=== PATIENT | male | born 1985 | race Caucasian/White ===

== ENCOUNTER 2018-03-13 01:09 | Emergency (ER) | payer SELFPAY ==
[2018-03-13 01:09] VITALS: BP 155/102; PULSE 71; RESP 16; TEMP 36.3; O2SAT 99; BMI 29.9
--- NOTE | 2018-03-13 01:48 | CT_ITS ---
STUDY: CTA OF THE BRAIN REASON FOR EXAM: Male, 32 years old. Headache for one week. RADIATION DOSAGE (If Supplied By Facility): CTDIvol = ( 26.12 ) mGy, DLP = ( 1116.56 ) mGycm TECHNIQUE: CT angiography was performed with a multi-detector CT scanner. Data acquisition was obtained from the skull base through the vertex following intravenous administration of ml of . MIP images were reconstructed from the axial data set. Post-processing of the angiographic images was performed, with multiplanar reformation and 3D reconstruction. Individualized dose optimization techniques were used for this CT. COMPARISON: None. FINDINGS: Normal bilateral petrous carotid arteries. Normal right cavernous carotid artery with a normal supraclinoid bifurcation. Normal left cavernous carotid artery with a normal supraclinoid bifurcation. Normal right A1 segments of the anterior cerebral artery. Normal left A1 segments of the anterior cerebral artery. Normal intact anterior communicating artery (ACOM). Normal bilateral A2 segments of the anterior cerebral arteries. Normal right M1 and M2 segments of the middle cerebral arteries, with a normal M1 bifurcation. Normal left M1 and M2 segments of the middle cerebral arteries, with a normal M1 bifurcation. Faintly visualized right posterior communicating artery (PCOM). Faintly vision left posterior communicating artery (PCOM). There is a small atretic left vertebral artery with a dominant right vertebral artery. Normal basilar artery with a normal basilar bifurcation. The visualized bilateral superior cerebellar (SCA) arteries are normal. There is no demonstrated definite aneurysm of the false pass of Hernandez within the limitation of this examination. There is no demonstrated abnormality of the visualized brain. CT/CTA Head W/WO Contrast IMPRESSION: No demonstrated hemodynamically significant stenosis. Electronically Signed: Que Patel MD at 3:25 EDT Tel , Service support ,
[2018-03-13] MEDS: Metoclopramide 10 MG/2 ML Vial IV (02:13)
[2018-03-13] MEDS: 0.9% Normal Saline 1,000 ML 999 ML IV (02:13)
[2018-03-13 03:24] VITALS: RESP 18
--- NOTE | 2018-03-13 03:40 | ED.VISSUMM ---
- ER Visit Summary Date of Service: 03/13/18 Chief Complaint: Headache History of Present Illness: The patient is a 32 M who presents with a headache. He is very concerned that this may be due to an aneurysm. He complains of constant left-sided headache for about 1 week after sexual intercourse. This was sudden onset. He states it is in the back left side of his head and comes forward to behind his left eye. He reports nausea without vomiting. He reports occasional blurred vision. No photophobia. No fever. No history of similar symptoms. He has a history of disc disease but really no other medical history. Physical Examination: Afebrile vitals notable for blood pressure 155/102 Moist mucous membranes Heart regular rate and rhythm Lungs clear Alert and oriented with no focal or lateralizing neurological deficits normal strength normal sensation no ataxia Neck is supple no meningismus no nuchal rigidity Test Results: CTA of the head was obtained which is normal. Emergency Department Course and Treatment: Patient was given IV Reglan with improvement of symptoms. He has a normal CTA of the head and normal brain. He was reassured that there is no evidence of aneurysm based on imaging. He was advised to follow-up as an outpatient with his primary care physician. He was advised that if symptoms continue may need further workup possibly to include an MRI of the brain and neurology referral. He understands to return for new or worsening symptoms. He states he feels much better. Patient discharged home in good condition. Treatment Plan: [] Disposition: Discharge Impression: Headache This note was generated with [employer] dictation software. It may contain incorrect words, spelling, and punctuation that were not noted in review of the chart prior to signing ED Disposition - Plan for ED Patient: Chief Complaint: Headache Referrals: Castro Zambrano MD [Primary Care Provider] -
--- NOTE | 2018-03-13 03:42 | ED.DEP ---
ED Disposition - Plan for ED Patient: Chief Complaint: Headache Instructions: ED Cephalgia Unspecified Referrals: Castro Zambrano MD [Primary Care Provider] -
[2018-03-13 03:47] VITALS: BP 131/81; PULSE 63; RESP 16; O2SAT 99
== END 2018-03-13 03:48 | disposition home or self-care (01) ==
LOC: ED 01:50
PROVIDERS: Emergency Provider Emergency Medicine; Family Provider Family Medicine; PCP Family Medicine
DX: R51 Headache (principal)
CPT/HCPCS: 70496; 96361; 96374; 99284; J7030; Q9967

== ENCOUNTER 2018-06-26 05:34 | Emergency (ER) | payer SELFPAY ==
[2018-06-26 05:38] VITALS: BP 130/112; PULSE 100; RESP 20; TEMP 36.8; O2SAT 99; BMI 36.6
--- NOTE | 2018-06-26 06:00 | ED.VIS.GEN ---
History of Present Illness Chief Complaint: Back Informant: Patient Onset: Days - 2 Context: Sudden Onset - helping a friend lift a lawnmower Timing: Continuous Quality: pain Location: mid-low back, and off to the left Current Severity: Severe Maximum Severity: Severe Worsened by: movement Relieved by: remaining still Associated Symptoms: no radiation into LEs, no numbness, no bowel or bladder dysfunction Narrative: History of prior back injuries and sciatica, states this is different and worse and he wants to make sure he does not have anything fractured so that it is safe for him to go back to work. He states he has listed heavy things before and has no issues with that, but is afraid may be he tried to lift this heavy lawnmower the wrong way, he admits he was using his back and set of his legs to lift. He has a history of degenerative disks and sciatica and states he is not having any sciatica symptoms. - Past Medical History (1) Sciatica Status: Chronic Past Medical History - Allergies and Home Meds Allergies/Adverse Reactions: Allergies hydrocodone Adverse Reaction (Mild, Verified 06/26/18 05:37) Itching Primary Care Physician: Castro Zambrano MD [Primary Care Provider] - Smoking Status: Never smoker Drugs: None Review of Systems General: Denies: Chills, Fever Gastrointestinal: Denies: Abdominal pain, Nausea, Vomiting Musculoskeletal: Reports: Back pain. Denies: Swelling, Extremity Pain Skin: Denies: Rash, Wounds Neurological: Denies: Headache, Weakness, Parasthesia, Numbness Physical Exam Vital Signs/Narrative: Vital Signs Temp Pulse Resp BP Pulse Ox 06/26/18 05:38 98.2 F 100 20 H 130/112 H 99 Inital Vital Signs reviewed: Yes General: Well nourished, Well developed, - - nad Head: Normocephalic, Atraumatic Eyes: Perrl, EOMI Back: Normal Inspection, Spinal tenderness - lower thoracic midline, and left paraspinal musculature. no lumbosacral midline tenderness.. Negative for: CVA tenderness Extremities: Nontender, No edema, - - negative BLE straight leg raises while sitting. Skin: Normal color, No rash Neurological: Alert, Oriented x3, Cranial nerves II-XII grossly intact, Normal Strength, Normal Sensation, Normal DTR, Normal Gait Psychological: Normal affect Diagnostic/Tx/Re-eval Clinical Impression(s) from Imaging Studies Thoracic Spine X-Ray 06/26/18 06:20 IMPRESSION: Normal x-ray examination of the thoracic spine. Electronically Signed: Luis Miguel Melton MD at 6:43 EDT , Service support , - Medical Decision Making X-rays show no acute fractures. He was given a shot of Toradol which helped some. Consistent with a thoracic strain. Given appropriate discharge instructions and is a prescription for naproxen. He is comfortable with this plan. I offered him light duty, and he is appreciative but declines however, he states he cannot take off work. ED Disposition - Plan for ED Patient: Disposition: Home or Assisted Living Chief Complaint: Back Diagnosis: Acute thoracic myofascial strain Instructions: ED Sprain Thoracic Spine Prescriptions: Naproxen [Naprosyn] 500 mg PO BID PRN #20 tab Referrals: Castro Zambrano MD [Primary Care Provider] - 1 Week if not improving
[2018-06-26] MEDS: Ketorolac 60 MG/2 ML Vial IM (06:03)
--- NOTE | 2018-06-26 06:20 | RAD_ITS ---
STUDY: X-RAY - THORACIC SPINE REASON FOR EXAM: Male, 32 years old. Back pain TECHNIQUE: For view(s) of the thoracic spine were obtained. COMPARISON: None. FINDINGS: Normal kyphosis of the thoracic spine. There is no substantial scoliosis. Normal thoracic vertebrae and endplates. Normal disc space heights. The soft tissue structures are unremarkable. RAD/Thoracic Spine 2 Views IMPRESSION: Normal x-ray examination of the thoracic spine. Electronically Signed: Luis Miguel Melton MD at 6:43 EDT , Service support ,
[2018-06-26 07:04] VITALS: RESP 18
== END 2018-06-26 07:05 | disposition home or self-care (01) ==
PROVIDERS: Emergency Provider Emergency Medicine; Family Provider Family Medicine; PCP Family Medicine
DX: S29.012A Strain of muscle and tendon of back wall of thorax, initial encounter (principal); X50.0XXA Overexertion from strenuous movement or load, initial encounter; Y93.89 Activity, other specified
CPT/HCPCS: 72070; 96372; 99283

== ENCOUNTER 2018-08-06 18:27 | Emergency (ER) | payer SELFPAY ==
[2018-08-06 18:28] VITALS: BP 152/96; PULSE 75; RESP 15; TEMP 35.8; O2SAT 97; BMI 35.9
--- NOTE | 2018-08-06 18:55 | RAD_ITS ---
STUDY: X-RAY - LEFT HAND REASON FOR EXAM: Male, 33 years old. Laceration. TECHNIQUE: 3 view(s) of the hand. COMPARISON: None. FINDINGS: Normal radiocarpal articulation. Normal distal radioulnar joint. Normal visualized carpal bones. Normal carpal articulations Normal carpometacarpal articulation of the thumb. Normal second through fifth carpometacarpal joints. Normal metacarpi. Normal metacarpophalangeal joint of the thumb. Normal interphalangeal joint of the thumb. Normal proximal and distal phalanges of the thumb. Normal metacarpophalangeal joints of the second through fifth fingers. Normal proximal and distal interphalangeal joints of the second through fifth fingers. Normal phalanges of the second through fifth fingers. The soft tissue structures are unremarkable. RAD/Hand Min 3 Views IMPRESSION: Normal x-ray examination of the hand. Electronically Signed: Mars Spence MD at 19:38 EST , Service support ,
--- NOTE | 2018-08-06 19:05 | ED.DCSUM_ITS ---
- ER Visit Summary Date of Service: 08/06/18 Chief Complaint: [] Punched a wooden shelf left hand pain History of Present Illness: The patient is a 33 M [] punched a wooden shelf has left hand pain over his knuckles he has some scattered abrasions as well possibly a small 1 cm laceration over the knuckles no loss of function just pain no other complaints shots are up-to-date Physical Examination: [] 152/92 General, no distress resting comfortably HEENT is generally unremarkable The neck is supple no adenopathy Cardiovascular, regular rate and rhythm Lungs, clear bilateral Abdomen, soft nontender Extremities, there are scattered abrasions to the right hand the hand is otherwise unremarkable full range of motion, the left hand he has some discomfort over the knuckles he is able to flex and extend his fingers neurovascular function is intact, he appears to have abrasions and possibly a very superficial laceration over the knuckle of the fourth digit there is no signs of foreign body and again hand function unremarkable wrist forearm elbow function normal Neurologic, awake alert answering questions appropriately moving all 4 extremities Test Results: [] Emergency Department Course and Treatment: [] The area was copiously irrigated cleansed with soap wound care sterile prep x-rays X-ray shows nothing acute there was one very superficial laceration over the knuckle the patient not wish to have sutures the area was again sterilely prepped and then closed with glue with good results he was instructed on hand injury instructions Naprosyn Motrin [id number] for the pain and a follow- up with his family doctors for further management Treatment Plan: [] Disposition: [] Home stable Impression: [] Left hand contusion with superficial laceration 1 cm closed with glue This note was generated with [employer] dictation software. It may contain incorrect words, spelling, and punctuation that were not noted in review of the chart prior to signing ED Disposition - Plan for ED Patient: Chief Complaint: Upper Extremity Injury Referrals: Castro Zambrano MD [Primary Care Provider] -
[2018-08-06] MEDS: Naproxen 500 MG Tablet PO (19:11)
--- NOTE | 2018-08-06 19:45 | ED.DEP ---
ED Disposition - Plan for ED Patient: Chief Complaint: Upper Extremity Injury Instructions: ED Crush Injury Finger No Fx Referrals: Castro Zambrano MD [Primary Care Provider] -
[2018-08-06 20:13] VITALS: RESP 16
--- NOTE | 2018-08-06 20:14 | ED.RN ---
TELFA AND KERLIX APPLIED TO PT'S HAND. REVIEWED D/C INSTRUCTIONS, FOLLOW UP CARE, AND S/S THAT WOULD WARRANT A RETURN TO THE ED WITH PT. PT VERBALIZED AN UNDERSTANDING AND DENIES FURTHER QUESTIONS FOR THIS RN. PT SKIN P/W/D, RESP EVEN AND UNLABORED, PT A&O X 3, NO DISTRESS NOTED. PT AMBULATED OUT OF ED, GAIT STEADY.
== END 2018-08-06 20:17 | disposition home or self-care (01) ==
PROVIDERS: Emergency Provider Emergency Medicine; Family Provider Family Medicine; PCP Family Medicine
DX: S61.412A Laceration without foreign body of left hand, initial encounter (principal); W22.09XA Striking against other stationary object, initial encounter; Y93.9 Activity, unspecified; Y92.9 Unspecified place or not applicable
CPT/HCPCS: 12001; 73130; 99283

== ENCOUNTER 2018-10-29 00:40 | Emergency (ER) | payer OTHER, SELFPAY ==
[2018-10-29 00:42] VITALS: BP 103/93; PULSE 82; RESP 15; TEMP 36.8; O2SAT 99; BMI 38.0
--- NOTE | 2018-10-29 00:46 | ED.RN ---
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
--- NOTE | 2018-10-29 00:50 | ED.RN ---
PT INITIALLY SAID HE DID NOT WANT TO FILE WORKERS COMP, BUT NOW REPORTS TO THIS RN THAT HE WANTS TO FILE.
--- NOTE | 2018-10-29 00:52 | ED.VIS.GEN ---
History of Present Illness Chief Complaint: Allergic Reaction Informant: Patient Onset: Hours - 1 Context: Gradual Onset - about 20 min after skin exposure on left hand to an industrial soap at work Timing: Continuous Quality: pruritis Location: all over Current Severity: Moderate Maximum Severity: Moderate Worsened by: nothing Relieved by: nothing - took Benadryl 50mg JPTA Associated Symptoms: rash, otherwise none. no sob or lightheadedness. Narrative: Work related exposure. States he was wearing gloves but a small piece of his skin on his left hand was exposed and some soap splashed on it. Within 15 or 20 minutes he was starting to itch there and then it progressed to all over. He has no other systemic symptoms. Prior similar symptoms: Yes - other skin exposures Recent Illness/Hospitalization: No - Past Medical History (1) DDD (degenerative disc disease), lumbar Status: Chronic Past Medical History - Allergies and Home Meds Allergies/Adverse Reactions: Allergies hydrocodone Adverse Reaction (Mild, Verified 10/29/18 00:41) Itching Primary Care Physician: Castro Zambrano MD [Primary Care Provider] - Smoking Status: Never smoker Review of Systems General: Denies: Chills, Fever Eyes: Denies: Visual changes - bilaterally, Diplopia Cardiovascular: Denies: Chest pain, Heart racing Respiratory: Denies: Dyspnea, Cough Gastrointestinal: Denies: Nausea, Vomiting Musculoskeletal: Denies: Swelling, Extremity Pain Skin: Reports: Rash. Denies: Abrasions Physical Exam Vital Signs/Narrative: Vital Signs Temp Pulse Resp BP Pulse Ox 10/29/18 00:42 98.2 F 82 15 103/93 H 99 Inital Vital Signs reviewed: Yes General: Well nourished, Well developed, No Acute Distress Head: Normocephalic, Atraumatic Eyes: Perrl, EOMI Neck: Supple, Nontender Respiratory: No distress, CTA bilaterally Extremities: Nontender, No edema Skin: Normal color, Rash - mild erythema, patchy, back and right lateral proximal arm. no other rashes. Neurological: Alert, Oriented x3, Cranial nerves II-XII grossly intact, Normal Strength, Normal Sensation Psychological: Normal affect, Normal Mood Diagnostic/Tx/Re-eval - Medical Decision Making No signs of anaphylaxis. Patient given prednisone and Pepcid and discharged with a prescription for 2 more days of prednisone, the identification and the MSDS of the substance is not available at this time and it seems the patient has had a quick reaction, so it is possible he will need a couple more days of prednisone. He states Benadryl typically makes him very sleepy so he will not be able to safely work the rest of his shift. ED Disposition - Plan for ED Patient: Disposition: Home or Assisted Living Diagnosis: Allergic reaction to chemical substance Instructions: ED Allergic Reaction General Other Prescriptions: Prednisone 20 mg PO QHS #4 tab Referrals: Castro Zambrano MD [Primary Care Provider] - [facility] [facility] [GROUP OF PHYSICIANS] - (by end of the week -- call for appt; return to ER if short of breath)
[2018-10-29] MEDS: Famotidine 20 MG Tablet 40 MG PO (00:56)
[2018-10-29] MEDS: predniSONE 20 MG Tablet 40 MG PO (00:56)
[2018-10-29] MEDS: DiphenhydrAMINE 25 MG Capsule 50 MG PO (01:21)
== END 2018-10-29 01:34 | disposition home or self-care (01) ==
PROVIDERS: Emergency Provider Emergency Medicine; Family Provider Family Medicine; PCP Family Medicine
DX: T78.49XA Other allergy, initial encounter (principal); X58.XXXA Exposure to other specified factors, initial encounter; Y99.0 Civilian activity done for income or pay
CPT/HCPCS: 99283

== ENCOUNTER → 2019-08-02 10:14 | Outpatient (CLI) | payer OTHER, SELFPAY ==
--- NOTE | 2019-08-02 10:22 | MRI_ITS ---
STUDY: MRI RIGHT SHOULDER ARTHROGRAM REASON FOR EXAM: Male, 34 years old. Right shoulder impingement. TECHNIQUE: Standardized fat and water weighted pulse sequences were obtained in all 3 orthogonal planes following the intra-articular administration of dilute Dotarem in the department. COMPARISON: None. FINDINGS: Contrast is injected into the subdeltoid bursa. No significant intra-articular contrast. The joint is not distended. There is patient motion on several pulse sequences. Trace signal abnormality in the distal supraspinatus tendon suggests tendinosis. There is no high-grade tear. Infraspinatus, subscapularis, and teres minor tendons are intact with no evidence of tear. Proximal muscles of the rotator cuff are unremarkable. Marrow signal is normal. No demonstrated fracture, bone contusion, or osteonecrosis. Long head of the biceps tendon is intact. Biceps-labral anchor is unremarkable. No demonstrated labral abnormality. Normal acromioclavicular articulation. There is a Type I morphology (flat undersurface), with a neutral orientation. Normal visualized coracohumeral and coracoacromial ligaments. MRI/Upper Ext Jt Only W/Contrast IMPRESSION: 1. This study is limited by injection into the subdeltoid bursa and absence of contrast in the joint space. 2. Supraspinatus tendinosis or low-grade partial tear. Otherwise negative study. Electronically Signed: Airam Mccall MD at 23:52 EST Tel , Service support ,
--- NOTE | 2019-08-02 10:28 | RAD_ITS ---
CLINICAL HISTORY: Male, 34 years old. Chronic right shoulder pain. PROCEDURE: ARTHROGRAM - RIGHT SHOULDER. CONSENT: The procedure as well as the benefits and possible complications including infection and bleeding were explained to the patient. Informed consent was obtained. FLUOROSCOPY TIME (if supplied): (20 seconds) minutes/seconds Injection Information: 10 cc of dilute MRI contrast. Number of images obtained: 4 TECHNIQUE: (All elements of maximal sterile barrier technique followed, including US elements as applicable) The patient was in the supine position. The overlying skin was prepped and draped in the usual sterile fashion. Following local anesthetic application and under direct fluoroscopic guidance, a 22-gauge spinal needle was placed into the shoulder joint. 2 cc of Isovue 300 was injected for confirmation. Following this, 10 cc of dilute contrast was injected. The patient tolerated the procedure well. RAD/Arthrogram Shoulder w/ MRI IMPRESSION: Successful right shoulder arthrogram for MRI examination. The patient tolerated the procedure well. Electronically Signed: Zoltan Caruso, at 12:41 EST , Service support ,
== END ==
PROVIDERS: Family Provider Family Medicine; PCP Family Medicine; Referring Provider Physician Assistant; Visit Provider Physician Assistant
DX: M75.41 Impingement syndrome of right shoulder (principal)
CPT/HCPCS: 23350; 73222; 77002; A9575; Q9967

== ENCOUNTER → 2019-09-29 13:11 | Outpatient (CLI) | payer MEDICAID, SELFPAY ==
--- NOTE | 2019-09-29 13:24 | MRI_ITS ---
HISTORY: Increasing pain since foot injury 7 years ago. Technique: Sagittal T1-T2 and STIR axial T1 and T2-weighted images were obtained through the lumbar spine. 124 images. Comparison imaging x-rays of the lumbar spine from October 09, 2015. Findings: Bony alignment is normal. Vertebral body height is normal. Marrow signal is normal. Disc height and disc desiccation are present at the L4-L5 and L5-S1 levels. Facets are adequately aligned. The conus medullaris is at that T12 level. A retroaortic left renal vein is present, normal anatomic variant. Visualized portions of the abdominal aorta without aneurysm. Prevertebral and paraspinal soft tissues are normal. The L1-L2, and L2-L3 levels are normal. At the L3-L4 level facet arthropathy ligamental thickening and a disc bulge are present. On the left side the bulging disc abuts adjacent to the exiting left L4 nerve displacing it, but without impingement. At the L4-L5 level facet arthropathy, ligamentum thickening, and disc bulge are present. No neural impingement is perceived. At the L5-S1 level there is a small enthesophyte extending off the posterior inferior aspect of the L5 vertebral body centrally into the spinal canal contributing to left-sided neural foraminal stenosis, without impingement of the S1 nerve. MRI/Spine Lumbar (Routine) IMPRESSION: Degenerative disc disease at the L4-L5 and L5-S1 levels. Some facet arthropathy, ligamentum thickening contributing to mild spinal canal stenosis at the L3-L4, L4-L5, and L5-S1 levels. Facet arthropathy, ligamentum thickening, and lateral disc bulges contribute to some neural foraminal stenosis within the lower lumbar spine, without identified neural impingement. at 2107 Reported and signed by: Brooks Rosa MD Electronically Signed: Brooks Rosa MD at 21:06 EST Tel , Service support ,
== END ==
PROVIDERS: PCP Family Medicine; Referring Provider Physician Assistant; Visit Provider Physician Assistant
DX: M51.36 Other intervertebral disc degeneration, lumbar region (principal)
CPT/HCPCS: 72148

== ENCOUNTER 2019-10-22 08:49 | Emergency (ER) | payer MEDICAID, SELFPAY ==
[2019-10-22 08:49] VITALS: BP 134/63; PULSE 94; RESP 20; TEMP 36.7; O2SAT 100; BMI 38.6
--- NOTE | 2019-10-22 09:00 | RAD_ITS ---
STUDY: X-RAY CHEST REASON FOR EXAM: Male, 34 years old. CP X 1 WK. FAM HX STEMI TECHNIQUE: Single AP portable view of the chest. COMPARISON: Comparison is made with prior study dated March 14, 2015. FINDINGS: EKG electrodes are seen. The lungs are clear and expanded. There is no demonstrated pleural abnormality. Normal size heart. Normal mediastinum and jose juan. Normal visualized pulmonary arteries. Normal visualized aortic arch and descending thoracic aorta. Normal visualized thoracic spine. Normal visualized ribs, clavicles, and shoulders. There is no demonstrated abnormality of the visualized soft tissue structures of the upper abdomen. RAD/Chest 1 View (Portable) IMPRESSION: Normal x-ray examination of the chest. Electronically Signed: Zoltan Caruso, at 9:55 EST , Service support ,
--- NOTE | 2019-10-22 09:00 | EKG12_ITS ---
Test Reason : CP Blood Pressure : / mmHG Vent. Rate : 087 BPM Atrial Rate : 087 BPM P-R Int : 128 ms QRS Dur : 086 ms QT Int : 348 ms P-R-T Axes : 041 087 059 degrees QTc Int : 418 ms Normal sinus rhythm Normal ECG Confirmed by MARTINA VALLEJO, KEYANA ([id number]), slot editor MARTHA ODOM ([id number]) on 10/25/2019 2:23:39 PM Referred By: NITISH Confirmed By:KEENA MACK MD
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
[2019-10-22 09:16] LABS: Absolute Lymphocyte Count 3.44 X10^3/uL (0.83-4.51); Absolute Neutrophil Count 5.2 X10^3/uL (2.0-7.7); Basophil# 0.02 X10^3/uL; Basophil% 0.2 % (0-1); Eosinophil# 0.07 X10^3/uL; Eosinophils% 0.7 % (0-5); Hematocrit 46.1 % (40-54); Lymphocyte # 3.44 X10^3/ul (4.0); Lymphocyte % 36.4 % (19-41); Mean Corp Hgb Conc 34.7 g/dL (32-36); Mean Corpuscular Hgb 29.8 pg (27.0-32.0); Mean Corpuscular Volume 85.8 fL (80-94); Mean Platelet Vol. 9.8 fl (6.2-12.0); Monocyte# 0.69 X10^3/uL; Monocyte% 7.3 % (0-10); NRBC Flagged by Analyzer 0 % (0-5); Neutrophil % 55.1 % (47-70); Platelet Count 274 K/mm3 (150-450); RBC Distribution Width CV 12.1 % (11.6-14.6); RBC Distribution Width SD 37.7 fl (35.1-43.9); Red Blood Count 5.37 M/mm3 (4.6-6.2); White Blood Count 9.5 K/mm3 (4.4-11.0)
[2019-10-22 09:18] VITALS: BP 157/98; PULSE 76; RESP 18; O2SAT 98
[2019-10-22] MEDS: LORazepam 2 MG/ML Syringe 1 MG IV (09:18)
[2019-10-22 09:32] LABS: Anion Gap 6 (5-15); BUN 11 mg/dL (7-18); BUN/Creat Ratio 8.8 RATIO (10-20); Calcium,Total 9.6 mg/dL (8.5-10.1); Chloride 109 mmol/L (98-107); Creatinine, Serum 1.25 mg/dL (0.70-1.30); EST Glomerular Filtration Rate 71 mL/min (>60); Est Glom Filt Rate - Afr Amer 85 mL/min (>60); Estimated Creatinine Clearance 92.26 ml/min; Glucose 106 mg/dL (74-106); Sodium Level 141 mmol/L (136-145)
[2019-10-22 10:07] VITALS: BP 134/75; PULSE 86; RESP 20; O2SAT 98
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
[2019-10-22 12:06] VITALS: BP 146/74; PULSE 82; RESP 20; O2SAT 98
== END 2019-10-22 12:08 | disposition home or self-care (01) ==
PROVIDERS: Emergency Provider Emergency Medicine; PCP Family Medicine
DX: R07.9 Chest pain, unspecified (principal); F41.9 Anxiety disorder, unspecified
CPT/HCPCS: 71045; 80048; 84484; 85025; 93005; 96374; 99284; A4216

== ENCOUNTER 2019-11-02 10:22 | Observation (INO) | payer MEDICAID, SELFPAY ==
[2019-11-02 10:23] VITALS: BP 141/93; PULSE 95; RESP 16; TEMP 36.7; O2SAT 98; BMI 38.0
--- NOTE | 2019-11-02 11:21 | ED.DCSUM_ITS ---
History of Present Illness Chief Complaint: Back Detail of Chief Complaint: Back pain bending over this morning Informant: Patient Onset: Today Context: Sudden Onset Injury: Bending Quality: Dull, Aching Location: Lumbar, Buttock, Left Leg Current Severity: Moderate Maximum Severity: Severe Worsened by: improves with: Movement, Ambulation Relieved by: Nothing Associated Symptoms: Radiation to Left Leg, - - Patient denies bowel bladder dysfunction. He denies saddle paresthesia or anesthesia. He denied his knees buckling going down 1 or 2 steps to exit his house. He denies symptoms of claudication. Pain radiates to his right buttocks and anterior lateral left thigh Narrative: 4-year-old male who states he has herniated disc. He had an MRI performed end of September. He denies fever, chills night sweats. He denies trauma. He denies IV drug use. He is not on any immunosuppressive meds. Prior similar symptoms: Yes Recent Illness/Hospitalization: No - Past Medical History (1) DDD (degenerative disc disease), lumbar Status: Chronic (2) Sciatica Status: Chronic Past Medical History - Allergies and Home Meds Allergies/Adverse Reactions: Allergies hydrocodone Adverse Reaction (Mild, Verified 11/02/19 10:23) Itching Primary Care Physician: Castro Zambrano MD [Primary Care Provider] - Prior records reviewed: Yes - Viewed MRI which reveals degenerative disc disease, herniated disc multiple Lives: Alone Smoking Status: Never smoker Alcohol: None Drugs: None Review of Systems General: Denies: Chills, Fever, Sweats Eyes: Denies: Visual changes - bilaterally, Blurred Vision - bilaterally ENT: Denies: Rhinorrhea, Sore throat Cardiovascular: Denies: Chest pain, Palpitations Respiratory: Denies: Dyspnea, Cough, Dyspnea on exertion Gastrointestinal: Denies: Abdominal pain, Nausea, Vomiting, Diarrhea, Melena, Hematochezia Genitourinary: Denies: Dysuria, Hematuria, Frequency Musculoskeletal: Reports: Back pain, Extremity Pain. Denies: Myalgias, Arthralgias, Neck pain, Swelling Skin: Denies: Rash, Wounds Neurological: Denies: Headache, Weakness, Parasthesia, Numbness Endocrine: Denies: Polyuria, Polydipsia Hematologic: Denies: Easy bruising, Easy bleeding Physical Exam Vital Signs/Narrative: Vital Signs Temp Pulse Resp BP Pulse Ox 11/02/19 10:23 98.1 F 95 16 141/93 H 98 Inital Vital Signs reviewed: Yes General: Well nourished, Well developed, Cachectic Head: Normocephalic, Atraumatic. Negative for: Trauma, Tenderness Eyes: Negative for: Perrl, EOMI, Pale conjunctiva, Scleral icterus ENT: Negative for: Moist mucous membranes, No rhinorrhea Neck: Supple, Nontender Cardiovascular: Regular rate, Regular rhythm, No murmurs, Normal S1, Normal S2 Respiratory: No distress, CTA bilaterally Abdomen: Soft, Nontender, Nondistended, Normal bowel sounds Rectal: - - Normal perianal sensation. Back: Normal Inspection, Negative SLR - Left. Negative for: Nontender, Surgical Scar, Well-Healed, Spinal tenderness, Paraspinal Tenderness, CVA tenderness, Positive SLR - Right, Positive SLR - Left Extremeties: Nontender, No edema Skin: Normal color, No rash. Negative for: Cyanosis, Diaphoresis, Jaundice, No Trauma Neuro: Alert, Oriented, Normal Strength, Normal Sensation, Normal DTR - Decreased patellar reflex on the left compared to the right. Ankle reflexes symmetric. Reflexes: Right Patellar, Right Achilles, Left Patellar - Patella reflexes present but diminished compared to the right, Left Achilles. Negative for: Right Clonus, Right Babinski, Left Clonus, Left Babinski Psychological: Normal affect Diagnostic/Tx/Re-eval - Medical Decision Making Exam is limited unable to perform femoral stretch test. Will medicate patient and reexamine. Concerned his symptoms are related to impingement of L4 nerve root especially since there is a decreased left patellar reflex compared to the right. Patient initially reported improvement. Femoral stretch test is negative. He is in obvious discomfort. 1 mg of Dilaudid was ordered. He does not have findings to suggest cauda equina. Since he had a recent MRI concern his pain is related to his L3-4 herniated disc. This would explain his decreased left patellar reflex compared to the right. This would not explain the pain rad iating posteriorly. Patient has received a second dose of Dilaudid. His pain is decreased from a 9- 7. He still appears in significant discomfort. He does not have acute neurologic findings other than a decreased patellar reflex which would not necessitate emergent surgery. Hospitalist was paged for admission for pain management. ED Disposition - Plan for ED Patient: Disposition: Home or Assisted Living Diagnosis: Lumbosacral radiculopathy at L4 Referrals: Castro Zambrano MD [Primary Care Provider] -
[2019-11-02] MEDS: Ondansetron 4 MG/2 ML Vial IV ×2 (11:40→13:53)
[2019-11-02] MEDS: morphine 8 MG/ML Syringe IV (11:40)
[2019-11-02] MEDS: Ketorolac 15 MG/ML Vial IV (11:40)
[2019-11-02] MEDS: HYDROmorphone 1 MG/ML Syringe IV ×2 (13:53→14:22)
[2019-11-02 13:55] VITALS: BP 108/88; PULSE 64; RESP 16; O2SAT 98
--- NOTE | 2019-11-02 14:16 | ED.RN ---
pt girlfriend called per his request. she was informed that he was in ed and given medication to help his pain. if the pain didn't improve that he may need admitted for pain control. hans cosme rn [id number]
[2019-11-02 15:18] VITALS: PULSE 76; RESP 14; O2SAT 96
[2019-11-02 15:30] VITALS: BMI 38.0
[2019-11-02] MEDS: proCHLORPERazine 10 MG/2 ML Vial 5 MG IV (16:06)
[2019-11-02 16:55] VITALS: BMI 37.9
[2019-11-02 16:59] VITALS: BP 110/58; PULSE 63; RESP 16; TEMP 36.6; O2SAT 98
[2019-11-02] MEDS: Acetaminophen 325 MG Tablet 650 MG PO (17:37)
--- NOTE | 2019-11-02 17:39 | HP.PCM_ITS ---
History of Present Illness Date of Admission: 11/02/19 Chief Complaint: Intractable back pain The patient is a 34 year old M with no significant past medical history presents with intractable back pain. He says that he started having back pain about 7 years ago after he had a right foot injury and started favoring his left side which caused worsening back pain. He states today he bent over and had significant back pain on his left lower back that was paraspinal. He states that he had an MRI at the end of September which showed a disc bulge at L3-L4, L4- L5, with mild spinal canal stenosis. He states that he was just recently seeing pain management and was given the option between surgery and injections and he picked injections however he has not had a chance to get his first 1 yet. He does not take any medications for this, he saves naproxen for when he absolutely needs it. He has not had any loss of bowel or bladder function, and he continues to have sensation in his lower extremities. In the ER a straight leg raise was positive with radiation down his left leg. Past Medical History Past Medical History (Chronic Problems): Chronic Problems Sciatica (Chronic) DDD (degenerative disc disease), lumbar (Chronic) Allergies hydrocodone Adverse Reaction (Mild, Verified 11/02/19 16:56) Itching/anxiety Home Medications: Ambulatory Orders Medication Instructions Recorded Naproxen [Naprosyn] 500 mg PO BID PRN 11/02/19 Surgical History: total knee arthroplasty, tonsillectomy Lives: Alone Smoking Status: Never smoker Tobacco Use: Non-smoker Alcohol: None Drugs: None - *Family History Maternal History Items: - - Rheumatoid arthritis Paternal History Items: Heart Disease Review of Systems Constitutional: Denies: Chills, Fever, Weight Change HEENT: Denies: Head Aches, Sinus Congestion, Sinus Drainage Cardiovascular: Denies: Chest Pain, Palpitations Respiratory: Denies: Cough, Shortness of breath at rest, Sputum production Gastrointestinal: Denies: Abdominal Pain, Nausea, Vomiting Genitourinary: Denies: Dysuria Musculoskeletal: Reports: Back Pain. Denies: Joint Pain, Joint Tenderness Skin: Denies: Rash, Wounds Neurological: Denies: Numbness, Tingling, Focal weakness Psychiatric: Denies: Anxiety, Depression Hematologic/ Lymphatic: Denies: Easy Bruising, Easy Bleeding VTE Information - Inpt Only VTE Present on Admission: No Patient Problems: Active and Suspected Problems Lumbosacral radiculopathy at L4 (Acute) - Physical Exam Vitals/I&O's: Vital Signs Temp Pulse Resp BP Pulse Ox 97.9 F 63 16 110/58 L 98 11/02/19 16:59 11/02/19 16:59 11/02/19 16:59 11/02/19 16:59 11/02/19 16:59 Oxygen Delivery Method Room Air Weight: 279 lb 15.793 oz Body Mass Index (BMI) 37.9 General: Alert, Oriented x3, Cooperative, - - In pain HEENT: Atraumatic, PERRLA, EOMI, Normocephalic Oral: Moist Mucosa Neck: Supple, No JVD Lungs: Clear to auscultation, Normal air movement, No rhonchi, No wheeze, No rales Cardiovascular: Regular rate, Regular Rhythm, Normal S1, Normal S2, No murmurs Abdomen: Soft, Non Tender, Non-Distended, No Hepato-splenomegaly, Obese Extremities: No edema, Capillary Refill Less than 3 Seconds Skin: No rashes, No breakdown Musculoskeletal: Tenderness - Left paraspinal muscle Neurological: Neuro grossly intact, Sensory exam intact to light touch and pain Psych/Mental Status: Restless - From pain Current Medications Acetaminophen (Tylenol) 650 mg PO Q6H PRN PRN PRN Reason: Pain Score 1-10/Temp > 100.7 F Last Admin: 11/02/19 17:37 Dose: 650 mg Documented by: Prednisone () 40 mg PO DAILY@0800 FLORA Sodium Chloride () 10 - 40 ml IV UD PRN PRN Reason: SALINE FLUSH Assessment/Plan All Active Problems Lumbosacral radiculopathy at L4 (Acute) 1. Left lower back pain -Likely secondary to a disc bulge on his previous MRI about a month ago -We will start him on prednisone daily as well as PT/OT -We will consult pain management to evaluate him and potentially do the injection in the hospital -No red flag symptoms to indicate cauda equina and therefore given how recent his MRI was will not repeat 1 2. Morbid obesity -BMI of 37 -Mona lifestyle modifications DVT: Low risk Code Visit OBSV E&M: 92837 Initial observation care L2
[2019-11-02 17:41] VITALS: BP 140/85; PULSE 58; RESP 16; TEMP 36.6; O2SAT 97
[2019-11-02] MEDS: predniSONE 20 MG Tablet 40 MG PO (20:43)
[2019-11-02 20:46] VITALS: BP 122/81; PULSE 65; RESP 16; TEMP 36.6; O2SAT 97
[2019-11-03] MEDS: 0.9% Saline Lock 10 ML Syringe IV ×2 (02:41→10:28)
[2019-11-03] MEDS: Acetaminophen 325 MG Tablet 650 MG PO (02:41)
[2019-11-03 02:46] VITALS: BP 126/81; PULSE 56; RESP 16; TEMP 36.6; O2SAT 97
--- NOTE | 2019-11-03 07:44 | PCM.PN.HOSP ---
Patient Problems: Active and Suspected Problems Lumbosacral radiculopathy at L4 (Acute) Reason for Visit: Follow-up on back pain Subjective: Patient was seen and examined. Vitals/I&O's: Vital Signs Temp Pulse Resp BP Pulse Ox 97.9 F 56 L 16 126/81 H 97 11/03/19 02:46 11/03/19 02:46 11/03/19 02:46 11/03/19 02:46 11/03/19 02:46 Oxygen Delivery Method Room Air Weight: 127 kg Body Mass Index (BMI) 37.9 Intake and Output for Last 24 Hours 11/01/19 11/02/19 11/03/19 23:59 23:59 23:59 Intake Total 120 / 320 600 / 600 Balance 120 / 320 600 / 600 Current Medications Acetaminophen (Tylenol) 650 mg PO Q6H PRN PRN PRN Reason: Pain Score 1-10/Temp > 100.7 F Last Admin: 11/03/19 02:41 Dose: 650 mg Documented by: Ondansetron HCl (Zofran) 4 mg IV Q6H PRN PRN PRN Reason: NAUSEA/VOMITING Prednisone () 40 mg PO DAILY@0800 FLORA Sodium Chloride () 10 - 40 ml IV UD PRN PRN Reason: SALINE FLUSH Last Admin: 11/03/19 02:41 Dose: 10 ml Documented by: Medical Necessity - Tobacco Use Smoking Status: Never smoker Tobacco Use: Non-smoker Assessment/Plan All Active Problems Lumbosacral radiculopathy at L4 (Acute) Code Visit Inpatient E&M: 73993 Subs Hosp L2
[2019-11-03] MEDS: predniSONE 20 MG Tablet 40 MG PO (08:23)
[2019-11-03 08:26] VITALS: BP 140/77; PULSE 63; RESP 18; TEMP 35.9; O2SAT 98
--- NOTE | 2019-11-03 09:28 | NURSING ---
This RN entered pt room this AM to assess pt. Patient angry and states, why aren't they giving me anything for my pain? I could be at home and take these meds. Pt notified that shift stacker reported that patient was sleeping well and doctor notified nurse to let him know if tylenol was not enough when needed early this AM. Per shift stacker report- pt slept all night and then after tylenol- all morning. Pt notified of this and states that he was able to sleep all night. Pt reports that he was given morphine and dilaudid in ER and that they didn't knock him out and the pain was still there. Asked pt how long he has had back pain and he states 7yrs but that he just cries himself to sleep and suffers through. This RN asked pt what he has used in past that has been helpful- pt reports that percocet has been helpful in the past. But then states that he doesn't like to take those kinds of drugs and would rather just suffer through. This RN then asked him- why he is upset if he doesn't want narcotics. Pt reports that he will take it at this time. According to records appears pt has been prescribed percocet in the past from the ER on a few different occasions. This RN asked pt if he has had back pain for 7 yrs who his back specialist is- he states that is his fault and he doesn't have one- he states he just has been suffering through. When asked why he has back pain he reports that he has a large sore on the bottom of his left foot and that it alters the way he walks. This RN observed bottom of foot and noted dry cracked skin around left heel- no draining and no dressing. Asked pt if he has been putting any creams on this area or soaking it- pt reports that he has not. He states that in the last 3 months he has started adulting. He states he had his first dentist appt in years a few weeks ago and is trying to start taking care of things. This RN asked pt when his injection is scheduled for and pt states he doesn't have anything set up and that is his fault as well. Notified by This RN spoke with Dr. Medina and notified her of all of the above. New orders given for toradol and PT/OT. Pt to be notified and given meds when available.
[2019-11-03] MEDS: Acetaminophen 500 MG Tablet 1000 MG PO (10:27)
[2019-11-03] MEDS: Ketorolac 30 MG/ML Syringe IV (10:29)
--- NOTE | 2019-11-03 10:38 | NURSING ---
Pt told this RN that, child support is trying to throw me in skilled nursing and so that is why I went to work and didn't even make it through the day. This always happens.
--- NOTE | 2019-11-03 10:52 | DCINST_ITS ---
- Discharge Diagnoses Current Active Problems: Current Active and Chronic Problems Lumbosacral radiculopathy at L4 (Acute) Reason(s) for Visit for Discharge Instructions: Back pain You will use the following diet at home:: Regular Your food should be the consistency of: Regular Your liquids should be the consistency of: Regular/Thin Discharge Activity: Return to Normal Activity Weight Bearing Status: Weight bearing as tolerated Instructions: Relieving Back Pain, Back Exercises: Bridge Additional Instructions: Continue to take your prednisone. Follow-up with Dr. Luke as scheduled. Allergies/Adverse Reactions: Allergies hydrocodone Adverse Reaction (Mild, Verified 11/02/19 16:56) Itching/anxiety Medications to take at Discharge Naproxen [Naprosyn] 500 mg PO BID PRN 11/02/19 Acetaminophen [Tylenol] 1,000 mg PO TID tablet 11/03/19 predniSONE tablet 40 mg PO DAILY@0800 #5 tab 11/03/19 The following prescriptions were given: predniSONE tablet 40 mg PO DAILY@0800 #5 tab Transmission Status: Pending to [facility] Primary Care Physician: Castro Zambrano MD [Primary Care Provider] - Please follow up with your Primary Care Physician in: within 1-2 weeks Test Results: Test results from this visit will be discussed in further detail at your follow- up appointment, if applicable. Please Follow Up With: Manuel Luke When: as scheduled Proposed Discharge Date: 11/03/19
--- NOTE | 2019-11-03 10:54 | DS.PCM_ITS ---
Discharge Date and Diagnosis - Problem List Patient Problems: Active and Suspected Problems Lumbosacral radiculopathy at L4 (Acute) Date of Admission: 11/02/19 Date of Discharge: 11/03/19 - Primary Discharge Diagnosis Active and Suspected Problems Acute back pain, likely secondaryto acute Lumbosacral radiculopathy at L3-L4 - Secondary Discharge Diagnosis Chronic Problems Sciatica (Chronic) DDD (degenerative disc disease), lumbar (Chronic) Hospital Course and Treatment None Operations: None Procedures: None Summary of Care Provided: The patient is a 34 year old M with past medical history of chronic back pain who recently had an MRI of the low back which showed degenerative disease at level of L4-L5, L5-S1 with some facet arthropathy, ligamentum thickening, mild spinal canal stenosis. Patient follows with Dr. Luke in the outpatient. He had establish care about a week ago and he was given the option of injection versus surgery. He opted to think about it. He came to the emergency department worsening back pain. He was admitted to the [facility] floor and managed on oral steroids as well as NSAIDS. Patient continued to improve. He did not have any loss of bowel or bladder function. He was seen by PT and OT. A cane was recommended for ambulation. Patient was recommended to follow-up with Dr. Luke in the outpatient for lumbar epidural injection. Patient Problems: Active and Suspected Problems Lumbosacral radiculopathy at L4 (Acute) Subjective: On the day of discharge, patient was seen and examined. He is able to ambulate. He was seen walking around the nurses station and also to the bathroom. He was also seen by physical outpatient therapy. Denied any tingling or numbness in lower extremities. - Physical Exam Vitals/I&O's: Vital Signs Temp Pulse Resp BP Pulse Ox 96.7 F L 63 18 140/77 H 98 11/03/19 08:26 11/03/19 08:26 11/03/19 08:26 11/03/19 08:26 11/03/19 08:26 Oxygen Delivery Method Room Air Weight: 127 kg Body Mass Index (BMI) 37.9 Intake and Output for Last 24 Hours 11/01/19 11/02/19 11/03/19 23:59 23:59 23:59 Intake Total 120 / 320 600 / 600 Balance 120 / 320 600 / 600 General: Alert, Oriented x3, Cooperative, No apparent distress HEENT: Atraumatic, PERRLA, EOMI, Normocephalic Oral: Moist Mucosa Neck: Supple Lungs: Clear to auscultation, Normal air movement Cardiovascular: Regular rate, Regular Rhythm, Normal S1, Normal S2, No murmurs Abdomen: Bowel Sounds Present, Soft, Non Tender, Non-Distended, No Hepato- splenomegaly Extremities: No edema Skin: No rashes, No breakdown Musculoskeletal: No Tenderness to Palpation of Joints or Extremities Lymphatic: No Cervical, Supraclavicular, or Inguinal Adenopathy Neurological: Cranial nerves II-XII grossly intact, Neuro grossly intact Psych/Mental Status: Normal Affect, Appropriate Current Medications Acetaminophen (Tylenol) 1,000 mg PO TID [facility] Last Admin: 11/03/19 10:27 Dose: 1,000 mg Documented by: Ketorolac Tromethamine (Toradol (Bkc)) 30 mg IV Q6 FLORA Stop: 11/08/19 10:01 Last Admin: 11/03/19 10:29 Dose: 30 mg Documented by: Ondansetron HCl (Zofran) 4 mg IV Q6H PRN PRN PRN Reason: NAUSEA/VOMITING Prednisone () 40 mg PO DAILY@0800 [facility] Last Admin: 11/03/19 08:23 Dose: 40 mg Documented by: Sodium Chloride () 10 - 40 ml IV UD PRN PRN Reason: SALINE FLUSH Last Admin: 11/03/19 10:28 Dose: 10 ml Documented by: Discharge Diet: No Restrictions Discharge Activity: Return to Normal Activity Weight Bearing Status: Weight bearing as tolerated Home Medications: Medications to take at Discharge Naproxen [Naprosyn] 500 mg PO BID PRN 11/02/19 Acetaminophen [Tylenol] 1,000 mg PO TID tab 11/03/19 predniSONE tablet 40 mg PO DAILY@0800 #5 tab 11/03/19 Following Prescrptions Were Given to Patient: predniSONE tablet 40 mg PO DAILY@0800 #5 tab Transmission Status: Received by JAROD MALDONADO-[address] [facility] Primary Care Physician: Castro Zambrano MD [Primary Care Provider] - Please follow up with your Primary Care Physician in: within 1-2 weeks Please Follow Up With: Manuel Luke When: as scheduled Patient Instructions: Relieving Back Pain, Back Exercises: Bridge Disposition: Home Minutes spent on discharge:: 35 Patient Condition:: Stable Medical Necessity - Tobacco Use Smoking Status: Never smoker Tobacco Use: Non-smoker Meaningful Use Info Meaningful Use Diagnoses (Choose all that apply): None applicable Code Visit OBSV E&M: 10578 Observation care discharge
[2019-11-03 13:22] VITALS: BP 153/78; PULSE 73; RESP 16; TEMP 36.7; O2SAT 98
== END 2019-11-03 14:32 | disposition home or self-care (01) ==
LOC: ED 15:36 → MS3 15:46
PROVIDERS: Admitting Provider Family Medicine; Emergency Provider Emergency Medicine; PCP Family Medicine; Visit Provider Internal Medicine
DX: G89.29 Other chronic pain (principal); M54.17 Radiculopathy, lumbosacral region; M51.36 Other intervertebral disc degeneration, lumbar region; M06.9 Rheumatoid arthritis, unspecified; E66.01 Morbid (severe) obesity due to excess calories; Z68.37 Body mass index [BMI] 37.0-37.9, adult; Z71.3 Dietary counseling and surveillance
CPT/HCPCS: 96374; 96375; 96376; 97162; 97166; 99218; 99284; A4216; G0378; J2405

== ENCOUNTER → 2019-11-08 06:28 | Outpatient (CLI) | payer MEDICAID, SELFPAY ==
[2019-10-22 08:49] VITALS: BMI 38.6
[2019-11-02 16:55] VITALS: BMI 37.9
--- NOTE | 2019-11-08 06:35 | MRI_ITS ---
STUDY: MRI RIGHT SHOULDER REASON FOR EXAM: Male, 34 years old. impingement syndrome rt shoulder, limited r.o.m; increased pain since fall 1 month ago TECHNIQUE: Standardized fat and water weighted pulse sequences were obtained in all 3 orthogonal planes. COMPARISON: 08/02/2019. FINDINGS: Tiny low-grade supraspinatus articular footprint tear (coronal images 15 and 16 series 6 and sagittal image 9 series 7) with mild tendinosis. Mild infraspinatus tendinosis. Mild subscapularis tendinosis with tiny linear tear (sagittal images 16 and 17 series 7 and coronal image 15 series 5). Normal teres minor tendon. No muscle atrophy. Normal intracapsular long biceps tendon. Biceps labral anchor intact. Labrum intact. Capsular ligaments intact. Normal rotator cuff interval. Glenohumeral cartilage preserved. Mild acromioclavicular joint arthrosis. Preserved acromiohumeral interval. No acute fracture. No dislocation. No bone destruction. Glenohumeral joint fluid physiologic. Minimal subacromial subdeltoid bursal fluid (coronal images 5 and 6 series 6). Intact coracohumeral and coracoacromial ligaments. Normal quadrilateral space. Normal axillary space. Normal deltoid muscle. Normal trapezius muscle. MRI/Upper Ext Joint Only(Routine) IMPRESSION: Tiny partial supraspinatus and subscapularis tendon tears without muscle atrophy Mild rotator cuff tendinosis Mild AC joint arthrosis with mild subacromial subdeltoid bursal fluid Electronically Signed: Dexter Pelletier DO at 9:57 EDT Tel , Service support ,
== END ==
PROVIDERS: PCP Family Medicine; Referring Provider Physician Assistant; Visit Provider Physician Assistant
DX: M65.811 Other synovitis and tenosynovitis, right shoulder (principal); M75.41 Impingement syndrome of right shoulder
CPT/HCPCS: 73221

== ENCOUNTER 2019-11-15 10:07 | Day surgery (SDC) | payer MEDICAID, SELFPAY ==
[2019-11-15 10:26] VITALS: BP 134/91; PULSE 75; RESP 18; TEMP 36.4; O2SAT 99; BMI 38.4
[2019-11-15] MEDS: Lactated Ringers 1,000 ML 100 ML IV (10:44)
[2019-11-15] MEDS: Bupivacaine 0.25% 30 ML Vial OPERA.SITE (10:54)
[2019-11-15] MEDS: 0.9% Normal Saline (Pres. free 10 ML Vial (10:54)
[2019-11-15] MEDS: MethylPREDNISolone Acetate 80 MG/ML Vial (10:54)
--- NOTE | 2019-11-15 10:54 | PCM.OPRPT ---
Report of Operation Date of Procedure: 11/15/19 Description of Surgical Findings:: PREOPERATIVE DIAGNOSIS: Lumbosacral radiculopathy, lumbosacral degenerative disc disease, lumbosacral spinal stenosis POSTOPERATIVE DIAGNOSIS: Lumbosacral radiculopathy, lumbosacral degenerative disc disease, lumbosacral spinal stenosis PROCEDURE PERFORMED: Diagnostic/therapeutic caudal epidural steroid injection. ANESTHESIA: MAC. BLOOD LOSS: Minimal. COMPLICATIONS: None. DESCRIPTION OF PROCEDURE: History and physical of today was reviewed. Risks and benefits of the procedure were explained. The patient understood and agreed to proceed. Informed consent was obtained. IV inserted per routine protocol. The patient was taken to the operating room and placed in the prone position with a pillow positioned underneath the abdomen. The lower back and tailbone area was prepped and draped in a sterile fashion using iodine x3. Under fluoroscopy guidance on a lateral view, the caudal space was identified. The skin and subcutaneous tissue was anesthetized with approximately 3 mL of 1% lidocaine using a 25-gauge regular needle. Under direct visualization with fluoroscopy, using a 22-gauge 3-1/2-inch spinal needle, the needle was advanced via the skin through the sacral hiatus. The tip of the needle was passed through the sacrococcygeal ligament and advanced to approximately S4 area. After negative aspiration of blood or CSF, a total of 3 mL of contrast was injected to confirm correct placement of the needle as well as cephalad spread. The spread was followed to approximately L5 area. After confirmation on AP as well as lateral view and repeated negative aspiration, a total of 15 mL of preservative-free 0.125% Marcaine with 80 mg of Depo-Medrol was injected easily. The needle was then removed intact. The patient experienced no sign or symptoms of intrathecal or intravascular injection. The patient experienced no paresthesia. The procedure was completed without any apparent difficulty or any complications. The patient appeared to tolerate it well. ASSESSMENT AND PLAN: This is a 34-year-old male with lumbosacral radiculopathy, lumbosacral degenerative disc disease, lumbosacral spinal stenosis status post diagnostic/therapeutic caudal epidural steroid injection patient will continue his current medications patient found approximately 2 weeks for reevaluation.
[2019-11-15 11:04] VITALS: BP 110/76; BP 134/91; PULSE 76; RESP 18; TEMP 36.8; O2SAT 98
[2019-11-15 11:10] VITALS: BP 131/78; BP 134/91; PULSE 73; RESP 18; O2SAT 96
[2019-11-15 11:20] VITALS: BP 128/82; BP 134/91; PULSE 70; RESP 16; TEMP 36.7; O2SAT 99
--- NOTE | 2019-11-15 11:30 | RAD_ITS ---
PROCEDURE: Caudal block DATE OF EXAMINATION: November 15, 2019 INDICATION: Male, 34 years old. Low back pain. FLUOROSCOPY TIME (if supplied): (11 seconds) minutes/seconds Intraoperative fluoroscopic services provided for caudal block. RAD/Fluor Guidance for Spine Inj IMPRESSION: Intraoperative fluoroscopic services provided for caudal block. Electronically Signed: Zoltan Caruso, at 14:35 EDT , Service support ,
[2019-11-15 11:39] VITALS: BP 134/91
== END 2019-11-15 11:40 | disposition home or self-care (01) ==
LOC: SDC 10:08 → AC 10:09
PROVIDERS: PCP Family Medicine; Referring Provider Anesthesiology Pain Medicine; Visit Provider Anesthesiology Pain Medicine
PROC: 3E0S3BZ Introduction of Anesthetic Agent into Epidural Space, Percutaneous Approach (ICD-10-PCS; CPT 62282; principal; 2019-11-15 11:25)
DX: M48.07 Spinal stenosis, lumbosacral region (principal); M51.17 Intervertebral disc disorders with radiculopathy, lumbosacral region; I10 Essential (primary) hypertension; M06.9 Rheumatoid arthritis, unspecified; Z79.899 Other long term (current) drug therapy
CPT/HCPCS: 01992; 62323; 64483; 77003; J7120; J3490

== ENCOUNTER 2020-04-07 09:27 | Emergency (ER) | payer MEDICAID, SELFPAY ==
[2020-04-07 09:28] VITALS: BP 149/99; PULSE 89; RESP 18; TEMP 36.3; O2SAT 97; BMI 38.6
--- NOTE | 2020-04-07 09:38 | ED.VIS.GEN ---
History of Present Illness Chief Complaint: Lower Extremity Injury Informant: Patient Narrative: 34-year-old male presenting with left foot pain. He states he simply stepped out of his car onto the distal aspect of his foot and is been hurting at the base of the first and second left toe since then. He is ambulatory with antalgic gait. He said history of fractures of his bilateral ankles. He has been seeing a assembler erector for his left heel pain. Past Medical History - Allergies and Home Meds Allergies/Adverse Reactions: Allergies hydrocodone Adverse Reaction (Mild, Verified 04/07/20 09:30) Itching/anxiety Primary Care Physician: Castro Zambrano MD [Primary Care Provider] - Prior records reviewed: Yes Surgical History: total knee arthroplasty, tonsillectomy Lives: Alone Smoking Status: Never smoker - Family History Maternal Family History: Reports: - - Rheumatoid arthritis Paternal Family History: Reports: Heart Disease Review of Systems Eyes: Denies: Visual changes - bilaterally, Diplopia ENT: Denies: Rhinorrhea, Sore throat Cardiovascular: Denies: Chest pain, Palpitations Respiratory: Denies: Dyspnea, Cough, Dyspnea on exertion Genitourinary: Denies: Dysuria, Hematuria, Frequency Musculoskeletal: Reports: - - Left foot pain Skin: Denies: Rash, Wounds Neurological: Denies: Headache Physical Exam Vital Signs/Narrative: Vital Signs Temp Pulse Resp BP Pulse Ox 04/07/20 09:28 97.4 F L 89 18 149/99 H 97 General: Well nourished, No Acute Distress Head: Normocephalic, Atraumatic Eyes: Perrl Cardiovascular: Regular rate Respiratory: No distress Extremities: - - Numbness to palpation over the dorsum of the left foot and the base of the first and second toes. There is no bruising or swelling. 2+ pulse throughout. Sensation is intact. Diagnostic/Tx/Re-eval - Medical Decision Making Patient presents with foot pain after stepping out of his car. He has no deformities on exam. He is neurovascular intact. I did x-ray the left foot which was normal. Patient will be put in a walking boot for comfort. He has a assembler erector that he will follow-up with. He is given return precautions. Impression: 1. Left foot sprain ED Disposition - Plan for ED Patient: Disposition: Home or Assisted Living Instructions: ED Sprain Foot Referrals: Castro Zambrano MD [Primary Care Provider] -
--- NOTE | 2020-04-07 09:50 | RAD_ITS ---
STUDY: X-RAY - LEFT FOOT CLINICAL: Male, 34 years old. LEFT FOOT PAIN FOR A COUPLE DAYS. PAIN ON TOP OF FOOT AND IN MID FOOT AREA. TECHNIQUE: 3 view(s) of the foot. COMPARISON: Comparison is made with prior study dated 04/25/2016. FINDINGS: Normal talus, calcaneus, and tarsal bones. Normal visualized subtalar, talonavicular, calcaneocuboid, tarsal and tarsometatarsal articulations. Normal metatarsi. Normal metatarsophalangeal joint of the great toe. Normal tibial and fibular sesamoid bones. Normal interphalangeal joint of the great toe. Normal phalanges of the great toe. Normal second through fifth metatarsophalangeal joints. Normal interphalangeal joints and phalanges of the lesser toes. Dorsal soft tissue swelling. Once again, 2 well-defined bony densities are seen in the soft tissues overlying the dorsal aspect of the foot. RAD/Foot min 3 Views IMPRESSION: Soft tissue swelling. Stable examination. Electronically Signed: Zoltan Caruso, at 10:21 EDT , Service support ,
== END 2020-04-07 11:14 | disposition home or self-care (01) ==
PROVIDERS: Emergency Provider Student in an Organized Health Care Education/Training Program; PCP Family Medicine
DX: S93.602A Unspecified sprain of left foot, initial encounter (principal); X58.XXXA Exposure to other specified factors, initial encounter
CPT/HCPCS: 73630; 99283

== ENCOUNTER 2020-08-02 11:57 | Emergency (ER) | payer MEDICAID, SELFPAY ==
[2020-08-02 11:58] VITALS: BP 153/87; PULSE 84; RESP 17; TEMP 36.5; O2SAT 96; BMI 40.0
--- NOTE | 2020-08-02 12:13 | RAD_ITS ---
STUDY: X-RAY CHEST REASON FOR EXAM: Male, 35 years old. CP and palpitations since last night TECHNIQUE: Single AP portable view of the chest. COMPARISON: Comparison is made with prior study dated 10/22/2019. FINDINGS: EKG electrodes are seen. The lungs are clear and expanded. There is no demonstrated pleural abnormality. Normal size heart. Normal mediastinum and jose juan. Normal visualized pulmonary arteries. Normal visualized aortic arch and descending thoracic aorta. Normal visualized thoracic spine. Normal visualized ribs, clavicles, and shoulders. There is no demonstrated abnormality of the visualized soft tissue structures of the upper abdomen. RAD/Chest 1 View (Portable) IMPRESSION: Normal x-ray examination of the chest. Electronically Signed: Zoltan Caruso, at 14:16 EST , Service support ,
--- NOTE | 2020-08-02 12:13 | EKG12_ITS ---
Test Reason : Blood Pressure : / mmHG Vent. Rate : 071 BPM Atrial Rate : 071 BPM P-R Int : 140 ms QRS Dur : 086 ms QT Int : 376 ms P-R-T Axes : 022 067 040 degrees QTc Int : 408 ms Normal sinus rhythm with sinus arrhythmia Normal ECG Confirmed by MARTINA VALLEJO, KEYANA ([id number]), podiatric medicine doctor KORINA ARCEO ([id number]) on 08/04/2020 1:58:38 PM Referred By: CAIO Confirmed By:KEENA MACK MD
--- NOTE | 2020-08-02 12:15 | ED.DCSUM_ITS ---
- ER Visit Summary Date of Service: 08/02/20 Chief Complaint: Chest pain and headache History of Present Illness: The patient is a [address] Coles. He reports that at 930 last evening he took a huge drink of Dr. Dolan and air and that a fist up and expanded in his throat. He reports that he was unable to breathe for short period of time and had a syncopal episode. States that ever since that time he has had a sharp substernal chest pain. 4-10 at worst and he is pain-free currently. Is worsened by intercourse and relieved by nothing. He reports that since that time he is also felt as though his heart is fluttering. Patient reports that he has a history of coital headaches and that he had intercourse an hour ago and has a headache following that that is 6 out of 10 severity. Is posterior to his right eye and sharp. Physical Examination: Vitals: Stable. Afebrile. General: Well-nourished and well-developed. Head: Normocephalic atraumatic. Neck: Supple, no lymphadenopathy. No JVD. Nontender. Cardiovascular: Regular rate and rhythm. No murmurs. Respiratory: No respiratory distress. Clear to auscultation bilaterally. Abdominal: Soft, nontender, nondistended, normal bowel sounds. No guarding, rebound, or peritoneal signs. Back: Nontender. Extremities: Nontender, no edema. Skin: Normal color, no rash. Neurologic: Alert and oriented ?3. Cranial nerves II through XII are intact. Normal strength and sensation. Psych: Normal affect. Test Results: EKG is sinus at 71 with no acute changes. Troponin is negative. LFTs remarkable protein of 8.3. Lipase is normal. Chem-7 shows a quite a 1 week and creatinine 1.34. CBC is normal. CT brain shows no cranial hemorrhage. Chest x-ray is normal. There is no evidence of esophageal rupture. Emergency Department Course and Treatment: Patient was treated with a dose of morphine and Zofran IV. He was given simethicone p.o. He is resting more comfortably. Treatment Plan: Patient will be discharged with symptomatic care. Instructed to follow-up his primary care physician in 3 to 5 days if not improving. Return to the emergency department for any worsening symptoms. Disposition: To home in improved and stable condition. Impression: 1. Atypical chest pain. 2. Cephalgia. This note was generated with [employer] dictation software. It may contain incorrect words, spelling, and punctuation that were not noted in review of the chart prior to signing ED Disposition - Plan for ED Patient: Instructions: ED Chest Pain, Uncertain Cause Referrals: Castro Zambrano MD [Primary Care Provider] - 3-5 Days if not improving
[2020-08-02] MEDS: Morphine 4 MG/ML Syringe IV (13:13)
[2020-08-02] MEDS: Ondansetron 4 MG/2 ML Vial IV (13:14)
[2020-08-02 13:38] LABS: Absolute Neutrophil Count 5.2 X10^3/uL (2.0-7.7); Basophil# 0.01 X10^3/uL; Basophil% 0.1 % (0-1); Eosinophil# 0.09 X10^3/uL; Hematocrit 48.2 % (40-54); Hemoglobin 16.2 g/dL (13.0-16.5); Lymphocyte % 34.1 % (19-41); Mean Corp Hgb Conc 33.6 g/dL (32-36); Mean Corpuscular Hgb 29.9 pg (27.0-32.0); Mean Corpuscular Volume 89.1 fL (80-94); Monocyte# 0.68 X10^3/uL; Monocyte% 7.5 % (0-10); NRBC Flagged by Analyzer 0 % (0-5); Neutrophil # 5.18 X10^3/uL (2.7-7.7); Neutrophil % 57.1 % (47-70); Platelet Count 245 K/mm3 (150-450); RBC Distribution Width CV 12.7 % (11.6-14.6); RBC Distribution Width SD 41.6 fl (35.1-43.9); Red Blood Count 5.41 M/mm3 (4.6-6.2); White Blood Count 9.1 K/mm3 (4.4-11.0)
--- NOTE | 2020-08-02 13:38 | CT_ITS ---
STUDY: CT BRAIN WITHOUT CONTRAST REASON FOR EXAM: Male, 35 years old. POST COITAL HEADACHE. CP WITH PALPITATIONS SINCE LAST NIGHT RADIATION DOSAGE (If Supplied By Facility): CTDIvol = ( 44.99 ) mGy, DLP = ( 796.11 ) mGycm TECHNIQUE: Transaxial CT imaging of the brain was performed without administration of intravenous contrast material. Individualized dose optimization techniques were used for this CT. COMPARISON: No relevant priors. FINDINGS: Normal soft tissue structures. Normal calvarium. Normal size ventricles and extra-axial spaces for the patient''s age. Normal white matter tracts of the cerebral hemispheres. Normal basal ganglia and thalami. Normal brainstem. Normal cerebellum. There is no intracranial hemorrhage. There are no findings of an acute ischemic infarction. Normal visualized paranasal sinuses. CT/Brain/Head without Contrast IMPRESSION: Normal unenhanced CT scan of the brain. Electronically Signed: Zoltan Caruso, at 14:15 EST , Service support ,
[2020-08-02 13:48] LABS: BUN 15 mg/dL (7-18); Creatinine, Serum 1.34 mg/dL (0.70-1.30); EST Glomerular Filtration Rate 65 mL/min (>60); Estimated Creatinine Clearance 85.26 ml/min; Glucose 91 mg/dL (74-106)
[2020-08-02 13:49] LABS: AST(SGOT) 32 U/L (15-37); Alanine Aminotransfer ALT/SGPT 60 U/L (16-61); Albumin, Serum 4.2 g/dL (3.2-5.0); Alkaline Phosphatase 78 U/L (45-117); Anion Gap 5 (5-15); BUN/Creat Ratio 11.2 RATIO (10-20); Calcium,Total 9.5 mg/dL (8.5-10.1); Chloride 108 mmol/L (98-107); Est Glom Filt Rate - Afr Amer 78 mL/min (>60); Globulin 4.1 g/dL (2.2-4.2); Lipase 143 U/L (73-393); Protein, Total 8.3 g/dL (6.4-8.2); Sodium Level 141 mmol/L (136-145)
[2020-08-02 14:10] VITALS: BP 124/60; PULSE 62; RESP 16; O2SAT 98
[2020-08-02 14:46] VITALS: BP 138/74; PULSE 63; RESP 18; O2SAT 99
== END 2020-08-02 14:47 | disposition home or self-care (01) ==
LOC: ED 14:14
PROVIDERS: Emergency Provider Emergency Medicine; PCP Family Medicine
DX: R07.89 Other chest pain (principal); R51.9 Headache, unspecified
CPT/HCPCS: 70450; 71045; 80053; 83690; 84484; 85025; 93005; 96361; 96374; 96375; 99285; J7030; A4216; J2405

== ENCOUNTER 2020-12-31 19:59 | Emergency (ER) | payer MEDICAID, SELFPAY ==
[2020-12-31 19:59] VITALS: BP 133/83; PULSE 66; RESP 18; TEMP 36.8; O2SAT 97; BMI 39.0
[2020-12-31] MEDS: Lidocaine 1% (20 ml mdv) 20 ML Vial INFILT (20:49)
--- NOTE | 2020-12-31 23:48 | EX.ED.DYSGE1 ---
HPI History of Present Illness Chief Complaint: Bite Informant: patient Narrative Narrative: Patient found a tick on his left upper chest today. He states he does not do well with blood and would like to have it removed. PFSH PFS Medical History (Updated 12/31/20 @ 20:[address] William Gr DO) Chronic pain no medical history Home Medications naproxen 500 mg PO BID PRN 11/02/19 [History Last Taken 10/31/19] Allergy/AdvReac Type Severity Reaction Status Date / Time hydrocodone AdvReac Mild Itching/anx Verified 12/31/20 20:00 iety no surgical history Social History (Updated 12/31/20 @ 23:[address] William Gr DO) Smoking Status: Current every day smoker substance use type: does not use ROS ROS ED Constitutional Constitutional ED: Denies chills or weight loss Eyes Eyes: Denies change in vision or diplopia ENT ENT ED: Denies ear pain, rhinorrhea or sore throat Cardiovascular Cardiovascular: Denies chest pain, orthopnea, palpitations or racing heartbeat Respiratory/Chest Respiratory/Chest: Denies cough, dyspnea or orthopnea Gastrointestinal Gastrointestinal: Denies abdominal pain, diarrhea, nausea or vomiting Genitourinary Genitourinary ED: Denies dysuria, hematuria or urinary frequency Musculoskeletal Musculoskeletal: Denies arthralgias or myalgias Integumentary Reports other Details: See HPI ; Denies abscess or rash Neurologic Neurologic: Denies headache(s) or weakness Psychiatric Psychiatric: Denies anxiety, depression, suicidal ideation or suicidal thoughts Endocrine Endocrinology: Denies polydipsia, polyphagia or polyuria Allergic/Immunologic Allergic/Immunologic ED: Denies mouth swelling, tongue swelling or urticaria EXAM Physical Exam Const Vital Signs: 12/31/20 19:59 Temperature 98.3 F Temperature Source Temporal Pulse Rate 66 Respiratory Rate 18 Blood Pressure 133/83 H Blood Pressure Mean 99 Pulse Ox 97 Oxygen Delivery Method Room Air Positive well nourished and well developed General Appearance ED: well developed HEENT Reports normocephalic, head/scalp atraumatic and moist mucous membranes Eyes PERRL and EOMs intact bilaterally Neck no lymphadenopathy, supple and no JVD Chest Wall Chest Narrative: There is a tic on the left upper chest Resp normal respiratory effort and clear to auscultation bilaterally Cardio regular rate, regular rhythm and no murmurs GI normal to inspection, nondistended, normoactive bowel sounds and non-tender Palpation: soft Back/Spine no CVA tenderness and normal ROM Extremity normal to inspection General Extremety ED: Negative for edema General Extremity: Negative for edema Neuro oriented x3 and CN's II-XII intact bilaterally Sensorium / Orientation: alert Motor Exam: strength 5/5 throughout Psych mental status grossly normal Mood & Affect: Negative for depressed or tearful Skin no rashes or lesions noted and no wounds MDM MDM MDM Narrative Medical decision making narrative: 1% lidocaine was used to locally anesthetize the area. The tick was grasped. I was able to tease the tick head out of the skin. There is a small sliver of arm or other part of the tick that remained. Using an 11 blade I was able to remove it. Band-Aid was applied. Patient was advised that if he develops a rash she should needs to be seen. He notes understanding and is appreciative. Discharge Plan Triage Chief Complaint: Bite ED Provider: William Gr Dx/Rx/DC Orders Clinical Impression: Tick bite with subsequent removal of tick Instructions: ED Tick Bite, No Abx Tx Prescriptions: No Action naproxen 500 MG tablet 500 mg PO BID PRN (Reason: Pain Score 1-10/10) RF: 0 Primary Care Provider: Castro Zambrano Referrals: Castro Zambrano MD [Primary Care Provider] - As Needed Disposition Disposition: Home, self care Discharge Date/Time: 12/31/20 20:50
== END 2020-12-31 20:50 | disposition home or self-care (01) ==
PROVIDERS: Emergency Provider Emergency Medicine; PCP Family Medicine
DX: S20.362A Insect bite (nonvenomous) of left front wall of thorax, initial encounter (principal); F17.200 Nicotine dependence, unspecified, uncomplicated; W57.XXXA Bitten or stung by nonvenomous insect and other nonvenomous arthropods, initial encounter
CPT/HCPCS: 99281; 99282

== ENCOUNTER 2021-05-26 16:09 | Emergency (ER) | payer MEDICAID, SELFPAY ==
[2021-05-26 16:09] VITALS: BP 144/101; PULSE 82; RESP 16; TEMP 37; O2SAT 100; BMI 40.0
--- NOTE | 2021-05-26 16:40 | RAD_ITS ---
STUDY: X-RAY - PELVIS AND RIGHT HIP REASON FOR EXAM: Male, 35 years old. BACK/HIP PAIN TECHNIQUE: 3 views of the pelvis and hip. COMPARISON: None. FINDINGS: There is a non-specific bowel gas pattern. Normal visualized soft tissue structures. Normal bilateral iliac wings, sacroiliac joints and visualized sacrum. Normal bilateral superior and inferior pubic rami. Normal pubic symphysis. Normal bilateral ischial tuberosities. There are symmetric tubular ossifications projecting inferior to the obturator rings, likely representing ossified pelvic ligament. There are osteoarthritic changes of the femoral head with marginal osteophyte formation. There is osteoarthritic spur formation of the acetabular rim. Normal hip joint. RAD/HIP, UNI W/ Pelvis 2-3 Views IMPRESSION: 1. Mild osteoarthrosis of the right hip. Electronically Signed: Raymundo Garza MD ([place]) at 17:06 EDT , Service support ,
--- NOTE | 2021-05-26 18:17 | US_ITS ---
EXAM: US SCROTUM CLINICAL INDICATION: testicular pain TECHNIQUE: Realtime ultrasound of the testicles was performed with grayscale and Color Doppler analysis. This report was created using [employer] report [employer] technology. COMPARISON: None. FINDINGS: RIGHT TESTICLE: Unremarkable. Normal in size and echotexture. No focal lesion. Normal blood flow is present. LEFT TESTICLE: Unremarkable. Normal in size and echotexture. No focal lesion. Normal blood flow is present. EPIDIDYMIDES: Unremarkable. Normal in size and echotexture, without focal lesion. Normal color Doppler flow pattern in the epididymis. SCROTUM: Unremarkable. No hydrocele. No varicocele. US/Testicular with Arterial Flow IMPRESSION: Unremarkable bilateral testicular ultrasound. Electronically Signed: Raymundo Garza MD ([place]) at 19:49 EDT , Service support ,
--- NOTE | 2021-05-26 18:19 | CT_ITS ---
EXAM: CT ABDOMEN AND PELVIS WITH INTRAVENOUS CONTRAST CLINICAL INDICATION: RLQ pain, hx hernia TECHNIQUE: Helically acquired images were obtained of the abdomen and pelvis with intravenous contrast. This CT exam was performed using one or more of the following dose reduction techniques: automated exposure control, adjustment of the mA and/or kV according to patient size, and/or use of iterative reconstruction technique. This report was created using [employer] report generation technology. CONTRAST: IV 100mL Isovue-370 COMPARISON: None. FINDINGS: LOWER THORAX: Unremarkable. Lung bases are clear. No cardiomegaly. No significant pericardial effusion. ABDOMEN: LIVER: Unremarkable. Homogeneous. No focal mass. GALLBLADDER AND BILE DUCTS: Unremarkable. No calcified gallstones. No gallbladder distention or wall edema. No intra- or extrahepatic biliary ductal dilation. PANCREAS: Unremarkable. No focal cystic or solid mass. SPLEEN: Unremarkable. Normal size without focal cystic or solid mass. ADRENALS: Unremarkable. No nodules. KIDNEYS AND URETERS: Unremarkable. Normal renal size and position. No hydronephrosis. STOMACH AND BOWEL: Unremarkable. No stomach or bowel distention. No focal inflammatory change. PELVIS: APPENDIX: No evidence of acute appendicitis. BLADDER: Unremarkable. REPRODUCTIVE: Unremarkable as visualized. No mass. ABDOMEN and PELVIS: INTRAPERITONEAL SPACE: Unremarkable. No ascites or other fluid collection. No free air. BONES/JOINTS: Unremarkable. No suspicious lytic or blastic abnormality. SOFT TISSUES: Unremarkable. No discrete abdominal or pelvic wall hernia. VASCULATURE: Unremarkable. Abdominal aorta is non-dilated. LYMPH NODES: Unremarkable. No enlarged lymph nodes. CT/Abdomen/Pelvis W IV Cont ONLY IMPRESSION: Negative CT of the abdomen and pelvis with intravenous contrast. Electronically Signed: Raymundo Garza MD ([place]) at 19:02 EDT , Service support ,
--- NOTE | 2021-05-26 18:38 | EX.ED.DYSGE1 ---
HPI History of Present Illness Chief Complaint: Lower Extremity Injury Informant: patient Narrative Narrative: 35 old male presenting with right hip and back pain. Patient states this has been ongoing for several days. He has a history of rheumatoid arthritis and sciatica. He states he also has a history of hernia in his groin which has not been repaired. He states pain sometimes radiates to his right testicle. Denies fever. Denies other complaints. Prior similar symptoms: Yes Recent Illness/Hospitalization: No PFSH PFSH Medical History (Updated 05/26/21 @ 20:[address] Clementina Garcia MD) Chronic pain Rheumatoid arthritis Home Medications naproxen [Naprosyn] 500 mg PO BID PRN 10 Days #20 tab 05/26/21 [Rx Last Taken Unknown] oxycodone-acetaminophen 1 tab PO Q6H PRN PRN 3 Days #12 tablet 05/26/21 [Rx Last Taken Unknown] Allergy/AdvReac Type Severity Reaction Status Date / Time hydrocodone AdvReac Mild Itching/anx Verified 12/31/20 20:00 iety Social History (Updated 12/31/20 @ 23:[address] William Gr, DO) Smoking Status: Current every day smoker tobacco type: cigarettes substance use type: does not use ROS ROS ED Constitutional Constitutional ED: Denies fever(s) Eyes Eyes: Denies change in vision ENT ENT ED: Denies rhinorrhea or sore throat Cardiovascular Cardiovascular: Denies chest pain or palpitations Respiratory/Chest Respiratory/Chest: Denies cough or dyspnea Gastrointestinal Gastrointestinal: Denies abdominal pain, diarrhea, nausea or vomiting Genitourinary Genitourinary ED: Denies dysuria Musculoskeletal Musculoskeletal: Reports back pain and other Details: Right hip pain Integumentary Denies rash Neurologic Neurologic: Denies headache(s) Psychiatric Psychiatric: Denies suicidal thoughts EXAM Physical Exam Const Vital Signs: 05/26/21 16:09 Temperature 98.6 F Temperature Source Temporal Pulse Rate 82 Respiratory Rate 16 Blood Pressure 144/101 H Blood Pressure Mean 115 Pulse Ox 100 Positive well nourished and well developed General Appearance ED: well developed HEENT Reports normocephalic and head/scalp atraumatic Eyes PERRL and EOMs intact bilaterally Neck supple General: Negative for tenderness Chest Wall inspection of chest normal Resp normal respiratory effort and clear to auscultation bilaterally Cardio regular rate and regular rhythm GI non-distended Palpation: soft and tender RLQ; Negative for guarding or rebound tenderness present no CVA tenderness Narrative: Normal testicular lie. No tenderness. Back/Spine Back/Spine Narrative: Right paraspinal lumbar muscle tenderness Thoracic Spine / Upper Back: paraspinal muscle tenderness Extremity normal to inspection Neuro oriented x3 and no sensory deficits noted Sensorium / Orientation: alert Motor Exam: strength 5/5 throughout Psych mental status grossly normal MDM MDM MDM Narrative Medical decision making narrative: Patient was given morphine, Zofran IV. Right hip x-ray shows mild osteoarthritis of the right hip read by myself and radiology. CT abdomen pelvis shows no acute process. Testicular ultrasound is unremarkable. Patient is given prescription for Naprosyn and Percocet. Advised follow-up with primary care physician. Advised return to ED for worsening complaints. Radiography Diagnostic Testing: Radiology Impression Hip/Pelvis X-Ray 05/26/21 16:40 IMPRESSION: 1. Mild osteoarthrosis of the right hip. Electronically Signed: Raymundo Garza MD ([place]) at 17:06 EDT , Service support , Testicular Ultrasound 05/26/21 18:17 IMPRESSION: Unremarkable bilateral testicular ultrasound. Electronically Signed: Raymundo Garza MD ([place]) at 19:49 EDT , Service support , Abdomen/Pelvis CT 05/26/21 18:19 IMPRESSION: Negative CT of the abdomen and pelvis with intravenous contrast. Electronically Signed: Raymundo Garza MD ([place]) at 19:02 EDT , Service support , Discharge Plan Triage Chief Complaint: Lower Extremity Injury ED Provider: Clementina Garica Dx/Rx/DC Orders Clinical Impression: Sciatica Instructions: ED Sciatica Prescriptions: New naproxen [Naprosyn] 500 mg tablet 500 mg PO BID PRN (Reason: pain) 10 Days Qty: 20 RF: 0 oxycodone-acetaminophen 5-325 mg tablet 1 tab PO Q6H PRN PRN (Reason: Pain) 3 Days Qty: 12 RF: 0 Primary Care Provider: Castro Zambrano Referrals: Castro Zambrano MD [Primary Care Provider] - Disposition Disposition: Home, Self Care
[2021-05-26] MEDS: morphine 8 MG/ML Syringe IV (18:57)
[2021-05-26] MEDS: Ondansetron 4 MG/2 ML Vial IV (18:58)
[2021-05-26 20:30] VITALS: PULSE 74; RESP 18; TEMP 37.1; O2SAT 100
== END 2021-05-26 20:34 | disposition home or self-care (01) ==
PROVIDERS: Emergency Provider Emergency Medicine; PCP Family Medicine
DX: M54.30 Sciatica, unspecified side (principal); F17.210 Nicotine dependence, cigarettes, uncomplicated
CPT/HCPCS: 73502; 74177; 76870; 93976; 96374; 96375; 99284; Q9967; A4216; J2405

== ENCOUNTER 2021-06-05 15:13 | Emergency (ER) | payer MEDICAID, SELFPAY ==
[2021-06-05 15:14] VITALS: BP 159/99; PULSE 89; RESP 16; TEMP 36.4; O2SAT 98
[2021-06-05] MEDS: HYDROmorphone 0.5 MG/0.5 ML SYRINGE IM (16:18)
--- NOTE | 2021-06-05 16:39 | ED.VIS.BACK ---
HPI History of Present Illness Chief Complaint: Back Informant: patient Onset/Context/Timing Onset: Weeks (1) Timing: Continuous Quality: Sharp Location: Lumbar, Buttock and Right Leg Current Severity: Severe Maximum Severity: Severe Worsened by: improves with Nothing Relieved by: Nothing Associated Symptoms Associated Symptoms: Numbness, Tingling and Radiation to Right Leg; Negative for Radiation to Left Leg, Fever, Abdominal Pain, Unable to Ambulate, Unable to Transfer, Urinary Retention, Urinary Incontinence and Fecal Incontinence Narrative Narrative: Patient presents with low back pain that has been getting worse over the past week. Patient states pain is constant. Patient states the pain is sharp. Patient states the pain is over the right lower lumbar area and right gluteal area. Patient states the pain radiates into his right inguinal area and right testicle. Patient states nothing makes it worse and nothing makes it better. Patient states the pain radiates down his right leg as well. Patient admits to some numbness and tingling in his right lower leg and foot. Patient denies any fevers or chills. Patient denies any incontinence of urine or stool. PFSH PFS Medical History Chronic pain Rheumatoid arthritis Home Medications naproxen [Naprosyn] 500 mg PO BID PRN 10 Days #20 tab 05/26/21 [Rx Last Taken Unknown] oxycodone-acetaminophen 1 tab PO Q6H PRN PRN 3 Days #12 tablet 05/26/21 [Rx Last Taken Unknown] cyclobenzaprine 10 mg PO TID PRN #20 tablet 06/05/21 [Rx Last Taken Unknown] oxycodone-acetaminophen 1 tab PO Q6H PRN PRN 5 Days #20 tablet 06/05/21 [Rx Last Taken Unknown] Allergy/AdvReac Type Severity Reaction Status Date / Time hydrocodone AdvReac Mild Itching/anx Verified 06/05/21 15:16 iety Social History Smoking Status: Current every day smoker tobacco type: cigarettes substance use type: does not use ROS ROS ED Constitutional Constitutional ED: Denies chills or fever(s) Eyes Eyes: Denies blurry vision or change in vision ENT ENT ED: Denies rhinorrhea or sore throat Cardiovascular Cardiovascular: Denies chest pain or palpitations Respiratory/Chest Respiratory/Chest: Denies cough or dyspnea Gastrointestinal Gastrointestinal: Reports nausea and vomiting Genitourinary Genitourinary ED: Denies dysuria or hematuria Musculoskeletal Musculoskeletal: Reports back pain; Denies neck pain Integumentary Denies abscess or rash Neurologic Neurologic: Denies headache(s) or weakness Allergic/Immunologic Allergic/Immunologic ED: Denies mouth swelling or urticaria EXAM Physical Exam Const Vital Signs: 06/05/21 15:14 Temperature 97.5 F L Temperature Source Temporal Pulse Rate 89 Respiratory Rate 16 Blood Pressure 159/99 H Blood Pressure Mean 119 Pulse Ox 98 Oxygen Delivery Method Room Air Positive well nourished, well developed and obese General Appearance ED: well developed Nutritional Appearance: obese HEENT Reports moist mucous membranes Neck no JVD Back/Spine Back/Spine Narrative: There is tenderness and spasm of the right lumbar paraspinal muscles. There is no midline tenderness. There is no bony crepitance or step-off. There is no edema or ecchymosis. There is tenderness over the sciatic notch and sciatic nerve. Strength is 5/5 bilaterally in the lower extremities. There are no sensory deficits noted. Deep tendon reflexes are 2/4 bilaterally. Lumbar Spine / Lower Back: ROM limited Neuro Deep Tendon Reflexes: Rt Patellar (L4): 2+, Lt Patellar (L4): 2+, Rt Ankle (S1): 2+ and Lt Ankle (S1): 2+ Deep Tendon Reflexes Back: Rt Patellar (L4): 2+, Lt Patellar (L4): 2+, Rt Ankle (S1): 2+ and Lt Ankle (S1): 2+ Psych mental status grossly normal MDM MDM MDM Narrative Medical decision making narrative: Patient was given an injection of Dilaudid here. Patient is feeling better on reevaluation. Patient was given prescriptions for Percocet and Flexeril. Patient was instructed to follow-up with his primary care physician, pain management physician, and orthopedic surgeon. Patient understands and is agreeable with the plan. All questions were answered. Discharge Plan Triage Chief Complaint: Back ED Provider: Dexter Jiménez Dx/Rx/DC Orders Clinical Impression: Sciatica Instructions: ED Back Pain (Acute or Chronic), ED Sciatica Prescriptions: New cyclobenzaprine [cyclobenzaprine] 10 MG tablet 10 mg PO TID PRN (Reason: Muscle Spasm) Qty: 20 RF: 0 oxycodone-acetaminophen [oxycodone-acetaminophen] 1 TABLET tablet 1 tab PO Q6H PRN PRN (Reason: pain) 5 Days Qty: 20 RF: 0 No Action naproxen [Naprosyn] 500 mg tablet 500 mg PO BID PRN (Reason: pain) 10 Days Qty: 20 RF: 0 oxycodone-acetaminophen 5-325 mg tablet 1 tab PO Q6H PRN PRN (Reason: Pain) 3 Days Qty: 12 RF: 0 Primary Care Provider: Castro Zambrano Referrals: Castro Zambrano MD [Primary Care Provider] - 5-7 Days Weston Carlson MD [STAFF PHYSICIAN] - 3-5 Days Disposition Disposition: Home, Self Care
== END 2021-06-05 17:58 | disposition home or self-care (01) ==
PROVIDERS: Emergency Provider Emergency Medicine; PCP Family Medicine
DX: M54.30 Sciatica, unspecified side (principal); F17.210 Nicotine dependence, cigarettes, uncomplicated; E66.9 Obesity, unspecified
CPT/HCPCS: 96372; 99282

== ENCOUNTER → 2021-06-20 16:22 | Outpatient (CLI) | payer MEDICAID, SELFPAY ==
--- NOTE | 2021-06-20 16:29 | MRI_ITS ---
STUDY: MRI LUMBAR SPINE WITHOUT CONTRAST REASON FOR EXAM: Male, 35 years old. DISC DEGEN, LBP, RIGHT LEG PAIN TECHNIQUE: Standardized fat and water weighted pulse sequences were obtained in the sagittal and axial planes. COMPARISON: 09/29/2019 FINDINGS: T12-L1: Normal endplates. Normal disc height, hydration and morphology. Normal bilateral facet joints. Normal central canal and bilateral lateral recesses. Normal bilateral intervertebral neural foramina. Normal lumbar lordosis. There is no substantial scoliosis. Normal conus medullaris that terminates at T12-L1 L1-2: Normal endplates. Normal disc height, hydration and morphology. Normal bilateral facet joints. Normal central canal and bilateral lateral recesses. Normal bilateral intervertebral neural foramina. L2-3: Normal endplates. Normal disc height, hydration and morphology. Normal bilateral facet joints. Normal central canal and bilateral lateral recesses. Normal bilateral intervertebral neural foramina. L3-4: Normal endplates. Normal disc height, hydration and tiny left paracentral disc protrusion. Normal bilateral facet joints. Normal central canal and bilateral lateral recesses. Normal bilateral intervertebral neural foramina. L4-5: Normal endplates. Narrowed disc space with desiccation of the disc and minor annular bulge with tiny central disc extrusion with inferior migration of disc fragment. Mild facet arthropathy.. Normal central canal and bilateral lateral recesses. Mild bilateral neuroforaminal stenosis L5-S1: Normal endplates. Normal disc height, desiccation and small broad-based central disc protrusion. Normal bilateral facet joints. Normal central canal and bilateral lateral recesses. Normal bilateral intervertebral neural foramina. Normal visualized sacral ala. Normal visualized paraspinous soft tissue structures. There has been little significant change since previous study. MRI/Spine Lumbar (Routine) IMPRESSION: No evidence for acute fracture or other significant bony pathology Mild spinal stenosis at L4-5 secondary to disc disease and mild facet arthropathy Disc disease at L3-4 and L5-S1 without significant spinal stenosis Electronically Signed: Weston Shen MD at 22:14 EDT , Service support ,
== END ==
PROVIDERS: PCP Family Medicine; Visit Provider Physician Assistant
DX: M51.36 Other intervertebral disc degeneration, lumbar region (principal)
CPT/HCPCS: 72148

== ENCOUNTER 2021-08-05 20:11 | Emergency (ER) | payer MEDICAID, SELFPAY ==
[2021-08-05 20:12] VITALS: BP 132/94; PULSE 126; RESP 24; TEMP 37.1; O2SAT 99; BMI 38.6
[2021-08-05 20:13] VITALS: BP 132/94; PULSE 126; RESP 24; TEMP 37.1; O2SAT 99
--- NOTE | 2021-08-05 21:11 | EDS_ITS ---
HPI History of Present Illness Chief Complaint: Shortness of Breath Informant: patient Onset/Context/Timing Onset: Month(s) (3) Context: Gradual Onset Timing: Continuous Quality: Sharp Location: Right lower lumbar area and right lower extremity Worsened by: Movement Relieved by: Rest Narrative Narrative: Patient presents with low back pain and sciatica pain that has been constant for the past 3 months. Patient states it became worse today. Patient states it radiates into his right great toe. Patient denies any bowel or bladder changes. Patient states his pain is worse with movement. Patient states it is better with rest. Patient describes his pain as sharp. Patient also admits to a cough and some shortness of breath. Patient is concerned over possible Covid infection. [facility] Medical History (Updated 08/05/21 @ 22:[address] Dexter Jiménez DO) Chronic pain Rheumatoid arthritis Home Medications cyclobenzaprine 10 mg PO TID PRN 08/05/21 [History Last Taken Unknown] oxycodone-acetaminophen 1 tab PO Q6H PRN PRN 3 Days #12 tablet 08/05/21 [Rx Last Taken Unknown] prednisone 60 mg PO DAILY #15 tablet 08/05/21 [Rx Last Taken Unknown] Allergy/AdvReac Type Severity Reaction Status Date / Time hydrocodone AdvReac Mild Itching/anx Verified 08/05/21 21:16 iety Surgical History (Updated 08/05/21 @ 21:[address] Dexter Jiménez DO) Hx of arthroscopic knee surgery Hx of foot surgery Social History Smoking Status: Current every day smoker tobacco type: smokeless tobacco substance use type: does not use ROS ROS ED Constitutional Constitutional ED: Reports fever(s) and subjective; Denies chills Eyes Eyes: Denies blurry vision or change in vision ENT ENT ED: Denies rhinorrhea or sore throat Cardiovascular Cardiovascular: Denies chest pain or palpitations Respiratory/Chest Respiratory/Chest: Reports cough and dyspnea Gastrointestinal Gastrointestinal: Reports nausea; Denies vomiting Genitourinary Genitourinary ED: Denies dysuria or hematuria Musculoskeletal Musculoskeletal: Reports back pain and myalgias Integumentary Denies abscess or rash Neurologic Neurologic: Reports headache(s); Denies weakness Allergic/Immunologic Allergic/Immunologic ED: Denies mouth swelling or urticaria EXAM Physical Exam Const Vital Signs: 08/05/21 20:12 08/05/21 20:13 Temperature 98.8 F 98.8 F Temperature Source Temporal Temporal Pulse Rate 126 H 126 H Respiratory Rate 24 H 24 H Blood Pressure 132/94 H 132/94 H Blood Pressure Mean 106 106 Pulse Ox 99 99 Positive well nourished, well developed and obese General Appearance ED: well developed Nutritional Appearance: obese HEENT Reports moist mucous membranes Neck supple and no JVD Back/Spine Back/Spine Narrative: There is tenderness over the right lower lumbar paraspinal muscles and sciatic notch. There is no midline tenderness. There is no bony crepitance or step-off. Range of motion was limited in all motions secondary to pain. Deep tendon reflexes were 2/4 bilaterally in the lower extremities. There are no sensory deficits noted. Extremity normal to inspection General Extremety ED: Negative for edema or tenderness General Extremity: Negative for edema Neuro oriented x3, CN's II-XII intact bilaterally and no sensory deficits noted Sensorium / Orientation: alert Motor Exam: strength 5/5 throughout Psych mental status grossly normal MDM MDM MDM Narrative Medical decision making narrative: Patient was given a dose of IM Dilaudid here. Patient had minimal relief with this. COVID-19 rapid antigen was obtained and was negative. Patient was given a dose of oxycodone here. Patient was given prescription for a short course of Percocet. Patient was instructed to use ice to the area. Patient was instructed to follow-up with his primary care physician in 5 to 7 days. Patient understood and was agreeable with the plan. All questions were answered. Discharge Plan Triage Chief Complaint: Shortness of Breath Other Complaint: Back ED Provider: Dexter Jiménez Dx/Rx/DC Orders Clinical Impression: Sciatica Instructions: ED Sciatica Prescriptions: New oxycodone-acetaminophen [oxycodone-acetaminophen] 1 TABLET tablet 1 tab PO Q6H PRN PRN (Reason: Pain) 3 Days Qty: 12 RF: 0 prednisone 20 MG tablet 60 mg PO DAILY Qty: 15 RF: 0 No Action cyclobenzaprine 10 mg tablet 10 mg PO TID PRN (Reason: Muscle Spasm) RF: 0 Primary Care Provider: Castro Zambrano Referrals: Castro Zambrano MD [Primary Care Provider] - 3-5 Days Weston Payan DO [STAFF PHYSICIAN] - 3-5 Days Disposition Disposition: Home, Self Care
[2021-08-05] MEDS: HYDROmorphone 0.5 MG/0.5 ML SYRINGE IM (21:19)
[2021-08-05] MEDS: oxyCODONE 5 MG Tablet PO (22:54)
[2021-08-05] MEDS: predniSONE 20 MG Tablet 60 MG PO (23:05)
[2021-08-06] MEDS: Ondansetron ODT 4 MG Tablet PO (00:07)
== END 2021-08-06 00:22 | disposition home or self-care (01) ==
PROVIDERS: Emergency Provider Emergency Medicine; PCP Family Medicine
DX: M54.30 Sciatica, unspecified side (principal); F17.200 Nicotine dependence, unspecified, uncomplicated; E66.9 Obesity, unspecified; Z79.899 Other long term (current) drug therapy
CPT/HCPCS: 87426; 96372; 99284

== ENCOUNTER 2021-09-03 19:35 | Emergency (ER) | payer MEDICAID, SELFPAY ==
[2021-09-03 19:36] VITALS: BP 163/94; PULSE 107; RESP 18; TEMP 36.4; O2SAT 97; BMI 38.0
[2021-09-04 01:40] VITALS: RESP 16; TEMP 36.9
[2021-09-04] MEDS: 0.9% Normal Saline 1,000 ML 999 ML IV (02:13)
[2021-09-04] MEDS: DiphenhydrAMINE 50 MG/ML Syringe IV (02:13)
[2021-09-04] MEDS: Metoclopramide 10 MG/2 ML Vial IV (02:15)
[2021-09-04] MEDS: Ketorolac 30 MG/ML Syringe IV (02:16)
[2021-09-04] MEDS: dexAMETHasone 10 MG/ML Vial IV (02:17)
[2021-09-04] MEDS: Orphenadrine 60 MG/2 ML Ampul IV (02:18)
[2021-09-04 03:10] VITALS: BP 133/55; PULSE 82; RESP 18; O2SAT 99
--- NOTE | 2021-09-04 04:25 | EDS_ITS ---
HPI History of Present Illness Chief Complaint: Back Narrative Narrative: Patient is a 36-year-old male who states that he has been dealing with back problems for multiple years he states that he knows he has ruptured disks in his low back and the back surgeon is recommending surgery but patient does not want to go through this. He states that he went to physical therapy for his first time today and afterwards has had increased pain to his low back. He states there was no direct trauma but just multiple stretches that were done during a physical therapy session. He states that there has been no loss of bowel or bladder control and he denies any IV drug use. He states that he has tried [id number] medications with no symptom improvement and secondary to this comes in for evaluation [facility] Medical History (Updated 09/04/21 @ 04:[address] Bernardo Chaidez DO) Chronic pain Rheumatoid arthritis Home Medications cyclobenzaprine 10 mg PO TID PRN 08/05/21 [History Last Taken Unknown] oxycodone-acetaminophen 1 tab PO Q6H PRN PRN 3 Days #12 tablet 08/05/21 [Rx Last Taken Unknown] prednisone 60 mg PO DAILY #15 tablet 08/05/21 [Rx Last Taken Unknown] methocarbamol 1,000 mg PO Q6H 7 Days #56 tab 09/04/21 [Rx Last Taken Unknown] oxycodone-acetaminophen [Endocet] 1 tab PO Q6H PRN 3 Days #12 tab 09/04/21 [Rx Last Taken Unknown] prednisone 40 mg PO DAILY 7 Days #14 tab 09/04/21 [Rx Last Taken Unknown] Allergy/AdvReac Type Severity Reaction Status Date / Time hydrocodone AdvReac Mild Itching/anx Verified 09/03/21 19:40 iety Surgical History Hx of arthroscopic knee surgery Hx of foot surgery Social History Smoking Status: Current some day smoker tobacco type: cigarettes and smokeless tobacco substance use type: does not use ROS ROS ED Constitutional Constitutional ED: Denies chills or fever(s) ENT ENT ED: Reports ear pain; Denies sore throat Cardiovascular Cardiovascular: Denies chest pain Respiratory/Chest Respiratory/Chest: Denies cough or dyspnea Gastrointestinal Gastrointestinal: Denies abdominal pain, diarrhea, nausea or vomiting Genitourinary Genitourinary ED: Denies dysuria Musculoskeletal Musculoskeletal: Reports back pain; Denies myalgias Integumentary Denies rash Neurologic Neurologic: Reports headache(s); Denies paresthesias Hematologic/Lymphatic Hematologic/Lymphatic: Denies easy bleeding or easy bruising EXAM Physical Exam Const Vital Signs: 09/03/21 19:36 09/04/21 01:40 09/04/21 03:10 Temperature 97.5 F L 98.4 F Temperature Source Temporal Oral Pulse Rate 107 H 82 Respiratory Rate 18 16 18 Blood Pressure 163/94 H 133/55 H Blood Pressure Mean 117 81 Pulse Ox 97 99 Oxygen Delivery Method Room Air Room Air Positive well nourished and well developed General Appearance ED: well developed HEENT Reports moist mucous membranes HEENT Narrative: Bilateral TMs are retracted but show no secondary changes to suggest infection Eyes PERRL and EOMs intact bilaterally Neck supple Neck Narrative: No meningeal signs Resp normal respiratory effort and clear to auscultation bilaterally Cardio regular rate and regular rhythm GI normal to inspection, nondistended, normoactive bowel sounds, non-tender, non- distended and no masses Auscultation: normoactive bowel sounds Palpation: soft Back/Spine Back/Spine Narrative: No bony deformity or step-off of the thoracic or lumbar spine but there is midline pain to palpation over top the lumbar region. No saddle anesthesia. Negative straight leg raise. No clonus or Babinski. Patellar reflexes are plus 1 out of 4 bilaterally. Extremity normal to inspection Neuro oriented x3 and CN's II-XII intact bilaterally Sensorium / Orientation: alert Psych Psych Narrative: Patient has a nervous/anxious affect Mood & Affect: anxious Skin no rashes or lesions noted Skin Narrative: No overlying soft tissue changes to suggest trauma or infection MDM MDM MDM Narrative Medical decision making narrative: Patient presented to the ER with multiple complaints however his main complaint was his low back. He reports a known history of back disorder and did undergo physical therapy today but there was no trauma such as manipulation to warrant imaging studies for possible compression fracture. Patient also had no physical exam findings to suggest cauda equina or epidural abscess. Therefore I felt no need for imaging studies we did elect to treat the patient's symptoms. On reevaluation he reports resolution of his pain is therefore safe for discharge. I will place him on symptomatic medications secondary to his chronic issues for the next few days but otherwise patient will need to follow-up with his family doctor or surgeon if further medication is required Discharge Plan Triage Chief Complaint: Back ED Provider: Bernardo Chaidez Dx/Rx/DC Orders Clinical Impression: Acute exacerbation of chronic low back pain, Cephalgia, Acute dysfunction of both eustachian tubes Instructions: Understanding Headache Pain, Back Exercises: Back Release Prescriptions: New methocarbamol 500 mg tablet 1,000 mg PO Q6H 7 Days Qty: 56 RF: 0 prednisone 20 mg tablet 40 mg PO DAILY 7 Days Qty: 14 RF: 0 oxycodone-acetaminophen [Endocet] 5-325 mg tablet 1 tab PO Q6H PRN (Reason: pain) 3 Days Qty: 12 RF: 0 No Action cyclobenzaprine 10 mg tablet 10 mg PO TID PRN (Reason: Muscle Spasm) RF: 0 oxycodone-acetaminophen [oxycodone-acetaminophen] 1 TABLET tablet 1 tab PO Q6H PRN PRN (Reason: Pain) 3 Days Qty: 12 RF: 0 prednisone 20 MG tablet 60 mg PO DAILY Qty: 15 RF: 0 Primary Care Provider: Care Physician,No Primary Referrals: Dexter Ko MD [STAFF PHYSICIAN] - 3-5 Days if not improving Care Physician,No Primary [Primary Care Provider] - Disposition Disposition: Home, Self Care Discharge Date/Time: 09/04/21 04:38
[2021-09-04 04:37] VITALS: RESP 16
== END 2021-09-04 04:38 | disposition home or self-care (01) ==
PROVIDERS: Emergency Provider Emergency Medicine; Visit Provider Emergency Medicine
DX: M54.50 Low back pain, unspecified (principal); R51.9 Headache, unspecified; F17.210 Nicotine dependence, cigarettes, uncomplicated
CPT/HCPCS: 96374; 96375; 99285; J7030; A4216

== ENCOUNTER 2021-09-16 14:52 | Emergency (ER) | payer MEDICAID, SELFPAY ==
[2021-09-16 14:53] VITALS: BP 182/161; PULSE 89; RESP 14; TEMP 36.3; O2SAT 94; BMI 38.0
--- NOTE | 2021-09-16 16:23 | ED.VIS.BACK ---
HPI History of Present Illness Chief Complaint: Back Narrative Narrative: 36-year-old male with history of chronic back pain presenting with acute flareup of back pain. He states he is seeing a back pain specialist outpatient and when he was there last they did not have their paint laboratory technician there to prescribe him medication. He states that he currently has an appointment tomorrow and he needs to be bridge until then. He request muscle relaxers for home. He has been using a TENS unit on his back. He denies any loss of bladder or bowel control. No urinary tension. No saddle anesthesia. PFSH PFSH Medical History Chronic pain Rheumatoid arthritis Home Medications cyclobenzaprine 10 mg PO TID PRN 08/05/21 [History Last Taken Unknown] oxycodone-acetaminophen 1 tab PO Q6H PRN PRN 3 Days #12 tablet 08/05/21 [Rx Last Taken Unknown] prednisone 60 mg PO DAILY #15 tablet 08/05/21 [Rx Last Taken Unknown] methocarbamol 1,000 mg PO Q6H 7 Days #56 tab 09/04/21 [Rx Last Taken Unknown] oxycodone-acetaminophen [Endocet] 1 tab PO Q6H PRN 3 Days #12 tab 09/04/21 [Rx Last Taken Unknown] prednisone 40 mg PO DAILY 7 Days #14 tab 09/04/21 [Rx Last Taken Unknown] naproxen [Naprosyn] 500 mg PO BID #20 tab 09/16/21 [Rx Last Taken Unknown] tizanidine [Zanaflex] 4 mg PO TID PRN #14 cap 09/16/21 [Rx Last Taken Unknown] Allergy/AdvReac Type Severity Reaction Status Date / Time hydrocodone AdvReac Mild Itching/anx Verified 09/16/21 14:55 iety Surgical History Hx of arthroscopic knee surgery Hx of foot surgery Social History Smoking Status: Current some day smoker tobacco type: cigarettes and smokeless tobacco substance use type: does not use ROS ROS ED Constitutional Constitutional ED: Denies chills, fever(s) or subjective Eyes Eyes: Denies blurry vision or change in vision ENT ENT ED: Denies ear pain or sore throat Cardiovascular Cardiovascular: Denies chest pain, palpitations or racing heartbeat Respiratory/Chest Respiratory/Chest: Denies cough, dyspnea or sputum Gastrointestinal Gastrointestinal: Denies abdominal pain, constipation, diarrhea, nausea or vomiting Genitourinary Genitourinary ED: Denies dysuria, hematuria or urinary frequency Musculoskeletal Musculoskeletal: Reports back pain; Denies arthralgias, myalgias or neck pain Integumentary Denies abscess, Abrasions or rash Neurologic Neurologic: Denies headache(s), paresthesias or weakness Psychiatric Psychiatric: Denies anxiety, depression, suicidal ideation or suicidal thoughts Endocrine Endocrinology: Denies polydipsia or polyuria EXAM Physical Exam Const Vital Signs: 09/16/21 14:53 Temperature 97.3 F L Temperature Source Temporal Pulse Rate 89 Respiratory Rate 14 Blood Pressure 182/161 H Blood Pressure Mean 168 Pulse Ox 94 Oxygen Delivery Method Room Air Positive obese General Appearance ED: NAD Nutritional Appearance: obese HEENT Reports moist mucous membranes Negative for trauma Eyes PERRL and EOMs intact bilaterally Back/Spine Back/Spine Narrative: Right lumbar paraspinal muscular tenderness. No midline spinal deformity or step-off. Psych mental status grossly normal Skin no rashes or lesions noted MDM MDM MDM Narrative Medical decision making narrative: Patient presenting with acute flareup of chronic back pain. He request muscle relaxers to help him bridge to his appointment tomorrow. He is given Norflex and Toradol in the ED. He will be given prescription for muscle relaxers and Naprosyn for home. Patient counseled to follow-up with his provider tomorrow for further care. He is given return precautions. Impression: 1. Acute on chronic back pain. Discharge Plan Triage Chief Complaint: Back ED Provider: Elijah Pathak Dx/Rx/DC Orders Instructions: ED Back Pain (Acute or Chronic) Prescriptions: New tizanidine [Zanaflex] 4 mg capsule 4 mg PO TID PRN (Reason: muscle spasticity) Qty: 14 RF: 0 naproxen [Naprosyn] 500 mg tablet 500 mg PO BID Qty: 20 RF: 0 No Action cyclobenzaprine 10 mg tablet 10 mg PO TID PRN (Reason: Muscle Spasm) RF: 0 oxycodone-acetaminophen [oxycodone-acetaminophen] 1 TABLET tablet 1 tab PO Q6H PRN PRN (Reason: Pain) 3 Days Qty: 12 RF: 0 prednisone 20 MG tablet 60 mg PO DAILY Qty: 15 RF: 0 methocarbamol 500 mg tablet 1,000 mg PO Q6H 7 Days Qty: 56 RF: 0 prednisone 20 mg tablet 40 mg PO DAILY 7 Days Qty: 14 RF: 0 oxycodone-acetaminophen [Endocet] 5-325 mg tablet 1 tab PO Q6H PRN (Reason: pain) 3 Days Qty: 12 RF: 0 Primary Care Provider: Care Physician,No Primary Referrals: Care Physician,No Primary [Primary Care Provider] - Disposition Disposition: Home, Self Care
[2021-09-16] MEDS: Ketorolac 15 MG/ML Vial IM (16:28)
[2021-09-16] MEDS: Orphenadrine 60 MG/2 ML Ampul IM (16:28)
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
== END 2021-09-16 17:59 | disposition home or self-care (01) ==
LOC: ED 16:27
PROVIDERS: Emergency Provider Student in an Organized Health Care Education/Training Program; Visit Provider Student in an Organized Health Care Education/Training Program
DX: M54.9 Dorsalgia, unspecified (principal); M06.9 Rheumatoid arthritis, unspecified; G89.29 Other chronic pain; F17.210 Nicotine dependence, cigarettes, uncomplicated; Z79.52 Long term (current) use of systemic steroids; E66.9 Obesity, unspecified; Z68.38 Body mass index [BMI] 38.0-38.9, adult
CPT/HCPCS: 96372; 99281; 99282

== ENCOUNTER 2021-12-03 04:36 | Emergency (ER) | payer MEDICAID, SELFPAY ==
[2021-12-03 04:38] VITALS: BP 155/91; PULSE 78; RESP 16; TEMP 36.5; O2SAT 99; BMI 39.4
--- NOTE | 2021-12-03 05:02 | VDLE_ITS ---
Reason For Study: LLE PAIN Procedure LEFT This is a venous duplex using B-mode, color GSV is normal. flow and spectral Doppler. CFV is compressible, spontaneous, phasic, Exam performed portable in ED. competent, and demonstrates normal The study was technically difficult. augmentation. PT was in severe back pain with tingling FV is compressible, spontaneous, phasic, down left leg and numbness of left foot. competent and demonstrates normal Exam images are out of order due to augmentation. patient's pain level. POP V is compressible, spontaneous, phasic, A preliminary report was called and/or faxed competent and demonstrates normal to ED. augmentation. T/P Trunk is compressible. PTV is compressible. LT PerV is compressible. VL/Venous Duplex US, Unilateral Interpretation Summary There is no evidence of left lower extremity deep vein thrombosis. Left great s aphenous vein appears patent and compressible segmentally. Technically difficult examination. Patient was in significant discomfort. Ordering Physician: Bernardo Chaidez Referring Physician: Castro Zambrano Performed By: Mary Gudino, TERRY, RVT
--- NOTE | 2021-12-03 05:45 | EX.ED.DYSGE1 ---
HPI History of Present Illness Chief Complaint: Lower Extremity Injury Narrative Narrative: Patient is a 36-year-old male with history of degenerative disc disease who recently underwent microdiscectomy of his L5-S1 vertebra. He states that this was about 4 to 5 days ago. He states he spent 2 days in the hospital and then was sent home. Patient states last night into this morning he has noticed some pain in his left calf and he feels like there might be something in there. He does report that his mother had a history of blood clots and with his recent surgery that is his concern at this time. He denies any chest pain or shortness of breath. He denies any hormone use or previous history of clots in himself. However with risk factors for DVT and his abnormal sensation he presents for evaluation [facility] Medical History Chronic pain Rheumatoid arthritis Home Medications cyclobenzaprine 10 mg PO TID PRN 08/05/21 [History Last Taken Unknown] oxycodone-acetaminophen 1 tab PO Q6H PRN PRN 3 Days #12 tablet 08/05/21 [Rx Last Taken Unknown] prednisone 60 mg PO DAILY #15 tablet 08/05/21 [Rx Last Taken Unknown] methocarbamol 1,000 mg PO Q6H 7 Days #56 tab 09/04/21 [Rx Last Taken Unknown] oxycodone-acetaminophen [Endocet] 1 tab PO Q6H PRN 3 Days #12 tab 09/04/21 [Rx Last Taken Unknown] prednisone 40 mg PO DAILY 7 Days #14 tab 09/04/21 [Rx Last Taken Unknown] naproxen [Naprosyn] 500 mg PO BID #20 tab 09/16/21 [Rx Last Taken Unknown] tizanidine [Zanaflex] 4 mg PO TID PRN #14 cap 09/16/21 [Rx Last Taken Unknown] Allergy/AdvReac Type Severity Reaction Status Date / Time hydrocodone AdvReac Mild Itching/anx Verified 09/16/21 14:55 iety Surgical History Hx of arthroscopic knee surgery Hx of foot surgery Social History Smoking Status: Former smoker substance use type: does not use ROS ROS ED Constitutional Constitutional ED: Denies chills or fever(s) ENT ENT ED: Denies sore throat Cardiovascular Cardiovascular: Denies chest pain Respiratory/Chest Respiratory/Chest: Denies cough or dyspnea Gastrointestinal Gastrointestinal: Denies abdominal pain, diarrhea, nausea or vomiting Genitourinary Genitourinary ED: Denies dysuria Musculoskeletal Musculoskeletal: Reports back pain; Denies myalgias Integumentary Denies rash Neurologic Neurologic: Denies headache(s) Hematologic/Lymphatic Hematologic/Lymphatic: Denies easy bleeding or easy bruising EXAM Physical Exam Const Vital Signs: 12/03/21 04:38 Temperature 97.7 F L Temperature Source Oral Pulse Rate 78 Respiratory Rate 16 Blood Pressure 155/91 H Blood Pressure Mean 112 Pulse Ox 99 Oxygen Delivery Method Room Air Positive well nourished and well developed General Appearance ED: well developed Eyes PERRL and EOMs intact bilaterally Neck supple Resp normal respiratory effort and clear to auscultation bilaterally Cardio regular rate and regular rhythm Back/Spine Back/Spine Narrative: No bony deformity or step-off of the thoracic or lumbar spine. Patient has postoperative incisions that are clean dry and intact without overlying secondary changes to suggest infection Extremity Extremity Narrative: There is slight asymmetric nonpitting edema of the left lower leg compared to right however patient states that this is chronic for him. Negative Homans' sign bilateral. No overlying erythema or warmth no abscess or foreign body palpated Neuro oriented x3 and CN's II-XII intact bilaterally Sensorium / Orientation: alert Psych mental status grossly normal Skin no rashes or lesions noted MDM MDM MDM Narrative Medical decision making narrative: Patient presented to the ER afebrile. He denied any loss of bowel or bladder control since the surgery. He reported feeling pain and irritation in his left lateral leg. With his recent surgery and his history that mother has had blood clots that he was concerned for this. Clinically the patient does not have any physical exam findings to suggest a DVT and I have low concern for pulmonary embolus as he is not tachycardic does not have chest pain or shortness of breath. At this time I would not perform a D-dimer because of his recent surgery it could be elevated. Therefore patient will have a venous duplex obtained and once that shows no DVT patient will be safe for discharge. I do feel that his pain/symptoms are most likely related to postsurgical inflammation compressing the L5-S1 nerve root which would correlate to his recent surgical procedure and location of pain today. Discharge Plan Triage Chief Complaint: Lower Extremity Injury ED Provider: Bernardo Chaidez Dx/Rx/DC Orders Clinical Impression: Postoperative pain, Leg pain Instructions: Understanding Lumbar Radiculopathy Prescriptions: No Action cyclobenzaprine 10 mg tablet 10 mg PO TID PRN (Reason: Muscle Spasm) RF: 0 oxycodone-acetaminophen [oxycodone-acetaminophen] 1 TABLET tablet 1 tab PO Q6H PRN PRN (Reason: Pain) 3 Days Qty: 12 RF: 0 prednisone 20 MG tablet 60 mg PO DAILY Qty: 15 RF: 0 methocarbamol 500 mg tablet 1,000 mg PO Q6H 7 Days Qty: 56 RF: 0 prednisone 20 mg tablet 40 mg PO DAILY 7 Days Qty: 14 RF: 0 oxycodone-acetaminophen [Endocet] 5-325 mg tablet 1 tab PO Q6H PRN (Reason: pain) 3 Days Qty: 12 RF: 0 tizanidine [Zanaflex] 4 mg capsule 4 mg PO TID PRN (Reason: muscle spasticity) Qty: 14 RF: 0 naproxen [Naprosyn] 500 mg tablet 500 mg PO BID Qty: 20 RF: 0 Primary Care Provider: Castro Zambrano Referrals: Castro Zambrano MD [Primary Care Provider] - Activity Restrictions/Additional Instructions: The ultrasound/venous duplex did not show a DVT/blood clot. Your symptoms are consistent with postoperative inflammation causing mild nervous compression and this should resolve with time. Please continue take your medications as previously directed and follow-up with your surgeon for repeat evaluation.
[2021-12-03] MEDS: oxyCODONE 5 MG Tablet 10 MG PO (05:52)
[2021-12-03] MEDS: HYDROmorphone 1 MG/ML Syringe IM (10:30)
[2021-12-03] MEDS: Ondansetron ODT 4 MG Tablet PO (10:30)
--- NOTE | 2021-12-03 10:48 | NURSING ---
[id number] LEFT MESSAGE AT [facility] 1003 LEFT MESSAGE WITH OR AT [facility]
[2021-12-03] MEDS: HYDROmorphone 0.5 MG/0.5 ML SYRINGE IV ×3 (11:19→17:42)
[2021-12-03] MEDS: 0.9% Normal Saline 1,000 ML 999 ML IV (11:21)
[2021-12-03 11:28] LABS: Absolute Lymphocyte Count 3.81 X10^3/uL (0.83-4.51); Absolute Neutrophil Count 8.1 X10^3/uL (2.0-7.7); Basophil# 0.03 X10^3/uL; Basophil% 0.2 % (0-1); Eosinophil# 0.13 X10^3/uL; Hematocrit 46.4 % (40-54); Hemoglobin 16.3 g/dL (13.0-16.5); Lymphocyte # 3.81 X10^3/ul (0.83-4.51); Lymphocyte % 29.2 % (19-41); Mean Corp Hgb Conc 35.1 g/dL (32-36); Mean Corpuscular Hgb 29.6 pg (27.0-32.0); Mean Corpuscular Volume 84.4 fL (80-94); Mean Platelet Vol. 9.7 fl (6.2-12.0); Monocyte# 0.92 X10^3/uL; NRBC Flagged by Analyzer 0 % (0-5); Neutrophil # 8.12 X10^3/uL (2.7-7.7); Neutrophil % 62.2 % (47-70); Platelet Count 298 K/mm3 (150-450); RBC Distribution Width CV 12.4 % (11.6-14.6); RBC Distribution Width SD 37.9 fl (35.1-43.9); White Blood Count 13.1 K/mm3 (4.4-11.0)
[2021-12-03 11:40] VITALS: BP 138/66; PULSE 88; RESP 14; O2SAT 98
[2021-12-03 11:40] LABS: Anion Gap 8 (5-15); BUN 10 mg/dL (7-18); BUN/Creat Ratio 9.7 RATIO (10-20); Calcium,Total 9.8 mg/dL (8.5-10.1); Chloride 104 mmol/L (98-107); Creatinine, Serum 1.03 mg/dL (0.70-1.30); EST Glomerular Filtration Rate 87 mL/min (>60); Est Glom Filt Rate - Afr Amer 105 mL/min (>60); Estimated Creatinine Clearance 109.87 ml/min; Glucose 100 mg/dL (74-106); Potassium 3.8 mmol/L (3.5-5.1); Sodium Level 137 mmol/L (136-145)
[2021-12-03 13:24] VITALS: BP 145/68; PULSE 78; RESP 16; O2SAT 97
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
[2021-12-03 17:23] VITALS: BP 129/74; PULSE 82; RESP 18; O2SAT 96
--- NOTE | 2021-12-03 17:45 | NURSING ---
CALLED [facility], ETA IS 20 MIN
[2021-12-03 18:01] VITALS: BP 138/97; PULSE 78; RESP 18; TEMP 37; O2SAT 98
== END 2021-12-03 18:31 | disposition home or self-care (01) ==
LOC: ED 04:46
PROVIDERS: Student in an Organized Health Care Education/Training Program; Emergency Provider Emergency Medicine; PCP Family Medicine; Visit Provider Emergency Medicine
DX: G89.18 Other acute postprocedural pain (principal); M79.604 Pain in right leg; Z79.899 Other long term (current) drug therapy; Z87.891 Personal history of nicotine dependence
CPT/HCPCS: 80048; 85025; 93971; 96372; 96374; 96376; 97162; 99285; J7030; A4216

== ENCOUNTER 2022-03-24 00:35 | Emergency (ER) | payer MEDICAID, SELFPAY ==
[2022-03-24 00:36] VITALS: BP 174/80; PULSE 66; RESP 17; TEMP 36.8; O2SAT 99; BMI 39.2
[2022-03-24 00:39] VITALS: BP 164/88; PULSE 65; RESP 17; TEMP 36.8; O2SAT 99
[2022-03-24 00:40] VITALS: O2SAT 98
[2022-03-24] MEDS: Naproxen 500 MG Tablet PO (01:03)
[2022-03-24] MEDS: dexAMETHasone 4 MG Tablet 10 MG PO (01:03)
--- NOTE | 2022-03-24 01:13 | EX.ED.DYSGE1 ---
HPI History of Present Illness Chief Complaint: General Illness Informant: patient Onset/Context/Timing Onset: Days (4 days) Context: Gradual Onset Current Severity: Mild Maximum Severity: Moderate Narrative Narrative: Patient present secondary to sore throat for the past 4 days. He states he woke up this morning felt he was choking on his uvula. No fever. No significant cough. PFSH PFSH Medical History Chronic pain Rheumatoid arthritis Home Medications prednisone 20 mg tablet 60 mg PO DAILY #12 tabs 03/24/22 [Rx Last Taken Unknown] Allergy/AdvReac Type Severity Reaction Status Date / Time hydrocodone AdvReac Mild Itching/anx Verified 03/24/22 00:39 iety Surgical History Hx of arthroscopic knee surgery Hx of foot surgery Social History Smoking Status: Former smoker substance use type: does not use ROS ROS ED Constitutional Constitutional ED: Denies chills or fever(s) Eyes Eyes: Denies change in vision or discharge from eye(s) ENT ENT ED: Reports sore throat; Denies discharge from eye(s) or rhinorrhea Cardiovascular Cardiovascular: Denies chest pain or palpitations Respiratory/Chest Respiratory/Chest: Denies cough Gastrointestinal Gastrointestinal: Denies abdominal pain, diarrhea, nausea or vomiting Genitourinary Genitourinary ED: Denies dysuria Musculoskeletal Musculoskeletal: Reports back pain and other Details: Chronic back pain, unchanged from baseline ; Denies extremity pain Integumentary Denies Abrasions or rash Neurologic Neurologic: Denies headache(s) or weakness Allergic/Immunologic Allergic/Immunologic ED: Denies lip swelling or urticaria EXAM Physical Exam Narrative Exam Narrative: Patient lying back in bed with head of bed elevated approximately 45 degrees. Patient speaks with a strong voice. Const Vital Signs: 03/24/22 00:36 03/24/22 00:40 03/24/22 00:39 Temperature 98.2 F 98.2 F Temperature Source Temporal Temporal Pulse Rate 66 65 Respiratory Rate 17 17 Blood Pressure 174/80 H 164/88 H Blood Pressure Mean 111 113 Pulse Ox 99 98 99 Oxygen Delivery Method Room Air Room Air Positive obese Nutritional Appearance: obese HEENT Reports moist mucous membranes HEENT Narrative: 2+ tonsils bilaterally. Uvula midline. No exudate appreciated. Eyes PERRL and EOMs intact bilaterally Neck supple Chest Wall inspection of chest normal and palpation of chest normal Resp normal respiratory effort and clear to auscultation bilaterally Cardio regular rate and regular rhythm GI normal to inspection, nondistended, normoactive bowel sounds Extremity normal to inspection Neuro oriented x3 and no sensory deficits noted Motor Exam: strength 5/5 throughout Psych mental status grossly normal Skin no rashes or lesions noted MDM MDM MDM Narrative Medical decision making narrative: Rapid strep is sent. Patient given Decadron and Naprosyn. Treatment and Re-Evaluation Narrative: On repeat evaluation patient resting comfortably. Continues to have a strong voice and is tolerating secretions well. Is able to drink water at bedside. Rapid strep test is negative. Patient will be treated with a short course of steroids to help with inflammation and swelling. Return instructions provided. Discharge Plan Triage Chief Complaint: General Illness ED Provider: Hollie Horn Dx/Rx/DC Orders Clinical Impression: Pharyngitis Instructions: ED Pharyngitis, Viral Prescriptions: New prednisone 20 mg tablet 60 mg PO DAILY Qty: 12 0RF Primary Care Provider: Care Physician,No Primary Referrals: Castro Zambrano MD [NON-STAFF] - 1 Week if not improving Disposition Disposition: Home, Self Care
[2022-03-24 01:51] VITALS: BP 132/74; PULSE 76; RESP 177; O2SAT 98
== END 2022-03-24 01:54 | disposition home or self-care (01) ==
PROVIDERS: Emergency Provider Emergency Medicine; Visit Provider Emergency Medicine
DX: J02.9 Acute pharyngitis, unspecified (principal); E66.9 Obesity, unspecified; Z87.891 Personal history of nicotine dependence
CPT/HCPCS: 87880; 99283

== ENCOUNTER 2022-06-14 14:29 | Emergency (ER) | payer MEDICAID, SELFPAY ==
[2022-06-14 14:30] VITALS: BP 170/78; PULSE 82; RESP 20; TEMP 36.6; O2SAT 98; BMI 39.0
--- NOTE | 2022-06-14 15:24 | EDS_ITS ---
HPI History of Present Illness Chief Complaint: Back Informant: patient Narrative Narrative: Persistent left lower back pain for the past 2 and half months. Patient reported disc hernia at 3 levels lower lumbar spine with open surgery by Dr. Jeffery Locke in November he states he is doing well had one postop visit and was doing well. 2.5 months ago was changing his child's diaper when he felt pain again in his back. Things have progressed felt pain into his pelvis similar to his previous herniations. He is seen pain management Dr. Luke with injections that failed. He follows the back specialist in [place] and his PCP they had 2 MRIs ordered which has been declined by insurance. He has been on Medrol Dosepak's, last time a few weeks ago states it did transiently help his symptoms. He is currently on meloxicam as needed. No other medicines. Did not take any today or recently. He has not made appointment with Dr. Locke. Patient drove himself here. Since laying down he states increasing spasms. Allergy to hydrocodone has tolerated morphine in the past. Denies any troubles with incontinence of bowels or urine retention. Prior similar symptoms: Yes and With Prior Back Pain [facility] Medical History Chronic pain Rheumatoid arthritis Home Medications prednisone 20 mg tablet 60 mg PO DAILY #12 tabs 03/24/22 [Rx Last Taken Unknown] diazepam 5 mg tablet 5 mg PO Q8 PRN Muscle Spasm #12 tabs 06/14/22 [Rx Last Taken Unknown] oxycodone-acetaminophen 5 mg-325 mg tablet (Percocet) 1 tab PO Q6H PRN pain 3 days #12 tabs 06/14/22 [Rx Last Taken Unknown] prednisone 20 mg tablet 60 mg PO DAILY #15 tabs 06/14/22 [Rx Last Taken Unknown] Allergy/AdvReac Type Severity Reaction Status Date / Time hydrocodone AdvReac Mild Itching/anx Verified 06/14/22 14:32 iety Surgical History Hx of arthroscopic knee surgery Hx of foot surgery Social History Smoking Status: Former smoker substance use type: does not use ROS ROS ED Constitutional Constitutional ED: Denies chills, fever(s) or sweats Eyes Eyes: Denies change in vision ENT ENT ED: Denies dysphagia or sore throat Cardiovascular Cardiovascular: Denies chest pain, leg edema, palpitations or racing heartbeat Respiratory/Chest Respiratory/Chest: Denies cough, dyspnea or dyspnea on exertion Gastrointestinal Gastrointestinal: Denies abdominal pain, diarrhea, nausea or vomiting Genitourinary Genitourinary ED: Denies dysuria, hematuria or urinary frequency Musculoskeletal Musculoskeletal: Reports back pain; Denies extremity pain or neck pain Integumentary Denies rash or wounds Neurologic Neurologic: Denies headache(s), paresthesias or weakness EXAM Physical Exam Const Vital Signs: 06/14/22 14:30 06/14/22 18:39 Temperature 97.9 F 97.8 F Temperature Source Temporal Pulse Rate 82 67 Respiratory Rate 20 H 16 Blood Pressure 170/78 H 134/78 H Blood Pressure Mean 108 Pulse Ox 98 98 Oxygen Delivery Method Room Air Positive well nourished and well developed Constitutional Narrative: Uncomfortable laying in bed. General Appearance ED: well developed HEENT Reports moist mucous membranes normocephalic and atraumatic Eyes PERRL, EOMs intact bilaterally and conjunctivae normal General Eye ED: Yes normal appearance of both eyes Neck no lymphadenopathy and supple General: Negative for tenderness Chest Wall Chest: Negative for tenderness Resp normal respiratory effort and normal air movement Effort and Inspection: symmetric chest movement; Negative for respiratory distress Cardio regular rate, regular rhythm and no murmurs Peripheral Pulses: pulses 2+ throughout GI normal to inspection, nondistended, normoactive bowel sounds and non-tender Palpation: Negative for guarding or rebound tenderness present Back/Spine no CVA tenderness Back/Spine Narrative: Significant discomfort with left leg movement in his lower back no pain down the legs. 1+ patellar reflex bilaterally. Extremity normal to inspection General Extremety ED: Negative for edema or tenderness General Extremity: Negative for edema Neuro oriented x3 and no sensory deficits noted Sensorium / Orientation: awake and alert Skin no rashes or lesions noted and no wounds MDM MDM MDM Narrative Medical decision making narrative: Patient uncomfortable on exam history of herniated disc with similar presentation. He has no cauda equina symptoms he has no current radicular pain down his legs however reports pressure in his pelvis. States feels exactly similar from his hernias in the past. He did drive himself here ever states he can get a ride. IV was placed aggressive treatment with pain medicines along with steroids. Additional muscle relaxer given. Did check labs and urine which were stable. Multiple reevaluations continued pain, additional NSAIDs and Dilaudid IV was given which made her much more comfortable symptoms down to a 5. He is able to ambulate. Discussed with the importance of calling his spine surgeon Dr. Locke for outpatient follow-up with his history. He states he will call on Friday. Prescription for Percocets prednisone and muscle relaxers for symptom control. He has meloxicam at home. Discharged with outpatient follow- up. Lab Data Attestation: I reviewed the patient's lab results. Labs: Laboratory Results - last 24 hr 06/14/22 06/14/22 06/14/22 15:45 15:45 15:45 WBC 6.5 RBC 5.76 Hgb 16.9 H Hct 49.2 MCV 85.4 MCH 29.3 MCHC 34.3 RDW Std Deviation 39.6 RDW Coeff of Raul 12.9 Plt Count 285 MPV 10.4 Immature Gran % (Auto) 0.200 Neut % (Auto) 42.4 L Lymph % (Auto) 43.9 H [place] % (Auto) 11.9 H Eos % (Auto) 1.4 Baso % (Auto) 0.2 Absolute Neuts (auto) 2.8 Absolute Lymphs (auto) 2.85 Nucleated RBC % 0 PT 12.8 INR 1.0 APTT 31.8 Sodium 140 Potassium 4.0 Chloride 107 Carbon Dioxide 28.0 Anion Gap 5 BUN 13 Creatinine 1.19 Estim Creat Clear Calc 92.28 Est GFR (MDRD) Af Amer 89 Est GFR (MDRD) Non-Af 74 BUN/Creatinine Ratio 10.9 Glucose 101 Calcium 9.1 Urine Color Urine Clarity Urine pH Ur Specific [place] Urine Protein Urine Glucose (UA) Urine Ketones Urine Occult Blood Urine Nitrite Urine Bilirubin Urine Urobilinogen Ur Leukocyte Esterase Urine RBC Urine WBC Ur Squamous Epith Cells Urine Bacteria Urine Mucus 06/14/22 17:38 WBC RBC Hgb Hct MCV MCH MCHC RDW Std Deviation RDW Coeff of Raul Plt Count MPV Immature Gran % (Auto) Neut % (Auto) Lymph % (Auto) [place] % (Auto) Eos % (Auto) Baso % (Auto) Absolute Neuts (auto) Absolute Lymphs (auto) Nucleated RBC % PT INR APTT Sodium Potassium Chloride Carbon Dioxide Anion Gap BUN Creatinine Estim Creat Clear Calc Est GFR (MDRD) Af Amer Est GFR (MDRD) Non-Af BUN/Creatinine Ratio Glucose Calcium Urine Color Yellow Urine Clarity Clear Urine pH 5.0 Ur Specific [place] 1.025 Urine Protein 15 H Urine Glucose (UA) Normal Urine Ketones Negative Urine Occult Blood Negative Urine Nitrite Negative Urine Bilirubin Negative Urine Urobilinogen Normal Ur Leukocyte Esterase Negative Urine RBC 0 SEEN Urine WBC 0 SEEN Ur Squamous Epith Cells 0-5 SEEN Urine Bacteria RARE Urine Mucus 1+ Discharge Plan Triage Chief Complaint: Back ED Provider: Joo Walls Dx/Rx/DC Orders Clinical Impression: Acute exacerbation of chronic low back pain, Status post discectomy for her niated nucleus pulposus, DDD (degenerative disc disease), lumbar Instructions: Relieving Back Pain, ED Back Care Tips Prescriptions: New oxycodone-acetaminophen [Percocet] 5-325 mg tablet 1 tab PO Q6H PRN (Reason: pain) 3 Days Qty: 12 0RF diazepam [diazepam] 5 mg tablet 5 mg PO Q8 PRN (Reason: Muscle Spasm) Qty: 12 0RF prednisone 20 mg tablet 60 mg PO DAILY Qty: 15 0RF No Action prednisone 20 mg tablet 60 mg PO DAILY Qty: 12 0RF Primary Care Provider: Jeremie Maravilla NP Referrals: Ziggy Locke DO [Non-Staff] - 3-5 Days Jeremie Maravilla AEROBICS INSTRUCTOR, AEROBICS INSTRUCTOR-C [Primary Care Provider] - Disposition Disposition: Home, Self Care Discharge Date/Time: 06/14/22 18:57
[2022-06-14] MEDS: 0.9% Normal Saline 1,000 ML 150 ML IV (15:35)
[2022-06-14] MEDS: Ketorolac 15 MG/ML Vial IV (15:38)
[2022-06-14] MEDS: Ondansetron 4 MG/2 ML Vial IV (15:38)
[2022-06-14] MEDS: morphine 10 MG/ML Syringe IV (15:39)
[2022-06-14] MEDS: MethylPREDNISolone 125 MG/2 ML Vial IV (15:40)
[2022-06-14 16:05] LABS: Absolute Lymphocyte Count 2.85 X10^3/uL (0.83-4.51); Absolute Neutrophil Count 2.8 X10^3/uL (2.0-7.7); Basophil# 0.01 X10^3/uL; Basophil% 0.2 % (0-1); Eosinophil# 0.09 X10^3/uL; Eosinophils% 1.4 % (0-5); Hematocrit 49.2 % (40-54); Hemoglobin 16.9 g/dL (13.0-16.5); Lymphocyte # 2.85 X10^3/ul (0.83-4.51); Lymphocyte % 43.9 % (19-41); Mean Corp Hgb Conc 34.3 g/dL (32-36); Mean Corpuscular Hgb 29.3 pg (27.0-32.0); Mean Corpuscular Volume 85.4 fL (80-94); Mean Platelet Vol. 10.4 fl (6.2-12.0); Monocyte# 0.77 X10^3/uL; Monocyte% 11.9 % (0-10); NRBC Flagged by Analyzer 0 % (0-5); Neutrophil # 2.76 X10^3/uL (2.7-7.7); Neutrophil % 42.4 % (47-70); Platelet Count 285 K/mm3 (150-450); RBC Distribution Width CV 12.9 % (11.6-14.6); RBC Distribution Width SD 39.6 fl (35.1-43.9); Red Blood Count 5.76 M/mm3 (4.6-6.2); White Blood Count 6.5 K/mm3 (4.4-11.0)
[2022-06-14] MEDS: Orphenadrine 60 MG/2 ML Ampul IV (16:10)
[2022-06-14 16:16] LABS: Anion Gap 5 (5-15); BUN 13 mg/dL (7-18); BUN/Creat Ratio 10.9 RATIO (10-20); Calcium,Total 9.1 mg/dL (8.5-10.1); Chloride 107 mmol/L (98-107); Creatinine, Serum 1.19 mg/dL (0.70-1.30); EST Glomerular Filtration Rate 74 mL/min (>60); Est Glom Filt Rate - Afr Amer 89 mL/min (>60); Estimated Creatinine Clearance 92.28 ml/min; Glucose 101 mg/dL (74-106); Prothrombin Time (Protime)PT. 12.8 SECONDS (11.7-14.9); Sodium Level 140 mmol/L (136-145)
[2022-06-14 16:17] LABS: Partial Thromboplast Time 31.8 Seconds (24.1-36.2)
--- NOTE | 2022-06-14 16:19 | CM.ED ---
FELISA Note Referral Source: ophthalmic tech Reason: Recent loss of his child's mother FELISA met with patient. Patient was in pain so this flex o writer operator kept the conversation to a minimum. Patient's son's mother 2 weeks ago from an OD. Patient said that his child is with his child's maternal grandmother and it's not the best situation but social work specialist advised that patient needs to care for himself and when he is physically better he can care for his child. Patient has [facility] insurance. He said that he has gotten denied for an MRI from his insurance and thus is concerned that the MRI will not be covered. SW encouraged patient to focus on him getting better to care for himself. FELISA also provided patient with phone and contact information for the Counseling center including their crisis number and also information on [facility]. FELISA remains available if needs arise. Carlyn SANDOVAL
[2022-06-14] MEDS: HYDROmorphone 1 MG/ML Syringe IV (17:36)
[2022-06-14 17:44] LABS: Red Blood Cells-Urine 0 SEEN /hpf (0-5); White Blood Cells 0 SEEN /hpf (0-5)
[2022-06-14 17:50] LABS: Color, Urine Yellow (Yellow); Glucose, Dipstick Normal (Normal); Ketone-Dipstick Negative (Negative); Leukocyte Esterase-Dipstick Negative /ul (Negative); Nitrite-Dipstick Negative (Negative); Occult Blood-Urine Negative /ul (Negative); Protein-Dipstick 15 mg/dl (Negative); Specific Gravity, Urine 1.025 (1.002-1.030); Urine Bilirubin Dipstick Negative (Negative); Urine Clarity Clear (Clear); Urine Urobilinogen Normal (Normal)
[2022-06-14 17:59] LABS: Bacteria RARE /hpf (None Seen); Mucous, Urine 1+ /hpf (<or=2+); Squamous Epithelial Cells - UA 0-5 SEEN /hpf (0-5)
[2022-06-14 18:39] VITALS: BP 134/78; PULSE 67; RESP 16; TEMP 36.6; O2SAT 98
== END 2022-06-14 18:57 | disposition home or self-care (01) ==
PROVIDERS: Emergency Provider Emergency Medicine; PCP Nurse Practitioner Family; Visit Provider Emergency Medicine
DX: M54.50 Low back pain, unspecified (principal); M51.36 Other intervertebral disc degeneration, lumbar region; Z87.891 Personal history of nicotine dependence
CPT/HCPCS: 80048; 81001; 85025; 85610; 85730; 96374; 96375; 99283; J7030; A4216; J2405

== ENCOUNTER 2023-06-23 21:20 | Emergency (ER) | payer MEDICAID, SELFPAY ==
[2023-06-23 21:21] VITALS: BP 165/101; PULSE 69; RESP 18; TEMP 35.6; O2SAT 95; BMI 37.9
--- NOTE | 2023-06-23 23:30 | ED.RN ---
called for pt in triage with no answer
== END 2023-06-23 23:30 | disposition left against medical advice (07) ==
LOC: ED 23:34
PROVIDERS: PCP Nurse Practitioner Family
DX: Z53.21 Procedure and treatment not carried out due to patient leaving prior to being seen by health care provider (principal)

== ENCOUNTER → 2024-02-06 | Outpatient (CLI) | payer MEDICAID, SELFPAY ==
[2024-02-06 17:32] LABS: Absolute Lymphocyte Count 4.21 X10^3/uL (0.83-4.51); Basophil# 0.03 X10^3/uL; Basophil% 0.3 % (0-1); Eosinophils% 2.9 % (0-5); Hematocrit 44.3 % (40-54); Hemoglobin 15.1 g/dL (13.0-16.5); Lymphocyte # 4.21 X10^3/ul (0.83-4.51); Lymphocyte % 40.5 % (19-41); Mean Corp Hgb Conc 34.1 g/dL (32-36); Mean Corpuscular Hgb 29.7 pg (27.0-32.0); Mean Platelet Vol. 10.3 fl (6.2-12.0); Monocyte# 0.69 X10^3/uL; Monocyte% 6.6 % (0-10); NRBC Flagged by Analyzer 0 % (0-5); Neutrophil # 5.01 X10^3/uL (2.7-7.7); Neutrophil % 48.3 % (47-70); Platelet Count 310 K/mm3 (150-450); RBC Distribution Width CV 12.9 % (11.6-14.6); RBC Distribution Width SD 40.8 fl (35.1-43.9); Red Blood Count 5.09 M/mm3 (4.6-6.2); White Blood Count 10.4 K/mm3 (4.4-11.0)
[2024-02-06 17:45] LABS: Vitamin D,25 Hydroxy 26.2 ng/mL
[2024-02-06 17:55] LABS: Erythrocyte Sedimentation Rate 7 mm/hr (0-20)
[2024-02-06 18:07] LABS: AST(SGOT) 33 U/L (15-37); Alanine Aminotransfer ALT/SGPT 54 U/L (16-61); Albumin, Serum 3.8 g/dL (3.2-5.0); Alkaline Phosphatase 83 U/L (45-117); Anion Gap 6 (5-15); BUN 17 mg/dL (7-18); Calcium,Total 9.2 mg/dL (8.5-10.1); Chloride 104 mmol/L (98-107); Cholesterol 217 mg/dL (200); Creatinine, Serum 1.13 mg/dL (0.70-1.30); EST Glomerular Filtration Rate 77 mL/min (>60); Est Glom Filt Rate - Afr Amer 94 mL/min (>60); Glucose 100 mg/dL (74-106); High Density Lipoprotein 34 mg/dL; Potassium 4.2 mmol/L (3.5-5.1); Protein, Total 7.8 g/dL (6.4-8.2); Sodium Level 136 mmol/L (136-145); Thyroid Stim Hormone (TSH) 5.11 uIU/mL (0.358-3.74); Triglycerides 758 mg/dL
[2024-02-09 12:08] LABS: ANTINUCLEAR ANTIBODIES DIRECT Negative (Negative)
[2024-02-09 13:07] LABS: CCP IgG Antibodies 17 units (0-19)
[2024-02-10 13:59] LABS: Rheumatoid Factor < 10.0 IU/mL (<15)
== END | disposition home or self-care (01) ==
LOC: MFPLAB 16:06
PROVIDERS: PCP Family Medicine; Visit Provider Family Medicine
DX: M06.9 Rheumatoid arthritis, unspecified (principal); E66.9 Obesity, unspecified; E04.1 Nontoxic single thyroid nodule; E55.9 Vitamin D deficiency, unspecified
CPT/HCPCS: 36415; 80053; 80061; 82306; 84439; 84443; 85025; 85652; 86038; 86200; 86431

== ENCOUNTER 2024-03-01 21:23 | Emergency (ER) | payer MEDICAID, SELFPAY ==
[2024-03-01 21:24] VITALS: BP 152/95; PULSE 76; RESP 16; TEMP 36.4; O2SAT 95; BMI 36.9
--- NOTE | 2024-03-01 21:40 | RAD_ITS ---
EXAM: XR RIGHT KNEE COMPLETE, 4 OR MORE VIEWS CLINICAL INDICATION: pain TECHNIQUE: Four or more views of the right knee. COMPARISON: No relevant prior studies available. FINDINGS: BONES/JOINTS: Slight lateral subluxation of the patella with narrowing of the lateral aspect of the patellofemoral joint. No acute fracture. No sclerotic or destructive changes observed. SOFT TISSUES: Unremarkable. No soft tissue swelling or gas. No radiopaque foreign body. RAD/Knee 4 or More Views IMPRESSION: Slight lateral subluxation of the patella with narrowing of the lateral aspect of the patellofemoral joint. No specific acute abnormality. Electronically Signed: José Miguel Doherty MD at 22:24 EDT ,
--- NOTE | 2024-03-01 23:18 | EX.ED.DYSGE1 ---
HPI History of Present Illness Chief Complaint: Lower Extremity Injury Informant: patient Narrative Narrative: Patient is a 38-year-old male who reports a past medical history of degenerative disc disease as well as rheumatoid arthritis. He states that he also tore his right medial meniscus years ago. He reports that he recently had back surgery and today he went to get up off the couch and he felt a pop in his right knee. He denies falling or injuring the knee in any manner. He states that since that time he has had difficulty ambulating secondary to the pain in his right knee and was concerned he may have torn his meniscus or a knee ligament comes in for evaluation [facility] Medical History (Updated 03/02/24 @ 02:[address] Bernardo Chaidez DO) Rheumatoid arthritis Chronic pain Home Medications ?Medication ?Instructions ?Recorded ?Last Taken ?Type oxycodone-acetaminophen 5 mg-325 1 tab PO Q6H PRN pain 3 days #12 06/14/22 Unknown Rx mg tablet (Percocet) tabs cholecalciferol (vitamin D3) 1,250 1,250 mcg PO QMONTH 03/01/24 Unknown History mcg (50,000 unit) capsule escitalopram oxalate 20 mg tablet 20 mg PO DAILY 03/01/24 Unknown History (Lexapro) ondansetron 4 mg disintegrating 4 mg PO TID PRN nausea and 03/01/24 Unknown Rx tablet vomiting #21 tabs oxycodone-acetaminophen 5 mg-325 1 tab PO Q6H PRN pain 3 days #12 03/01/24 Unknown Rx mg tablet (Percocet) tabs Allergy/AdvReac Type Severity Reaction Status Date / Time hydrocodone AdvReac Mild Itching/anx Verified 03/01/24 21:23 iety Surgical History (Updated 03/01/24 @ 23:36 by Dawn Sequeira) Hx of laminectomy Hx of arthroscopic knee surgery Hx of foot surgery Social History Smoking Status: Former smoker substance use type: does not use ROS ROS ED Constitutional Constitutional ED: Denies chills or fever(s) ENT ENT ED: Denies sore throat Cardiovascular Cardiovascular: Denies chest pain Respiratory/Chest Respiratory/Chest: Denies cough or dyspnea Gastrointestinal Gastrointestinal: Denies abdominal pain, diarrhea, nausea or vomiting Genitourinary Genitourinary ED: Denies dysuria Musculoskeletal Musculoskeletal: Reports back pain and other Details: Positive right knee pain ; Denies neck pain Integumentary Denies Abrasions or rash Neurologic Neurologic: Denies headache(s) or paresthesias Hematologic/Lymphatic Hematologic/Lymphatic: Denies easy bleeding or easy bruising EXAM Physical Exam Const Vital Signs: 03/01/24 21:24 03/01/24 23:46 Temperature 97.5 F L 97.0 F L Temperature Source Temporal Pulse Rate 76 94 Respiratory Rate 16 18 Blood Pressure 152/95 H 132/82 H Blood Pressure Mean 114 98 Pulse Ox 95 99 Positive well nourished, well developed and obese General Appearance ED: well developed; Negative for pallor Nutritional Appearance: obese HEENT HEENT Narrative: Normocephalic atraumatic Eyes PERRL and EOMs intact bilaterally General Eye ED: Negative for scleral icterus Neck supple Resp normal respiratory effort and clear to auscultation bilaterally Cardio regular rate and regular rhythm Extremity Extremity Narrative: Right lower extremity is neurovascularly intact There is mild soft tissue swelling to the anterior aspect of the right knee without obvious bony deformity or joint effusion. Patellar tendon is intact. There is mild laxity with stressing of the right knee with the varus stress test indicating potential LCL injury. No overlying erythema or warmth noted Remainder of the exam is normal Neuro oriented x3 and CN's II-XII intact bilaterally Sensorium / Orientation: alert Psych mental status grossly normal Skin no rashes or lesions noted General Skin Exam: Negative for jaundice or pallor MDM MDM MDM Narrative Medical decision making narrative: Patient presented to the ER hypertensive otherwise with stable vitals. He reported no direct trauma and that he developed pain after trying to stand up and he felt a pop. He has pain along the lateral aspect of his right knee and there is mild laxity with varus stress testing indicating potentially a grade 2 LCL injury. As there is also concern for patellar dislocation versus patellar fracture or tibial plateau fracture and x-ray was ordered. X-ray revealed arthritic changes without acute findings. The patient does not have signs of infection and therefore do not feel there is need for blood work. Patient replaced in a knee immobilizer for stabilization and is otherwise safe for discharge. Radiography Diagnostic Testing: Clinical Impression(s) from Imaging Studies Knee X-Ray 03/01/24 21:40 IMPRESSION: Slight lateral subluxation of the patella with narrowing of the lateral aspect of the patellofemoral joint. No specific acute abnormality. Electronically Signed: José Miguel Doherty MD at 22:24 EDT , X-ray of the right knee as interpreted by the emergency medicine physician reveals arthritic changes without acute fracture or dislocation Discharge Plan Triage Chief Complaint: Lower Extremity Injury ED Provider: Bernardo Chaidez Dx/Rx/DC Orders Clinical Impression: Right knee sprain, DDD (degenerative disc disease), lumbar, History of rheumatoid arthritis Instructions: ED Knee Sprain Ligaments Prescriptions: New oxycodone-acetaminophen [Percocet] 5-325 mg tablet 1 tab PO Q6H PRN (Reason: pain) 3 Days Qty: 12 0RF ondansetron 4 mg tablet,disintegrating 4 mg PO TID PRN (Reason: nausea and vomiting) Qty: 21 0RF No Action oxycodone-acetaminophen [Percocet] 5-325 mg tablet 1 tab PO Q6H PRN (Reason: pain) 3 Days Qty: 12 0RF escitalopram oxalate [Lexapro] 20 mg tablet 20 mg PO DAILY cholecalciferol (vitamin D3) 1,250 mcg (50,000 unit) capsule 1,250 mcg PO QMONTH Primary Care Provider: Marck Lopez Referrals: Marck Lopez MD [Primary Care Provider] - Jose Scanlon DO [Med Staff - Active Staff] - Activity Restrictions/Additional Instructions: Wear your knee immobilizer for stabilization and use crutches to help with weightbearing. Follow-up with orthopedics/Dr. Scanlon to discuss further testing such as an MRI to further evaluate you for a lateral collateral ligament injury and/or lateral meniscus tear. Return to the ER should you have any further concerns Print Language: Lao Disposition Disposition: Home, Self Care Discharge Date/Time: 03/01/24 23:54
[2024-03-01] MEDS: Ondansetron ODT 4 MG Tablet PO (23:31)
[2024-03-01] MEDS: oxyCODONE 5 MG Tablet 10 MG PO (23:42)
[2024-03-01 23:46] VITALS: BP 132/82; PULSE 94; RESP 18; TEMP 36.1; O2SAT 99
== END 2024-03-01 23:54 | disposition home or self-care (01) ==
PROVIDERS: Emergency Provider Emergency Medicine; PCP Family Medicine; Visit Provider Emergency Medicine
DX: S83.91XA Sprain of unspecified site of right knee, initial encounter (principal); M06.9 Rheumatoid arthritis, unspecified; M51.36 Other intervertebral disc degeneration, lumbar region; Z87.891 Personal history of nicotine dependence; Z79.899 Other long term (current) drug therapy; X58.XXXA Exposure to other specified factors, initial encounter
CPT/HCPCS: 73564; 99284

== ENCOUNTER → 2024-03-11 | Outpatient (CLI) | payer MEDICAID, SELFPAY ==
--- NOTE | 2024-03-11 13:01 | US_ITS ---
STUDY: THYROID ULTRASOUND REASON FOR EXAM: Male, 38 years old. nodule TECHNIQUE: Ultrasound evaluation of the thyroid was performed with real-time and static go-scale imaging. COMPARISON: None. FINDINGS: RIGHT LOBE: The right lobe of the thyroid gland measures 4.5 x 1.6 x 2.1 cm. There is a homogeneous echotexture. There are no demonstrated solid, cystic or complex lesions. LEFT LOBE: The left lobe of the thyroid gland measures 3.9 x 1.7 x 1.5 cm. There is a homogeneous echotexture. There are no demonstrated solid, cystic or complex lesions. ISTHMUS: The isthmus measures 5 mm thick. . The regional lymph nodes are normal. US/Thyroid IMPRESSION: Normal ultrasound examination of the thyroid. Electronically Signed: Jeremie Wilson MD at 18:38 EDT ,
== END | disposition home or self-care (01) ==
LOC: US 12:58
PROVIDERS: PCP Family Medicine; Referring Provider Family Medicine; Visit Provider Family Medicine
DX: E04.1 Nontoxic single thyroid nodule (principal)
CPT/HCPCS: 76536

== ENCOUNTER → 2024-03-22 | Outpatient (CLI) | payer MEDICAID, SELFPAY ==
--- NOTE | 2024-03-22 09:08 | MRI_ITS ---
STUDY: MRI RIGHT KNEE REASON FOR EXAM: Male, 38 years old. Right knee sprain/pain, history of meniscus surgery. X-rays. TECHNIQUE: Standardized fat and water weighted pulse sequences were obtained in all 3 orthogonal planes. COMPARISON: Right knee radiographs dated 03/01/2024. FINDINGS: Normal medial meniscus. Normal hyaline cartilage of the medial femorotibial compartment. Normal medial femoral condyle and tibial plateau. Normal medial collateral ligamentous complex (MCL). Normal distal semimembranosus, gracilis and semitendinosus tendons. Normal lateral meniscus. Normal hyaline cartilage of the lateral femorotibial compartment. Normal lateral femoral condyle and tibial plateau. Normal proximal tibiofibular articulation. Normal lateral collateral (fibular) ligament. Normal popliteus tendon. Normal biceps femoris tendon. Normal anterior cruciate ligament (ACL). Normal posterior cruciate ligament (PCL). There is a small focus of subchondral marrow edema along the lateral patellar facet (axial T2 series 3 image 25). Congruent patellofemoral articulation. Normal medial and lateral patellar retinaculum. Normal quadriceps tendon. Normal patellar tendon. Normal Hoffa''s fat pad. There is a tiny joint effusion. There is a tiny popliteal cyst. The soft tissues are unremarkable. The otherwise visualized osseous structures are unremarkable. MRI/Lower Ext Joint Only (Routine) IMPRESSION: Small focus of subchondral marrow edema along the lateral patellar facet. Tiny joint effusion with a tiny popliteal cyst. No discrete meniscal tear or acute ligamentous injury. Electronically Signed: Ethan Srinivasan MD at 12:54 EDT ,
== END | disposition home or self-care (01) ==
LOC: MRI 09:04
PROVIDERS: PCP Family Medicine; Visit Provider Physician Assistant
DX: S83.8X1A Sprain of other specified parts of right knee, initial encounter (principal); M25.561 Pain in right knee
CPT/HCPCS: 73721

== ENCOUNTER 2024-06-02 19:01 | Emergency (ER) | payer MEDICAID, SELFPAY ==
[2024-06-02 19:01] VITALS: BP 156/99; PULSE 75; RESP 15; TEMP 36.7; O2SAT 98; BMI 33.2
--- NOTE | 2024-06-02 19:24 | CT_ITS ---
STUDY: CT BRAIN WITH AND WITHOUT CONTRAST REASON FOR EXAM: Male, 38 years old. SKY RADIATION DOSAGE (If Supplied By Facility): CTDIvol = ( 24.51 ) mGy, DLP = ( 1301.95 ) mGycm TECHNIQUE: Transaxial CT imaging of the brain was performed pre and post contrast administration. The examination was performed with intravenous administration of IV 100mL Isovue-370. Individualized dose optimization techniques were used for this CT. COMPARISON: None. FINDINGS: Normal soft tissue structures. Normal calvarium. Normal size ventricles and extra-axial spaces for the patient''s age. Normal white matter tracts of the cerebral hemispheres. Normal basal ganglia and thalami. Normal brainstem. Normal cerebellum. There is no intracranial hemorrhage. There are no findings of an acute ischemic infarction. Moderate mucosal thickening of the bilateral maxillary sinuses. Diffuse opacification of left sphenoid sinus CT/CTA Head W/WO Contrast IMPRESSION: Normal unenhanced and enhanced CT scan of the brain. Bilateral maxillary and left sphenoid sinusitis likely chronic Electronically Signed: Weston Shen MD at 20:43 EDT ,
--- NOTE | 2024-06-02 19:25 | EX.ED.VIS.HA ---
HPI History of Present Illness Chief Complaint: Headache Informant: patient Narrative Narrative: 38-year-old male states has had a headache for about 7 hours. It started with a left visual field visual disturbance that ended up looking like a kaleidoscope, it was in his visual field to the left of each eye individually when he tested it, earlier today when he had that. As the kaleidoscope resolved, he developed a right retro-orbital headache and warmth around the right eye which is still present and has been severe most of the day. He states a little while ago the visual disturbance started to recur again but it is gone right now. No other neurologic symptoms. He states at 1 point when the headache hit, he felt like he was going to pass out but he did not lose consciousness. No recent injury. He states when all of this started he was painting a door jam and grilling food. He tried taking extra strength Tylenol which did not help and later took a Percocet which also did not help. He has had headaches that he dubs migraines in the past but he has never had these symptoms. He is concerned because he had a cousin who had a ruptured aneurysm. [facility] Medical History Migraine Rheumatoid arthritis Chronic pain Home Medications ?Medication ?Instructions ?Recorded ?Last Taken ?Type escitalopram oxalate 20 mg tablet 20 mg PO DAILY 03/01/24 Unknown History (Lexapro) Allergy/AdvReac Type Severity Reaction Status Date / Time hydrocodone AdvReac Mild Itching/anx Verified 06/02/24 19:19 iety Surgical History Hx of laminectomy Hx of arthroscopic knee surgery Hx of foot surgery Social History Smoking Status: Former smoker substance use type: does not use ROS ROS ED Constitutional Constitutional ED: Denies chills or fever(s) Eyes Eyes: Reports as per HPI, blurry vision, other visual disturbances and photophobia; Denies diplopia ENT ENT ED: Denies ear pain or sore throat Cardiovascular Cardiovascular: Denies chest pain or palpitations Respiratory/Chest Respiratory/Chest: Denies cough or dyspnea Gastrointestinal Gastrointestinal: Reports nausea; Denies abdominal pain, diarrhea or vomiting Genitourinary Genitourinary ED: Denies dysuria or urinary frequency Musculoskeletal Musculoskeletal: Denies back pain or myalgias Integumentary Denies abscess or rash Neurologic Neurologic: Reports headache(s); Denies paresthesias or weakness EXAM Physical Exam Const Vital Signs: 06/02/24 19:01 06/02/24 21:01 Temperature 98.1 F Temperature Source Temporal Pulse Rate 75 62 Respiratory Rate 15 18 Blood Pressure 156/99 H 107/63 Blood Pressure Mean 118 77 Pulse Ox 98 Oxygen Delivery Method Room Air Positive well nourished and well developed General Appearance ED: well developed and NAD HEENT Reports normocephalic and moist mucous membranes atraumatic Eyes PERRL, EOMs intact bilaterally and conjunctivae normal Eyes Narrative: photophobia Neck no lymphadenopathy, supple and no meningeal signs Resp normal respiratory effort Effort and Inspection: able to speak in complete sentences Extremity normal to inspection and full ROM Neuro oriented x3 and CN's II-XII intact bilaterally Sensorium / Orientation: awake and alert Speech: speech normal Gait (Neuro): normal gait Motor Exam: strength 5/5 throughout Psych Mood & Affect: anxious Skin Lesions: no lesions Rashes: no rashes MDM MDM MDM Narrative Medical decision making narrative: Patient symptoms are consistent with a migraine. Given his concern understandably, CT angiography of the head was performed, I reviewed the images and report which I agree with, it is negative for bleed and aneurysm or any other acute vascular abnormality. Does show what appears to be chronic opacification of both maxillary and sphenoid sinuses. 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 Initially we treated him with Reglan/Benadryl, this did not help so I followed this up with a dose of Compazine and Toradol, and afterwards his headache is completely resolved. Stable for discharge home his blood work is reviewed and noted, discussed follow-up and reasons to return. Lab Data Attestation: I reviewed the patient's lab results. Labs: Laboratory Results - last 24 hr 06/02/24 19:30 WBC 10.7 RBC 5.18 Hgb 15.3 Hct 45.4 MCV 87.6 MCH 29.5 MCHC 33.7 RDW Std Deviation 39.9 RDW Coeff of Raul 12.5 Plt Count 303 MPV 10.0 Immature Gran % (Auto) 2.500 H Neut % (Auto) 53.8 Lymph % (Auto) 34.1 [place] % (Auto) 5.9 Eos % (Auto) 3.2 Baso % (Auto) 0.5 Absolute Neuts (auto) 5.8 Absolute Lymphs (auto) 3.66 Nucleated RBC % 0 Sodium 139 Potassium 4.3 Chloride 105 Carbon Dioxide 28.0 Anion Gap 6 BUN 17 Creatinine 1.19 Estim Creat Clear Calc 106.22 Est GFR (MDRD) Af Amer 88 Est GFR (MDRD) Non-Af 73 BUN/Creatinine Ratio 14.3 Glucose 109 H Calcium 9.0 Radiography Diagnostic Testing: Clinical Impression(s) from Imaging Studies Head CTA 06/02/24 19:24 IMPRESSION: Normal unenhanced and enhanced CT scan of the brain. Bilateral maxillary and left sphenoid sinusitis likely chronic Electronically Signed: Weston Shen MD at 20:43 EDT , Discharge Plan Triage Chief Complaint: Headache ED Provider: Brant Reid Dx/Rx/DC Orders Clinical Impression: Headache, migraine, Chronic maxillary sinusitis Instructions: Migraine Triggers, ED, Migraine (Classical) Prescriptions: No Action escitalopram oxalate [Lexapro] 20 mg tablet 20 mg PO DAILY Primary Care Provider: Marck Lopez Referrals: Marck Lopez MD [Primary Care Provider] - 3-5 Days if not improving Print Language: Kinyarwanda Disposition Disposition: Home, Self Care
[2024-06-02] MEDS: DiphenhydrAMINE 50 MG/ML Syringe 25 MG IV (19:35)
[2024-06-02] MEDS: Metoclopramide 10 MG/2 ML Vial 5 MG IV (19:36)
[2024-06-02] MEDS: 0.9% Normal Saline (1000mL) 1,000 ML 999 ML IV (19:36)
[2024-06-02 19:44] LABS: Absolute Lymphocyte Count 3.66 X10^3/uL (0.83-4.51); Absolute Neutrophil Count 5.8 X10^3/uL (2.0-7.7); Basophil# 0.05 X10^3/uL; Basophil% 0.5 % (0-1); Eosinophil# 0.34 X10^3/uL; Eosinophils% 3.2 % (0-5); Hematocrit 45.4 % (40-54); Hemoglobin 15.3 g/dL (13.0-16.5); Lymphocyte # 3.66 X10^3/ul (0.83-4.51); Lymphocyte % 34.1 % (19-41); Mean Corp Hgb Conc 33.7 g/dL (32-36); Mean Corpuscular Hgb 29.5 pg (27.0-32.0); Mean Corpuscular Volume 87.6 fL (80-94); Monocyte# 0.63 X10^3/uL; Monocyte% 5.9 % (0-10); NRBC Flagged by Analyzer 0 % (0-5); Neutrophil # 5.77 X10^3/uL (2.7-7.7); Neutrophil % 53.8 % (47-70); Platelet Count 303 K/mm3 (150-450); RBC Distribution Width CV 12.5 % (11.6-14.6); RBC Distribution Width SD 39.9 fl (35.1-43.9); Red Blood Count 5.18 M/mm3 (4.6-6.2); White Blood Count 10.7 K/mm3 (4.4-11.0)
[2024-06-02 19:56] LABS: Anion Gap 6 (5-15); BUN 17 mg/dL (7-18); BUN/Creat Ratio 14.3 RATIO (10-20); Chloride 105 mmol/L (98-107); Creatinine, Serum 1.19 mg/dL (0.70-1.30); EST Glomerular Filtration Rate 73 mL/min (>60); Est Glom Filt Rate - Afr Amer 88 mL/min (>60); Estimated Creatinine Clearance 106.22 ml/min; Glucose 109 mg/dL (74-106); Potassium 4.3 mmol/L (3.5-5.1); Sodium Level 139 mmol/L (136-145)
[2024-06-02] MEDS: proCHLORPERazine 10 MG/2 ML Vial 5 MG IV (20:56)
[2024-06-02] MEDS: Ketorolac 30 MG/ML Syringe IV (20:56)
[2024-06-02 21:01] VITALS: BP 107/63; PULSE 62; RESP 18
[2024-06-02 23:00] VITALS: BP 146/87; PULSE 63; RESP 18; TEMP 36.4; O2SAT 98
== END 2024-06-02 23:01 | disposition home or self-care (01) ==
PROVIDERS: Emergency Provider Emergency Medicine; PCP Family Medicine; Visit Provider Emergency Medicine
DX: G43.909 Migraine, unspecified, not intractable, without status migrainosus (principal); J32.0 Chronic maxillary sinusitis; Z87.891 Personal history of nicotine dependence; Z79.899 Other long term (current) drug therapy
CPT/HCPCS: 70496; 80048; 85025; 96361; 96374; 96375; 96376; 99282; Q9967

== ENCOUNTER → 2024-07-23 | Outpatient (CLI) | payer MEDICAID, SELFPAY ==
[2024-07-23 12:16] LABS: Absolute Lymphocyte Count 3.34 X10^3/uL (0.83-4.51); Basophil# 0.03 X10^3/uL; Basophil% 0.4 % (0-1); Eosinophil# 0.31 X10^3/uL; Eosinophils% 4.2 % (0-5); Hematocrit 45.3 % (40-54); Hemoglobin 15.4 g/dL (13.0-16.5); Lymphocyte # 3.34 X10^3/ul (0.83-4.51); Lymphocyte % 45.1 % (19-41); Mean Corpuscular Hgb 29.4 pg (27.0-32.0); Mean Corpuscular Volume 86.5 fL (80-94); Mean Platelet Vol. 10.1 fl (6.2-12.0); Monocyte# 0.49 X10^3/uL; Monocyte% 6.6 % (0-10); NRBC Flagged by Analyzer 0 % (0-5); Neutrophil # 3.03 X10^3/uL (2.7-7.7); Neutrophil % 40.9 % (47-70); Platelet Count 265 K/mm3 (150-450); RBC Distribution Width CV 12.4 % (11.6-14.6); RBC Distribution Width SD 39.2 fl (35.1-43.9); Red Blood Count 5.24 M/mm3 (4.6-6.2); White Blood Count 7.4 K/mm3 (4.4-11.0)
[2024-07-23 12:54] LABS: Vitamin D,25 Hydroxy 29.2 ng/mL
[2024-07-23 13:05] LABS: ALB/GLOB Ratio 1.1 RATIO (0.9-2.4); AST(SGOT) 29 U/L (15-37); Alanine Aminotransfer ALT/SGPT 37 U/L (16-61); Albumin, Serum 3.8 g/dL (3.2-5.0); Alkaline Phosphatase 84 U/L (45-117); Anion Gap 5 (5-15); BUN 12 mg/dL (7-18); BUN/Creat Ratio 11.8 RATIO (10-20); Calcium,Total 8.7 mg/dL (8.5-10.1); Chloride 109 mmol/L (98-107); Cholesterol 194 mg/dL (200); Creatinine, Serum 1.02 mg/dL (0.70-1.30); EST Glomerular Filtration Rate 87 mL/min (>60); Est Glom Filt Rate - Afr Amer 105 mL/min (>60); Globulin 3.6 g/dL (2.2-4.2); Glucose 92 mg/dL (74-106); High Density Lipoprotein 44 mg/dL; Protein, Total 7.4 g/dL (6.4-8.2); Sodium Level 138 mmol/L (136-145); Triglycerides 204 mg/dL; Very Low Density Lipoprotein 41 mg/dL (5-40)
[2024-07-23 13:37] LABS: Hemoglobin A1c 5.5 % (3.8-5.6)
[2024-07-26 16:10] LABS: Anti-Thyroglobulin AB < 1.0 IU/mL (0.0-0.9); Thyroglobulin, Serum Qt. 61.1 ng/mL (1.4-29.2); Thyroid Peroxidase AB 16 IU/mL (0-34)
== END | disposition home or self-care (01) ==
LOC: MFPLAB 10:08
PROVIDERS: PCP Family Medicine; Referring Provider Family Medicine; Visit Provider Family Medicine
DX: R73.09 Other abnormal glucose (principal); E78.1 Pure hyperglyceridemia; E55.9 Vitamin D deficiency, unspecified; R79.89 Other specified abnormal findings of blood chemistry
CPT/HCPCS: 36415; 80053; 80061; 82306; 83036; 84432; 84439; 84443; 85025; 86376; 86800

== ENCOUNTER → 2024-10-20 | Outpatient (CLI) | payer MEDICAID, SELFPAY ==
[2024-10-20 15:37] LABS: Hematocrit 47.1 % (40-54); Hemoglobin 15.5 g/dL (13.0-16.5); Mean Corp Hgb Conc 32.9 g/dL (32-36); Mean Corpuscular Hgb 29.6 pg (27.0-32.0); Mean Corpuscular Volume 90.1 fL (80-94); Mean Platelet Vol. 10.6 fl (6.2-12.0); POSITIVE COUNT YES; POSITIVE MORPHOLOGY YES; Platelet Count 278 K/mm3 (150-450); RBC Distribution Width SD 42.1 fl (35.1-43.9); Red Blood Count 5.23 M/mm3 (4.6-6.2); White Blood Count 8.2 K/mm3 (4.4-11.0)
[2024-10-20 15:40] LABS: Differential Indicated MANUAL DIFF
[2024-10-20 16:03] LABS: Neutrophil-Band 1 % (0-5); Neutrophil-Segmented 43 % (47-70); Total Cells Counted 100 (MANUAL DIFF)
[2024-10-20 16:04] LABS: Absolute Lymphocyte Count 3.59 X10^3/uL (0.83-4.51); Absolute Neutrophil Count 3.6 X10^3/uL (2.0-7.7); Eosinophil 2 % (0-5); Lymphocyte 44 % (19-41); Metamyelocyte 1 % (0-1); Monocyte 8 % (0-10); Myelocyte 1 % (0-0); Platelet Estimate ADEQUATE (ADEQ); Red Cell Morphology NORM C+C NORMAL (NORM C&C)
[2024-10-20 16:09] LABS: AST(SGOT) 32 U/L (15-37); Alanine Aminotransfer ALT/SGPT 48 U/L (16-61); Albumin, Serum 3.8 g/dL (3.2-5.0); Alkaline Phosphatase 87 U/L (45-117); Anion Gap 7 (5-15); BUN 12 mg/dL (7-18); BUN/Creat Ratio 11.1 RATIO (10-20); Calcium,Total 9.1 mg/dL (8.5-10.1); Chloride 104 mmol/L (98-107); Creatinine, Serum 1.08 mg/dL (0.70-1.30); EST Glomerular Filtration Rate 81 mL/min (>60); Est Glom Filt Rate - Afr Amer 98 mL/min (>60); Glucose 85 mg/dL (74-106); Potassium 4.2 mmol/L (3.5-5.1); Protein, Total 7.8 g/dL (6.4-8.2); Sodium Level 138 mmol/L (136-145); T4 Free Direct 0.95 ng/dL (0.76-1.46)
[2024-10-21 14:21] LABS: Pathologist Review Reviewed
[2024-10-21 14:35] LABS: Vitamin D,25 Hydroxy 32.3 ng/mL
== END | disposition home or self-care (01) ==
LOC: MFPLAB 10:28
PROVIDERS: PCP Family Medicine; Referring Provider Family Medicine; Visit Provider Family Medicine
DX: E55.9 Vitamin D deficiency, unspecified (principal); E03.8 Other specified hypothyroidism
CPT/HCPCS: 36415; 80053; 82306; 84439; 84443; 85025

== ENCOUNTER 2024-10-27 22:47 | Emergency (ER) | payer MEDICAID, SELFPAY ==
[2024-10-27 22:48] VITALS: BP 157/109; PULSE 84; RESP 18; TEMP 36.4; O2SAT 98; BMI 38.5
--- NOTE | 2024-10-27 23:10 | RAD_ITS ---
PROCEDURE: KNEE 4 OR MORE VIEWS REASON FOR EXAM: Fall. TECHNIQUE: 4 view(s) of the right knee COMPARISON: None. FINDINGS: No fracture. No suspicious bone lesion. Normal alignment. No effusion. Soft tissues are unremarkable. RAD/Knee 4 or More Views IMPRESSION: NEGATIVE KNEE SERIES Reading Location: [place] [id number]
--- NOTE | 2024-10-27 23:10 | RAD_ITS ---
PROCEDURE: ANKLE MIN 3 VIEWS REASON FOR EXAM: Fall. TECHNIQUE: 3 views of the right ankle COMPARISON: None FINDINGS: No visible fracture. No suspicious bone lesion. Degenerative changes of the hindfoot and ankle.. Mortise appears intact. No effusion. Soft tissues are unremarkable. RAD/Ankle min 3 Views IMPRESSION: No acute osseous abnormalities. Reading Location: [place] [id number]
--- NOTE | 2024-10-28 01:31 | ED.VIS.LOWEX ---
HPI History of Present Illness HPI Narrative: 39-year-old male prior history of ankle fracture and knee scope. He was walking down steps slipped because there was mud on the step rolled his right ankle and twisted his right knee. Denies hitting his head. No LOC. No chest, back or abdominal pain. Said he is injured his ankle and knee multiple times in the past. Chief Complaint: Lower Extremity Injury Informant: patient Occured/Mechanism Mechanism/Context: Yes injury and Yes blunt trauma Onset/Context/Timing Onset: Today and Hours Context: Sudden Onset Timing: Continuous Quality of Pain: Sharp Current Severity: Moderate Maximum Severity: Moderate Associated Symptoms Associated Symptoms: Negative for Parasthesia, Weakness or Loss of Funtion Narrative Narrative: 39-year-old male prior history of ankle fractures and right knee scope. Rolled his right ankle tonight going down steps when he slipped and injured his right knee. Did not hit his head. No LOC. No other complaints. Prior similar symptoms: Yes Recent Illness/Hospitalization: No PFSH PFSH Medical History Migraine Rheumatoid arthritis Chronic pain Home Medications ?Medication ?Instructions ?Recorded ?Last Taken ?Type escitalopram oxalate 20 mg tablet 20 mg PO DAILY 03/01/24 Unknown History (Lexapro) Allergy/AdvReac Type Severity Reaction Status Date / Time hydrocodone AdvReac Mild Itching/anx Verified 10/27/24 22:48 iety Surgical History Hx of laminectomy Hx of arthroscopic knee surgery Hx of foot surgery Social History Smoking Status: Former smoker substance use type: does not use ROS ROS ED ROS Narrative Denies recent illness. Constitutional Constitutional ED: Denies chills or fever(s) Eyes Eyes: Denies blurry vision ENT ENT ED: Denies ear pain Cardiovascular Cardiovascular: Denies chest pain Respiratory/Chest Respiratory/Chest: Denies cough or dyspnea Gastrointestinal Gastrointestinal: Denies abdominal pain Genitourinary Genitourinary ED: Denies dysuria or hematuria Musculoskeletal Musculoskeletal: Denies arthralgias Integumentary Denies abscess or Abrasions Neurologic Neurologic: Denies headache(s) or paresthesias Psychiatric Psychiatric: Denies anxiety or depression Endocrine Endocrinology: Denies polydipsia Hematologic/Lymphatic Hematologic/Lymphatic: Denies easy bleeding, easy bruising or lymphadenopathy Allergic/Immunologic Allergic/Immunologic ED: Denies mouth swelling, tongue swelling or urticaria EXAM Physical Exam Narrative Exam Narrative: 31-year-old male sitting upright in bed. Vital signs are stable afebrile. He is ice packs on his right knee and right ankle. H EENT exam pupils round reactive light. No signs of trauma to his face or scalp. Nontender no hematomas. Neck nontender. Trachea midline. Back and spine nontender. No bruising. Lungs clear to auscultation bilaterally. Heart regular rhythm rate about 80 no murmur. Chest wall ribs nontender. Abdomen soft nontender. Pelvic girdle intact. Hips are nontender. There is no shortening or rotation. Both upper extremities have normal emergency preparedness coordinator strength. Normal range of motion. Nontender no deformity. Left lower extremity is normal. Nontender. Normal range of motion to his left hip, left knee and left ankle. Normal dorsi and plantarflexion. Right hip nontender. Normal flexion extension both actively and passively. No shortening or rotation. Right knee he has some discomfort. There is no effusion. The ACL and PCL are intact. He is able to do flexion extension. Quadriceps patellar tendon and infrapatellar tendon are intact. No bony deformity. No swelling. ACL PCL MCL and LCL all appear to be intact. The right ankle primarily laterally is mild swelling and tenderness mild's tenderness medially. No swelling. DP pulse intact. Achilles tendon intact. Calf nontender. He is able to dorsi and plantarflexion rides his right ankle. He is able to wiggle his toes. He has normal touch sensation and cap refill. The foot is nontender. Ligaments of the right ankle are intact. Neurologically is awake and alert no focal motor deficits. Const Vital Signs: 10/27/24 22:48 Temperature 97.5 F L Temperature Source Temporal Pulse Rate 84 Respiratory Rate 18 Blood Pressure 157/109 H Blood Pressure Mean 125 Pulse Ox 98 Oxygen Delivery Method Room Air Positive well nourished and well developed; Negative for cachectic, contractures or unkempt General Appearance ED: well developed and NAD; Negative for unkempt, cachectic or contractures Nutritional Appearance: Negative for cachectic HEENT Reports moist mucous membranes normocephalic and atraumatic; Negative for trauma or tenderness Eyes PERRL General Eye ED: Negative for other Neck full ROM and supple Thyroid: Negative for tender Lymph Lymphatic: Negative for other Chest Wall inspection of chest normal and palpation of chest normal Chest: Negative for other Resp normal respiratory effort, no retractions and clear to auscultation bilaterally Effort and Inspection: Negative for pain with movement Auscultation: Negative for rales, rhonchi, wheezes or diminished lung sounds Cardio regular rate, regular rhythm, S1 normal heart sound, S2 normal heart sound and no murmurs Rate: Negative for bradycardia or tachycardic Rhythm: Negative for abnormal rhythm Bruits: Negative for other GI non-tender, non-distended and no masses Palpation: soft; Negative for tender, guarding or rebound tenderness present Back/Spine no CVA tenderness General Back: Negative for CVA tenderness Cervical Spine: Negative for cervical spine tenderness Thoracic Spine / Upper Back: Negative for thoracic spinal tenderness Lumbar Spine / Lower Back: Negative for lumbar spinal tenderness Extremity normal to inspection and full ROM Extremity Narrative: Except is mild tenderness to the right knee. No swelling or effusion. ACL PCL intact. MCL and LCL are intact. He is able to straighten his leg. He is able to do flexion and extension. Quadriceps patellar tendons intact. Right ankle there is mild swelling and tenderness to the lateral malleolus and mild tenderness to the medial malleolus but no swelling. DP pulses intact. He has normal flexion extension. Calf and Achilles tendons intact. Foot is nontender. Normal touch sensation. General Extremety ED: Yes weight-bearing difficulty General Extremity: weight-bearing difficulty Neuro oriented x3, CN's II-XII intact bilaterally, moves all extremities and no sensory deficits noted Sensorium / Orientation: alert, oriented to place and oriented to time; Negative for orientation impaired or confused Motor Exam: strength 5/5 throughout Psych mental status grossly normal Appearance: Negative for unkempt Skin no wounds Lesions: no lesions Rashes: no rashes MDM MDM MDM Narrative Medical decision making narrative: 39-year-old male fell down a step when he slipped injuring his right ankle and knee. X-rays were obtained of the right ankle shows arthritic changes but no fracture or dislocation. Right knee again no fracture or dislocation. He will be treated as an ankle sprain and a knee sprain. He has crutches with him. He will be given an Aircast for his ankle. Ice. Rest. Tylenol and Motrin. He follows up with the [facility] if not improving he seen them in the past. History & Record Review Discussion w/independent historian: Patient Radiography Diagnostic Testing: Clinical Impression(s) from Imaging Studies Ankle X-Ray 10/27/24 23:10 IMPRESSION: No acute osseous abnormalities. Reading Location: [id number] Knee X-Ray 10/27/24 23:10 IMPRESSION: NEGATIVE KNEE SERIES Reading Location: [id number] Right ankle x-ray 3 views interpreted by myself and radiologist. Shows chronic arthritic changes. No acute process. No fracture or dislocation. Right knee x-ray 4 views interpreted by myself and radiologist shows no fracture. Patient I went over his x-rays. We went over the limitations of x-rays. Discharge Plan Triage Chief Complaint: Lower Extremity Injury ED Provider: Yung Tejeda Dx/Rx/DC Orders Clinical Impression: Fall, Right ankle sprain, Knee sprain Instructions: ED Knee Sprain, ED Ankle Sprain (Adult) Prescriptions: No Action escitalopram oxalate [Lexapro] 20 mg tablet 20 mg PO DAILY Primary Care Provider: Marck Lopez Referrals: Marck Lopez MD [Primary Care Provider] - 1 Week if not improving Activity Restrictions/Additional Instructions: The x-rays of your right knee and right ankle there is nothing broken or dislocated. Currently it appears that you sprained your right knee and ankle. Ice and elevate both. Motrin and Tylenol for pain. Use your crutches and slowly increase weightbearing as tolerated. This should progressively improve over the next 1 to 2 weeks. If it is not getting better follow-up with your orthopedic physician from the [facility] for further evaluation. Print Language: Swiss Disposition Disposition: Home, Self Care
== END 2024-10-28 01:54 | disposition home or self-care (01) ==
PROVIDERS: Emergency Provider Emergency Medicine; PCP Family Medicine; Visit Provider Emergency Medicine
DX: S93.401A Sprain of unspecified ligament of right ankle, initial encounter (principal); S83.91XA Sprain of unspecified site of right knee, initial encounter; Z87.891 Personal history of nicotine dependence; Z79.899 Other long term (current) drug therapy; W19.XXXA Unspecified fall, initial encounter
CPT/HCPCS: 73564; 73610; 99283

== ENCOUNTER 2024-12-30 11:03 | Emergency (ER) | payer MEDICAID, SELFPAY ==
[2024-12-30] VITALS (8 sets, daily range): BP systolic 120–153; BP diastolic 74–101; PULSE 76–86; RESP 16–22; TEMP 36.6–36.8; O2SAT 95–98; BMI 39.8
--- NOTE | 2024-12-30 11:16 | EKG12_ITS ---
Test Reason : CP Blood Pressure : */* mmHG Vent. Rate : 86 BPM Atrial Rate : 86 BPM P-R Int : 146 ms QRS Dur : 86 ms QT Int : 360 ms P-R-T Axes : 42 90 51 degrees QTcB Int : 430 ms Normal sinus rhythm with sinus arrhythmia Rightward axis Borderline ECG Confirmed by JUAN FRANCISCO VALLEJO, TAMIA ([id number]), supervising film or videotape editor GISELLE FRIEDMAN ([id number]) on 12/31/2024 8:16:42 AM Referred By: NATY/NEAL Confirmed By: TAMIA CHICAS MD
--- NOTE | 2024-12-30 11:29 | ED.VIS.CHEST ---
HPI <SHANTA Zendejas - Last Filed: 12/30/24 14:01> History of Present Illness Chief Complaint: Chest Pain Narrative Narrative: Patient presenting today due to concerns for left-sided chest pain he has had for the past 2 days. He reports a nonproductive cough over the last several days, his sons have been sick with similar symptoms. He does admit to frequent marijuana use and has had wheezing and chest tightness with his cough. He denies history of asthma. He denies a cardiac history. He previously had a history of hypertension but reports that it has been under control and he is no longer on antihypertensives. He denies any history of blood clots or recent surgery/travel/immobilization. He has a PMH of anxiety. PFSH <SHANTA Zendejas - Last Filed: 12/30/24 14:01> PFSH Medical History Migraine Rheumatoid arthritis Chronic pain Home Medications ?Medication ?Instructions ?Recorded ?Last Taken ?Type escitalopram oxalate 20 mg tablet 20 mg PO DAILY 03/01/24 12/30/24 History (Lexapro) albuterol sulfate 90 mcg/actuation 1 - 2 puff inhalation Q4H PRN PRN 12/30/24 Unknown Rx aerosol inhaler (Ventolin HFA) Wheezing #1 inh prednisone 20 mg tablet 40 mg (2 x 20 mg) PO DAILY 5 days 12/30/24 Unknown Rx #10 tabs Allergy/AdvReac Type Severity Reaction Status Date / Time hydrocodone AdvReac Mild Itching/anx Verified 12/30/24 11:03 iety Surgical History Hx of laminectomy Hx of arthroscopic knee surgery Hx of foot surgery Social History Smoking Status: Former smoker substance use type: does not use ROS <SHANTA Zendejas - Last Filed: 12/30/24 14:01> ROS ED Constitutional Constitutional ED: Denies chills or fever(s) Cardiovascular Cardiovascular: Reports chest pain and palpitations Respiratory/Chest Respiratory/Chest: Reports cough, dyspnea on exertion and wheezing Gastrointestinal Gastrointestinal: Denies abdominal pain, nausea or vomiting Musculoskeletal Musculoskeletal: Denies arthralgias or myalgias Integumentary Denies rash Neurologic Neurologic: Denies weakness EXAM <SHANTA Zendejas - Last Filed: 12/30/24 14:01> Physical Exam Const Vital Signs: 12/30/24 11:03 12/30/24 11:03 12/30/24 11:21 Temperature 97.9 F Temperature Source Oral Pulse Rate 85 85 Respiratory Rate 18 22 H Respiratory Effort Normal Non-Labored Respiratory Pattern Blood Pressure 153/101 H Blood Pressure Mean 118 Pulse Ox 98 97 Oxygen Delivery Method Room Air 12/30/24 11:30 12/30/24 11:31 12/30/24 11:32 Temperature Temperature Source Pulse Rate 86 76 80 Respiratory Rate 16 16 18 Respiratory Effort Respiratory Pattern Normal Blood Pressure 120/74 Blood Pressure Mean 88 Pulse Ox 97 98 Oxygen Delivery Method 12/30/24 11:45 12/30/24 11:45 12/30/24 12:00 Temperature Temperature Source Pulse Rate 79 84 Respiratory Rate 18 21 H Respiratory Effort Respiratory Pattern Blood Pressure 127/74 H 127/74 H 141/96 H Blood Pressure Mean 90 90 107 Pulse Ox 95 96 Oxygen Delivery Method 12/30/24 12:36 Temperature 98.3 F Temperature Source Pulse Rate 84 Respiratory Rate 21 H Respiratory Effort Respiratory Pattern Blood Pressure 141/96 H Blood Pressure Mean 111 Pulse Ox 96 Oxygen Delivery Method Positive well nourished, well developed and no apparent distress General Appearance ED: well developed HEENT Reports normocephalic and head/scalp atraumatic Mouth ED: Yes moist mucous membranes normal Eyes PERRL and EOMs intact bilaterally Neck full ROM and supple Chest Wall inspection of chest normal Resp normal respiratory effort Resp Narrative: Bilateral expiratory wheezes with coarse breath sounds throughout Cardio regular rate and regular rhythm GI soft to palpation, non-tender, non-distended and no masses Back/Spine normal ROM and normal to inspection Extremity normal to inspection and full ROM Neuro oriented x3, CN's II-XII intact bilaterally, moves all extremities, no focal motor deficits and no sensory deficits noted Sensorium / Orientation: awake and alert Psych mental status grossly normal and thought process normal Skin no rashes or lesions noted and no wounds <Bao Villavicencio MD - Last Filed: 12/30/24 14:42> Physical Exam Const Vital Signs: 12/30/24 11:03 12/30/24 11:03 12/30/24 11:21 Temperature 97.9 F Temperature Source Oral Pulse Rate 85 85 Respiratory Rate 18 22 H Respiratory Effort Normal Non-Labored Respiratory Pattern Blood Pressure 153/101 H Blood Pressure Mean 118 Pulse Ox 98 97 Oxygen Delivery Method Room Air 12/30/24 11:30 12/30/24 11:31 12/30/24 11:32 Temperature Temperature Source Pulse Rate 86 76 80 Respiratory Rate 16 16 18 Respiratory Effort Respiratory Pattern Normal Blood Pressure 120/74 Blood Pressure Mean 88 Pulse Ox 97 98 Oxygen Delivery Method 12/30/24 11:45 12/30/24 11:45 12/30/24 12:00 Temperature Temperature Source Pulse Rate 79 84 Respiratory Rate 18 21 H Respiratory Effort Respiratory Pattern Blood Pressure 127/74 H 127/74 H 141/96 H Blood Pressure Mean 90 90 107 Pulse Ox 95 96 Oxygen Delivery Method 12/30/24 12:36 Temperature 98.3 F Temperature Source Pulse Rate 84 Respiratory Rate 21 H Respiratory Effort Respiratory Pattern Blood Pressure 141/96 H Blood Pressure Mean 111 Pulse Ox 96 Oxygen Delivery Method [facility] <SHANTA Zendejas - Last Filed: 12/30/24 14:01> [facility] Narrative Medical decision making narrative: Patient presenting with left-sided chest pain he has had over the past 2 days. He reports that his pain has been constant, it is worse with coughing. He has had a cough over the last several days. His sons have had a similar cough, suspect he has a viral illness. However, chest x-ray be obtained to assess for infiltrate and other cardiopulmonary abnormality. Cardiac labs will be obtained. He is PERC negative, low suspicion for PE. He did sound wheezy on exam and was given albuterol and DuoNeb breathing treatments. On reexamination his lung sounds have improved and he reports slight improvement of his symptoms. His CBC, BMP, and troponin are unremarkable. Chest x-ray negative for cardiopulmonary abnormality. EKG is normal sinus rhythm. Suspect he has a viral bronchitis, I will give him a course of prednisone given his wheezing as well as an albuterol inhaler. He reports that he has had similar left-sided chest discomfort off and on over the past 10 years that has been worked up by his PCP. Given his negative cardiac workup here, I recommended he follow-up closely with his PCP regarding this and strict return instructions were discussed with him. Patient discharged home in stable condition. Lab Data Attestation: I reviewed the patient's lab results. Labs: Laboratory Results - last 24 hr 12/30/24 11:28 WBC 8.8 RBC 5.03 Hgb 15.3 Hct 43.5 MCV 86.5 MCH 30.4 MCHC 35.2 RDW Std Deviation 40.2 RDW Coeff of Raul 12.8 Plt Count 261 MPV 9.8 Immature Gran % (Auto) 4.200 H Neut % (Auto) 47.7 Lymph % (Auto) 29.5 [place] % (Auto) 8.2 Eos % (Auto) 9.8 H Baso % (Auto) 0.6 Absolute Neuts (auto) 4.2 Absolute Lymphs (auto) 2.60 Nucleated RBC % 0 Sodium 136 Potassium 4.2 Chloride 102 Carbon Dioxide 24.2 Anion Gap 10 BUN 10 Creatinine 1.01 Estim Creat Clear Calc 133.81 Est GFR (MDRD) Non-Af 98 BUN/Creatinine Ratio 9.9 L Glucose 103 H Calcium 9.1 Troponin T High Sens 18 Radiography X-Ray: Read by ED Physician Diagnostic Testing: Clinical Impression(s) from Imaging Studies Chest X-Ray 12/30/24 11:50 IMPRESSION: No acute process is identified in the chest. Reading Location: [facility] Initial EKG: Comments: 86 bpm, normal sinus rhythm, no ST elevation, interpreted by ED physician, EKG similar in comparison to EKG from 08/02/2020 <Bao Vlilavicencio MD - Last Filed: 12/30/24 14:42> [facility] Lab Data Labs: Laboratory Results - last 24 hr 12/30/24 11:28 WBC 8.8 RBC 5.03 Hgb 15.3 Hct 43.5 MCV 86.5 MCH 30.4 MCHC 35.2 RDW Std Deviation 40.2 RDW Coeff of Raul 12.8 Plt Count 261 MPV 9.8 Immature Gran % (Auto) 4.200 H Neut % (Auto) 47.7 Lymph % (Auto) 29.5 [place] % (Auto) 8.2 Eos % (Auto) 9.8 H Baso % (Auto) 0.6 Absolute Neuts (auto) 4.2 Absolute Lymphs (auto) 2.60 Nucleated RBC % 0 Sodium 136 Potassium 4.2 Chloride 102 Carbon Dioxide 24.2 Anion Gap 10 BUN 10 Creatinine 1.01 Estim Creat Clear Calc 133.81 Est GFR (MDRD) Non-Af 98 BUN/Creatinine Ratio 9.9 L Glucose 103 H Calcium 9.1 Troponin T High Sens 18 Radiography Chest X-Ray - ED: 1 View, Read by ED Physician and Read by Radiologist Diagnostic Testing: Clinical Impression(s) from Imaging Studies Chest X-Ray 12/30/24 11:50 IMPRESSION: No acute process is identified in the chest. Reading Location: [facility] Treatment and Re-Evaluation :: Dr. Villavicencio: I have personally performed a face to face assessment of the patient and have reviewed the JESUS Note. I performed a substantive portion of the visit including all aspects of the following. My townsend findings include: History is left-sided chest pain for 2 days. Shortness of breath. Exam is afebrile. Vital signs noted. Nontoxic-appearing. Cardiovascular examination regular rate and rhythm. Positive expiratory wheezing. Abdomen soft and nontender with normoactive bowel sounds. No pedal edema. Medical Decision Making: Check x-ray. Check labs. Check EKG. X-ray interpreted by myself independently shows no pneumonia. Treat with steroids and inhaler for wheezing. Ombs-ate-iwrdanr antiacids as needed. Follow-up primary care provider. Return instructions reviewed. I do not feel he requires serial enzymes as he has had chest discomfort for the last 2 days, greater than 6 hours. Disposition is discharged home in stable condition. Other additions or changes: [None] Discharge Plan Triage Chief Complaint: Chest Pain ED Midlevel Provider: Mercedes Ro ED Provider: Bao Villavicencio Dx/Rx/DC Orders Clinical Impression: Atypical chest pain, Bronchitis Instructions: Acute Bronchitis, ED Chest Pain, Uncertain Cause Prescriptions: New albuterol sulfate [Ventolin HFA] 90 mcg/actuation HFA aerosol inhaler 1 - 2 puff inhalation Q4H PRN PRN (Reason: Wheezing) Qty: 1 0RF prednisone 20 mg tablet 40 mg PO DAILY 5 Days Qty: 10 0RF No Action escitalopram oxalate [Lexapro] 20 mg tablet 20 mg PO DAILY Primary Care Provider: Marck Lopez Referrals: Marck Lopez MD [Primary Care Provider] - 5-7 Days Activity Restrictions/Additional Instructions: Please return for any worsening symptoms or other concerns. Follow-up with your PCP. Print Language: Bahraini Disposition Disposition: Home, Self Care Discharge Date/Time: 12/30/24 12:40
[2024-12-30] MEDS: Albuterol 2.5 MG/3 ML VIAL.NEB. INHALATION (11:32)
[2024-12-30] MEDS: Ipratropium/Albuterol Sulfate 3 ML AMPUL.NEB INHALATION (11:32)
[2024-12-30 11:43] LABS: Absolute Neutrophil Count 4.2 X10^3/uL (2.0-7.7); Basophil# 0.05 X10^3/uL; Basophil% 0.6 % (0-1); Eosinophil# 0.86 X10^3/uL; Eosinophils% 9.8 % (0-5); Hematocrit 43.5 % (40-54); Hemoglobin 15.3 g/dL (13.0-16.5); Lymphocyte % 29.5 % (19-41); Mean Corp Hgb Conc 35.2 g/dL (32-36); Mean Corpuscular Hgb 30.4 pg (27.0-32.0); Mean Corpuscular Volume 86.5 fL (80-94); Mean Platelet Vol. 9.8 fl (6.2-12.0); Monocyte# 0.72 X10^3/uL; Monocyte% 8.2 % (0-10); NRBC Flagged by Analyzer 0 % (0-5); Neutrophil # 4.21 X10^3/uL (2.7-7.7); Neutrophil % 47.7 % (47-70); Platelet Count 261 K/mm3 (150-450); RBC Distribution Width CV 12.8 % (11.6-14.6); RBC Distribution Width SD 40.2 fl (35.1-43.9); Red Blood Count 5.03 M/mm3 (4.6-6.2); White Blood Count 8.8 K/mm3 (4.4-11.0)
--- NOTE | 2024-12-30 11:50 | RAD_ITS ---
PROCEDURE: CHEST PA AND LATERAL 12/30/2024 REASON FOR EXAM: CHEST PAIN TECHNIQUE: Frontal and lateral views of the chest. COMPARISON: August 02, 2020 FINDINGS: Heart size and mediastinal configuration are within normal limits. There is no focal infiltrate or consolidation. There is no pneumothorax or effusion. There is no acute bony abnormality. There is no visible atherosclerosis. RAD/Chest PA and Lateral IMPRESSION: No acute process is identified in the chest. Reading Location: [facility]
[2024-12-30 12:07] LABS: Anion Gap 10 (5-15); BUN 10 mg/dL (4-19); BUN/Creat Ratio 9.9 RATIO (10-20); Calcium,Total 9.1 mg/dL (7.6-11.0); Carbon Dioxide 24.2 mmol/L (21.0-32.0); Chloride 102 mmol/L (98-108); Creatinine, Serum 1.01 mg/dL (0.70-1.20); EST Glomerular Filtration Rate 98 (>60); Estimated Creatinine Clearance 133.81 ml/min (50-250); Glucose 103 mg/dL (70-99); Potassium 4.2 mmol/L (3.3-5.1); Sodium Level 136 mmol/L (133-145); Troponin T High Sensitivity 18 ng/L (<=22)
== END 2024-12-30 12:40 | disposition home or self-care (01) ==
PROVIDERS: Physician Assistant; Emergency Provider Emergency Medicine; PCP Family Medicine; Visit Provider Emergency Medicine
DX: R07.89 Other chest pain (principal); F12.90 Cannabis use, unspecified, uncomplicated; F41.9 Anxiety disorder, unspecified; Z79.899 Other long term (current) drug therapy; Z87.891 Personal history of nicotine dependence
CPT/HCPCS: 71046; 80048; 84484; 85025; 93005; 94640; 99284; A4216

== ENCOUNTER 2025-01-01 14:13 | Emergency (ER) | payer MEDICAID, SELFPAY ==
[2025-01-01 14:15] VITALS: BP 144/76; PULSE 91; RESP 14; TEMP 35.8; O2SAT 95; BMI 39.0
--- NOTE | 2025-01-01 14:46 | RAD_ITS ---
PROCEDURE: L/S SPINE MIN 4 VIEWS 01/01/2025 REASON FOR EXAM: FALL, PAIN TECHNIQUE: Five views of the lumbar spine FINDINGS: Vertebrae: No acute fracture. Discs: Disc space heights are preserved. Alignment: Anatomic alignment. Other: RAD/L/S Spine Min 4 Views IMPRESSION: No acute fracture or subluxation. Reading Location: [id number]
--- NOTE | 2025-01-01 14:46 | RAD_ITS ---
PROCEDURE: SHOULDER MIN 2 VIEWS 01/01/2025 REASON FOR EXAM: FALL, PAIN TECHNIQUE: 4 view(s) of the right shoulder COMPARISON: 08/02/2019 FINDINGS: Bones: No acute fracture. Joints: Normal alignment of the acromioclavicular and glenohumeral joints. Soft tissues: Soft tissues are unremarkable. Other: RAD/Shoulder min 2 Views IMPRESSION: NO ACUTE FRACTURE OR DISLOCATION. Reading Location: [id number]
[2025-01-01] MEDS: Ibuprofen 600 MG Tablet PO (14:52)
[2025-01-01] MEDS: oxyCODONE 5 MG Tablet PO (14:54)
--- NOTE | 2025-01-01 15:03 | EDS_ITS ---
HPI <SHANTA Zendejas - Last Filed: 01/01/25 16:15> History of Present Illness Chief Complaint: Upper Extremity Injury Narrative Narrative: Patient presented today due to a mechanical fall that occurred yesterday evening. He was going up his wooden porch steps when he slipped and fell backwards, falling down 3 of them. He reports pain to his right shoulder, right lateral ribs, and low back. He does not think that he hit his head, there was no LOC, he is not on any blood thinners. He is right-handed. He reports a history of a right previous partial rotator cuff tear. PFSH <SHANTA Zendejas - Last Filed: 01/01/25 16:15> [facility] Medical History Migraine Rheumatoid arthritis Chronic pain Home Medications ?Medication ?Instructions ?Recorded ?Last Taken ?Type escitalopram oxalate 20 mg tablet 20 mg PO DAILY 03/0112/30/24 History (Lexapro) albuterol sulfate 90 mcg/actuation 1 - 2 puff inhalati on Q4H PRN PRN 12/30/24 Unknown Rx aerosol inhaler (Ventolin HFA) Wheezing #1 inh prednisone 20 mg tablet 40 mg (2 x 20 mg) PO DAILY 5 days 12/30/24 Unknown Rx #10 tabs naproxen 500 mg tablet (Naprosyn) 500 mg PO BID PRN pa in #20 tabs 01/01/25 Unknown Rx oxycodone-acetaminophen 5 mg-325 1 tab PO Q6H 3 days # 8 tabs 01/01/25 Unknown Rx mg tablet (Percocet) Allergy/AdvReac Type Severity Reaction Status Date / Time hydrocodone AdvReac Mild Itching/anx Verified 01/01/25 14:18 iety Surgical History Hx of laminectomy Hx of arthroscopic knee surgery Hx of foot surgery Social History Smoking Status: Former smoker substance use type: does not use ROS <SHANTA Zendejas - Last Filed: 01/01/25 16:15> ROS ED Constitutional Constitutional ED: Denies chills or fever(s) Cardiovascular Cardiovascular: Denies chest pain Respiratory/Chest Respiratory/Chest: Denies dyspnea Gastrointestinal Gastrointestinal: Denies abdominal pain, nausea or vomiting Musculoskeletal Musculoskeletal: Reports arthralgias and back pain Integumentary Reports Abrasions Neurologic Neurologic: Denies paresthesias EXAM <SHANTA Zendejas - Last Filed: 01/01/25 16:15> Physical Exam Const Vital Signs: 01/01/25 14:15 Temperature 96.5 F L Temperature Source Temporal Pulse Rate 91 Respiratory Rate 14 Blood Pressure 144/76 H Blood Pressure Mean 98 Pulse Ox 95 Oxygen Delivery Method Room Air Positive well nourished, well developed and no apparent distress General Appearance ED: well developed HEENT Reports normocephalic and head/scalp atraumatic Mouth ED: Yes moist mucous membranes normal Eyes PERRL and EOMs intact bilaterally Neck full ROM and supple Neck Narrative: No midline cervical tenderness Chest Wall inspection of chest normal Resp normal respiratory effort and clear to auscultation bilaterally Resp Narrative: Pain to palpation to the right lateral mid ribs, no overlying bruising, no crepitus Cardio regular rate and regular rhythm GI soft to palpation, non-tender, non-distended and no masses Back/Spine normal ROM and normal to inspection Back/Spine Narrative: Pain to the right and left lumbar paraspinal muscles, minimal midline lumbar tenderness. No step-offs. Linear abrasion to the right flank. Extremity normal to inspection Extremity Narrative: Limited range of motion to the right shoulder secondary to pain, generalized pain to palpation to the shoulder, no clavicle tenderness, right radial pulse 2+, good cap refill, sensation intact. No pain to the right elbow or forearm Neuro oriented x3, CN's II-XII intact bilaterally, moves all extremities, no focal motor deficits and no sensory deficits noted Sensorium / Orientation: awake and alert Psych mental status grossly normal and thought process normal Skin Skin Narrative: Aside from small linear abrasion to the right flank area, no other rashes or lesions noted [facility] <SHANTA Zendejas - Last Filed: 01/01/25 16:15> [facility] Narrative Medical decision making narrative: Patient presenting today with pain to his right shoulder, right lateral ribs, and low back following a mechanical fall yesterday evening. He slipped on his porch steps and fell down with 3 of them. He does not think that he hit his head, there was no LOC. He has limited range of motion to his right shoulder secondary to pain, x-ray obtained to assess for fracture and is negative. He has a history of previous partial rotator cuff tear. I will refer him to orthopedics. He did request a sling, this will be given but recommended he only use it as needed and sparingly. He did have tenderness to his right lateral ribs, x-ray obtained to assess for fracture and is negative. No pneumothorax. He has tenderness across his low back from the fall, he has minimal midline tenderness, x-ray of the lumbar/sacral spine obtained and is negative for fracture. No cauda equina symptoms with his back pain. He was given ibuprofen and oxycodone here for pain. I will give him a short course of Percocet for home as well as NSAIDs. RICE instructions were discussed with him. He is to follow-up with his PCP and orthopedics and will be discharged home. <Dr. Dexter Jiménez, DO - Last Filed: 01/01/25 16:46> [facility] Treatment and Re-Evaluation Narrative: I have personally performed a face to face assessment of the patient and have reviewed the JESUS Note. I performed a substantive portion of the visit including all aspects of the following. My townsend findings include: History: Patient right shoulder pain, low back pain, and right rib pain that began after a fall last night. The patient states he fell down 3 steps. Patient states she has a history of prior back surgery. Patient describes his pain as sharp in his right shoulder, aching in his right ribs, and throbbing in his low back. Patient states his pain is worse with any coughing or movement of his shoulder. Patient states nothing seems to help with the pain. Patient denies any paresthesias or weakness. Patient denies any other injuries. Exam: Vital signs are stable. Patient is afebrile. Patient is in no acute distress. Musculoskeletal exam reveals tenderness over the anterior and posterior aspects of the right shoulder. There is no deformity noted. Range of motion was limited in all motions of the right shoulder secondary to pain. Radial pulses are equal bilaterally. Strength is 5/5 in the radial, median, and ulnar areas. Sensation was intact to light touch in the radial, median, and ulnar areas. There is mild tenderness over the posterior ribs on the right. There is no bony crepitance or step-off. There is no subcutaneous emphysema noted. There is mild tenderness of the lumbar spine and paraspinal muscles. Range of motion was limited in all motions of the lumbar spine secondary to pain. Strength is 5/5 bilaterally in the lower extremities. There are no sensory deficits noted. Medical Decision Making: Differential diagnosis includes sprain, contusion, muscle strain, and rotator cuff injury. X-rays of the right shoulder will be obtained to assess for fracture and dislocation. X-rays of the right ribs will be obtained to assess for fracture or pneumothorax. X-rays of the lumbar spine will be obtained to assess for fracture and spondylolisthesis. Patient was given a dose of oxycodone and ibuprofen here. X-rays of the lumbar spine were obtained. There are 5 views. On my independent interpretation, there is no acute fracture or spondylolisthesis. Radiologist also interpreted the x-rays and agrees. X-rays of the right shoulder were obtained. There are 4 views. On my independent interpretation, there is no acute fracture or dislocation noted. Radiologist also interpreted the x-rays and agrees. X-rays of the right ribs were obtained. There are 5 views. On my independent interpretation, there is no acute fracture or pneumothorax. There is no acute cardiopulmonary process. Radiologist also interpreted the x-rays and agrees. Patient was advised of his findings. Patient was instructed to use ice to his shoulder, chest, and low back. Patient was given prescriptions for Naprosyn and Percocet. Patient was instructed to follow-up with his primary care physician in 5 to 7 days. Patient understood and was agreeable with the plan. All questions were answered. Discharge Plan Triage Chief Complaint: Upper Extremity Injury Other Complaint: Back ED Midlevel Provider: Mercedes Ro ED Provider: Dexter Jiménez Dx/Rx/DC Orders Clinical Impression: Contusion of lower back, Contusion of rib on right side, Contusion of right shoulder Instructions: ED Back Contusion, ED Bruise, Rib, ED Shoulder Sprain Prescriptions: New oxycodone-acetaminophen [Percocet] 5-325 mg tablet 1 tab PO Q6H 3 Days Qty: 8 0RF naproxen [Naprosyn] 500 mg tablet 500 mg PO BID PRN (Reason: pain) Qty: 20 0RF No Action escitalopram oxalate [Lexapro] 20 mg tablet 20 mg PO DAILY albuterol sulfate [Ventolin HFA] 90 mcg/actuation HFA aerosol inhaler 1 - 2 puff inhalation Q4H PRN PRN (Reason: Wheezing) Qty: 1 0RF prednisone 20 mg tablet 40 mg PO DAILY 5 Days Qty: 10 0RF Primary Care Provider: Marck Lopez Referrals: Marck Lopez MD [Primary Care Provider] - 5-7 Days Jose Scanlon DO [Med Staff - Active Staff] - 1 Week if not improving Activity Restrictions/Additional Instructions: Follow-up with your PCP, you can follow-up with orthopedics in 1 week if no improvement of your shoulder pain. Ice the area, return for any other concerns. Print Language: Colombian Disposition Disposition: Home, Self Care Discharge Date/Time: 01/01/25 15:56
--- NOTE | 2025-01-01 15:06 | RAD_ITS ---
EXAM: Right ribs and chest CLINICAL HISTORY: Fall, chest pain, rib pain. COMPARISON: 12/30/2024 TECHNIQUE: PA view of the chest and four views of the right ribs FINDINGS: No obvious displaced right rib fracture. No bony abnormality. The heart and mediastinum are normal. No opacity within the lungs to suggest active pulmonary disease. RAD/Ribs Uni Min 3V w/PA Chest IMPRESSION: No obvious displaced right rib fracture. No active pulmonary disease. Reading Location: [id number]
[2025-01-01 15:48] VITALS: BP 140/77; PULSE 78; RESP 19; TEMP 36.6; O2SAT 99
== END 2025-01-01 15:56 | disposition home or self-care (01) ==
PROVIDERS: Emergency Provider Emergency Medicine; PCP Family Medicine; Visit Provider Emergency Medicine
DX: S20.229A Contusion of unspecified back wall of thorax, initial encounter (principal); S20.211A Contusion of right front wall of thorax, initial encounter; S40.011A Contusion of right shoulder, initial encounter; Z87.891 Personal history of nicotine dependence; X58.XXXA Exposure to other specified factors, initial encounter
CPT/HCPCS: 71101; 72110; 73030; 99284

== ENCOUNTER → 2025-06-14 | Outpatient (CLI) | payer MEDICAID, SELFPAY ==
--- NOTE | 2025-06-14 10:55 | RAD_ITS ---
PROCEDURE: LUMBAR SPINE 2 OR 3 VIEWS 06/14/2025 REASON FOR EXAM: PAIN Low back pain TECHNIQUE: Procedure Code: RADSPLL Modality: DX Procedure: LUMBAR SPINE 2 OR 3 VIEWS COMPARISON: None FINDINGS: Vertebrae: The lumbar vertebral body heights are intact. There are 5 appearing lumbar vertebral bodies. Discs: Mild multilevel disc space narrowing at L4-L5 and L5-S1 otherwise the disc spaces are preserved. Alignment: Normal lumbar alignment Other: Moderate stool projects over the colon. RAD/Lumbar Spine 2 or 3 Views IMPRESSION: 1. NO EVIDENCE OF LUMBAR FRACTURE. 2. Mild lower lumbar degenerative disc disease. Reading Location[facility]
--- NOTE | 2025-06-14 10:55 | RAD_ITS ---
PROCEDURE: HIPS B/L MIN 2 VIEWS W/ PELVIS 06/14/2025 REASON FOR EXAM: PAIN None TECHNIQUE: Procedure Code: RADHPELP Modality: DX Procedure: HIPS B/L MIN 2 VIEWS W/ PELVIS Laterality: Bilateral COMPARISON: None FINDINGS: Bones: No acute fracture or dislocation. Joints: Normal alignment. Joint spaces are preserved. No arthropathic features. Soft tissues: Soft tissues are unremarkable. Other: N/a RAD/Hips B/L min 2 views w/ Pelvis IMPRESSION: Unremarkable symmetric appearance of both hips without evidence of acute fractu re, joint space narrowing or dislocation. Reading [facility]
== END | disposition home or self-care (01) ==
LOC: MTRAD 10:55
PROVIDERS: PCP Family Medicine; Referring Provider Family Medicine; Visit Provider Family Medicine
DX: M54.16 Radiculopathy, lumbar region (principal); M25.559 Pain in unspecified hip
CPT/HCPCS: 72100; 73521

== ENCOUNTER 2025-08-28 02:15 | Emergency (ER) | payer MEDICAID, SELFPAY ==
[2025-08-28 02:15] VITALS: BP 156/92; PULSE 84; RESP 14; TEMP 36.6; O2SAT 100; BMI 37.5
[2025-08-28] MEDS: Smz/Tmp Ds Tablet 1 TABLET PO (02:54)
--- NOTE | 2025-08-28 02:56 | EDS_ITS ---
HPI History of Present Illness HPI Narrative: Patient was seen and examined after presenting to ED for pain and redness involving the right great toe states that he just had ingrown toenails intervened upon now started having redness involving the great toe. Chief Complaint: Lower Extremity Injury PFSH [facility] Medical History Migraine Rheumatoid arthritis Chronic pain Home Medications ?Medication ?Instructions ?Recorded ?Last Taken ?Type escitalopram oxalate 20 mg tablet 20 mg PO DAILY 03/0112/30/24 History (Lexapro) albuterol sulfate 90 mcg/actuation 1 - 2 puff inhalati on Q4H PRN PRN 12/30/24 Unknown Rx aerosol inhaler (Ventolin HFA) Wheezing #1 inh prednisone 20 mg tablet 40 mg (2 x 20 mg) PO DAILY 5 days 12/30/24 Unknown Rx #10 tabs naproxen 500 mg tablet (Naprosyn) 500 mg PO BID PRN pa in #20 tabs 01/01/25 Unknown Rx oxycodone-acetaminophen 5 mg-325 1 tab PO Q6H 3 days # 8 tabs 01/01/25 Unknown Rx mg tablet (Percocet) sulfamethoxazole 800 1 tab PO BID #14 tabs Unknown Rx mg-trimethoprim 160 mg tablet (Bactrim DS) Allergy/AdvReac Type Severity Reaction Status Date / Time hydrocodone AdvReac Mild Itching/anx Verified 08/28/25 02:18 iety Surgical History Hx of laminectomy Hx of arthroscopic knee surgery Hx of foot surgery Social History Smoking Status: Former smoker substance use type: does not use ROS ROS ED ROS Narrative Pertinent Positives: Right right great toe redness and pain Pertinent Negatives: Fevers vomiting diarrhea diabetes The remainder of review of systems negative unless otherwise stated in the HPI above. Systems reviewed including constitutional, psychiatric, cardiovascular, respiratory, integument, HENT, gastrointestinal. EXAM Physical Exam Narrative Exam Narrative: Patient is afebrile hemodynamically stable does not appear toxic or in distress he is normocephalic atraumatic he has intact and equal MSPs no crepitus no vesicular lesions nothing necrotizing but he does have cellulitis involving the right great toe no evidence of any purulent drainage pain is not out of proportion. Skin is warm and well-perfused. Const Vital Signs: 08/28/25 02:15 Temperature 98 F Temperature Source Temporal Pulse Rate 84 Respiratory Rate 14 Blood Pressure 156/92 H Blood Pressure Mean 113 Pulse Ox 100 Oxygen Delivery Method Room Air MDM MDM MDM Narrative Medical decision making narrative: Nursing notes, triage notes, available previous documentation, and vital signs were reviewed. Any discrepancies noted were addressed. Differential Diagnoses: Cellulitis right great toe low suspicion for osteomyelitis or necrotizing process or an abscess Interventions: Tylenol ibuprofen Antibiotics Given: Bactrim Previous Documentation Reviewed: None available or applicable at this time. ED Course: Patient presenting with cellulitis of the right great toe symptoms as described above he was given antibiotic dose here as well as a prescription for the same return precautions follow-up recommendations provided he is stable for discharge home. This note was made utilizing voice recognition software. All attempts were made to correct spelling or other errors prior to note completion. However, due to the fast-paced nature of emergency medicine, some errors may still be present. Discharge Plan Triage Chief Complaint: Lower Extremity Injury ED Provider: Tony Reza Dx/Rx/DC Orders Clinical Impression: Cellulitis of great toe of right foot Instructions: ED Cellulitis Prescriptions: New sulfamethoxazole-trimethoprim [Bactrim DS] 800-160 mg tablet 1 tab PO BID Qty: 14 0RF No Action oxycodone-acetaminophen [Percocet] 5-325 mg tablet 1 tab PO Q6H 3 Days Qty: 8 0RF naproxen [Naprosyn] 500 mg tablet 500 mg PO BID PRN (Reason: pain) Qty: 20 0RF escitalopram oxalate [Lexapro] 20 mg tablet 20 mg PO DAILY albuterol sulfate [Ventolin HFA] 90 mcg/actuation HFA aerosol inhaler 1 - 2 puff inhalation Q4H PRN PRN (Reason: Wheezing) Qty: 1 0RF prednisone 20 mg tablet 40 mg PO DAILY 5 Days Qty: 10 0RF Primary Care Provider: Marck Lopez Referrals: Marck Lopez MD [Primary Care Provider, Family Practice] Activity Restrictions/Additional Instructions: Take the antibiotics to completion it will take a good 2-3 full days worth of antibiotics to have improvement but if you are seeing drastic changes with worsening redness rapidly going up your leg you need to return to the hospital immediately otherwise follow-up with your doctor Take 1000 mg of Tylenol otherwise known as acetaminophen 3-4 times a day in addition to 800 mg of ibuprofen 3-4 times a day for your pain Print Language: Romanian Disposition Disposition: Home, Self Care
[2025-08-28 02:57] VITALS: BP 156/92; PULSE 84; RESP 14; TEMP 36.6; O2SAT 100
--- OUTSIDE RECORDS SUMMARY | 2025-08-28 03:15 | XMS RPT_ITS | CCD ---
Author Organization [facility] Care Team Providers Care Distributor Advertising Material Name Role Phone [facility] Admitting Unava ilable [facility] Attending Unava ilable [facility] Primary Care Fayva lucita HANSON MD, DENNY Pacheco Primary Care Physician [phone] Ziggy Lovelace DO Unavailable Unavailable Primary Care Provider Unavaildelon Whitlock [employer], Danica Unavailable [phone] Dr. Denny Hanson Primary Care Provider Dr. Octaviano Lopez Attending Provider Dr. Bernardo Chaidez Referring Provider SUZI RIVERS APRN, CNP Attending U SUZI Camarillo APRN, CNP Primary Care U SUZI Camarillo APRN, CNP Primary Care Phys ician Suzi Maravilla CNP Primary Care Provider Suzi Maravilla CNP Primary Care Provider SUZI MARAVILLA Primary Care Unavailable PEDRITO SERRANO Attending Unavailable WILLIAM BAUTISTA Referring Unavailable SUZI MARAVILLA Primary Care Unavailable WILLIAM BAUTISTA Referring Unavailable DINORA LOPEZ R Referring Unavailable WILLIAM BAUTISTA Attending Unavailable SUZI MARAVILLA Primary Care Unavailable SUZI MARAVILLA Primary Care Unavailable MERLYN BAUTISTA Attending UnavailPEDRITO Snider Referring Unavailable SUZI MARAVILLA Primary Care Unavailable Marck Lopez Primary Care Unavailable Dexter Jiménez Attending Unavailable Marguerite Aguila Attending Unavailable Marck Lopez Referring Unavailable Marck Lopez Primary Care Unavailable Marck Lopez Primary Care Unavailable Marck Lopez Attending Unavailable Marck Lopez Referring Unavailable Marck Lopez Primary Care Unavailable Yung Tejeda Attending Unavailable Marck Lopez Primary Care Unavailable Bao Villavicencio Attending Unavailable Marck Lopez Primary Care Unavailable Marck Lopez Attending Unavailable Marck Lopez Referring Unavailable Marck Lopez Attending Unavailable Marck Lopez Referring Unavailable Marck Lopez Primary Care Unavailable Allergies Allergy Classification Reported Allergen(s) Allergy Type Date of Onset Reaction(s) Facility (11 sources) Acetaminophen / HYDROcodone; Translations: [acetaminophen-hy drocodone] Drug Allergy 2 Panic attack (finding), Mental Status Change [facility] (2 sources) Acetaminophen / HYDROcodone Drug Allergy 0 Panic attacks [facility] [place] [facility] Work Phone: (3 sources) Acetaminophen / HYDROcodone; Translations: [HYDROCODONE-ACET AMINOPHEN] Drug Allergy 2 [facility] (2 sources) HYDROcodone Drug Allergy 2 Itching/anxiety [facility] Work Phone: (1 source) HYDROcodone Drug Allergy 5 [facility] Repository Medications Current Medications Medication Drug Class(es) Dates Sig (Normalized) Sig (Original) acetaminophen 325 mg / oxyCODONE hydrochloride 5 mg oral tablet (4 sources) Opioid Agonist Start: 06-14-2022 take 1 tablet by mouth every six hours Oxycodone-Acetami nophen (Percocet) 5-325 mg tablet Active 1 TABLET PO EVERY 6 HOURS 08 03June 14, 2022 Start: 12-20-2021 End: 12-27-2021 take 1 tablet by mouth every six hours as needed for pain PERCOCET 5-325 MG TABS Take 1 tablet by mouth every six hours as needed for pain oxycodone-acetaminophen [id number] Danica Whitlock [employer] Start: 12-10-2021 End: 12-17-2021 oxyCODONE-acetaminophen (PER COCET) 5-325 MG per tablet Indications: Status post lumbar spine surgery for decompression of spinal cord Take 1 tablet by mouth every 6 hours as needed for Pain for up to 7 days. Intended supply: 7 days. Take lowest dose possible to manage pain 28 tablet 0 12/10/2021 12/17/2021 Active Start: 05-30-2021 End: 06-04-2021 take 1 tablet by mouth every six hours as needed for pain Percocet 5 mg-325 mg oral tablet Dose = 1 tab(s), Oral, q6hr, PRN for pain, Please DO NOT give him the Alpine also Thank you, # 12 tab(s), 0 Refill(s), [id number], Low back pain, 182, cm, 05/30/21 13:22:00 EDT, Height, 134, kg, 05/30/21 13:22:00 EDT, Dosing... Start Date: 05/30/21 Stop Date: 06/04/21 Status: Ordered amoxicillin 875 mg oral tablet (1 source) Penicillin-class Antibacterial Start: 08-23-2023 End: 08-30-2023 take 1 tablet by mouth twice daily amoxicillin (AMOXIL) 875 mg tablet Indications: Non-recurrent acute suppurative otitis media of both ears without spontaneous rupture of tympanic membranes Take 1 tablet by mouth two times a day for 7 days. 14 tablet 0 08/23/2023 08/30/2023 Active Comment on above: Take 1 tablet by lucrecia two times a day for 7 days. cholecalciferol 1.25 mg oral capsule (10 sources) Vitamin D Start: 04-14-2023 End: 10-11-2023 cholecalciferol 1250 mcg (50,000 intl units) oral capsule Dose : 50,000 International_Unit = 1 cap(s), Oral, qmonth, # 4 cap(s), 1 Refill(s), [facility]: [id number], Vitamin D deficiency, 183, cm, 04/14/23 14:33:00 EDT, Height, kg, 04/14/23 14:33:00 EDT, Dosing Weight Start Date: 04/14/23 Stop Date: 2/10/24 Status: Ordered Start: 04-14-2023 take 1 capsule by [facility] every month cholecalciferol, Vitamin D3, (VITAMIN D3) 1,250 mcg (50,000 unit) cap capsule take 1 capsule by mouth every month 04/14/2023 Active Comment on above: take 1 capsule by [facility] every month diazePAM 5 mg oral tablet (1 source) Benzodiazepine Start: 06-14-20 take 5 mg by mouth every eight hours Diazepam Active 5 MG PO EVERY 8 HOURS June 14, 2022 12:00am [facility] (1 source) Start: 05-14-20 DME [facility] See Instructions, Petellar restraining device for right knee, # 1 EA, 0 Refill(s), Pharmacy: [id number], Right knee injury, 177.8, cm, 05/14/23 13:12:00 EDT, Height, 120.6, kg, 05/14/23 13:12:00 EDT, Dosing Weight Start Date: 05/14/23 Status: Ordered escitalopram 20 mg oral tablet (10 sources) Serotonin Reuptake Inhibitor Start: 04-24-20 take 1 tablet by mouth once escitalopram oxalate (LEXAPRO) 20 mg tablet Take 1 tablet by mouth every afternoon. 04/24/2023 Active Start: 04-14-2023 End: 07-13-2023 Lexapro 20 mg oral tablet Do se : 20 mg = 1 tab(s), Oral, qDay, Unable to tolerate the Cymbalta, # 30 tab(s), 2 Refill(s), [facility]: [id number], 183, cm, 04/14/23 14:33:00 EDT, Height, kg, 04/14/23 14:33:00 EDT, Dosing Weight Start Date: 04/14/23 Stop Date: 07/13/23 Status: Ordered Comment on above: Take 1 tablet by [facility] every afternoon. hydrocortisone 25 mg/ml topical cream (1 source) Corticosteroid Start: 12-06-2021 hydrocortisone (ANUSOL-HC) 2.5 % rectal cream HYDROmorphone (DILAUDID) injection 0.25 mg (1 source) Start: 12-04-2021 HYDROmorphone (DILAUDID) injection 0.25 mg hydrOXYzine pamoate 25 mg oral capsule (1 source) Antihistamine Start: 12-09-2021 hydrOXYzine (VISTARIL) capsule 50 mg imiquimod 50 mg/ml topical cream (6 sources) Start: 07-26-2024 End: 10-24-2024 imiquimod (ALDARA) 5 % cream Indications: Genital warts Apply 1 Packet to affected area three times a week. At bedtime 12 Each 1 07/26/2024 10/24/2024 Active Start: 11-19-2022 End: 12-31-2022 Aldara 5% topical cream Appl y 1 jesus, Topical, 3x/Wk, # 12 EA, 0 Refill(s), [facility]acy: [facility] #[id number], Cream, 183, cm, 11/19/22 14:42:00 EDT, Height, 121.6 Start Date: 11/19/22 Stop Date: 12/31/22 Status: Ordered lidocaine 0.05 mg/mg medicated patch (9 sources) Antiarrhythmic, Amide Local Anesthetic Start: 05-12-2023 apply 1 dose transdermal route once daily lidocaine (LIDODERM) 5 % apply 1 patch topically once daily *ON FOR 12 HOURS AND OFF FOR 12 HOURS* 05/12/2023 Active Comment on above: apply 1 patch topically once daily *ON F OR 12 HOURS AND OFF FOR 12 HOURS* meloxicam 15 mg oral tablet (10 sources) Nonsteroidal Anti-inflammatory Drug Start: 04-14-2023 End: 07-13-2023 Mobic 15 mg oral tablet Dose : 15 mg = 1 tab(s), Oral, qDay, # 30 tab(s), 2 Refill(s), Pharmacy: [facility] #[id number], Chronic back pain Radiculopathy of lower extremities, 183, cm, 04/14/23 14:33:00 EDT, Height, kg, 04/14/23 14:33:00 EDT, Dosing Weight Start Date: 04/14/23 Stop Date: 07/13/23 Status: Ordered Start: 04-14-2023 take 1 tablet by mouth once me loxicam (MOBIC) 15 mg tablet Take 1 tablet by mouth every afternoon. 04/14/2023 Active Comment on above: Take 1 tablet by lucrecia th every afternoon. naproxen 500 mg oral tablet (4 sources) Nonsteroidal Anti-inflammatory Drug Start: 05-30-2021 End: 06-20-2021 naproxen 500 mg oral tablet Dose : 500 mg = 1 tab(s), Oral, BIDM, X 7 day(s), # 14 tab(s), 0 Refill(s), 06/20/21 20:35:00 EDT, Chronic back pain Start Date: 06/13/21 Stop Date: 06/20/21 Status: Ordered Start: 01-26-2020 ALEVE 220 MG C APS capsule by mouth as directed as needed naproxen sodium [id number] Terena Yepez RN omeprazole 40 mg delayed release oral capsule (10 sources) Proton Pump Inhibitor Start: 04-24-2023 take 1 capsule by mouth once omeprazole (PRILOSEC) 40 mg capsule Take 1 capsule by mouth every afternoon. 04/24/2023 Active Start: 04-14-2023 End: 07-13-2023 omeprazole 40 mg oral delaye d release capsule Dose : 40 mg = 1 cap(s), Oral, qDay, # 30 cap(s), 2 Refill(s), Pharmacy: [facility] #[id number], GERD (gastroesophageal reflux disease), 183, cm, 04/14/23 14:33:00 EDT, Height, kg, 04/14/23 14:33:00 EDT, Dosing Weight Start Date: 04/14/23 Stop Date: 07/13/23 Status: Ordered Comment on above: Take 1 capsule by [facility] every afternoon. ondansetron (ZOFRAN-ODT) disintegrating tablet 4 mg (1 source) Start: 12-05-19 ondansetron (ZOFRAN-ODT) disintegrating tablet 4 mg predniSONE 20 mg oral tablet (4 sources) Start: 03-24-20 take 60 mg by mouth once daily Prednisone Active 60 MG PO DAILY June 14, 2022 12:00am Start: 05-30-2021 predniSONE 5 m g oral tablet See Instructions, Taper dose 10 to 1 over 10 days, # 55 tab(s), 0 Refill(s), [facility]acy: [facility], 182, cm, 05/30/21 13:22:00 EDT, Height, kg, 05/30/21 13:22:00 EDT, Dosing Weight Start Date: 05/30/21 Status: Ordered sildenafil 50 mg oral tablet (9 sources) Phosphodiesterase 5 Inhibitor Start: 04-14-2023 take 1 tablet by mouth once sildenafil (VIAGRA) 50 mg tablet Take 1 tablet by mouth every afternoon. 04/14/2023 Active Comment on above: Take 1 tablet by lucrecia th every afternoon. Completed/Discontinued Medications Medication Drug Class(es) Dates Sig (Normalized) Sig (Original) acetaminophen 325 mg oral tablet (1 source) Start: 12-04-2021 take 650 mg by mouth every six hours, then take 4000 mg by mouth every twenty-four hours 650 mg, Oral, EVERY 6 HOURS, First dose on Fri12/04/21 at 0430, Until Discontinued Maximum dose of acetaminophen is 4000 mg from all sources in 24 hours. acetaminophen 325 mg / HYDROcodone bitartrate 5 mg oral tablet (1 source) Opioid Agonist Start: 05-30-2021 End: 06-04-2021 take 1 tablet by mouth every six hours as needed for pain Alpine 325- 5 mg oral tablet Dose = 1 tab(s), Oral, q6h, PRN for pain, # 12 tab(s), 0 Refill(s), [facility]: [facility], Low back pain Chronic back pain, 182, cm, 05/30/21 13:22:00 EDT, Height, 134, kg, 05/30/21 13:22:00 EDT, Dosing Weight Start Date: 05/30/21 Stop Date: 06/04/21 Status: Ordered cyclobenzaprine hydrochloride 10 mg oral tablet (2 sources) Muscle Relaxant Start: 12-04-2021 take 10 mg by mouth three times daily as needed for muscle spasms 10 mg, Oral, 3 TIMES DAILY PRN, Starting on Fri12/04/21 at 0416, Until Discontinued, Muscle spasms, 2nd line for muscle spasms Start: 06-13-2021 End: 06-20-2021 cyclobenzaprine 10 mg oral t ablet Dose : 10 mg = 1 tab(s), Oral, TID, X 7 day(s), # 21 tab(s), 0 Refill(s), 06/20/21 20:34:00 EDT, Chronic back pain Start Date: 06/13/21 Stop Date: 06/20/21 Status: Ordered 1 ml dexamethasone phosphate 10 mg/ml injection (1 source) Corticosteroid Start: 12-04-2021 End: 12-04-2021 6 mg, IntraVENous, EVERY 6 HOURS, First dose on Fri12/04/21 at 0430, For 24 hours docusate sodium 50 mg / sennosides, mcc 8.6 mg oral tablet (1 source) Start: 12-05-2021 take 1 tablet by mouth twice daily 1 tablet, Oral, 2 TIMES DAILY, First dose on Fri12/05/21 at 0900, Until Discontinued gadobutrol (GADAVIST) injection 12 mL (1 source) Start: 12-06-2021 End: 12-06-2021 gadobutrol (GADAVIST) injection 12 mL 1 ml ketorolac tromethamine 30 mg/ml cartridge (1 source) Nonsteroidal Anti-inflammatory Drug, Cyclooxygenase Inhibitor Start: 12-03-2021 End: 12-03-2021 ketorolac (TORADOL) injection 15 mg Start: 12-03-2021 End: 12-03-2021 ketorolac (TORADOL) injectio n 15 mg 1 ml LORazepam 2 mg/ml injection (2 sources) Benzodiazepine Start: 12-09-2021 End: 12-09-2021 LORazepam (ATIVAN) injection 0.5 mg Start: 12-06-2021 End: 12-06-2021 LORazepam (ATIVAN) injection 1 mg methylPREDNISolone 4 mg oral tablet (1 source) Corticosteroid Start: 12-20-2021 MEDROL 4 MG TBPK Take by mouth as directed Following package instructions. No NSAIDs while on this. methylprednisolone [id number] Danica Whitlock [employer] 1 ml morphine sulfate 4 mg/ml injection (1 source) Opioid Agonist Start: 12-04-2021 End: 12-04-2021 morphine sulfate (PF) injection 4 mg 2 ml ondansetron 2 mg/ml injection (1 source) Serotonin-3 Receptor Antagonist Start: 12-04-2021 End: 12-04-2021 ondansetron (ZOFRAN) injection 4 mg oxyCODONE hydrochloride 5 mg oral tablet (1 source) Opioid Agonist Start: 12-04-2021 take 5 mg by mouth every four hours as needed 5 mg, Oral, EVERY 4 HOURS PRN, Starting on Fri12/04/21 at 0416, Until Discontinued, Pain Moderate (4-6) polyethylene glycol 3350 59403 mg powder for oral solution (1 source) Osmotic Laxative Start: 12-04-2021 17 g, Oral, DAILY, First dose on Fri12/04/21 at 0900, Until Discontinued 5 ml sodium chloride 9 mg/ml injection (3 sources) Start: 12-04-2021 take 1 dose intravenously twice daily 5-40 mL, IntraVENous, EVERY 12 HOURS SCHEDULED (2 times per day), First dose on Fri12/04/21 at 0900, Until Discontinued For Line Patency: Peripheral IV = 5 mL; Midline or Central Line = 10 mL/lumen. & nbsp;If following IV push medication, administer flush at same rate as the IV push. Flush volume is determined by type of infusion therapy being given. Fo r non-viscous solutions use: Peripheral IV = 5 mL Midline or Central Line = 10 mL/lumen For viscous solutions (i.e. blood components, parenteral nutrition, contrast media, or after obtaining blood sample) use: Peripheral IV = 10 mL Midline or Central Line = 20 mL/lumen Start: 12-04-2021 take 25 mL intraveno usly every hour as needed 25 mL, IntraVENous, at 100 mL/hr, PRN, If patient receiving piggyback infusions without ordered maintenance IV fluids or with frequent/long duration piggyback infusions, Starting on Fri12/04/21 at 0416 Administer at the same rate as the piggyback being infused. Start: 12-04-2021 take 5-40 mL intravenously onc e 5-40 mL, IntraVENous, PRN, Starting on Fri12/04/21 at 0416, Until Discontinued, Line Care After every IV line use traMADol hydrochloride 50 mg oral tablet (3 sources) Opioid Agonist Start: 05-14-2023 End: 06-26-2024 take 1 tablet by mouth every twelve hours as needed for pain traMADol (ULTRAM) 50 mg tablet TAKE 1 TABLET BY MOUTH EVERY 12 HOURS FOR 5 DAYS NEEDED FOR PAIN 05/14/2023 06/26/2024 Discontinued Comment on above: TAKE 1 TABLET BY LUCRECIA TH EVERY 12 HOURS FOR 5 DAYS NEEDED FOR PAIN Problems Active Problems Problem Classification Problem Date Documented Date Episodic/Chronic Administrative/socia l admission (2 sources) Administrative reason for encounter; Translations: [Encounter for other administrative examinations] Episodic Anxiety disorders (3 sources) Anxiety; Translations: [Anxiety disorder, unspecified] 10-08-2022 Chronic E Codes: Natural/environment (2 sources) Tick bite; Translations: [Bitten or stung by nonvenomous insect and other nonvenomous arthropods, initial encounter] Episodic Esophageal disorders (1 source) Gastroesophageal reflux disease 06-17-2022 Chronic Headache; including migraine (2 sources) Headache; Translations: [Headache] Episodic Immunizations and screening for infectious disease (1 source) Patient encounter status; Translations: [Encounter for screening for infections with a predominantly sexual mode of transmission] 06-26-2024 Episodic Nutritional deficiencies (2 sources) Vitamin D deficiency; Translations: [Vitamin D deficiency, unspecified] Onset: 11-04-2024 04-14-2023 Chronic Other aftercare (1 source) Surgical follow-up; Translations: [Encounter for other specified surgical aftercare] Onset: 12-20-2021 12-20-2021 Episodic Other connective tissue disease (2 sources) Pain in lower limb; Translations: [Pain in leg, unspecified] Episodic Other connective tissue disease (2 sources) Other muscle spasm; Translations: [Other muscle spasm] Onset: 03-21-2023 Episodic Other connective tissue disease (1 source) Spasticity 10-08-2022 Episodic Other injuries and conditions due to external causes (2 sources) Injury of toe; Translations: [Unspecified injury of left foot, initial encounter] Episodic Other male genital disorders (1 source) Impotence 05-13-2022 Chronic Other nervous system disorders (1 source) 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 Comment on above: Radiculopathy of low er extremities Other nervous system disorders (2 sources) Postoperative pain ; Translations: [Other acute postprocedural pain] Episodic Other non-traumatic joint disorders (1 source) Hip pain 10-08-2022 Episodic Other non-traumatic joint disorders (1 source) Multiple joint pain 05-13-2022 Episodic Other nutritional; endocrine; and metabolic disorders (1 source) Body mass index 30+ - obesity 10-08-2022 Chronic Other screening for suspected conditions (not mental disorders or infectious disease) (2 sources) Measurement finding above reference range; Translations: [Encounter for screening for other disorder] Onset: 06-07-2025 04-14-2023 Episodic Other upper respiratory infections (2 sources) Pharyngitis; Translations: [Acute pharyngitis, unspecified] Episodic Otitis media and related conditions (3 sources) Dysfunction of eustachian tube; Translations: [Other specified disorders of Eustachian tube, bilateral] 08-23-2023 Episodic Poisoning by nonmedicinal substances (2 sources) Allergic reaction to chemical; Translations: [Toxic effect of unspecified substance, accidental (unintentional), initial encounter] Episodic Residual codes; unclassified (1 source) Insomnia co-occurrent and due to medical condition 11-19-2022 Chronic Residual codes; unclassified (2 sources) Chronic back pain 06-29-2019 Episodic Residual codes; unclassified (2 sources) History of operative procedure on lumbar spinal structure; Translations: [Other specified postprocedural states] Onset: 12-04-2021 Episodic Residual codes; unclassified (1 source) H/O Spinal surgery; Translations: [Other specified postprocedural states] Episodic Residual codes; unclassified (1 source) Did not attend 01-06-2023 Episodic Comment on above: 01/06/2023 No-show for appointm ent on September 03, 2021 Residual codes; unclassified (1 source) FH: Myocardial infarction at less than 60 08-20-2021 Episodic Residual codes; unclassified (1 source) FH: Rheumatoid arthritis 05-13-2022 Episodic Residual codes; unclassified (1 source) Increased body mass index 10-08-2022 Episodic Skin and subcutaneous tissue infections (1 source) Recurrent skin infection 12-16-2022 Episodic Spondylosis; intervertebral disc disorders; other back problems (4 sources) Prolapsed lumbar intervertebral disc; Translations: [Other intervertebral disc displacement, lumbar region] Onset: 01-26-2020 01-26-2020 Chronic Spondylosis; intervertebral disc disorders; other back problems (13 sources) Backache; Translations: [Dorsalgia, unspecified] Onset: 01-26-2020 Episodic Sprains and strains (6 sources) Sprain of knee; Translations: [Sprain of unspecified site of right knee, initial encounter] Episodic Substance-related disorders (1 source) Marijuana user 12-16-2022 Episodic Superficial injury; contusion (2 sources) Abrasion and/or friction burn of toe without infection; Translations: [Abrasion or friction burn of toe without infection] Episodic Unclassified (1 source) Low back pain, unspecified; Translations: [Low back pain, unspecified] Onset: 01-05-2025 Viral infection (4 sources) Genital warts; Translations: [Anogenital (venereal) warts] Onset: 06-07-2025 11-19-2022 Episodic Past or Other Problems Problem Classification Problem Date Documented Da te Episodic/Chronic Diabetes mellitus without complication (1 source) Other abnormal glucose; Translations: [Other abnormal glucose] Onset: 08-18-2024 Episodic Genitourinary symptoms and ill-defined conditions (10 sources) Dysuria; Translations: [Dysuria] Onset: 07-26-2024 06-26-2024 Episodic Nonspecific chest pain (3 sources) Chest pain; Translations: [Chest pain, unspecified] Onset: 01-04-2025 Episodic Other injuries and conditions due to external causes (1 source) Unspecified injury of right ankle, initial encounter; Translations: [Unspecified injury of right ankle, initial encounter] Onset: 11-11-2024 Episodic Unclassified (2 sources) Problem Results Test Name Value Interpretation Reference Range Facil ity Hips B/L min 2 views w/ Pelv john 06-14-2025 Hips B/L min 2 views w/ Pelvis [facility] Imaging Services [address] [place] [address] [id number] Hips B/L min 2 views w/ Pelvis MR#: [id number] Acct: [id number] Name: SAGRARIO BRANNON Rep #: [id number] : 1985 M [id number] From: Amarjit Nina MD PCP: Dr. Marck Lopez MD Status: REG CLI Study: Hips B/L min 2 views w/ Pelvis Date of Exam: Exam# [id number] Ordering Dr: Marck Lopez MD PROCEDURE: HIPS B/L MIN 2 VIEWS W/ PELVIS 06/14/2025 REASON FOR EXAM: PAIN None TECHNIQUE: Procedure Code: RADHPELP Modality: DX Procedure: HIPS B/L MIN 2 VIEWS W/ PELVIS Laterality: Bilateral COMPARISON: None FINDINGS: Bones: No acute fracture or dislocation. Joints: Normal alignment. Joint spaces are preserved. No arthropathic features. Soft tissues: Soft tissues are unremarkable. Other: N/a RAD/Hips B/L min 2 views w/ Pelvis IMPRESSION: Unremarkable symmetric appearance of both hips without evidence of acute fracture, joint space narrowing or dislocation. Reading Location: [facility] CC: Dr. Marck Lopez MD Newspaper Peddler: Signed [facility] Lumbar Spine 2 or 3 Viewson 06-14-2025 Lumbar Spine 2 or 3 Views [facility] Imaging Services [address] [place] [id number] Lumbar Spine 2 or 3 Views MR#: [id number] Acct: [id number] Name: SAGRARIO BRANNON Rep #: [id number] : 1985 M 39 From: Amarjit Nina MD PCP: Dr. Marck Lopez MD Status: REG CLI Study: Lumbar Spine 2 or 3 Views Date of Exam: Exam# [id number] Ordering Dr: Marck oLpez MD PROCEDURE: LUMBAR SPINE 2 OR 3 VIEWS 06/14/2025 REASON FOR EXAM: PAIN Low back pain TECHNIQUE: Procedure Code: RADSPLL Modality: DX Procedure: LUMBAR SPINE 2 OR 3 VIEWS COMPARISON: None FINDINGS: Vertebrae: The lumbar vertebral body heights are intact. There are 5 appearing lumbar vertebral bodies. Discs: Mild multilevel disc space narrowing at L4-L5 and L5-S1 otherwise the disc spaces are preserved. Alignment: Normal lumbar alignment Other: Moderate stool projects over the colon. RAD/Lumbar Spine 2 or 3 Views IMPRESSION: 1. NO EVIDENCE OF LUMBAR FRACTURE. 2. Mild lower lumbar degenerative disc disease. Reading Location: [facility] CC: Dr. Marck Lopez MD Newspaper Peddler: Signed [facility] Leroy 06-08-2025 [facility] Telephone (AKURFL) SAGRARIO BRANNON ([id number]) 1985 M Date Time Provider Department 06/08/25 MERLYN BAUTISTA During your visit today, we recorded the following information about you: Emily Clay 06/08/2025 8:51 AM Signed Pt confirmed his appt with Dr. Bautista in [place] 06/21/25 @ 3:15 pm. Corinne Allergies As of Date: 06/08/2025 Noted Allergy Reaction HYDROCODONE-ACETAMIN OPHEN 12/03/2021 1 - Mental Status Change Comments: States he get panic attacks Date Reviewed: 06/07/2025 Reviewed by: Louise Beck LPN - Fully Assessed Reason for Visit: Appointment [[id number]] Prescriptions as of 06/08/2025 - meloxicam (MOBIC) 15 mg tablet Take 1 tablet by mouth every afternoon. - omeprazole (PRILOSEC) 40 mg capsule Take 1 capsule by mouth every afternoon. - escitalopram oxalate (LEXAPRO) 20 mg tablet Take 1 tablet by mouth every afternoon. - cholecalciferol, Vitamin D3, (VITAMIN D3) 1,250 mcg (50,000 unit) cap capsule take 1 capsule by mouth every month - lidocaine (LIDODERM) 5 % apply 1 patch topically once daily *ON FOR 12 HOURS AND OFF FOR 12 HOURS* - sildenafil (VIAGRA) 50 mg tablet Take 1 tablet by mouth every afternoon. Problem List As Of Date: 06/08/2025 (None) Encounter Status:Closed by EMILY CLAY on 06/08/25 [facility] CNOVon 06-07-2025 CNOV Office Visit (UROLWS) STEFSAGRARIO NOWAK ([id number]) 1985 M Date Time Provider Department 06/07/25 2:30 PM PEDRITO SERRANO During your visit today, we recorded the following information about you: Temperature 98 degrees Pedrito Serrano PA-C 06/07/2025 5:09 PM Signed [facility] EST PATIENT CLINIC NOTE (M) Some elements copied from his previous note, which have been updated where appropriate, and all reflect current medical decision making from date of this visit. Note was generated by [employer] and edited as appropriate SERVICE DATE: June 07, 2025 NAME: Sagrario Brannon GENDER: male CHIEF COMPLAINT: The patient is a 39-year-old male presenting for evaluation of penile lesions refractory to topical therapy and referral for surgical removal. HISTORY OF PRESENT ILLNESS: The patient is a 39-year-old male presenting for evaluation of penile lesions refractory to topical therapy and referral for surgical removal. The patient is a 39-year-old male presenting for evaluation of penile lesions and back pain. Penile Lesions: - Lesions on the shaft of the penis, with additional itching in the groin area. - Lesions reportedly worsened after using Aldara cream. - Denies previous presence of lesions in the creases of the legs. - Recent testing at urgent care included gonorrhea and chlamydia; unsure if HSV or HPV testing was performed. Back Pain: - Chronic back pain, managed with magnesium supplementation. - Reports that magnesium also induces drowsiness. LABS: No results found for: PSA No results found for: CREAT No results found for: TESTOST No results found for: HCT No results found for: PSA MEDICATIONS: escitalopram oxalate (LEXAPRO) 20 mg tablet Take 1 tablet by mouth every afternoon. meloxicam (MOBIC) 15 mg tablet Take 1 tablet by mouth every afternoon. (Patient not taking: Reported on 06/26/2024) omeprazole (PRILOSEC) 40 mg capsule Take 1 capsule by mouth every afternoon. (Patient not taking: Reported on 06/26/2024) cholecalciferol, Vitamin D3, (VITAMIN D3) 1,250 mcg (50,000 unit) cap capsule take 1 capsule by mouth every month (Patient not taking: Reported on 06/07/2025) lidocaine (LIDODERM) 5 % apply 1 patch topically once daily *ON FOR 12 HOURS AND OFF FOR 12 HOURS* (Patient not taking: Reported on 06/26/2024) sildenafil (VIAGRA) 50 mg tablet Take 1 tablet by mouth every afternoon. (Patient not taking: Reported on 06/26/2024) PAST MEDICAL HISTORY: PAST MEDICAL HISTORY Diagnosis Date Chronic back pain Genital warts GERD (gastroesophageal reflux disease) Impotence Marijuana user Multiple joint pain Nerve root disorder Nontoxic single thyroid nodule Obesity with body mass index 30 or greater Spondylosis Vitamin D deficiency REVIEW OF SYSTEMS: Constitutional: (+) somnolence Musculoskeletal: (+) back pain Genitourinary: (+) penile lesions, (+) groin pruritus, (+) genital burning sensation PHYSICAL EXAMINATION: General: Alert AND oriented, no acute distress Skin: Normal HEENT: Pupils equal, round. Oral cavity, oropharynx clear Neck: Supple, no mass Breast: Deferred Respiratory: Clear to auscultation, bilaterally Cardiovascular: Regular rate and rhythm, no murmurs, rubs, or gallops Abdomen: Soft, non-tender, non-distended, no masses palpable, no hepatosplenomegaly, normal bowel sounds Genitourinary: Lesions noted on the shaft of the penis and in the groin area MSK: Back is non-tender Extremities: No clubbing, cyanosis, or edema The patient or authorized auto service representative has verbally agreed to proceed with the sensitive examination. (Sensitive examination includes inspection and/or palpation of the breasts, pelvis, prostate and anorectal regions) PROBLEM LIST REVIEW: Yes LABS: Results for orders placed or performed in visit on 06/07/25 UA DIP, URINE (POC) Result Value Ref Range GLUCOSE UA (POCT) Negative Negative mg/dL BILIRUBIN UA (POCT) Negative Negative KETONE UA (POCT) Negative Negative mg/dL SPECIFIC GRAVITY UA (POCT) >=1.030 1.005 - 1.030 HEMOGLOBIN/BLOOD UA (POCT) Negative Negative PH UA (POCT) 6.0 4.5 - 8.0 PROTEIN UA (POCT) Negative Negative mg/dL UROBILINOGEN UA (POCT) 0.2 Normal E.U./dL NITRITE UA (POCT) Negative Negative LEUKOCYTES UA (POCT) Negative Negative COLOR UA (POCT) Yellow CLARITY UA (POCT) Clear ASSESSMENT/PLAN: 1. Genital warts (A63.0) - Lesions present on the shaft of the penis and in the groin area. Previous treatment with Aldara cream was ineffective and reportedly worsened the condition. Discussed potential for cryotherapy for lesions on the shaft of the penis. Groin area lesions likely due to a yeast infection; discussed the need for specific antifungal treatment. Referral to a specialist in Medi (more content not included)... Normal [facility] Emergency Department Summary on 01-01-2025 Emergency Department Summary [facility] Medical Records Department [address] [place] [address] Emergency Department Summary 01/01/25 MR#: [id number] Acct: [id number] Name: SAGRARIO BRANNON Rep #: [id number] : 1985 39 From: Mercedes WOMACK PCP: Dr. Marck Lopez MD Status:DEP ER Location: ED HPI History of Present Illness Chief Complaint: Upper Extremity Injury Narrative Narrative: Patient presented today due to a mechanical fall that occurred yesterday evening. He was going up his wooden porch steps when he slipped and fell backwards, falling down 3 of them. He reports pain to his right shoulder, right lateral ribs, and low back. He does not think that he hit his head, there was no LOC, he is not on any blood thinners. He is right-handed. He reports a history of a right previous partial rotator cuff tear. [facility] Medical History Migraine Rheumatoid arthritis Chronic pain Home Medications ???Medication ???Instructions ???Recorded ???Last Taken ???Type escitalopram oxalate 20 mg tablet 20 mg PO DAILY 03/01/24 12/30/24 History (Lexapro) albuterol sulfate 90 mcg/actuation 1 - 2 puff inhalation Q4H PRN SD N 12/30/24 Unknown Rx aerosol inhaler (Ventolin HFA) Wheezing #1 inh prednisone 20 mg tablet 40 mg (2 x 20 mg) PO DAILY 5 days 12/30/24 Unknown Rx #10 tabs naproxen 500 mg tablet (Naprosyn) 500 mg PO BID PRN pain #20 tabs 0 01/01/25 Unknown Rx oxycodone-acetaminop hen 5 mg-325 1 tab PO Q6H 3 days #8 tabs Unknown Rx mg tablet (Percocet) Allergy/AdvReac Type Severity Reaction Status Date / Time hydrocodone AdvReac Mild Itching/anx Verified 01/01/25 14:18 iety Surgical History Hx of laminectomy Hx of arthroscopic knee surgery Hx of foot surgery Social History Smoking Status: Former smoker substance use type: does not use ROS ROS ED Constitutional Constitutional ED: Denies chills or fever(s) Cardiovascular Cardiovascular: Denies chest pain Respiratory/Chest Respiratory/Chest: Denies dyspnea Gastrointestinal Gastrointestinal: Denies abdominal pain, nausea or vomiting Musculoskeletal Musculoskeletal: Reports arthralgias and back pain Integumentary Reports Abrasions Neurologic Neurologic: Denies paresthesias EXAM Physical Exam Const Vital Signs: 01/01/25 14:15 Temperature 96.5 F L Temperature Source Temporal Pulse Rate 91 Respiratory Rate 14 Blood Pressure 144/76 H Blood Pressure Mean 98 Pulse Ox 95 Oxygen Delivery Method Room Air Positive well nourished, well developed and no apparent distress General Appearance ED: well developed HEENT Reports normocephalic and head/scalp atraumatic Mouth ED: Yes moist mucous membranes normal Eyes PERRL and EOMs intact bilaterally Neck full ROM and supple Neck Narrative: No midline cervical tenderness Chest Wall inspection of chest normal Resp normal respiratory effort and clear to auscultation bilaterally Resp Narrative: Pain to palpation to the right lateral mid ribs, no overlying bruising, no crepitus Cardio regular rate and regular rhythm GI soft to palpation, non-tender, non-distended and no masses Back/Spine normal ROM and normal to inspection Back/Spine Narrative: Pain to the right and left lumbar paraspinal muscles, minimal midline lumbar tenderness. No step- offs. Linear abrasion to the right flank. Extremity normal to inspection Extremity Narrative: Limited range of motion to the right shoulder secondary to pain, generalized pain to palpation to the shoulder, no clavicle tenderness, right radial pulse 2+, good cap refill, sensation intact. No pain to the right elbow or forearm Neuro oriented x3, CN's II-XII intact bilaterally, moves all extremities, no focal motor deficits and no sensory deficits noted Sensorium / Orientation: awake and alert Psych mental status grossly normal and thought process normal Skin Skin Narrative: Aside from small linear abrasion to the right flank area, no other rashes or lesions noted MDM MDM MDM Narrative Medical decision making narrative: Patient presenting today with pain to his right shoulder, right lateral ribs, and low back following a mechanical fall yesterday evening. He slipped on his porch steps and fell down with 3 of them. He does not think that he hit his head, there was no LOC. He has limited range of motion to his right shoulder secondary to pain, x-ray obtained to assess for fracture and is negative. He has a history of previous partial rotator cuff tear. I will refer him to orthopedics. He did request a sling, this will be given but recommended (more content not included)... Normal [facility] L/S Spine Min 4 Viewson L/S Spine Min 4 Views [facility] Imaging Services [address] [place] [address] L/S Spine Min 4 Views MR#: [id number] Acct: [id number] Name: SAGRARIO BRANNON Rep #: [id number] : 1985 M 39 From: Suzi Wilson MD PCP: Dr. Marck Lopez MD Status: REG ER Study: L/S Spine Min 4 Views Date of Exam: 01/01/25 Exam# [id number] Ordering Dr: Mercedes Ro PROCEDURE: L/S SPINE MIN 4 VIEWS 01/01/2025 REASON FOR EXAM: FALL, PAIN TECHNIQUE: Five views of the lumbar spine FINDINGS: Vertebrae: No acute fracture. Discs: Disc space heights are preserved. Alignment: Anatomic alignment. Other: RAD/L/S Spine Min 4 Views IMPRESSION: No acute fracture or subluxation. Reading Location: [facility] CC: Dr. Marck Lopez MD; SHANTA Zendejas Newspaper Peddler: Signed Normal [facility] Ribs Uni Min 3V w/PA Cheston 01-01-2025 Ribs Uni Min 3V w/PA Chest [facility] Imaging Services [address] [place] [address] Ribs Uni Min 3V w/PA Chest MR#: [id number] Acct: [id number] Name: SAGRARIO BRANNON Rep #: [id number] : 1985 M 39 From: Suzi Wilson MD PCP: Dr. Marck Lopez MD Status: REG ER Study: Ribs Uni Min 3V w/PA Chest Date of Exam: 01/01 Exam# [id number] Ordering Dr: Mercedes Ro EXAM: Right ribs and chest CLINICAL HISTORY: Fall, chest pain, rib pain. COMPARISON: 12/30/2024 TECHNIQUE: PA view of the chest and four views of the right ribs FINDINGS: No obvious displaced right rib fracture. No bony abnormality. The heart and mediastinum are normal. No opacity within the lungs to suggest active pulmonary disease. RAD/Ribs Uni Min 3V w/PA Chest IMPRESSION: No obvious displaced right rib fracture. No active pulmonary disease. Reading Location: [facility] CC: Dr. Marck Lopez MD; SHANTA Zendejas Newspaper Peddler: Signed Normal [facility] Shoulder min 2 Viewson 01-01 Shoulder min 2 Views [facility] Imaging Services [address] [place], [place] [id number] Shoulder min 2 Views MR#: [id number] Acct: [id number] Name: SAGRARIO BRANNON Rep #: [id number] : 1985 M 39 From: Suzi Wilson MD PCP: Dr. Marck Lopez MD Status: REG ER Study: Shoulder min 2 Views Date of Exam: 01/01/25 Exam# [id number] Ordering Dr: Mercedes Ro PROCEDURE: SHOULDER MIN 2 VIEWS 01/01/2025 REASON FOR EXAM: FALL, PAIN TECHNIQUE: 4 view(s) of the right shoulder COMPARISON: 08/02/2019 FINDINGS: Bones: No acute fracture. Joints: Normal alignment of the acromioclavicular and glenohumeral joints. Soft tissues: Soft tissues are unremarkable. Other: RAD/Shoulder min 2 Views IMPRESSION: NO ACUTE FRACTURE OR DISLOCATION. Reading Location: [facility] CC: Dr. Marck Lopez MD; SHANTA Zendejas Newspaper Peddler: Signed [facility] 12 Lead EKGon 12-30-2024 12 Lead EKG [facility] Cardiovascular Services [address] [place] [address] 12 Lead EKG 12/30/24 1105 MR#: [id number] Acct: [id number] Name: SAGRARIO BRANNON Rep #: [id number] : 1985 39 From: Eleno Lundy MD Attending Dr: Status: DEP ER Ordering Dr: Mercedes Ro Date: 12/30/24 Location: ED Sex: M C Admitted: Test Reason : CP Blood Pressure : */* mmHG Vent. Rate : 86 BPM Atrial Rate : 86 BPM P-R Int : 146 ms QRS Dur : 86 ms QT Int : 360 ms P-R-T Axes : 42 90 51 degrees QTcB Int : 430 ms Normal sinus rhythm with sinus arrhythmia Rightward axis Borderline ECG Confirmed by ELENO LUNDY MD ([id number]), editor trade journal GISELLE FRIEDMAN ([id number]) on 12/31/2024 8:16:42 AM Referred By: NATY/NEAL Confirmed By: ELENO LUNDY MD 12/31/24 0816 Date Eleno Lundy MD CC: Dr. Bao Villavicencio MD; Dr. Marck Lopez MD; SHANTA Zendejas Signed [facility] Basic Metabolic Profile (BMP )on 12-30-2024 BUN/CRE 9.9 RATIO Low 10-20 [facility] Comment on above: Performed By: #### L 100.0100, L501.4021, L500.2500 ####[facility] [address] [place], [address] Calcium [Mass/Vol] 9.1 mg/dL Normal 7.6-11.0 [facility] Comment on above: Performed By: #### L 100.0100, L501.4021, L500.2500 ####[facility] [address] [place], [address] Chloride [Moles/Vol] 102 mmol/L Normal 98-108 [facility] Comment on above: Performed By: #### L 100.0100, L501.4021, L500.2500 ####[facility] [address] [place], [address] CO2 [Moles/Vol] 24.2 mmol/L Normal 21.0-32.0 [facility] Comment on above: Performed By: #### L 100.0100, L501.4021, L500.2500 ####[facility] [address] [place], [address] Creatinine [Mass/Vol] 1.01 mg/dL Normal 0.70-1.20 [facility] Comment on above: Performed By: #### L 100.0100, L501.4021, L500.2500 ####[facility] [address] [place], [address] ECRCL 133.81 ml/min Normal 50-250 [facility] Comment on above: Performed By: #### L 100.0100, L501.4021, L500.2500 ####[facility] [address] [place], [address] GAP 10 Normal 5-15 [facility] Comment on above: Performed By: #### L 100.0100, L501.4021, L500.2500 ####[facility] [address] [place], [address] GFR/1.73 sq M.predicted among non-blacks MDRD (S/P/Bld) [Vol rate/Area] 98 mL/min/{1.73_m2} Normal >60 [facility] Comment on above: Result Comment: mL/m in/1.73m2 CKD-EPI Creatinine Equation (2020) Performed By: #### L 100.0100, L501.4021, L500.2500 ####[facility] [address] [place], [address] Glucose [Mass/Vol] 103 mg/dL High 70-99 [facility] Comment on above: Performed By: #### L 100.0100, L501.4021, L500.2500 ####[facility] [address] [place], [address] Potassium [Moles/Vol] 4.2 mmol/L Normal 3.3-5.1 [facility] Comment on above: Performed By: #### L 100.0100, L501.4021, L500.2500 ####[facility] [address] [place], [address] Sodium [Moles/Vol] 136 mmol/L Normal 133-145 [facility] Comment on above: Performed By: #### L 100.0100, L501.4021, L500.2500 ####[facility] [address] [place], [address] Urea nitrogen [Mass/Vol] 10 mg/dL Normal 4-19 [facility] Comment on above: Performed By: #### L 100.0100, L501.4021, L500.2500 ####[facility] [address] [place], [address] CBC W/Diff, Automatedon 05-0 1-2024 Absolute Lymph 2.60 X10 3/uL Normal 0.83-4.51 [facility] Comment on above: Performed By: #### L 100.0100, L501.4021, L500.2500 ####[facility] [address] [place], [address] Absolute Neut 4.2 X10 3/uL Normal 2.0-7.7 [facility] Comment on above: Performed By: #### L 100.0100, L501.4021, L500.2500 ####[facility] [address] [place], [address] Basophils/100 WBC (Bld) 0.6 % Normal 0-1 [facility] Comment on above: Performed By: #### L 100.0100, L501.4021, L500.2500 ####[facility] [address] [place], [address] Eosinophils/100 WBC (Bld) 9.8 % High 0-5 [facility] Comment on above: Performed By: #### L 100.0100, L501.4021, L500.2500 ####[facility] [address] [place], [address] Erythrocyte distribution width (RBC) [Ratio] 12.8 % Normal 11.6-14.6 [facility] Comment on above: Performed By: #### L 100.0100, L501.4021, L500.2500 ####[facility] [address] [place], [address] Hematocrit (Bld) [Volume fraction] 43.5 % Normal 40-54 [facility] Comment on above: Performed By: #### L 100.0100, L501.4021, L500.2500 ####[facility] [address] [place], [address] Hemoglobin (Bld) [Mass/Vol] 15.3 g/dL Normal 13.0-16.5 [facility] Comment on above: Performed By: #### L 100.0100, L501.4021, L500.2500 ####[facility] [address] [place], [address] IG% 4.200 High 0.0-0.9 [facility] Comment on above: Result Comment: IG% - Immature Granulocytes (promyelocytes, myelocytes and metamyelocytes) > 1% indicates that a LEFT SHIFT is Present. Performed By: #### L 100.0100, L501.4021, L500.2500 ####[facility] [address] [place], [address] Lymphocytes/100 WBC (Bld) 29.5 % Normal 19-41 [facility] Comment on above: Performed By: #### L 100.0100, L501.4021, L500.2500 ####[facility] [address] [place], [address] MCH (RBC) [Entitic mass] 30.4 pg Normal 27.0-32.0 [facility] Comment on above: Performed By: #### L 100.0100, L501.4021, L500.2500 ####[facility] [address] [place], [address] MCHC (RBC) [Mass/Vol] 35.2 g/dL Normal 32-36 [facility] Comment on above: Performed By: #### L 100.0100, L501.4021, L500.2500 ####[facility] [address] [place], [address] MCV (RBC) [Entitic vol] 86.5 fL Normal 80-94 [facility] Comment on above: Performed By: #### L 100.0100, L501.4021, L500.2500 ####[facility] [address] [place], [address] Monocytes/100 WBC (Bld) 8.2 % Normal 0-10 [facility] Comment on above: Performed By: #### L 100.0100, L501.4021, L500.2500 ####[facility] [address] [place], [address] Neutrophils/100 WBC (Bld) 47.7 % Normal 47-70 [facility] Comment on above: Performed By: #### L 100.0100, L501.4021, L500.2500 ####[facility] [address] [place], [address] Nucleated RBC (Bld) [#/Vol] 0 10*3/uL Normal 0-5 [facility] Comment on above: Performed By: #### L 100.0100, L501.4021, L500.2500 ####[facility] [address] [place], [address] Platelet mean volume (Bld) [Entitic vol] 9.8 fL Normal 6.2-12.0 [facility] Comment on above: Performed By: #### L 100.0100, L501.4021, L500.2500 ####[facility] [address] [place], [address] Platelets (Bld) [#/Vol] 261 10*3/uL Normal 150-450 [facility] Comment on above: Performed By: #### L 100.0100, L501.4021, L500.2500 ####[facility] [address] [place], [address] RBC (Bld) [#/Vol] 5.03 10*6/uL Normal 4.6-6.[address] [facility] Comment on above: Performed By: #### L 100.0100, L501.4021, L500.2500 ####[facility] [address] [place], [address] RDW SD 40.2 fl Normal 35.1-43.9 [facility] Comment on above: Performed By: #### L 100.0100, L501.4021, L500.2500 ####[facility] [address] [place], [address] WBC (Bld) [#/Vol] 8.8 10*3/uL Normal 4.4-11.0 [facility] Comment on above: Performed By: #### L 100.0100, L501.4021, L500.2500 ####[facility] [address] [place], [address] Chest PA and Lateralon 12-30 Chest PA and Lateral [facility] Imaging Services [address] [place] [address] Chest PA and Lateral MR#: [id number] Acct: [id number] Name: SAGRARIO BRANNON Rep #: [id number] : 1985 M 39 From: Bipin Mortensen MD PCP: Dr. Marck Lopez MD Status: REG ER Study: Chest PA and Lateral Date of Exam: 12/30/24 Exam# [id number] Ordering Dr: Mercedes Ro PROCEDURE: CHEST PA AND LATERAL 12/30/2024 REASON FOR EXAM: CHEST PAIN TECHNIQUE: Frontal and lateral views of the chest. COMPARISON: August 02, 2020 FINDINGS: Heart size and mediastinal configuration are within normal limits. There is no focal infiltrate or consolidation. There is no pneumothorax or effusion. There is no acute bony abnormality. There is no visible atherosclerosis. RAD/Chest PA and Lateral IMPRESSION: No acute process is identified in the chest. Reading Location: [facility] CC: Dr. Marck Lopez MD; SHANTA Zendejas Newspaper Peddler: Signed Normal [facility] Emergency Department Summary on 12-30-2024 Emergency Department Summary [facility] Medical Records Department [address] [place] [address] Emergency Department Summary 12/30/24 MR#: [id number] Acct: [id number] Name: SAGRARIO BRANNON Rep #: [id number] : 1985 39 From: Mercedes WOMACK PCP: Dr. Marck Lopez MD Status:DEP ER Location: ED HPI History of Present Illness Chief Complaint: Chest Pain Narrative Narrative: Patient presenting today due to concerns for left-sided chest pain he has had for the past 2 days. He reports a nonproductive cough over the last several days, his sons have been sick with similar symptoms. He does admit to frequent marijuana use and has had wheezing and chest tightness with his cough. He denies history of asthma. He denies a cardiac history. He previously had a history of hypertension but reports that it has been under control and he is no longer on antihypertensives. He denies any history of blood clots or recent surgery/travel/immob ilization. He has a PMH of anxiety. PFSH PFSH Medical History Migraine Rheumatoid arthritis Chronic pain Home Medications ???Medication ???Instructions ???Recorded ???Last Taken ???Type escitalopram oxalate 20 mg tablet 20 mg PO DAILY 03/01/24 12/30/24 History (Lexapro) albuterol sulfate 90 mcg/actuation 1 - 2 puff inhalation Q4H PRN SD N 12/30/24 Unknown Rx aerosol inhaler (Ventolin HFA) Wheezing #1 inh prednisone 20 mg tablet 40 mg (2 x 20 mg) PO DAILY 5 days 12/30/24 Unknown Rx #10 tabs Allergy/AdvReac Type Severity Reaction Status Date / Time hydrocodone AdvReac Mild Itching/anx Verified 12/30/24 11:03 iety Surgical History Hx of laminectomy Hx of arthroscopic knee surgery Hx of foot surgery Social History Smoking Status: Former smoker substance use type: does not use ROS ROS ED Constitutional Constitutional ED: Denies chills or fever(s) Cardiovascular Cardiovascular: Reports chest pain and palpitations Respiratory/Chest Respiratory/Chest: Reports cough, dyspnea on exertion and wheezing Gastrointestinal Gastrointestinal: Denies abdominal pain, nausea or vomiting Musculoskeletal Musculoskeletal: Denies arthralgias or myalgias Integumentary Denies rash Neurologic Neurologic: Denies weakness EXAM Physical Exam Const Vital Signs: 12/30/24 11:03 12/30/24 11:03 12/30/24 11:21 Temperature 97.9 F Temperature Source Oral Pulse Rate 85 85 Respiratory Rate 18 22 H Respiratory Effort Normal Non-Labored Respiratory Pattern Blood Pressure 153/101 H Blood Pressure Mean 118 Pulse Ox 98 97 Oxygen Delivery Method Room Air 12/30/24 11:30 12/30/24 11:31 12/30/24 11:32 Temperature Temperature Source Pulse Rate 86 76 80 Respiratory Rate 16 16 18 Respiratory Effort Respiratory Pattern Normal Blood Pressure 120/74 Blood Pressure Mean 88 Pulse Ox 97 98 Oxygen Delivery Method 12/30/24 11:45 12/30/24 11:45 12/30/24 12:00 Temperature Temperature Source Pulse Rate 79 84 Respiratory Rate 18 21 H Respiratory Effort Respiratory Pattern Blood Pressure 127/74 H 127/74 H 141/96 H Blood Pressure Mean 90 90 107 Pulse Ox 95 96 Oxygen Delivery Method 12/30/24 12:36 Temperature 98.3 F Temperature Source Pulse Rate 84 Respiratory Rate 21 H Respiratory Effort Respiratory Pattern Blood Pressure 141/96 H Blood Pressure Mean 111 Pulse Ox 96 Oxygen Delivery Method Positive well nourished, well developed and no apparent distress General Appearance ED: well developed HEENT Reports normocephalic and head/scalp atraumatic Mouth ED: Yes moist mucous membranes normal Eyes PERRL and EOMs intact bilaterally Neck full ROM and supple Chest Wall inspection of chest normal Resp normal respiratory effort Resp Narrative: Bilateral expiratory wheezes with coarse breath sounds throughout Cardio regular rate and regular rhythm GI soft to palpation, non-tender, non-distended and no masses Back/Spine normal ROM and normal to inspection Extremity normal to inspection and full ROM Neuro oriented x3, CN's II-XII intact bilaterally, moves all extremities, no focal motor deficits and no sensory deficits noted Sensorium / Orientation: awake and alert Psych mental status grossly normal and thought process normal Skin no rashes or lesions noted and no wounds Physical Exam Const Vital Signs: 12/30/24 11:03 12/30/24 11:03 12/30/24 11:21 Temperature 97.9 F Temperature Source Oral Pulse Rate 85 85 Respiratory Rate 18 22 H R (more content not included)... Normal [facility] L501.4021on 12-30-2024 Trop T High Sen 18 ng/L Normal <=22 [facility] Comment on above: Performed By: #### L 100.0100, L501.4021, L500.2500 ####[facility] [address] [place], [address] Emergency Department Summary on 10-28-2024 Emergency Department Summary [facility] Medical Records Department [address] [place] [address] Emergency Department Summary 10/28/24 MR#: [id number] Acct: [id number] Name: SAGRARIO BRANNON Rep #: [id number] : 1985 39 From: Yung Tejeda MD PCP: Dr. Marck Lopez MD Status:REG ER Location: ED HPI History of Present Illness HPI Narrative: 39-year-old male prior history of ankle fracture and knee scope. He was walking down steps slipped because there was mud on the step rolled his right ankle and twisted his right knee. Denies hitting his head. No LOC. No chest, back or abdominal pain. Said he is injured his ankle and knee multiple times in the past. Chief Complaint: Lower Extremity Injury Informant: patient Occured/Mechanism Mechanism/Context: Yes injury and Yes blunt trauma Onset/Context/Timing Onset: Today and Hours Context: Sudden Onset Timing: Continuous Quality of Pain: Sharp Current Severity: Moderate Maximum Severity: Moderate Associated Symptoms Associated Symptoms: Negative for Parasthesia, Weakness or Loss of Funtion Narrative Narrative: 39-year-old male prior history of ankle fractures and right knee scope. Rolled his right ankle tonight going down steps when he slipped and injured his right knee. Did not hit his head. No LOC. No other complaints. Prior similar symptoms: Yes Recent Illness/Hospitalizat ion: No PFSH [facility] Medical History Migraine Rheumatoid arthritis Chronic pain Home Medications ???Medication ???Instructions ???Recorded ???Last Taken ???Type escitalopram oxalate 20 mg tablet 20 mg PO DAILY 03/01/24 Unknown H istory (Lexapro) Allergy/AdvReac Type Severity Reaction Status Date / Time hydrocodone AdvReac Mild Itching/anx Verified 10/27/24 22:48 iety Surgical History Hx of laminectomy Hx of arthroscopic knee surgery Hx of foot surgery Social History Smoking Status: Former smoker substance use type: does not use ROS ROS ED ROS Narrative Denies recent illness. Constitutional Constitutional ED: Denies chills or fever(s) Eyes Eyes: Denies blurry vision ENT ENT ED: Denies ear pain Cardiovascular Cardiovascular: Denies chest pain Respiratory/Chest Respiratory/Chest: Denies cough or dyspnea Gastrointestinal Gastrointestinal: Denies abdominal pain Genitourinary Genitourinary ED: Denies dysuria or hematuria Musculoskeletal Musculoskeletal: Denies arthralgias Integumentary Denies abscess or Abrasions Neurologic Neurologic: Denies headache(s) or paresthesias Psychiatric Psychiatric: Denies anxiety or depression Endocrine Endocrinology: Denies polydipsia Hematologic/Lymphati c Hematologic/Lymphati c: Denies easy bleeding, easy bruising or lymphadenopathy Allergic/Immunologic Allergic/Immunologic ED: Denies mouth swelling, tongue swelling or urticaria EXAM Physical Exam Narrative Exam Narrative: 31-year-old male sitting upright in bed. Vital signs are stable afebrile. He is ice packs on his right knee and right ankle. H EENT exam pupils round reactive light. No signs of trauma to his face or scalp. Nontender no hematomas. Neck nontender. Trachea midline. Back and spine nontender. No bruising. Lungs clear to auscultation bilaterally. Heart regular rhythm rate about 80 no murmur. Chest wall ribs nontender. Abdomen soft nontender. Pelvic girdle intact. Hips are nontender. There is no shortening or rotation. Both upper extremities have normal mender hand strength. Normal range of motion. Nontender no deformity. Left lower extremity is normal. Nontender. Normal range of motion to his left hip, left knee and left ankle. Normal dorsi and plantarflexion. Right hip nontender. Normal flexion extension both actively and passively. No shortening or rotation. Right knee he has some discomfort. There is no effusion. The ACL and PCL are intact. He is able to do flexion extension. Quadriceps patellar tendon and infrapatellar tendon are intact. No bony deformity. No swelling. ACL PCL MCL and LCL all appear to be intact. The right ankle primarily laterally is mild swelling and tenderness mild's tenderness medially. No swelling. DP pulse intact. Achilles tendon intact. Calf nontender. He is able to dorsi and plantarflexion rides his right ankle. He is able to wiggle his toes. He has normal touch sensation and cap refill. The foot is nontender. Ligaments of the right ankle are intact. Neurologically is awake and alert no focal motor deficits. Const Vital Signs: 10/27/24 22:48 Temperature 97.5 F L Temperature Source Temporal Pulse Rate 84 Respiratory Rate 18 Blood Pressure 157/109 H Blood Pressure Mean 125 Pulse Ox 98 Oxygen Del (more content not included)... Normal [facility] Ankle min 3 Viewson 10-27-19 25 Ankle min 3 Views [facility] Imaging Services [address] [place], [place] [address] Ankle min 3 Views MR#: [id number] Acct: [id number] Name: SAGRARIO BRANNON Rep #: [id number] : 1985 M 39 From: Harry Barrett MD PCP: Dr. Marck Lopez MD Status: PRE ER Study: Ankle min 3 Views Date of Exam: 10/27/24 Exam# [id number] Ordering Dr: Provider,Ed P. PROCEDURE: ANKLE MIN 3 VIEWS REASON FOR EXAM: Fall. TECHNIQUE: 3 views of the right ankle COMPARISON: None FINDINGS: No visible fracture. No suspicious bone lesion. Degenerative changes of the hindfoot and ankle.. Mortise appears intact. No effusion. Soft tissues are unremarkable. RAD/Ankle min 3 Views IMPRESSION: No acute osseous abnormalities. Reading Location: [id number] CC: Dr. Marck Lopez MD; ED PHYSICIAN PROVIDER Newspaper Peddler: Signed Normal [facility] Knee 4 or More Viewson 10-27 Knee 4 or More Views [facility] Imaging Services [address] [place] [address] Knee 4 or More Views MR#: [id number] Acct: [id number] Name: SAGRARIO BARNNON Rep #: [id number] : 1985 M 39 From: Harry Barrett MD PCP: Dr. Marck Lopez MD Status: PRE ER Study: Knee 4 or More Views Date of Exam: 10/27/24 Exam# [id number] Ordering Dr: Provider,Ed P. PROCEDURE: KNEE 4 OR MORE VIEWS REASON FOR EXAM: Fall. TECHNIQUE: 4 view(s) of the right knee COMPARISON: None. FINDINGS: No fracture. No suspicious bone lesion. Normal alignment. No effusion. Soft tissues are unremarkable. RAD/Knee 4 or More Views IMPRESSION: NEGATIVE KNEE SERIES Reading Location: [place] [address] CC: Dr. Marck Lopez MD; ED PHYSICIAN PROVIDER Newspaper Peddler: Signed Normal [facility] CBC W/Diff, Automatedon 10-03 PATH REV Reviewed Normal [facility] Comment on above: Order Comment: Order Date: 10/20/24Order Info: [id number] - CBCD Result Comment: Elva Rendon M.D. 10/21/24 AMENDED REPORT 10/21/24 1421 PATH REV previously reported as: December Performed By: #### L 506.0400, L506.1000, L500.4050, L501.9520, L100.0100 ####[facility] [address] [place], [place], [address] Vitamin D,25 Hydroxyon 10-21 Vitamin D 25-OH 32.3 ng/mL Normal [facility] Comment on above: Order Comment: Order Date: 10/20/24Order Info: [id number] - VITD25 Result Comment: Sandra min D 25(OH) Status Range Deficiency <20 ng/mL (50nmol/L) Insufficiency 20 - 30 ng/mL (50 - 75 nmol/L) Sufficiency 30 - 100 ng/mL (75 - 250 nmol/L) Toxicity >100 ng/mL (>250 nmol/L) Performed By: #### L 506.0400, L506.1000, L500.4050, L501.9520, L100.0100 ####[facility] [address] [place], [address] Comprehensive Metabolic Prof ilon 10-20-2024 Albumin [Mass/Vol] 3.8 g/dL Normal 3.2-5.0 [facility] Comment on above: Order Comment: Order Date: 10/20/24Order Info: [id number] - CMPOrder Info: [id number] - TSHOrder Info: 3024-7 - T4F Performed By: #### L 506.0400, L506.1000, L500.4050, L501.9520, L100.0100 ####[facility] [address] [place] [place], [address] Albumin/Globulin [Mass ratio] 1.0 {ratio} Normal 0.9-2.4 [facility] Comment on above: Order Comment: Order Date: 10/20/24Order Info: 0786-1 - CMPOrder Info: 3016-3 - TSHOrder Info: 3024-7 - T4F Performed By: #### L 506.0400, L506.1000, L500.4050, L501.9520, L100.0100 ####[facility] [address] [place], [address] ALK P 87 U/L Normal 45-117 [facility] Comment on above: Order Comment: Order Date: 10/20/24Order Info: 0786-1 - CMPOrder Info: 3016-3 - TSHOrder Info: 3024-7 - T4F Performed By: #### L 506.0400, L506.1000, L500.4050, L501.9520, L100.0100 ####[facility] [address] [place], [address] ALT [Catalytic activity/Vol] 48 U/L Normal 16-61 [facility] Comment on above: Order Comment: Order Date: 10/20/24Order Info: 785-1 - CMPOrder Info: 3 - TSHOrder Info: 3024-7 - T4F Performed By: #### L 506.0400, L506.1000, L500.4050, L501.9520, L100.0100 ####[facility] [address] [place], [address] AST [Catalytic activity/Vol] 32 U/L Normal 15-37 [facility] Comment on above: Order Comment: Order Date: 10/20/24Order Info: 785-1 - CMPOrder Info: 3 - TSHOrder Info: 7 - T4F Performed By: #### L 506.0400, L506.1000, L500.4050, L501.9520, L100.0100 ####[facility] [address] [place], [address] Bilirubin [Mass/Vol] 0.30 mg/dL Normal 0.20-1.00 [facility] Comment on above: Order Comment: Order Date: 10/20/24Order Info: 785- - CMPOrder Info: [id number] - TSHOrder Info: 7 - T4F Result Comment: For patients on eltrombopag therapy, use of Dimension [place] TBIL is not recommended. Performed By: #### L 506.0400, L506.1000, L500.4050, L501.9520, L100.0100 ####[facility] [address] [place], [address] BUN/CRE 11.1 RATIO Normal 10-20 [facility] Comment on above: Order Comment: Order Date: 10/20/24Order Info: 785-1 - CMPOrder Info: 3 - TSHOrder Info: 3024-7 - T4F Performed By: #### L 506.0400, L506.1000, L500.4050, L501.9520, L100.0100 ####[facility] [address] [place], [address] CA,Total 9.1 mg/dL Normal 8.5-10.1 [facility] Comment on above: Order Comment: Order Date: 10/20/24Order Info: 07-1 - CMPOrder Info: 3015-10 - TSHOrder Info: 7 - T4F Performed By: #### L 506.0400, L506.1000, L500.4050, L501.9520, L100.0100 ####[facility] [address] [place], [address] Chloride [Moles/Vol] 104 mmol/L Normal 98-107 [facility] Comment on above: Order Comment: Order Date: 10/20/24Order Info: 785- - CMPOrder Info: 3015-10 - TSHOrder Info: 7 - T4F Performed By: #### L 506.0400, L506.1000, L500.4050, L501.9520, L100.0100 ####[facility] [address] [place], [address] CO2 [Moles/Vol] 27.0 mmol/L Normal 21.0-32.0 [facility] Comment on above: Order Comment: Order Date: 10/20/24Order Info: 0786- - CMPOrder Info: 3015-10 - TSHOrder Info: 7 - T4F Performed By: #### L 506.0400, L506.1000, L500.4050, L501.9520, L100.0100 ####[facility] [address] [place], [address] Creatinine [Mass/Vol] 1.08 mg/dL Normal 0.70-1.30 [facility] Comment on above: Order Comment: Order Date: 10/20/24Order Info: 0786-1 - CMPOrder Info: 3015-10 - TSHOrder Info: 30247 - T4F Result Comment: The validity of the calculated GFR GFRAA in patients over 70 years has not been determined. Clinical correlation is essential. Performed By: #### L 506.0400, L506.1000, L500.4050, L501.9520, L100.0100 ####[facility] [address] [place], [address] EST GFR - AA 98 mL/min Normal >60 [facility] Comment on above: Order Comment: Order Date: 10/20/24Order Info: 0786-1 - CMPOrder Info: 3 - TSHOrder Info: 302-7 - T4F Result Comment: Afri can Norwegian GFR Calc Performed By: #### L 506.0400, L506.1000, L500.4050, L501.9520, L100.0100 ####[facility] [address] [place], [address] GAP 7 Normal 5-15 [facility] Comment on above: Order Comment: Order Date: 10/20/24Order Info: 0786-1 - CMPOrder Info: 3015-10 - TSHOrder Info: 7 - T4F Performed By: #### L 506.0400, L506.1000, L500.4050, L501.9520, L100.0100 ####[facility] [address] [place], [address] GFR/1.73 sq M.predicted among non-blacks MDRD (S/P/Bld) [Vol rate/Area] 81 mL/min/{1.73_m2} Normal >60 [facility] Comment on above: Order Comment: Order Date: 10/20/24Order Info: 0786-1 - CMPOrder Info: 63 - TSHOrder Info: 3024-7 - T4F Result Comment: Non- GFR Calc Performed By: #### L 506.0400, L506.1000, L500.4050, L501.9520, L100.0100 ####[facility] [address] [place], [address] Globulin (S) [Mass/Vol] 4.0 g/dL Normal 2.2-4.2 [facility] Comment on above: Order Comment: Order Date: 02/19/25Order Info: 07-1 - CMPOrder Info: 3015-10 - TSHOrder Info: 3024-7 - T4F Performed By: #### L 506.0400, L506.1000, L500.4050, L501.9520, L100.0100 ####[facility] [address] [place], [address] Glucose [Mass/Vol] 85 mg/dL Normal 74-106 [facility] Comment on above: Order Comment: Order Date: 10/20/24Order Info: 785-1 - CMPOrder Info: 3015-10 - TSHOrder Info: 3024-7 - T4F Performed By: #### L 506.0400, L506.1000, L500.4050, L501.9520, L100.0100 ####[facility] [address] [place], [address] Potassium [Moles/Vol] 4.2 mmol/L Normal 3.5-5.1 [facility] Comment on above: Order Comment: Order Date: 10/20/24Order Info: 0786-1 - CMPOrder Info: 3015-10 - TSHOrder Info: 3024-7 - T4F Performed By: #### L 506.0400, L506.1000, L500.4050, L501.9520, L100.0100 ####[facility] [address] [place], [address] Sodium [Moles/Vol] 138 mmol/L Normal 136-145 [facility] Comment on above: Order Comment: Order Date: 10/20/24Order Info: 0786-1 - CMPOrder Info: 3 - TSHOrder Info: 3024-7 - T4F Performed By: #### L 506.0400, L506.1000, L500.4050, L501.9520, L100.0100 ####[facility] [address] [place], [address] T PROT 7.8 g/dL Normal 6.4-8.2 [facility] Comment on above: Order Comment: Order Date: 10/20/24Order Info: 0786-1 - CMPOrder Info: 3 - TSHOrder Info: 3024-7 - T4F Performed By: #### L 506.0400, L506.1000, L500.4050, L501.9520, L100.0100 ####[facility] [address] [place], [address] Urea nitrogen [Mass/Vol] 12 mg/dL Normal 7-18 [facility] Comment on above: Order Comment: Order Date: 10/20/24Order Info: 0786- - CMPOrder Info: 3 - TSHOrder Info: 3024-7 - T4F Performed By: #### L 506.0400, L506.1000, L500.4050, L501.9520, L100.0100 ####[facility] [address] [place], [address] T4 Free Directon 10-20-2024 T4 FREE DIRECT 0.95 ng/dL Normal 0.76-1.46 [facility] Comment on above: Order Comment: Order Date: 10/20/24Order Info: 0786- - CMPOrder Info: 3 - TSHOrder Info: 3024-7 - T4F Performed By: #### L 506.0400, L506.1000, L500.4050, L501.9520, L100.0100 ####[facility] [address] [place], [address] Thyroid Stim Hormone (TSH)on 10-20-2024 TSH 1.790 uIU/mL Normal 0.358-3.740 [facility] Comment on above: Order Comment: Order Date: 10/20/24Order Info: 0786-1 - CMPOrder Info: 63 - TSHOrder Info: 3024-7 - T4F Performed By: #### L 506.0400, L506.1000, L500.4050, L501.9520, L100.0100 ####[facility] [address] [place], [address] Leroy 08-03-2024 DARBY Telephone (UROLSF) SAGRARIO BRANNON ([id number]) 1985 M Date Time Provider Department 08/03/24 WILLIAM BAUTISTA During your visit today, we recorded the following information about you: Marybel Garcia LPN 08/03/2024 7:40 AM Addendum Left vm for patient to call for results. ----- Message from William Bautista APRN.DESTINY UNGER sent at 08/02/2024 10:41 PM EST ----- Inform of a Negative Ultrasound. William Bautista DNP, CNP Department of Urology [facility] Shante Belle 08/16/2024 4:01 PM Signed Patient returned call. Please contact patient with results. Louise Gomez LPN 08/16/2024 4:38 PM Signed Called patient. No answer. Left message to call clinic for results. MATILDE Painter Kimberly, LPN 08/16/2024 4:49 PM Signed Patient called. Verified name and date of . Informed of results- verbalizes understanding. States he has increased water intake. Louise Beck LPN Allergies As of Date: 08/03/2024 Noted Allergy Reaction HYDROCODONE-ACETAMIN OPHEN 12/03/2021 1 - Mental Status Change Comments: States he get panic attacks Date Reviewed: 07/26/2024 Reviewed by: William Bautista APRN.DESTINY UNGER - Fully Assessed Reason for Visit: Results [95] Cmt: Kidney US Prescriptions as of 08/16/2024 - imiquimod (ALDARA) 5 % cream Apply 1 Packet to affected area three times a week. At bedtime - meloxicam (MOBIC) 15 mg tablet Take 1 tablet by mouth every afternoon. - omeprazole (PRILOSEC) 40 mg capsule Take 1 capsule by mouth every afternoon. - escitalopram oxalate (LEXAPRO) 20 mg tablet Take 1 tablet by mouth every afternoon. - cholecalciferol, Vitamin D3, (VITAMIN D3) 1,250 mcg (50,000 unit) cap capsule take 1 capsule by mouth every month - lidocaine (LIDODERM) 5 % apply 1 patch topically once daily *ON FOR 12 HOURS AND OFF FOR 12 HOURS* - sildenafil (VIAGRA) 50 mg tablet Take 1 tablet by mouth every afternoon. Problem List As Of Date: 08/03/2024 (None) Encounter Status:Closed by LOUISE BECK on 08/16/24 Normal [facility] US KIDNEY/BLADDERon 08-02-20 US KIDNEY/BLADDER * * *Final Report* * * DATE OF EXAM: Aug 02 2024 11:15AM U 1055 - US KIDNEY/BLADDER / PROCEDURE REASON: multiple diagnoses * * * * Physician Interpretation * * * * EXAMINATION: ULTRASOUND KIDNEYS/BLADDER CLINICAL HISTORY: Dysuria. TECHNIQUE: Sonography of the kidneys and urinary bladder was performed. Images were obtained and stored in a permanent archive. MQ: UR_1 COMPARISON: None RESULT: Limitations: Body habitus and excessive bowel gas. Right Kidney: -Renal length: 9.9 cm -Parenchyma: Normal parenchymal echogenicity. Normal parenchymal thickness. -Collecting system: No hydronephrosis. -Calculus: No echogenic, shadowing calculus. -Lesion: None. Left Kidney: -Renal length: 12.8 cm -Parenchyma: Normal parenchymal echogenicity. Normal parenchymal thickness. -Collecting system: No hydronephrosis. -Calculus: No echogenic, shadowing calculus. -Lesion: None. Bladder: Decompressed. IMPRESSION: Unremarkable sonographic exam of the bilateral kidneys. Newspaper Peddler: PSCB Transcribe Date/Time: Aug 02 2024 11:39A Dictated by : NANDINI LAGUNAS MD This examination was interpreted and the report reviewed and electronically signed by: NANDINI LAGUNAS MD on Aug 02 2024 11:40AM EST [id number] Normal [facility] US Kidney - bilateral and Ur inary bladderon 08-02-2024 IMPRESSION: Unremarkable sonographic exam of the bilateral kidneys. Newspaper Peddler: PSCB Transcribe Date/Time: Aug 02 2024 11:39A Dictated by : NANDINI LAGUNAS MD This examination was interpreted and the report reviewed and electronically signed by: NANDINI LAGUNAS MD on Aug 02 2024 11:40AM [facility] DIVISION OF RADIOLOGY * * *Final Report* * * DATE OF EXAM: Aug 02 2024 11:15AM WRU 1055 - US KIDNEY/BLADDER / PROCEDURE REASON: multiple diagnoses * * * * Physician Interpretation * * * * EXAMINATION: ULTRASOUND KIDNEYS/BLADDER CLINICAL HISTORY: Dysuria. TECHNIQUE: Sonography of the kidneys and urinary bladder was performed. Images were obtained and stored in a permanent archive. MQ: UR_1 COMPARISON: None RESULT: Limitations: Body habitus and excessive bowel gas. Right Kidney: -Renal length: 9.9 cm -Parenchyma: Normal parenchymal echogenicity. Normal parenchymal thickness. -Collecting system: No hydronephrosis. -Calculus: No echogenic, shadowing calculus. -Lesion: None. Left Kidney: -Renal length: 12.8 cm -Parenchyma: Normal parenchymal echogenicity. Normal parenchymal thickness. -Collecting system: No hydronephrosis. -Calculus: No echogenic, shadowing calculus. -Lesion: None. Bladder: Decompressed. DIVISION OF RADIOLOGY Provider, [facility] - 08/02/2024 * * *Final Report* * * DATE OF EXAM: Aug 02 2024 11:15AM WRU 1055 - US KIDNEY/BLADDER / PROCEDURE REASON: multiple diagnoses * * * * Physician Interpretation * * * * EXAMINATION: ULTRASOUND KIDNEYS/BLADDER CLINICAL HISTORY: Dysuria. TECHNIQUE: Sonography of the kidneys and urinary bladder was performed. Images were obtained and stored in a permanent archive. MQ: UR_1 COMPARISON: None RESULT: Limitations: Body habitus and excessive bowel gas. Right Kidney: -Renal length: 9.9 cm -Parenchyma: Normal parenchymal echogenicity. Normal parenchymal thickness. -Collecting system: No hydronephrosis. -Calculus: No echogenic, shadowing calculus. -Lesion: None. Left Kidney: -Renal length: 12.8 cm -Parenchyma: Normal parenchymal echogenicity. Normal parenchymal thickness. -Collecting system: No hydronephrosis. -Calculus: No echogenic, shadowing calculus. -Lesion: None. Bladder: Decompressed. IMPRESSION IMPRESSION: Unremarkable sonographic exam of the bilateral kidneys. Newspaper Peddler: JOHN Transcribe Date/Time: Aug 02 2024 11:39A Dictated by : NANDINI LAGUNAS MD This examination was interpreted and the report reviewed and electronically signed by: NANDINI LAGUNAS MD on Aug 02 2024 11:40AM EST [facility] Radiology Study observation (narrative) [facility] US Kidney - bilateral and Ur inary bladderOrdered By: Ccf [facility]-02-2024 [facility] DARBY Tele[facility] (UROLWS) SAGRARIO BRANNON ([id number]) 1985 M Date Time Provider Department 07/27/24 WILLIAM BAUTISTA During your visit today, we recorded the following information about you: Bradly Doan MA 07/27/2024 11:03 AM Signed ----- Message from William Bautista APRN.DESTINY UNGER sent at 07/27/2024 8:35 AM EST ----- Team- please inform patient; Urine is negative for blood. Trace amount or protein and a few casts which are not significant. return to clinic for any blood seen in urine or return of symptoms. See you in 8 weeks for follow up William Bautista DNP, CNP Department of Urology [facility] Bradly Doan MA 07/27/2024 11:03 AM Signed Left message for pt to return call. PRIYANKA Daigle Laurie, MA 07/27/2024 1:00 PM Signed Pt notified and verbalizes understanding. Bradly Doan MA Allergies As of Date: 07/27/2024 Noted Allergy Reaction HYDROCODONE-ACETAMIN OPHEN 12/03/2021 1 - Mental Status Change Comments: States he get panic attacks Date Reviewed: 07/26/2024 Reviewed by: William Bautista APRN.UTE, DESTINY - Fully Assessed Reason for Visit: Results [95] Prescriptions as of 07/27/2024 - imiquimod (ALDARA) 5 % cream Apply 1 Packet to affected area three times a week. At bedtime - meloxicam (MOBIC) 15 mg tablet Take 1 tablet by mouth every afternoon. - omeprazole (PRILOSEC) 40 mg capsule Take 1 capsule by mouth every afternoon. - escitalopram oxalate (LEXAPRO) 20 mg tablet Take 1 tablet by mouth every afternoon. - cholecalciferol, Vitamin D3, (VITAMIN D3) 1,250 mcg (50,000 unit) cap capsule take 1 capsule by mouth every month - lidocaine (LIDODERM) 5 % apply 1 patch topically once daily *ON FOR 12 HOURS AND OFF FOR 12 HOURS* - sildenafil (VIAGRA) 50 mg tablet Take 1 tablet by mouth every afternoon. Problem List As Of Date: 07/27/2024 (None) Encounter Status:Closed by BRADLY DOAN on 07/27/24 [facility] CNOVon 07-26-2024 CNOV Office Visit (UROLWS) SAGRARIO BRANNON ([id number]) 1985 M Date Time Provider Department 07/26/24 11:00 AM WILLIAM BAUTISTA During your visit today, we recorded the following information about you: Temperature Pulse Respiration Blood pressure 98.9 degrees 96/minute 14/minute 122/84 Weight Height 127.9 kg 1.778 m Louise Beck LPN 07/26/2024 5:15 PM Signed Verified name and date of . CC Post Void Residual HPI: Sarah smith is here now for an appointment with Brittni Thomas APRN, DNP Procedure: Explained procedure to patient and verbalizes understanding. Performed a PVR. Patient urinated and instructed to empty bladder as much as possible just prior to having PVR done using bladder ultrasound scanner. Results of scan: 0 mL The patient tolerated the procedure well. Plan: Appointment with William. William Bautista APRN.UTE, DESTINY 07/26/2024 5:15 PM Signed [facility] MALE PATIENT - HISTORY AND PHYSICAL EXAMINATION PATIENT: Sagrario Brannon (39 year old) PCP: Suzi Maravilla, CHITRA, UTE Consultation requested by Dr. Dinora Lopez [address] [facility] [address] for an opinion regarding dysuria and my final recommendations will be communicated back to the requesting physician by way of shared Medical record or letter via US mail. CHIEF COMPLAINT: HISTORY OF PRESENT ILLNESS: 39 year old year old male with dysuria Past med Hx: GERD, Genital Warts, Chronic Pain, Marijuana use, Obesity Seen in [facility] last month for dysuria. He denies any flank pain. Denies any drainage from his penis. He did have a new sexual partner about 4 months ago and had some burning right after but really went away so was not seen for it. Developed some bumps on the shaft of his penis 2 months ago that have not gone away. They are not painful. He denies fever. History of kidney stone 1 time in the past. He had the flank pain but does not have at this time. He did notice some blood in his urine. Not having any testicular pain. Neg STD testing: Latest Ref Rng 06/26/2024 Neisseria gonorrhoeae RNA Negative for Neisseria gonorrhoeae by amplification Negative for Neisseria gonorrhoeae by amplification Chlamydia trachomatis RNA Negative for Chlamydia trachomatis by amplificaton Negative for Chlamydia trachomatis by amplification Culture No growth (<1,000 CFU/ml) Trichomonas vaginalis RNA Negative for Trichomonas vaginalis by amplification Negative for Trichomonas vaginalis by amplification PRESENTING HISTORY: Hematuria: gross Obstructive voiding symptoms: weak stream. Irritative voiding symptoms: none Urinary retention: no Urinary incontinence: no Urinary tract infection: no Patient Entered Questionnaires: INTERNATIONAL PROSTATE SYMPTOM SCORE (I-PSS) 1)INCOMPLETE EMPTYING Over the past month, how often have you had a sensation of not emptying your bladder completely after you finished urinating? SCORE: 3- About half the time 2)FREQUENCY Over the past month, how often have you had to urinate again less than two hours after you finished urinating? SCORE: 0- Not at all 3)INTERMITTENCY Over the past month, how often have you found you stopped and started again several times when you urinated? SCORE: 3- About half the time 4)URGENCY Over the past month, how often have you found it difficult to postpone urination? SCORE: 0- Not at all 5)WEAK STREAM Over the past month, how often have you had a weak stream? SCORE: 2- less than half the time 6)STRAINING Over the past month, how often have you had to push or strain to begin urination SCORE: 1- Less than 1 time in 5 7)NOCTURIA Over the past month, how many times did you most typically get up to urinate from the time you went to bed at night until the time you get up in the morning? SCORE:0 TOTAL I-PSS SCORE: 8 QUALITY OF LIFE DUE TO URINARY SYMPTOMS If you were to spend the rest of yur life with your urinary condition just the way it is now, how would you feel about that? 3- Mixed- equally satisfied and dissatisfied PROMIS Global Health Percentiles provide an indication of how the patient's score ranks in relation to the general population. Higher percentile rankings indicate better function/quality of life. 50th percentile is the average of the general population and indicates half of respondents had a worse score. HISTORY: PAST MEDICAL HISTORY Diagnosis Date Chronic back pain Genital warts GERD (gastroesophageal reflux disease) Impotence Marijuana user Multiple joint pain Nerve root disorder Nontoxic single thyroid nodule Obesity with body mass index 30 or greater Spondylosis Vitamin D deficiency PAST SURGICAL HISTORY Procedure Laterality Date PAST SURGICAL HISTORY OF H/O Spinal surgery PAST SURGICAL HISTORY OF Right 2013 Foot PAST SURGICAL HISTORY OF Right 20 (more content not included)... Normal [facility] Leroy 07-26-2024 UTEN Telephone (UROLWS) SAGRARIO BRANNON ([id number]) 1985 M Date Time Provider Department 07/26/24 WILLIAM BAUTISTA During your visit today, we recorded the following information about you: Louise Beck LPN 07/26/2024 2:23 PM Signed Called patient. Verified name and date of . Patient does not have insruance information in scanned docs. Did have his card on hand. Submitting Prior Authorization for aldara. MATILDE Painter Kimberly, LPN 07/26/2024 2:30 PM Signed Submitted prior authorization for Aldara. Received message on CoverMyMeds: Drug not found or invalid NDC submitted in request. MATILDE Painter Kimberly, LPN 07/26/2024 2:36 PM Signed Called [facility]- spoke with Valarie in pharmacy. Per Shreya she has run the medication three different ways and it is saying prior authorization is required. MATILDE Painter Kimberly, LPN 07/26/2024 3:03 PM Signed Spoke with provider regarding issue with prior authorization. Per William, he did let patient know that he would likely need to go through Good[employer] and had reviewed this with him. Called patient. Verified name and date of . Patient informed- verbalizes understanding and aware of Good[employer]. Louise Beck [employer] Allergies As of Date: 07/26/2024 Noted Allergy Reaction HYDROCODONE-ACETAMIN OPHEN 12/03/2021 1 - Mental Status Change Comments: States he get panic attacks Date Reviewed: 07/26/2024 Reviewed by: William Bautista APRN.TRAY CHECKER, DNP - Fully Assessed Reason for Visit: Insurance Authorization [1693] Prescriptions as of 07/26/2024 - imiquimod (ALDARA) 5 % cream Apply 1 Packet to affected area three times a week. At bedtime - meloxicam (MOBIC) 15 mg tablet Take 1 tablet by mouth every afternoon. - omeprazole (PRILOSEC) 40 mg capsule Take 1 capsule by mouth every afternoon. - escitalopram oxalate (LEXAPRO) 20 mg tablet Take 1 tablet by mouth every afternoon. - cholecalciferol, Vitamin D3, (VITAMIN D3) 1,250 mcg (50,000 unit) cap capsule take 1 capsule by mouth every month - lidocaine (LIDODERM) 5 % apply 1 patch topically once daily *ON FOR 12 HOURS AND OFF FOR 12 HOURS* - sildenafil (VIAGRA) 50 mg tablet Take 1 tablet by mouth every afternoon. Problem List As Of Date: 07/26/2024 (None) Encounter Status:Closed by LOUISE BECK on 07/26/24 Normal [facility] Thyroglobulin w/Anti-TG ABon 07-26-2024 Anti-TG AB < 1.0 Normal 0.0-0.9 [facility] Comment on above: Result Comment: Thyr oglobulin Antibody measured by Hailey [facility] Methodology It should be noted that the presence of thyroglobulin antibodies may not be pathogenic nor diagnostic, especially at very low levels. The assay surgical services asst has found that four percent of individuals without evidence of thyroid disease or autoimmunity will have positive TgAb levels up to 4 IU/mL. Performed By: #### L 5160.6348, L3300.4887 ####[facility] [id number] [facility] [place], [address] THYROGLOB QUANT 61.1 ng/mL High 1.4-29.2 [facility] Comment on above: Result Comment: Acco rding to the National Academy of Clinical Biochemistry, the reference interval for Thyroglobulin (TG) should be related to euthyroid patients and not for patients who underwent thyroidectomy. TG reference intervals for these patients depend on the residual mass of the thyroid tissue left after surgery. Establishing a post-operative baseline is recommended. The assay limit of quantitation is 0.1 ng/mL Thyroglobulin measured by Hailey Terrell Immunometric Assay Performed By: #### L 1830.8120, [id number] ####[facility] [id number] [place], [address] Thyroid Peroxidase ABon 07-03 THYR PEROX AB 16 IU/mL Normal 0-34 [facility] Comment on above: Result Comment: Perf ormed at: [facility] [id number] Senior Management Consultant: Carlitos Hall PhD, Phone: [phone] Performed By: #### L 3380.6842, [id number] ####[facility] [id number] [place], [address] UA DIP, URINE (POC)on 2023 BILIRUBIN UA (POCT) Negative Negative [facility] CLARITY UA (POCT) Slightly Cloudy Cl [facility] COLOR UA (POCT) Yellow [facility] GLUCOSE UA (POCT) Negative Negative mg/dL [facility] Hemoglobin Ql (U) Trace-intact Abnormal Negative [facility] Interpretation and review of laboratory results Abnormal [facility] KETONE UA (POCT) Negative Negative mg[facility]dL [facility] LEUKOCYTES UA (POCT) Negative Negative [facility] NITRITE UA (POCT) Negative Negative [facility] PH UA (POCT) 5.5 4.5 - 8.0 [facility] Protein Ql (U) Negative Negative mg/dL [facility] SPECIFIC GRAVITY UA (POCT) >=1.030 1.005 - 1.030 [facility] UROBILINOGEN UA (POCT) 0.2 Normal E.U./dL [facility] Location:[facility], [address], [place], [address] [facility] POINT OF CARE [facility] Urinalysis complete panel (U )on 07-26-2024 Bacteria LM.HPF (Urine sed) [#/Area] Negative Negative /HPF [facility] Bilirubin Ql (U) Negative Negative [facility] Clarity (Unsp spec) Clear Clear [facility] Color (U) Yellow Yellow [facility] Epithelial cells LM.HPF (Urine sed) [#/Area] None Seen /HPF [facility] Glucose Test strip (U) [Mass/Vol] Negative Negative [facility] Hemoglobin Ql (U) Negative Negative [facility] Hyaline casts (Urine sed) [#/Area] 1-3 /LPF Abnormal 0 /LPF [facility] Interpretation and review of laboratory results Abnormal [facility] Ketones Ql (U) Negative Negative [facility] Leukocyte esterase Test strip Ql (U) Negative Negative [facility] Nitrite Ql (U) Negative Negative [facility] pH (U) 5.5 [pH] NINF - 8.5 [facility] Protein (U) [Mass/Vol] Trace Abnormal Negative [facility] RBC LM.HPF (Urine sed) [#/Area] 0-2 /HPF 0-2 /HPF [facility] Specific gravity (U) [Rel density] 1.029 1.005 - 1.030 [facility] Urobilinogen Ql (U) 0.2 EU/dL 0.2-1.0 EU/dL [facility] WBC LM.HPF (Urine sed) [#/Area] 0-5 /HPF 0-5 /HPF [facility] This test was developed and its performance characteristics determined by [facility]'s [facility] Pathology and Laboratory Medicine [place] ([facility]). It has not been cleared or approved by the FDA. -[facility] is regulated under CLIA as qualified to perform high-complexity testing. This test is used for clinical purposes. It should not be regarded as investigational or for research. [facility] Bacteria LM.HPF (Urine sed) [#/Area] Negative Normal Negative [facility] Comment on above: Order Comment: Speci men Type: URINE SPECIMENOrdering Facility: [facility] Address: [address] [place] [address] Performed By: #### 2 4356-8 ####[facility] [id number] [place] [address] [place] Bilirubin Ql (U) Negative Normal Negative [facility] Comment on above: Order Comment: Speci men Type: URINE SPECIMENOrdering Facility: [facility] Address: [address] [place] [address] Performed By: #### 2 4356-8 ####[facility] [id number] [place] [address] [place] Clarity (Unsp spec) Clear Normal Clear [facility] Comment on above: Order Comment: Speci men Type: URINE SPECIMENOrdering Facility: [facility] Address: [address] [place] [address] Performed By: #### 2 4356-8 ####[facility] [id number] [place] [address] [place] Color (U) Yellow Normal Yellow [facility] Comment on above: Order Comment: Speci men Type: URINE SPECIMENOrdering Facility: [facility] Address: [address] [place] [address] Performed By: #### 2 4356-8 ####[facility] LABCL[facility] [id number] [place] [address] [place] Epithelial cells LM.HPF (Urine sed) [#/Area] None Seen Normal [facility] Comment on above: Order Comment: Speci men Type: URINE SPECIMENOrdering Facility: [facility] Address: [address] [place] [address] Performed By: #### 2 4356-8 ####[facility] LABCL[facility] [id number] [place] [address] [place] Glucose Test strip (U) [Mass/Vol] Negative Normal Negative [facility] Comment on above: Order Comment: Speci men Type: URINE SPECIMENOrdering Facility: [facility] Address: [address] [place] [address] Performed By: #### 2 4356-8 ####[facility] LABCL[facility] [id number] [place] [address] [place] Hemoglobin Ql (U) Negative Normal Negative [facility] Comment on above: Order Comment: Speci men Type: URINE SPECIMENOrdering Facility: [facility] Address: [address] [place] [address] Performed By: #### 2 4356-8 ####[facility] LABCL[facility] [id number] [place] [address] [place] Hyaline casts (Urine sed) [#/Area] 1-3 /LPF Abnormal 0 /LPF [facility] Comment on above: Order Comment: Speci men Type: URINE SPECIMENOrdering Facility: [facility] Address: [address] [place] [address] Performed By: #### 2 4356-8 ####[facility] [id number] [place] [address] [place] Ketones Ql (U) Negative Normal Negative [facility] Comment on above: Order Comment: Speci men Type: URINE SPECIMENOrdering Facility: [facility] Address: [address] [place] [address] Performed By: #### 2 4356-8 ####[facility] [id number] [place] [address] [place] Leukocyte esterase Test strip Ql (U) Negative Normal Negative [facility] Comment on above: Order Comment: Speci men Type: URINE SPECIMENOrdering Facility: [facility] Address: [address] [place] [address] Performed By: #### 2 4356-8 ####[facility]CL[facility] [id number] [place] [address] [place] Nitrite Ql (U) Negative Normal Negative [facility] Comment on above: Order Comment: Speci men Type: URINE SPECIMENOrdering Facility: [facility] Address: [address] [place] [address] Performed By: #### 2 4356-8 ####[facility]CL[facility] [id number] [place] [address] [place] pH (U) 5.5 [pH] Normal <8.5 [facility] Comment on above: Order Comment: Speci men Type: URINE SPECIMENOrdering Facility: [facility] Address: [address] [place] [address] Performed By: #### 2 4356-8 ####[facility] LABCL[facility] [id number] [place] [address] [place] Protein (U) [Mass/Vol] Trace Abnormal Negative [facility] Comment on above: Order Comment: Speci men Type: URINE SPECIMENOrdering Facility: [facility] Address: [address] [place] [address] Performed By: #### 2 4356-8 ####[facility] [id number] [place] [address] [place] RBC LM.HPF (Urine sed) [#/Area] 0-2 /HPF Normal 0-2 /HPF [facility] Comment on above: Order Comment: Speci men Type: URINE SPECIMENOrdering Facility: [facility] Address: [address] [place] [address] Performed By: #### 2 4356-8 ####[facility] [id number] [place] [address] [place] Specific gravity (U) [Rel density] 1.029 Normal 1.005-1.030 [facility] Comment on above: Order Comment: Speci men Type: URINE SPECIMENOrdering Facility: [facility] Address: [address] [place] [address] Performed By: #### 2 4356-8 ####[facility] [id number] [place] [address] [place] Urobilinogen Ql (U) 0.2 EU/dL Normal 0.2-1.0 EU/dL [facility] Comment on above: Order Comment: Speci men Type: URINE SPECIMENOrdering Facility: [facility] Address: [address] [place] [address] Performed By: #### 2 4356-8 ####[facility] [id number] [place] [address] [place] WBC LM.HPF (Urine sed) [#/Area] 0-5 /HPF Normal 0-5 /HPF [facility] Comment on above: Order Comment: Speci men Type: URINE SPECIMENOrdering Facility: [facility] Address: [address] [place] [address] Performed By: #### 2 4356-8 ####[facility] [id number] [place] [address] [place] CBC W/Diff, Automatedon 11-2 -2023 Absolute Lymph 3.34 X10 3/uL Normal 0.83-4.51 [facility] Comment on above: Order Comment: Order Date: 07/23/24 Order Info: 0184-1 - CBCD Performed By: #### L 501.9985, L501.9520, L500.4100, L506.0400, L500.4050, L100.0100, L506.1000 #### [facility] [address] [place], [place], [id number] (990) Absolute Neut 3.0 X10 3/uL Normal 2.0-7.7 [facility] Comment on above: Order Comment: Order Date: 07/23/24 Order Info: 0184-1 - CBCD Performed By: #### L 501.9985, L501.9520, L500.4100, L506.0400, L500.4050, L100.0100, L506.1000 #### [facility] [address] [place], [place], [id number] (851) Basophils/100 WBC (Bld) 0.4 % Normal 0-1 [facility] Comment on above: Order Comment: Order Date: 07/23/24 Order Info: 0184-1 - CBCD Performed By: #### L 501.9985, L501.9520, L500.4100, L506.0400, L500.4050, L100.0100, L506.1000 #### [facility] [address] [place], [place], [id number] (727) Eosinophils/100 WBC (Bld) 4.2 % Normal 0-5 [facility] Comment on above: Order Comment: Order Date: 07/23/24 Order Info: 0184-1 - CBCD Performed By: #### L 501.9985, L501.9520, L500.4100, L506.0400, L500.4050, L100.0100, L506.1000 #### [facility] [address] [place], [address] Erythrocyte distribution width (RBC) [Ratio] 12.4 % Normal 11.6-14.6 [facility] Comment on above: Order Comment: Order Date: 07/23/24 Order Info: 0184-1 - CBCD Performed By: #### L 501.9985, L501.9520, L500.4100, L506.0400, L500.4050, L100.0100, L506.1000 #### [facility] [address] [place], [address] Hematocrit (Bld) [Volume fraction] 45.3 % Normal 40-54 [facility] Comment on above: Order Comment: Order Date: 07/23/24 Order Info: 0184-1 - CBCD Performed By: #### L 501.9985, L501.9520, L500.4100, L506.0400, L500.4050, L100.0100, L506.1000 #### [facility] [address] [place], [place], [id number] Hemoglobin (Bld) [Mass/Vol] 15.4 g/dL Normal 13.0-16.5 [facility] Comment on above: Order Comment: Order Date: 07/23/24 Order Info: 0184-1 - CBCD Performed By: #### L 501.9985, L501.9520, L500.4100, L506.0400, L500.4050, L100.0100, L506.1000 #### [facility] [address] [place], [address] IG% 2.800 High 0.0-0.9 [facility] Comment on above: Order Comment: Order Date: 07/23/24 Order Info: 0184-1 - CBCD Result Comment: IG% - Immature Granulocytes (promyelocytes, myelocytes and metamyelocytes) > 1% indicates that a LEFT SHIFT is Present. Performed By: #### L 501.9985, L501.9520, L500.4100, L506.0400, L500.4050, L100.0100, L506.1000 #### [facility] [address] [place], [address] Lymphocytes/100 WBC (Bld) 45.1 % High 19-41 [facility] Comment on above: Order Comment: Order Date: 07/23/24 Order Info: [id number] - CBCD Performed By: #### L 501.9985, L501.9520, L500.4100, L506.0400, L500.4050, L100.0100, L506.1000 #### [facility] [address] [place], [address] MCH (RBC) [Entitic mass] 29.4 pg Normal 27.0-32.0 [facility] Comment on above: Order Comment: Order Date: 07/23/24 Order Info: [id number] - CBCD Performed By: #### L 501.9985, L501.9520, L500.4100, L506.0400, L500.4050, L100.0100, L506.1000 #### [facility] [address] [place], [address] MCHC (RBC) [Mass/Vol] 34.0 g/dL Normal 32-36 [facility] Comment on above: Order Comment: Order Date: 07/23/24 Order Info: [id number] - CBCD Performed By: #### L 501.9985, L501.9520, L500.4100, L506.0400, L500.4050, L100.0100, L506.1000 #### [facility] [address] [place], [address] MCV (RBC) [Entitic vol] 86.5 fL Normal 80-94 [facility] Comment on above: Order Comment: Order Date: 07/23/24 Order Info: 018- - CBCD Performed By: #### L 501.9985, L501.9520, L500.4100, L506.0400, L500.4050, L100.0100, L506.1000 #### [facility] [address] [place], [address] Monocytes/100 WBC (Bld) 6.6 % Normal 0-10 [facility] Comment on above: Order Comment: Order Date: 07/23/24 Order Info: 018- - CBCD Performed By: #### L 501.9985, L501.9520, L500.4100, L506.0400, L500.4050, L100.0100, L506.1000 #### [facility] [address] [place], [address] Neutrophils/100 WBC (Bld) 40.9 % Low 47-70 [facility] Comment on above: Order Comment: Order Date: 07/23/24 Order Info: [id number] - CBCD Performed By: #### L 501.9985, L501.9520, L500.4100, L506.0400, L500.4050, L100.0100, L506.1000 #### [facility] [address] [place], [address] Nucleated RBC (Bld) [#/Vol] 0 10*3/uL Normal 0-5 [facility] Comment on above: Order Comment: Order Date: 07/23/24 Order Info: 0184 - CBCD Performed By: #### L 501.9985, L501.9520, L500.4100, L506.0400, L500.4050, L100.0100, L506.1000 #### [facility] [address] [place], [address] Platelet mean volume (Bld) [Entitic vol] 10.1 fL Normal 6.2-12.0 [facility] Comment on above: Order Comment: Order Date: 07/23/24 Order Info: 0184-1 - CBCD Performed By: #### L 501.9985, L501.9520, L500.4100, L506.0400, L500.4050, L100.0100, L506.1000 #### [facility] [address] [place], [address] Platelets (Bld) [#/Vol] 265 10*3/uL Normal 150-450 [facility] Comment on above: Order Comment: Order Date: 07/23/24 Order Info: 0184-1 - CBCD Performed By: #### L 501.9985, L501.9520, L500.4100, L506.0400, L500.4050, L100.0100, L506.1000 #### [facility] [address] [place], [address] RBC (Bld) [#/Vol] 5.24 10*6/uL Normal 4.6-6.[address] [facility] Comment on above: Order Comment: Order Date: 07/23/24 Order Info: 0184-1 - CBCD Performed By: #### L 501.9985, L501.9520, L500.4100, L506.0400, L500.4050, L100.0100, L506.1000 #### [facility] [address] [place], [address] RDW SD 39.2 fl Normal 35.1-43.9 [facility] Comment on above: Order Comment: Order Date: 07/23/24 Order Info: 0184-1 - CBCD Performed By: #### L 501.9985, L501.9520, L500.4100, L506.0400, L500.4050, L100.0100, L506.1000 #### [facility] [address] [place], [address] WBC (Bld) [#/Vol] 7.4 10*3/uL Normal 4.4-11.0 [facility] Comment on above: Order Comment: Order Date: 07/23/24 Order Info: 0184-1 - CBCD Performed By: #### L 501.9985, L501.9520, L500.4100, L506.0400, L500.4050, L100.0100, L506.1000 #### [facility] [address] [place], [place], [address] Comprehensive Metabolic Prof ilon 07-23-2024 Albumin [Mass/Vol] 3.8 g/dL Normal 3.2-5.0 [facility] Comment on above: Order Comment: Order Date: 07/23/24 Order Info: 785-1 - CMP Order Info: - LIPID Order Info: 3 - TSH Order Info: 7 - T4F Performed By: #### L 501.9985, L501.9520, L500.4100, L506.0400, L500.4050, L100.0100, L506.1000 #### [facility] [address] [place], [place], [address] Albumin/Globulin [Mass ratio] 1.1 {ratio} Normal 0.9-2.4 [facility] Comment on above: Order Comment: Order Date: 07/23/24 Order Info: 785-09 - CMP Order Info: - LIPID Order Info: 3 - TSH Order Info: 3027 - T4F Performed By: #### L 501.9985, L501.9520, L500.4100, L506.0400, L500.4050, L100.0100, L506.1000 #### [facility] [address] [place], [place], [address] ALK P 84 U/L Normal 45-117 [facility] Comment on above: Order Comment: Order Date: 07/23/24 Order Info: 785-1 - CMP Order Info: [id number] - LIPID Order Info: [id number] - TSH Order Info: 30247 - T4F Performed By: #### L 501.9985, L501.9520, L500.4100, L506.0400, L500.4050, L100.0100, L506.1000 #### [facility] [address] [place], [address] ALT [Catalytic activity/Vol] 37 U/L Normal 16-61 [facility] Comment on above: Order Comment: Order Date: 07/23/24 Order Info: 0786-1 - CMP Order Info: [id number] - LIPID Order Info: 3016-3 - TSH Order Info: 3023-7 - T4F Performed By: #### L 501.9985, L501.9520, L500.4100, L506.0400, L500.4050, L100.0100, L506.1000 #### [facility] [address] [place], [address] AST [Catalytic activity/Vol] 29 U/L Normal 15-37 [facility] Comment on above: Order Comment: Order Date: 07/23/24 Order Info: 785-1 - CMP Order Info: [id number] - LIPID Order Info: 3 - TSH Order Info: 3027 - T4F Performed By: #### L 501.9985, L501.9520, L500.4100, L506.0400, L500.4050, L100.0100, L506.1000 #### [facility] [address] [place], [address] Bilirubin [Mass/Vol] 0.50 mg/dL Normal 0.20-1.00 [facility] Comment on above: Order Comment: Order Date: 07/23/24 Order Info: 86-1 - CMP Order Info: [id number] - LIPID Order Info: 3016-3 - TSH Order Info: 3024-7 - T4F Result Comment: For patients on eltrombopag therapy, use of Dimension [place] TBIL is not recommended. Performed By: #### L 501.9985, L501.9520, L500.4100, L506.0400, L500.4050, L100.0100, L506.1000 #### [facility] [address] [place], [address] BUN/CRE 11.8 RATIO Normal 10-20 [facility] Comment on above: Order Comment: Order Date: 07/23/24 Order Info: 86-1 - CMP Order Info: - LIPID Order Info: [id number] - TSH Order Info: 3024-7 - T4F Performed By: #### L 501.9985, L501.9520, L500.4100, L506.0400, L500.4050, L100.0100, L506.1000 #### [facility] [address] [place], [address] CA,Total 8.7 mg/dL Normal 8.5-10.1 [facility] Comment on above: Order Comment: Order Date: 07/23/24 Order Info: 785- - CMP Order Info: - LIPID Order Info: 3 - TSH Order Info: 302-7 - T4F Performed By: #### L 501.9985, L501.9520, L500.4100, L506.0400, L500.4050, L100.0100, L506.1000 #### [facility] [address] [place], [address] Chloride [Moles/Vol] 109 mmol/L High 98-107 [facility] Comment on above: Order Comment: Order Date: 07/23/24 Order Info: 785- - CMP Order Info: - LIPID Order Info: 3 - TSH Order Info: 3024-7 - T4F Performed By: #### L 501.9985, L501.9520, L500.4100, L506.0400, L500.4050, L100.0100, L506.1000 #### [facility] [address] [place], [address] CO2 [Moles/Vol] 24.0 mmol/L Normal 21.0-32.0 [facility] Comment on above: Order Comment: Order Date: 07/23/24 Order Info: 0786-1 - CMP Order Info: - LIPID Order Info: [id number] - TSH Order Info: 7 - T4F Performed By: #### L 501.9985, L501.9520, L500.4100, L506.0400, L500.4050, L100.0100, L506.1000 #### [facility] [address] [place], [address] Creatinine [Mass/Vol] 1.02 mg/dL Normal 0.70-1.30 [facility] Comment on above: Order Comment: Order Date: 07/23/24 Order Info: 785-09 - CMP Order Info: - LIPID Order Info: [id number] - TSH Order Info: 3024-03 - T4F Result Comment: The validity of the calculated GFR GFRAA in patients over 70 years has not been determined. Clinical correlation is essential. Performed By: #### L 501.9985, L501.9520, L500.4100, L506.0400, L500.4050, L100.0100, L506.1000 #### [facility] [address] [place], [address] EST GFR - AA 105 mL/min Normal >60 [facility] Comment on above: Order Comment: Order Date: 07/23/24 Order Info: 785-09 - CMP Order Info: - LIPID Order Info: [id number] - TSH Order Info: 7 - T4F Result Comment: Afri can Norwegian GFR Calc Performed By: #### L 501.9985, L501.9520, L500.4100, L506.0400, L500.4050, L100.0100, L506.1000 #### [facility] [address] [place], [address] GAP 5 Normal 5-15 [facility] Comment on above: Order Comment: Order Date: 07/23/24 Order Info: 785-1 - CMP Order Info: - LIPID Order Info: [id number] - TSH Order Info: 3024-7 - T4F Performed By: #### L 501.9985, L501.9520, L500.4100, L506.0400, L500.4050, L100.0100, L506.1000 #### [facility] [address] [place], [address] GFR/1.73 sq M.predicted among non-blacks MDRD (S/P/Bld) [Vol rate/Area] 87 mL/min/{1.73_m2} Normal >60 [facility] Comment on above: Order Comment: Order Date: 07/23/24 Order Info: 785- - CMP Order Info: - LIPID Order Info: [id number] - TSH Order Info: 7 - T4F Result Comment: Non- GFR Calc Performed By: #### L 501.9985, L501.9520, L500.4100, L506.0400, L500.4050, L100.0100, L506.1000 #### [facility] [address] [place], [address] Globulin (S) [Mass/Vol] 3.6 g/dL Normal 2.2-4.2 [facility] Comment on above: Order Comment: Order Date: 07/23/24 Order Info: 785-09 - CMP Order Info: - LIPID Order Info: [id number] - TSH Order Info: 7 - T4F Performed By: #### L 501.9985, L501.9520, L500.4100, L506.0400, L500.4050, L100.0100, L506.1000 #### [facility] [address] [place], [address] Glucose [Mass/Vol] 92 mg/dL Normal 74-106 [facility] Comment on above: Order Comment: Order Date: 07/23/24 Order Info: 07-1 - CMP Order Info: [id number] - LIPID Order Info: 3015-10 - TSH Order Info: 3027 - T4F Performed By: #### L 501.9985, L501.9520, L500.4100, L506.0400, L500.4050, L100.0100, L506.1000 #### [facility] [address] [place], [place], [address] Potassium [Moles/Vol] 4.0 mmol/L Normal 3.5-5.1 [facility] Comment on above: Order Comment: Order Date: 07/23/24 Order Info: 86-1 - CMP Order Info: [id number] - LIPID Order Info: 3 - TSH Order Info: 302-7 - T4F Performed By: #### L 501.9985, L501.9520, L500.4100, L506.0400, L500.4050, L100.0100, L506.1000 #### [facility] [address] [place], [place], [address] Sodium [Moles/Vol] 138 mmol/L Normal 136-145 [facility] Comment on above: Order Comment: Order Date: 07/23/24 Order Info: 785- - CMP Order Info: - LIPID Order Info: 3 - TSH Order Info: 3024-7 - T4F Performed By: #### L 501.9985, L501.9520, L500.4100, L506.0400, L500.4050, L100.0100, L506.1000 #### [facility] [address] [place], [place], [address] T PROT 7.4 g/dL Normal 6.4-8.2 [facility] Comment on above: Order Comment: Order Date: 07/23/24 Order Info: 86-1 - CMP Order Info: [id number] - LIPID Order Info: 3016-3 - TSH Order Info: 3024-7 - T4F Performed By: #### L 501.9985, L501.9520, L500.4100, L506.0400, L500.4050, L100.0100, L506.1000 #### [facility] [address] [place], [place], [address] Urea nitrogen [Mass/Vol] 12 mg/dL Normal 7-18 [facility] Comment on above: Order Comment: Order Date: 07/23/24 Order Info: 0786-1 - CMP Order Info: [id number] - LIPID Order Info: 3 - TSH Order Info: 3024-03 - T4F Performed By: #### L 501.9985, L501.9520, L500.4100, L506.0400, L500.4050, L100.0100, L506.1000 #### [facility] [address] [place], [place], [address] Hemoglobin A1con 07-23-2024 HbA1c (Bld) [Mass fraction] 5.5 % Normal 3.8-5.6 [facility] Comment on above: Order Comment: Order Date: 07/23/24Order Info: 4548-4 - A1C Result Comment: Norm al < 5.7 % Prediabetic 5.7 - 6.4 % Diabetic >or= 6.5 % Please note range changes. Performed By: #### L 501.9985, L501.9520, L500.4100, L506.0400, L500.4050, L100.0100, L506.1000 ####[facility] [address] [place], [place], [address] Lipid Profileon 07-23-2024 Cholesterol [Mass/Vol] 194 mg/dL Normal 200 [facility] Comment on above: Order Comment: Order Date: 07/23/24 Order Info: 0786-1 - CMP Order Info: [id number] - LIPID Order Info: 3015-10 - TSH Order Info: 3024-03 - T4F Result Comment: <200 mg/dL Desirable 200-240 mg/dL Borderline >240 mg/dL High Risk Performed By: #### L 501.9985, L501.9520, L500.4100, L506.0400, L500.4050, L100.0100, L506.1000 #### [facility] [address] [place], [address] Cholesterol in HDL [Mass/Vol] 44 mg/dL Normal [facility] Comment on above: Order Comment: Order Date: 07/23/24 Order Info: 785- - CMP Order Info: [id number] - LIPID Order Info: 3 - TSH Order Info: 7 - T4F Result Comment: The drugs N-Acetylcysteine and Metamizole may falsely depress this assay. Reference Range HDL <40 mg/dL Low HDL Cholesterol HDL >or= 60 mg/dL High HDL Cholesterol Performed By: #### L 501.9985, L501.9520, L500.4100, L506.0400, L500.4050, L100.0100, L506.1000 #### [facility] [address] [place], [address] Cholesterol in LDL [Mass/Vol] 109 mg/dL Normal 0-130 [facility] Comment on above: Order Comment: Order Date: 07/23/24 Order Info: 785-09 - CMP Order Info: - LIPID Order Info: [id number] - TSH Order Info: 3024-03 - T4F Performed By: #### L 501.9985, L501.9520, L500.4100, L506.0400, L500.4050, L100.0100, L506.1000 #### [facility] [address] [place], [address] Cholesterol in VLDL [Mass/Vol] 41 mg/dL High 5-40 [facility] Comment on above: Order Comment: Order Date: 07/23/24 Order Info: 785-09 - CMP Order Info: - LIPID Order Info: [id number] - TSH Order Info: 7 - T4F Performed By: #### L 501.9985, L501.9520, L500.4100, L506.0400, L500.4050, L100.0100, L506.1000 #### [facility] [address] [place], [place], [address] Triglyceride [Mass/Vol] 204 mg/dL High [facility] Comment on above: Order Comment: Order Date: 07/23/24 Order Info: 0786- - CMP Order Info: [id number] - LIPID Order Info: 3 - TSH Order Info: 7 - T4F Result Comment: The drugs N-Acetylcysteine and Metamizole may falsely depress this assay. Serum Triglycerides Reference Interval Normal <150 mg/dL Borderline high 150 - 199 mg/dL High 200 - 499 mg/dL Very High > or = 500 mg/dL Performed By: #### L 501.9985, L501.9520, L500.4100, L506.0400, L500.4050, L100.0100, L506.1000 #### [facility] [address] [place], [address] T4 Free Directon 07-23-2024 T4 FREE DIRECT 0.90 ng/dL Normal 0.76-1.46 [facility] Comment on above: Order Comment: Order Date: 07/23/24Order Info: 785-09 - CMPOrder Info: - LIPIDOrder Info: [id number] - TSHOrder Info: 7 - T4F Performed By: #### L 501.9985, L501.9520, L500.4100, L506.0400, L500.4050, L100.0100, L506.1000 ####[facility] [address] [place], [place], [address] Thyroid Stim Hormone (TSH)on 07-23-2024 TSH 1.610 uIU/mL Normal 0.358-3.740 [facility] Comment on above: Order Comment: Order Date: 07/23/24Order Info: 07- - CMPOrder Info: [id number] - LIPIDOrder Info: 3 - TSHOrder Info: [id number] - T4F Performed By: #### L 501.9985, L501.9520, L500.4100, L506.0400, L500.4050, L100.0100, L506.1000 ####[facility] [address] [place], [place], [address] Vitamin D,25 Hydroxyon 07-23 Vitamin D 25-OH 29.2 ng/mL Normal [facility] Comment on above: Order Comment: Order Date: 07/23/24 Order Info: [id number] - VITD25 Result Comment: Sandra min D 25(OH) Status Range Deficiency <20 ng/mL (50nmol/L) Insufficiency 20 - 30 ng/mL (50 - 75 nmol/L) Sufficiency 30 - 100 ng/mL (75 - 250 nmol/L) Toxicity >100 ng/mL (>250 nmol/L) Performed By: #### L 501.9985, L501.9520, L500.4100, L506.0400, L500.4050, L100.0100, L506.1000 #### [facility] [address] [place], [address] [facility] 06-27-2024 [facility] Telephone ([facility]) SAGRARIO BRANNON ([id number]) 1985 Date Time Provider Department 06/27/24 [facility] During your visit today, we recorded the following information about you: Arben Manuel PA 06/27/2024 1:46 PM Signed Please let patient know urine culture is negative, no UTI. Follow-up as discussed at visit with urology. We are still awaiting the rest of his STD result Truman Mantilla MA 06/27/2024 3:38 PM Signed Patient notified of results, verbalizes understanding of instructions. Truman Mantilla MA Allergies As of Date: 06/27/2024 Noted Allergy Reaction HYDROCODONE-ACETAMIN OPHEN 12/03/2021 1 - Mental Status Change Comments: States he get panic attacks Date Reviewed: 06/26/2024 Reviewed by: Akiko Ponce LPN - Fully Assessed Reason for Visit: Results [95] Prescriptions as of 06/27/2024 - meloxicam (MOBIC) 15 mg tablet Take 1 tablet by mouth every afternoon. - omeprazole (PRILOSEC) 40 mg capsule Take 1 capsule by mouth every afternoon. - escitalopram oxalate (LEXAPRO) 20 mg tablet Take 1 tablet by mouth every afternoon. - cholecalciferol, Vitamin D3, (VITAMIN D3) 1,250 mcg (50,000 unit) cap capsule take 1 capsule by mouth every month - lidocaine (LIDODERM) 5 % apply 1 patch topically once daily *ON FOR 12 HOURS AND OFF FOR 12 HOURS* - sildenafil (VIAGRA) 50 mg tablet Take 1 tablet by mouth every afternoon. Problem List As Of Date: 06/27/2024 (None) Encounter Status:Closed by TRUMAN MANTILLA on 06/27/24 [facility] SAGRARIO BRANNON ([id number]) 1985 Date Time Provider Department 06/27/24 [facility] During your visit today, we recorded the following information about you: Arben Manuel PA 06/27/2024 8:06 AM Signed Negative chlamydia and gonorrhea, trichomonas Truman Mantilla MA 06/27/2024 8:32 AM Signed Patient notified of results, verbalizes understanding of instructions. Truman Mantilla MA Allergies As of Date: 06/27/2024 Noted Allergy Reaction HYDROCODONE-ACETAMIN OPHEN 12/03/2021 1 - Mental Status Change Comments: States he get panic attacks Date Reviewed: 06/26/2024 Reviewed by: Akiko Ponce LPN - Fully Assessed Reason for Visit: Results [95] Prescriptions as of 06/27/2024 - meloxicam (MOBIC) 15 mg tablet Take 1 tablet by mouth every afternoon. - omeprazole (PRILOSEC) 40 mg capsule Take 1 capsule by mouth every afternoon. - escitalopram oxalate (LEXAPRO) 20 mg tablet Take 1 tablet by mouth every afternoon. - cholecalciferol, Vitamin D3, (VITAMIN D3) 1,250 mcg (50,000 unit) cap capsule take 1 capsule by mouth every month - lidocaine (LIDODERM) 5 % apply 1 patch topically once daily *ON FOR 12 HOURS AND OFF FOR 12 HOURS* - sildenafil (VIAGRA) 50 mg tablet Take 1 tablet by mouth every afternoon. Problem List As Of Date: 06/27/2024 (None) Encounter Status:Closed by TRUMAN MANTILLA on 06/27/24 Normal [facility] Bacteria Ur Culton 4 Bacteria identified Cx Nom (U) CULTURE, URINE: No growth (<1,000 CFU/ml) Normal [facility] Comment on above: Performed By: #### 6 30-4 ####[facility] [id number] [place] [address] [place] C. trachomatis+N. gonorrhoea e DNA JAYLA+probe Ql (Unsp spec)on 06-26-2024 C. trachomatis rRNA JAYLA+probe Ql (Unsp spec) Negative Normal Negative for Chlamydia trachomatis by amplificaton [facility] Comment on above: Order Comment: Speci men Type: URINE SPECIMENOrdering Facility: [facility] Address: [address] [place] [address] Performed By: #### 3 6902-5 ####[facility] [id number] [place] [address] [place] N. gonorrhoeae rRNA JAYLA+probe Ql (Unsp spec) Negative Normal Negative for Neisseria gonorrhoeae by amplification [facility] Comment on above: Order Comment: Speci men Type: URINE SPECIMENOrdering Facility: [facility] Address: [address], [place] [address] Performed By: #### 3 6902-5 ####[facility]ON[facility] [id number] [address] [id number] [id number] [place] CNOVon 06-26-2024 CNOV Office Visit ([facility]) SAGRARIO BRANNON ([id number]) 1985 M Date Time Provider Department 06/26/24 2:30 PM DINORA LOPEZ WS During your visit today, we recorded the following information about you: Temperature Pulse Respiration Blood pressure 97.4 degrees 90/minute 20/minute 124/91 Weight 129 kg Dinora Lopez PA-C 06/26/2024 3:04 PM Signed This note was created using 0xdatater. Subjective Sagrario Brannon is a 38 year old male. HPI Presents with a chief complaint of dysuria and difficulty urinating since about 6 hours. He states he had masturbated earlier this morning and after that started to have pain at the base of his penis. He denies any flank pain. Denies any drainage from his penis. He states he did have a new sexual partner about 4 months ago and had some burning right after but really went away so was not seen for it. He also developed some bumps on the shaft of his penis 2 months ago that have not gone away. They are not painful. He denies fever. He has a history of kidney stone 1 time in the past. He states with that he had the flank pain but does not have at this time. He did notice some blood in his urine. He is not having any testicular pain. Review of Systems Constitutional: Negative. Genitourinary: Positive for difficulty urinating, dysuria, genital sores, hematuria, penile pain and urgency. Negative for flank pain, frequency, penile discharge, penile swelling, scrotal swelling and testicular pain. All other systems reviewed and are negative. PAST MEDICAL HISTORY Diagnosis Date NEGATIVE MEDICAL HISTORY Current Outpatient Medications Medication Sig Dispense Refill escitalopram oxalate (LEXAPRO) 20 mg tablet Take 1 tablet by mouth every afternoon. meloxicam (MOBIC) 15 mg tablet Take 1 tablet by mouth every afternoon. (Patient not taking: Reported on 06/26/2024) omeprazole (PRILOSEC) 40 mg capsule Take 1 capsule by mouth every afternoon. (Patient not taking: Reported on 06/26/2024) cholecalciferol, Vitamin D3, (VITAMIN D3) 1,250 mcg (50,000 unit) cap capsule take 1 capsule by mouth every month (Patient not taking: Reported on 06/26/2024) lidocaine (LIDODERM) 5 % apply 1 patch topically once daily *ON FOR 12 HOURS AND OFF FOR 12 HOURS* (Patient not taking: Reported on 06/26/2024) sildenafil (VIAGRA) 50 mg tablet Take 1 tablet by mouth every afternoon. (Patient not taking: Reported on 06/26/2024) No current facility-administere d medications for this visit. PAST SURGICAL HISTORY Procedure Laterality Date TONSILLECTOMY AND ADENOIDECTOMY AGE 13/> FAMILY HISTORY Problem Relation Age of Onset Ischemic Heart Disease Paternal Grandfather Social History Tobacco Use Smoking status: Never Passive exposure: Yes Smokeless tobacco: Never Substance Use Topics Alcohol use: Yes Drug use: No Objective BP 124/91 Pulse 90 Temp 36.3 ?C (97.4 ?F) Resp 20 Wt 129 kg (284 lb 6.3 oz) SpO2 98% Physical Exam Vitals reviewed. Constitutional: Appearance: Normal appearance. HENT: Head: Normocephalic and atraumatic. Genitourinary: Comments: The sensitive examination was discussed with the Patient or Patient's Authorized Costume Design Teacher. As applicable, any other physician, advance practice provider, medical student, or other health professional student that will be observing or involved in the sensitive examination for educational or training purposes was discussed with the Patient or Authorized Costume Design Teacher. The Patient or Authorized Costume Design Teacher has agreed to proceed with the sensitive examination. (Sensitive examination includes inspection and/or palpation of the breasts, pelvis, prostate and anorectal regions) Patient has skin colored papules to the right side of the shaft consistent with likely genital wart. No vesicles. Patient has no drainage or erythema of the urethral opening. No other rash noted. No testicular pain or lesions noted on palpation. Skin: General: Skin is warm and dry. Neurological: Mental Status: He is alert. Assessment and Plan ASSESSMENT/PLAN: 1. Screening for STD (sexually transmitted disease) - ICD9: V74.5, ICD10: Z11.3 (primary diagnosis) Full panel STD screening ordered. Patient has had some blood in his urine and dysuria, had large blood on urine dip. Discussed this could be a kidney stone. If he has severe pain, fever or is unable to urinate recommend being seen in the emergency department. Discussed follow-up with urology as well. Patient agreeable with plan. - UA DIP, URINE (POC) - GONORRHEA/CHLAMYDIA NAAT - TRICHOMONAS VAGINALIS NAAT - SYPHILIS TREPONEMAL W/REFLEX - HIV 1/2 COMBO WITH REFLEX TO DIFFERENTIATION - HEPATITIS C ANTIBODY IA WITH CONFIRMATION - HEPATITIS B SURFACE ANTIGEN 2. Dysuria - ICD9: 788.1, ICD10: R30.0 - UA DIP, URINE (POC) - URINE CULTURE 3. Genital warts - ICD (more content not included)... Normal [facility] TRICHOMONAS VAGINALIS NAATon 06-26-2024 T. vaginalis DNA JAYLA+probe Ql (Unsp spec) Negative Normal Negative for Trichomonas vaginalis by amplification [facility] Comment on above: Order Comment: Speci men Type: URINE SPECIMENOrdering Facility: [facility] Address: [address] [place] [address] Performed By: #### T RVAMP ####[facility] [id number] [place] [address] [place] UA DIP, URINE (POC)on 2023 BILIRUBIN UA (POCT) Negative Negative [facility] CLARITY UA (POCT) Clear [facility] COLOR UA (POCT) Yellow [facility] GLUCOSE UA (POCT) Negative Negative mg/dL [facility] Hemoglobin Ql (U) Large Abnormal Negative [facility] Interpretation and review of laboratory results Abnormal [facility] KETONE UA (POCT) Negative Negative [facility] (POCT) Negative Negative [facility] NITRITE UA (POCT) Negative Negative [facility] PH UA (POCT) 5.5 4.5 - 8.0 [facility] Protein Ql (U) Negative Negative mg/dL [facility] SPECIFIC GRAVITY UA (POCT) >=1.030 1.005 - 1.030 [facility] UROBILINOGEN UA (POCT) 0.2 Normal E.U./dL [facility] Location:[address], [place], [place], [id number] [place] [address] POINT OF CARE [facility] ANAon 03-24-2023 Nuclear Ab IF (S) [Titer] 40 {titer} Normal Neg 40 [facility] ([place]) Comment on above: Result Comment: ALFONZO Screen and Titer methodology is an immunofluorescent technique utilizing Hep2 Substrate. Performed By: #### A SO, RF, ALFONZO #### [address] [address] #### CMP, ADIFF, VIDH, ANEU, CBC, CRP, ESR, GFR #### [address] [address] RFon 03-23-2023 Rheumatoid Factor <6.0 Normal <=6.0 [facility] ([place]) Comment on above: Result Comment: RF I gM Antibody by Enzyme Immunoassay: Negative < or = 6 Positive > 6 A positive result indicates the presence of RF antibodies and suggests the possibility of rheumatoid arthritis. A negative result indicates no RF IgM antibody or levels below the negative cut-off of the assay. Results of this assay should be used in conjunction with clinical findings and other serological tests. These results were obtained with the AdReady QUANTA Lite RF IgM ANGELICA. RF IgM values obtained with different manufacturers' assay methods may not be used interchangeably. The magnitude of the reported IgM levels cannot be correlated to an endpoint titer. Performed By: #### A SO, RF, ALFONZO #### [address] [address] #### CMP, ADIFF, VIDH, ANEU, CBC, CRP, ESR, GFR #### [address] [address] .Auto Diffon 03-21-2023 Basophil, Absolute 0.0 10 3/mcL Normal 0.0-0.2 [facility] ([place]) Comment on above: Performed By: #### A SO, RF, ALFONZO #### [place] [address] #### CMP, ADIFF, VIDH, ANEU, CBC, CRP, ESR, GFR #### [address] [address] Basophils/100 WBC (Bld) 0.4 % Normal 0.0-2.5 [facility] ([place]) Comment on above: Performed By: #### A SO, RF, ALFONZO #### [place] [address] #### CMP, ADIFF, VIDH, ANEU, CBC, CRP, ESR, GFR #### [address] [address] Eosinophil, Absolute 0.1 10 3/mcL Normal 0.0-0.4 [facility] ([place]) Comment on above: Performed By: #### A SO RF, ALFONZO #### [place] [id number] #### CMP, ADIFF, VIDH, ANEU, CBC, CRP, ESR, GFR #### [address] [address] Eosinophils/100 WBC (Bld) 1.4 % Normal 0.0-7.0 [facility] ([place]) Comment on above: Performed By: #### A SO, RF, ALFONZO #### [place] [address] #### CMP, ADIFF, VIDH, ANEU, CBC, CRP, ESR, GFR #### [address] [address] Lymphocyte, Absolute 3.2 10 3/mcL Normal 0.8-3.9 [facility] ([place]) Comment on above: Performed By: #### A SO, RF, ALFONZO #### [place] [address] #### CMP, ADIFF, VIDH, ANEU, CBC, CRP, ESR, GFR #### [address] [address] Lymphocytes/100 WBC (Bld) 36.5 % Normal 10.0-50.0 [facility] ([place]) Comment on above: Performed By: #### A DONALDO SULTANA, ALFONZO #### [address] [address] #### CMP, ADIFF, VIDH, ANEU, CBC, CRP, ESR, GFR #### [address] [address] Monocyte, Absolute 0.7 10 3/mcL Normal 0.2-1.0 [facility] ([place]) Comment on above: Performed By: #### A DONALDO SULTANA, ALFONZO #### [place] [address] #### CMP, ADIFF, VIDH, ANEU, CBC, CRP, ESR, GFR #### [address] [address] Monocytes/100 WBC (Bld) 7.8 % Normal 1.7-13.0 [facility] ([place]) Comment on above: Performed By: #### A KAYY RF, ALFONZO #### [address] [address] #### CMP, ADIFF, VIDH, ANEU, CBC, CRP, ESR, GFR #### [address] [address] Neutrophils/100 WBC (Bld) 53.9 % Normal 37.0-80.0 [facility] ([place]) Comment on above: Performed By: #### A KAYY RF, ALFONZO #### [place] [address] #### CMP, ADIFF, VIDH, ANEU, CBC, CRP, ESR, GFR #### [address] [address] .GFRon 03-21-2023 GFR Non- 73 ml/min/1.73sqm Normal [facility] ([place]) Comment on above: Result Comment: GFR Population mean for , Non- Americans Ages 20-29 = 116 mL/min/1.73 sq.m. Ages 30-39 = 107 mL/min/1.73 sq.m. Ages 40-49 = 99 mL/min/1.73 sq.m. Ages 50-59 = 93 mL/min/1.73 sq.m. Ages 60-69 = 85 mL/min/1.73 sq.m. Ages 70+ = 75 mL/min/1.73 sq.m. Chronic Kidney Disease: Less than 60 mL/min/1.73 square meters End Stage Renal Disease: Less than 15 mL/min/1.73 square meters Performed By: #### A SO, RF, ALFONZO #### [address] [address] #### CMP, ADIFF, VIDH, ANEU, CBC, CRP, ESR, GFR #### [address] [address] GFR 88 ml/min/1.73sqm Normal [facility] ([place]) Comment on above: Result Comment: GFR Population mean for , Non- Americans Ages 20-29 = 116 mL/min/1.73 sq.m. Ages 30-39 = 107 mL/min/1.73 sq.m. Ages 40-49 = 99 mL/min/1.73 sq.m. Ages 50-59 = 93 mL/min/1.73 sq.m. Ages 60-69 = 85 mL/min/1.73 sq.m. Ages 70+ = 75 mL/min/1.73 sq.m. Chronic Kidney Disease: Less than 60 mL/min/1.73 square meters End Stage Renal Disease: Less than 15 mL/min/1.73 square meters Performed By: #### A SO, RF, ALOFNZO #### [address] [address] #### CMP, ADIFF, VIDH, ANEU, CBC, CRP, ESR, GFR #### [address] [address] .NEUABSon 03-21-2023 Neutrophil, Absolute 4.7 10 3/mcL Normal 2.9-6.2 [facility] ([place]) Comment on above: Performed By: #### A SO, RF, ALFONZO #### [address] [address] #### CMP, ADIFF, VIDH, ANEU, CBC, CRP, ESR, GFR #### [address] [address] ASOon 03-21-2023 ASO 368.4 IU/mL High 25.0-250.0 [facility] ([place]) Comment on above: Result Comment: No te - New Reference Range in effect 20 Performed By: #### A DONALDO SULTANA ALFONZO #### [place] [address] #### CMP, ADIFF, VIDH, ANEU, CBC, CRP, ESR, GFR #### [address] [address] CBCon 03-21-2023 Erythrocyte distribution width (RBC) [Ratio] 13.2 % Normal 11.5-14.5 [facility] ([place]) Comment on above: Performed By: #### A DONALDO SULTANA ANA #### [place] [address] #### CMP, ADIFF, VIDH, ANEU, CBC, CRP, ESR, GFR #### [address] [address] Hematocrit (Bld) [Volume fraction] 46.9 % Normal 42.0-52.0 [facility] ([place]) Comment on above: Performed By: #### A DONALDO SULTANA ALFONZO #### [place] [address] #### CMP, ADIFF, VIDH, ANEU, CBC, CRP, ESR, GFR #### [address] [address] Hgb 16.1 G/dL Normal 14.0-18.0 [facility] ([place]) Comment on above: Performed By: #### A DONALDO SULTANA ALFONZO #### [place] [address] #### CMP, ADIFF, VIDH, ANEU, CBC, CRP, ESR, GFR #### [address] [address] MCH (RBC) [Entitic mass] 29.6 pg Normal 27.0-31.2 [facility] ([place]) Comment on above: Performed By: #### A KAYY RF, ALFONZO #### [place] [address] #### CMP, ADIFF, VIDH, ANEU, CBC, CRP, ESR, GFR #### [address] [address] MCHC 34.3 G/dL Normal 31.8-35.4 [facility] ([place]) Comment on above: Performed By: #### A KAYY RF, ALFONZO #### [place] [address] #### CMP, ADIFF, VIDH, ANEU, CBC, CRP, ESR, GFR #### [address] [address] MCV (RBC) [Entitic vol] 86.4 fL Normal 80.0-94.0 [facility] ([place]) Comment on above: Performed By: #### A SO RF, ALFONZO #### [place] [address] #### CMP, ADIFF, VIDH, ANEU, CBC, CRP, ESR, GFR #### [address] [address] Platelet 280 10 3/mcL Normal 130-400 [facility] ([place]) Comment on above: Performed By: #### A SO, RF, ALFONZO #### [place] [address] #### CMP, ADIFF, VIDH, ANEU, CBC, CRP, ESR, GFR #### [address] [address] Platelet mean volume (Bld) [Entitic vol] 8.4 fL Normal 7.4-10.4 [facility] ([place]) Comment on above: Performed By: #### A SO, RF, ALFONZO #### [place] [address] #### CMP, ADIFF, VIDH, ANEU, CBC, CRP, ESR, GFR #### [address] [address] RBC 5.43 10 6/mcL Normal 4.04-6.13 [facility] ([place]) Comment on above: Performed By: #### A SO DONALDO, ALFONZO #### [address] [address] #### CMP, ADIFF, VIDH, ANEU, CBC, CRP, ESR, GFR #### [address] [address] WBC 8.7 10 3/mcL Normal 4.6-10.8 [facility] ([place]) Comment on above: Performed By: #### A KAYY RF, ALFONZO #### [place] [address] #### CMP, ADIFF, VIDH, ANEU, CBC, CRP, ESR, GFR #### [address] [address] CMPon 03-21-2023 Albumin Level 4.1 G/dL Normal 3.5-5.0 [facility] ([place]) Comment on above: Performed By: #### A SO, RF, ALFONZO #### [place] [address] #### CMP, ADIFF, VIDH, ANEU, CBC, CRP, ESR, GFR #### [address] [address] Albumin/Globulin [Mass ratio] 1.1 {ratio} Normal 1.1-2.5 [facility] ([place]) Comment on above: Performed By: #### A SO, RF, ALFONZO #### [place] [address] #### CMP, ADIFF, VIDH, ANEU, CBC, CRP, ESR, GFR #### [address] [address] ALP [Catalytic activity/Vol] 83 U/L Normal 40-135 [facility] ([place]) Comment on above: Performed By: #### A SO, RF, ALFONZO #### [place] [address] #### CMP, ADIFF, VIDH, ANEU, CBC, CRP, ESR, GFR #### [address] [address] ALT [Catalytic activity/Vol] 24 U/L Normal 16-63 [facility] ([place]) Comment on above: Performed By: #### A KAYY RF, ALFONZO #### [place] [address] #### CMP, ADIFF, VIDH, ANEU, CBC, CRP, ESR, GFR #### [address] [address] AST [Catalytic activity/Vol] 15 U/L Normal 10-40 [facility] ([place]) Comment on above: Performed By: #### A KAYY RF, ALFONZO #### [place] [address] #### CMP, ADIFF, VIDH, ANEU, CBC, CRP, ESR, GFR #### [address] [address] Bili Total 0.4 mg/dL Normal 0.2-1.0 [facility] ([place]) Comment on above: Result Comment: Use of this assay is not recommended for patients undergoing treatment with eltrombopag due to the potential for falsely elevated results. Performed By: #### A SO RF, ALFONZO #### [place] [address] #### CMP, ADIFF, VIDH, ANEU, CBC, CRP, ESR, GFR #### [address] [address] BUN/Creatinine Ratio 14 ratio Normal 7-27 [facility] ([place]) Comment on above: Performed By: #### A KAYY, RF, ALFONZO #### [place] [address] #### CMP, ADIFF, VIDH, ANEU, CBC, CRP, ESR, GFR #### [address] [address] Calcium [Mass/Vol] 9.5 mg/dL Normal 8.4-10.2 [facility] ([place]) Comment on above: Performed By: #### A SO, RF, ALFONZO #### [place] [address] #### CMP, ADIFF, VIDH, ANEU, CBC, CRP, ESR, GFR #### [address] [address] Chloride [Moles/Vol] 103 mmol/L Normal 98-107 [facility] ([place]) Comment on above: Performed By: #### A SO, RF, ALFONZO #### [place] [address] #### CMP, ADIFF, VIDH, ANEU, CBC, CRP, ESR, GFR #### [address] [address] CO2 [Moles/Vol] 30 mmol/L High 22-29 [facility] ([place]) Comment on above: Performed By: #### A SO, RF, ALFONZO #### [place] [address] #### CMP, ADIFF, VIDH, ANEU, CBC, CRP, ESR, GFR #### [address] [address] Creatinine [Mass/Vol] 1.14 mg/dL Normal 0.70-1.30 [facility] ([place]) Comment on above: Performed By: #### A SO, RF, ALFONZO #### [place] [address] #### CMP, ADIFF, VIDH, ANEU, CBC, CRP, ESR, GFR #### [address] [address] Electrolyte Balance 8.0 mEq/L Normal 4.0-15.0 [facility] ([place]) Comment on above: Performed By: #### A SO, RF, ALFONZO #### [place] [address] #### CMP, ADIFF, VIDH, ANEU, CBC, CRP, ESR, GFR #### [address] [address] Globulin 3.7 G/dL Normal [facility] ([place]) Comment on above: Performed By: #### A SO, RF, ALFONZO #### [address] [address] #### CMP, ADIFF, VIDH, ANEU, CBC, CRP, ESR, GFR #### [address] [address] Glucose [Mass/Vol] 81 mg/dL Normal 70-105 [facility] ([place]) Comment on above: Performed By: #### A SO, RF, ALFONZO #### [address] [address] #### CMP, ADIFF, VIDH, ANEU, CBC, CRP, ESR, GFR #### [address] [address] Potassium [Moles/Vol] 4.5 mmol/L Normal 3.5-5.1 [facility] ([place]) Comment on above: Performed By: #### A SO, RF, ALFONZO #### [place] [address] #### CMP, ADIFF, VIDH, ANEU, CBC, CRP, ESR, GFR #### [address] [address] Sodium [Moles/Vol] 141 mmol/L Normal 136-145 [facility] ([place]) Comment on above: Performed By: #### A SO, RF, ALFONZO #### [place] [address] #### CMP, ADIFF, VIDH, ANEU, CBC, CRP, ESR, GFR #### [address] [address] Total Protein 7.8 G/dL Normal 6.4-8.2 [facility] ([place]) Comment on above: Performed By: #### A SO, RF, ALFONZO #### [address] [address] #### CMP, ADIFF, VIDH, ANEU, CBC, CRP, ESR, GFR #### [address] [address] Urea nitrogen [Mass/Vol] 16 mg/dL Normal 7-18 [facility] ([place]) Comment on above: Performed By: #### A KAYY RF, ALFONZO #### [place] [address] #### CMP, ADIFF, VIDH, ANEU, CBC, CRP, ESR, GFR #### [address] [address] CRPon 03-21-2023 C-Reactive Protein 0.7 mg/dL High 0.0-0.3 [facility] ([place]) Comment on above: Performed By: #### A KAYY RF, ALFONZO #### [place] [address] #### CMP, ADIFF, VIDH, ANEU, CBC, CRP, ESR, GFR #### [address] [address] ESRon 03-21-2023 Erythrocyte Sed Rate 13 mm/hr Normal 0-15 [facility] ([place]) Comment on above: Performed By: #### A KAYY RF, ALFONZO #### [place] [address] #### CMP, ADIFF, VIDH, ANEU, CBC, CRP, ESR, GFR #### [address] [address] VIDHon 03-21-2023 Vit. D 25-Hydroxy 23.0 ng/mL Normal [facility] ([place]) Comment on above: Result Comment: Inte rpretive Values Based on Total 25(OH) Vitamin D: Deficient <20 ng/mL Insufficient 20 - <30 ng/mL Sufficient 30-100 ng/mL Performed By: #### A SO, RF, ALFONZO #### [place] [address] #### CMP, ADIFF, VIDH, ANEU, CBC, CRP, ESR, GFR #### [address] [address] Absolute lymphocyte counton 06-14-2022 Lymphocytes Auto (Unsp spec) [#/Vol] 2.85 10*3/uL 0.83-4.51 [facility] Work Phone: Basophil percentageon 2021 Basophil percentage 0 SEEN /hpf 0-5 [facility] Work Phone: Basophils/100 WBC (Bld) 0.2 % 0-1 [facility] Work Phone: Chloride [Moles/Vol] 107 mmol/L 98-107 [facility] Work Phone: Eosinophils/100 WBC (Bld) 1.4 % 0-5 [facility] Work Phone: Glucose [Mass/Vol] 101 mg/dL 74-106 [facility] Work Phone: Comment on above: Fasting Glucose resu lt from 100 to 125 mg/dL suggests IMPAIRED HOMEOSTASIS per A.D.A. criteria. Neutrophils (Bld) [#/Vol] 2.8 10*3/uL 2.0-7.7 [facility] Work Phone: Neutrophils/100 WBC (Bld) 42.4 % 47-70 [facility] Work Phone: Potassium [Moles/Vol] 4.0 mmol/L 3.5-5.1 [facility] Work Phone: Comment on above: Slight Hemolysis, Re sult may be falsely increased. Sodium [Moles/Vol] 140 mmol/L 136-145 [facility] Work Phone: WBC (Bld) [#/Vol] 6.5 10*3/uL 4.4-11.0 [facility] Work Phone: Bilirubin Test strip Ql (U)o n 06-14-2022 Bilirubin Ql (U) Negative Negative [facility] Work Phone: Blood erythrocytes count (nu mber/volume)on 06-14-2022 RBC (Bld) [#/Vol] 5.76 10*6/uL 4.6-6.[address] [facility] Work Phone: Blood hemoglobin measurement (mass/volume)on 06-14-2022 Hemoglobin (Bld) [Mass/Vol] 16.9 g/dL 13.0-16.5 [facility] Work Phone: Blood lymphocytes/100 leukoc yteson 06-14-2022 Lymphocytes/100 WBC (Bld) 43.9 % 19-41 [facility] Work Phone: Blood monocytes/100 leukocyt eson 06-14-2022 Monocytes/100 WBC (Bld) 11.9 % 0-10 [facility] Work Phone: Blood platelet mean volumeon 06-14-2022 Platelet mean volume (Bld) [Entitic vol] 10.4 fL 6.2-12.0 [facility] Work Phone: Determination of erythrocyte mean corpuscular volume (MCV)on 06-14-2022 MCV (RBC) [Entitic vol] 85.4 fL 80-94 [facility] Work Phone: Hematocrit Auto (Bld) [Volum e fraction]on 06-14-2022 Hematocrit (Bld) [Volume fraction] 49.2 % 40-54 [facility] Work Phone: INR in Blood by Coagulation assayon 06-14-2022 INR Coag (Bld) [Relative time] 1.0 {INR} [facility] Work Phone: Ketones Test strip Ql (U)on 06-14-2022 Ketones Ql (U) Negative Negative [facility] Work Phone: Laboratory - Chemistry and C hemistry - challengeon 06-14-2022 CO2 [Moles/Vol] 28.0 mmol/L 21.0-32.0 [facility] Work Phone: Urea nitrogen/Creatinin e [Mass ratio] 10.9 mg/mg 10- [facility] Work Phone: Laboratory - Coagulationon 1 aPTT Coag (Bld) [Time] 31.8 s 24.1-36.2 [facility] Work Phone: PT Coag (PPP) [Time] 12.8 s 11.7-14.9 [facility] Work Phone: Laboratory - Hematology and Cell countson 06-14-2022 Erythrocyte distribution width (RBC) [Entitic vol] 39.6 fL 35.1-43.9 [facility] Work Phone: Erythrocyte distribution width (RBC) [Ratio] 12.9 % 11.6-14.6 [facility] Work Phone: Immature granulocytes/100 WBC (Bld) 0.200 % 0.0-0.9 [facility] Work Phone: Comment on above: IG% - Immature Granu locytes (promyelocytes, myelocytes and metamyelocytes) > 1% indicates that a LEFT SHIFT is Present. MCH (RBC) [Entitic mass] 29.3 pg 27.0-32.0 [facility] Work Phone: Nucleated RBC/100 WBC (Bld) [Ratio] 0 % 0-5 [facility] Work Phone: MCHC Auto (RBC) [Mass/Vol]on 06-14-2022 MCHC (RBC) [Mass/Vol] 34.3 g/dL 32-36 [facility] Work Phone: Mucus LM Ql (Urine sed)on Mucus Ql (Urine sed) 1+ /hpf [facility] Work Phone: Nitrite Test strip Ql (U)on 06-14-2022 Nitrite Ql (U) Negative Negative [facility] Work Phone: No Panel Informationon 06-14 Estimated Creatinine Clearance Calc 92.28 ml/min [facility] Work Phone: Estimated GFR (MDRD) Amer 89 mL/min >60 [facility] Work Phone: Comment on above: GFR Calc Estimated GFR (MDRD) Non-Af Amer 74 mL/min >60 [facility] Work Phone: Comment on above: Non- GFR Calc Platelets bldon 06-14-2022 Platelets (Bld) [#/Vol] 285 10*3/uL 150-450 [facility] Work Phone: Protein Test strip Ql (U)on 06-14-2022 Protein Ql (U) 15 mg/dl Negative [facility] Work Phone: Serum or plasma calcium comfort urement (mass/volume)on 06-14-2022 Calcium [Mass/Vol] 9.1 mg/dL 8.5-10.1 [facility] Work Phone: Serum or plasma creatinine m easurement (mass/volume)on 06-14-2022 Creatinine [Mass/Vol] 1.19 mg/dL 0.70-1.30 [facility] Work Phone: Comment on above: The validity of the calculated GFR & GFRAA in patients over 70 years has not been determined. Clinical correlation is essential. Serum or plasma urea nitroge n measurement (mass/volume)on 06-14-2022 Urea nitrogen [Mass/Vol] 13 mg/dL 7-18 [facility] Work Phone: Squamous epithelial cells de tection in urine sediment by light microscopyon 06-14-2022 Epithelial cells.squamous LM Ql (Urine sed) 0-5 SEEN /hpf 0-5 [facility] Work Phone: Thin prep Papanicolaou smear with manual screeningon 06-14-2022 Thin prep Papanicolaou smear with manual screening 5 5-15 [facility] Work Phone: Urine blood detectionon 06-01 RBC Ql (U) Negative Negative [facility] Work Phone: RBC Ql (U) 0 SEEN /hpf 0-5 [facility] Work Phone: Urine clarityon 06-14-2022 Clarity (U) Clear Clear [facility] Work Phone: Urine color determinationon 06-14-2022 Color (U) Yellow Yellow [facility] Work Phone: Urine glucose detectionon Glucose Ql (U) Normal mg/dl Normal [facility] Work Phone: Urine leukocyte esterase det ection by dipstickon 06-14-2022 Leukocyte esterase Test strip Ql (U) Negative Negative [facility] Work Phone: Urine pHon 06-14-2022 pH (U) 5.0 [pH] 5.0 - 8.0 [facility] Work Phone: Urine sediment bacteria coun t by microscopy (number/high power field)on 06-14-2022 Bacteria LM.HPF (Urine sed) [#/Area] RARE /hpf None Seen [facility] Work Phone: Urine specific gravity measu rementon 06-14-2022 Specific gravity (U) [Rel density] 1.025 1.002-1.030 [facility] Work Phone: Urobilinogen Auto test strip Ql (U)on 06-14-2022 Urobilinogen Ql (U) Normal mg/dl Normal [facility] Work Phone: Clinical Summary: Felecia kylie 12-20-2021 MC75 OP Visit Invalid Interpretation Code [facility] [place] [facility] Work Phone: MRI LUMBAR SPINE W CYRIL MUNOZ Elaina 12-07-2021 Patient Name: SAGRARIO BRANNON [facility] ACCESSION EXAM DATE/TIME PROCEDURE ORDERING PROVIDER [id number] 12/06/2021 17:01 EDT MRI Spine Lumbar w/ + w/ [id number] -CICI HOLGUIN Contrast CPT code 42323 Reason For Exam (MRI Spine Lumbar w/ + w/o Contrast) recent lumbar laminectomy, intractable pain, rule out hematoma or re-herniation Report Reasons for examination: Recent surgery with intractable pain. Examination was performed without and with Gadolinium. Comparison plain films from 12/03/2021. There is normal alignment of the lumbar vertebral bodies on the sagittal images. The marrow space signal intensity is normal except for mild degenerative/reactiv e type changes. The conus appears normal. Retroaortic left renal vein, small amount of dependent subcutaneous edema in the back. At T11-T12, T12-L1, L1-L2, L2-L3, the disc is normal. At L3-L4, there is a small central posterior protrusion without stenosis At L4-5, there is prior laminectomy with posterior disc protrusion. There is enhancement at the laminectomy site with enhancing epidural tissues bilaterally with edematous changes with enhancement paraspinous musculature bilaterally. Fluid density is seen extending along the posterior incision to the subcutaneous tissues from the tip of the spinous process of L4 (extending cranially and caudally for total length of 6.3 cm). At L5-S1, there is small central posterior protrusion without stenosis. Prior laminectomy. IMPRESSION: 1. Degenerative disease last three levels with postsurgical changes iat the L4-L5 level as discussed with fluid along the posterior incision as discussed Magnetic Resonance Imaging Report Report Dictated on --- Final --- Dictated: 12/07/2021 1:16 am Dictating Physician: MD GLEZ WILLIAM Signed Date and Time: 12/07/2021 1:39 am Signed by: MD GLEZ WILLIAM Transcribed Date and Time: 12/07/2021 1:20 [facility] Jorgito Glez MD - 12/07/2021 Patient Name: SAGRARIO BRANNON [facility] ACCESSION EXAM DATE/TIME PROCEDURE ORDERING PROVIDER [id number] 12/06/2021 17:01 EDT MRI Spine Lumbar w/ + w/ [id number] -CICI HOLGUIN Contrast CPT code 63341 Reason For Exam (MRI Spine Lumbar w/ + w/o Contrast) recent lumbar laminectomy, intractable pain, rule out hematoma or re-herniation Report Reasons for examination: Recent surgery with intractable pain. Examination was performed without and with Gadolinium. Comparison plain films from 12/03/2021. There is normal alignment of the lumbar vertebral bodies on the sagittal images. The marrow space signal intensity is normal except for mild degenerative/reactiv e type changes. The conus appears normal. Retroaortic left renal vein, small amount of dependent subcutaneous edema in the back. At T11-T12, T12-L1, L1-L2, L2-L3, the disc is normal. At L3-L4, there is a small central posterior protrusion without stenosis At L4-5, there is prior laminectomy with posterior disc protrusion. There is enhancement at the laminectomy site with enhancing epidural tissues bilaterally with edematous changes with enhancement paraspinous musculature bilaterally. Fluid density is seen extending along the posterior incision to the subcutaneous tissues from the tip of the spinous process of L4 (extending cranially and caudally for total length of 6.3 cm). At L5-S1, there is small central posterior protrusion without stenosis. Prior laminectomy. IMPRESSION: 1. Degenerative disease last three levels with postsurgical changes iat the L4-L5 level as discussed with fluid along the posterior incision as discussed Magnetic Resonance Imaging Report Report Dictated on --- Final --- Dictated: 12/07/2021 1:16 am Dictating Physician: MD GLEZ WILLIAM Signed Date and Time: 12/07/2021 1:39 am Signed by: MD GLEZ WILLIAM Transcribed Date and Time: 12/07/2021 1:20 [facility] Work Phone: MRI LUMBAR SPINE W WO CONTRA STOrdered By: Jorgito Glez on 12-07-2021 [facility] Work Phone: MRI LUMBAR SPINE W WO CONTRA STon 12-06-2021 Radiology Study observation (narrative) [facility] Work Phone: MRI Spine Lumbar w/ + w/o Co ntraston 12-06-2021 MRI Spine Lumbar w/ + w/o Contrast Patient Name: SAGRARIO BRANNON Magnetic Resonance Imaging ACCESSION EXAM DATE/TIME PROCEDURE ORDERING PROVIDER [id number] 12/06/2021 17:01 EDT MRI Spine Lumbar w/ + w/ [id number] -CICI HOLGUIN o Contrast CPT code 38002 Reason For Exam (MRI Spine Lumbar w/ + w/o Contrast) recent lumbar laminectomy, intractable pain, rule out hematoma or re-herniation Report Reasons for examination: Recent surgery with intractable pain. Examination was performed without and with Gadolinium. Comparison plain films from 12/03/2021. There is normal alignment of the lumbar vertebral bodies on the sagittal images. The marrow space signal intensity is normal except for mild degenerative/reactiv e type changes. The conus appears normal. Retroaortic left renal vein, small amount of dependent subcutaneous edema in the back. At T11-T12, T12-L1, L1-L2, L2-L3, the disc is normal. At L3-L4, there is a small central posterior protrusion without stenosis At L4-5, there is prior laminectomy with posterior disc protrusion. There is enhancement at the laminectomy site with enhancing epidural tissues bilaterally with edematous changes with enhancement paraspinous musculature bilaterally. Fluid density is seen extending along the posterior incision to the subcutaneous tissues from the tip of the spinous process of L4 (extending cranially and caudally for total length of 6.3 cm). At L5-S1, there is small central posterior protrusion without stenosis. Prior laminectomy. IMPRESSION: 1. Degenerative disease last three levels with postsurgical changes iat the L4-L5 level as discussed with fluid along the posterior incision as discussed Magnetic Resonance Imaging Report Report Dictated on Final Dictated: 12/07/2021 1:16 am Dictating Physician: MD GLEZ WILLIAM Signed Date and Time: 12/07/2021 1:39 am Signed by: MD GLEZ WILLIAM Transcribed Date and Time: 12/07/2021 1:20 Normal [facility] CR Hip w/ Pelvis 2 or 3 View s Lefton 12-04-2021 CR Hip w/ Pelvis 2 or 3 Views Left Patient Name: ASGRARIO BRANNON Diagnostic Radiology ACCESSION EXAM DATE/TIME PROCEDURE ORDERING PROVIDER [id number] 12/03/2021 23:43 EDT CR Hip w/ Pelvis 2 or 3 [id number] CICI BOWSER Views Left n CPT code 54943 Reason For Exam (CR Hip w/ Pelvis 2 or 3 Views Left n) pain s/p fall Report PELVIS AND LEFT HIP: CLINICAL INDICATION: Pain, fall. TECHNIQUE: AP pelvis plus AP and lateral views of the left hip COMPARISON: None. FINDINGS: There is no evidence for fracture or dislocation. The hips joints are unremarkable. The sacroiliac joints are normal. No bone lesion is identified. There is no soft tissue abnormality. IMPRESSION: No fracture or dislocation. Report Dictated on Final Dictated: 12/03/2021 11:50 pm Dictating Physician: MD CAIN KEVIN Signed Date and Time: 12/03/2021 11:50 pm Signed by: MD CAIN KEVIN Transcribed Date and Time: 12/03/2021 11:50 Normal [facility] CT Head or Brain w/o Contras ton 12-04-2021 CT Head or Brain w/o Contrast Patient Name: SAGRARIO BRANNON Computed Tomography ACCESSION EXAM DATE/TIME PROCEDURE ORDERING PROVIDER [id number] 12/03/2021 23:[address] Head or Brain w/o [id number] -CONSING, Contrast KATHRINA CPT code 51882 Reason For Exam (CT Head or Brain w/o Contrast) fell, unknown what he hit Report CT BRAIN WITHOUT CONTRAST CLINICAL INDICATION: fell, unknown what he hit, injury TECHNIQUE: Noncontrast CT scan of the brain. Multiplanar reformations. COMPARISON: None FINDINGS: Brain volume is normal for age. No hemorrhage, mass effect, or midline shift. No hydrocephalus. No pathologic extra-axial fluid collection. Normal basal cisterns. No evidence of acute cortical infarct. IMPRESSION: 1. No acute intracranial finding. Report Dictated on Workstation: [email or web address] Final Dictated: 12/03/2021 11:36 pm Dictating Physician: MD JOSEPH JOHN R Signed Date and Time: 12/03/2021 11:38 pm Signed by: MD JOSEPH JOHN R Transcribed Date and Time: 12/03/2021 11:36 Normal [facility] CT Spine Cervical w/o Contra ston 12-04-2021 CT Spine Cervical w/o Contrast Patient Name: SAGRARIO BRANNON Computed Tomography ACCESSION EXAM DATE/TIME PROCEDURE ORDERING PROVIDER [id number] 12/03/2021 23:[address] Spine Cervical w/o [id number] -CONSING, Contrast KATHRINA CPT code 89779 Reason For Exam (CT Spine Cervical w/o Contrast) fell, unknown what he hit Report CT CERVICAL SPINE WITHOUT CONTRAST CLINICAL INDICATION: fell, unknown what he hit, injury TECHNIQUE: Noncontrast CT scan of the cervical spine. Multiplanar reformations. COMPARISON: None FINDINGS: Vertebral bodies are normal in height. Discs are maintained. No acute fracture or significant malalignment. No soft tissue swelling. IMPRESSION: 1. No acute finding. Report Dictated on Workstation: [email or web address] Final Dictated: 12/03/2021 11:39 pm Dictating Physician: MD JOSEPH JOHN R Signed Date and Time: 12/03/2021 11:42 pm Signed by: MD JOSEPH JOHN R Transcribed Date and Time: 12/03/2021 11:39 Normal [facility] EKG 12 Lead - Chest Painon 0 12-04-2021 [facility] Test Date: 2021-12-04 Pat Name: SAGRARIO BRANNON Department: 1A Room: 1ESB Gender: M Room Server: LEO : 1985 Requested By: RANDEE MONSIVAIS Order Number: [id number] Reading MD: Randee Monsivais Measurements Intervals [place] Rate: 76 P: 43 SD: 158 QRS: 74 QRSD: 101 T: 47 QT: 377 QTc: 423 Interpretive Statements Sinus rhythm NO rpevious ECG for comparison Electronically Signed On 12-04-2021 4:58:51 EDT by Randee Monsivais [facility] Randee Monisvais MD - 12/04/2021 [facility] Test Date: 2021-12-04 Pat Name: SAGRARIO DE OLIVEIRASTEF Department: 1AER Room: 1ESB Gender: M Room Server: LEO : 1985 Requested By: RANDEE MONSIVAIS Order Number: [id number] Reading MD: Randee Monsivais Measurements Intervals [place] Rate: 76 P: 43 SD: 158 QRS: 74 QRSD: 101 T: 47 QT: 377 QTc: 423 Interpretive Statements Sinus rhythm NO rpevious ECG for comparison Electronically Signed On 12-04-2021 4:58:51 EDT by Randee Monsivais [facility] Work Phone: [facility] Work Phone: Absolute lymphocyte counton 12-03-2021 Lymphocytes Auto (Unsp spec) [#/Vol] 3.81 10*3/uL 0.83-4.51 [facility] Work Phone: Basophil percentageon 2021 Basophils/100 WBC (Bld) 0.2 % 0-1 [facility] Work Phone: Chloride [Moles/Vol] 104 mmol/L 98-107 [facility] Work Phone: Eosinophils/100 WBC (Bld) 1.0 % 0-5 [facility] Work Phone: Glucose [Mass/Vol] 100 mg/dL 74-106 [facility] Work Phone: Comment on above: Fasting Glucose resu lt from 100 to 125 mg/dL suggests IMPAIRED HOMEOSTASIS per A.D.A. criteria. Neutrophils (Bld) [#/Vol] 8.1 10*3/uL 2.0-7.7 [facility] Work Phone: Neutrophils/100 WBC (Bld) 62.2 % 47-70 [facility] Work Phone: Potassium [Moles/Vol] 3.8 mmol/L 3.5-5.1 [facility] Work Phone: Sodium [Moles/Vol] 137 mmol/L 136-145 [facility] Work Phone: WBC (Bld) [#/Vol] 13.1 10*3/uL 4.4-11.[address] [facility] Work Phone: Blood erythrocytes count (nu mber/volume)on 12-03-2021 RBC (Bld) [#/Vol] 5.50 10*6/uL 4.6-6.[address] [facility] Work Phone: Blood hemoglobin measurement (mass/volume)on 12-03-2021 Hemoglobin (Bld) [Mass/Vol] 16.3 g/dL 13.0-16.5 [facility] Work Phone: Blood lymphocytes/100 leukoc yteson 12-03-2021 Lymphocytes/100 WBC (Bld) 29.2 % 19-41 [facility] Work Phone: Blood monocytes/100 leukocyt eson 12-03-2021 Monocytes/100 WBC (Bld) 7.0 % 0-10 [facility] Work Phone: Blood platelet mean volumeon 12-03-2021 Platelet mean volume (Bld) [Entitic vol] 9.7 fL 6.2-12.0 [facility] Work Phone: CR Spine Lumbosacral 2 or 3 Viewson 12-03-2021 CR Spine Lumbosacral 2 or 3 Views Patient Name: SAGRARIO BRANNON Diagnostic Radiology ACCESSION EXAM DATE/TIME PROCEDURE ORDERING PROVIDER [id number] 12/03/2021 21:41 EDT CR Spine Lumbosacral 2 [id number] -CONSING, or 3 Views KATHRINA CPT code 72389 Reason For Exam (CR Spine Lumbosacral 2 or 3 Views) back pain s/p fall, surgery 4/1 on L5-S1 Report LUMBAR SPINE: CLINICAL INDICATION: back pain s/p fall, surgery 4/1 on L5-S1. TECHNIQUE: AP, lateral, and coned-down L5-S1. COMPARISON: None. FINDINGS: Five lumbar vertebrae are present. There are laminectomy changes at L4 and L5. The lumbar vertebrae demonstrate no wedge fracture or compression deformity. There is mild degenerative disc space narrowing at L4-L5 and L5-S1. There is no spondylolysis or spondylolisthesis. The pedicles and sacroiliac joints are unremarkable. No abnormal soft tissue calcifications are noted. Skin yayo overlie a lower back incision site. IMPRESSION: Postsurgical changes. No acute osseous abnormality of the lumbar spine. Report Dictated on Final Dictated: 12/03/2021 9:52 pm Dictating Physician: MD CAIN KEVIN Signed Date and Time: 12/03/2021 9:54 pm Signed by: MD CAIN KEVIN Transcribed Date and Time: 12/03/2021 9:52 Normal [facility] CT Cervical Spine WO Contras ton 12-03-2021 Patient Name: SAGRARIO BRANNON Computed Tomography ACCESSION EXAM DATE/TIME PROCEDURE ORDERING PROVIDER [id number] 12/03/2021 23:[address] Spine Cervical w/o [id number] -CONSING, Contrast KATHRINA CPT code 43796 Reason For Exam (CT Spine Cervical w/o Contrast) fell, unknown what he hit Report CT CERVICAL SPINE WITHOUT CONTRAST CLINICAL INDICATION: fell, unknown what he hit, injury TECHNIQUE: Noncontrast CT scan of the cervical spine. Multiplanar reformations. COMPARISON: None FINDINGS: Vertebral bodies are normal in height. Discs are maintained. No acute fracture or significant malalignment. No soft tissue swelling. IMPRESSION: 1. No acute finding. Report Dictated on Workstation: [email or web address] --- Final --- Dictated: 12/03/2021 11:39 pm Dictating Physician: MD JOSEPH JOHN R Signed Date and Time: 12/03/2021 11:42 pm Signed by: MD JOSEPH JOHN R Transcribed Date and Time: 12/03/2021 11:39 [facility] Marck Joseph MD - 12/03/2021 Patient Name: SAGRARIO BRANNON Computed Tomography ACCESSION EXAM DATE/TIME PROCEDURE ORDERING PROVIDER [id number] 12/03/2021 23:[address] Spine Cervical w/o [id number] -CONSING, Contrast KATHRINA CPT code 04395 Reason For Exam (CT Spine Cervical w/o Contrast) fell, unknown what he hit Report CT CERVICAL SPINE WITHOUT CONTRAST CLINICAL INDICATION: fell, unknown what he hit, injury TECHNIQUE: Noncontrast CT scan of the cervical spine. Multiplanar reformations. COMPARISON: None FINDINGS: Vertebral bodies are normal in height. Discs are maintained. No acute fracture or significant malalignment. No soft tissue swelling. IMPRESSION: 1. No acute finding. Report Dictated on Workstation: [email or web address] --- Final --- Dictated: 12/03/2021 11:39 pm Dictating Physician: MD JOSEPH JOHN R Signed Date and Time: 12/03/2021 11:42 pm Signed by: MD JOSEPH JOHN R Transcribed Date and Time: 12/03/2021 11:39 [facility] Work Phone: [facility] Work Phone: CT Head WO Contraston 2021 [id number] ACCESSION EXAM DATE/TIME PROCEDURE ORDERING PROVIDER [id number] 12/03/2021 23:[address] Head or Brain w/o 086059 -CONSING, Contrast KATHRINA CPT code 66212 Reason For Exam (CT Head or Brain w/o Contrast) fell, unknown what he hit Report CT BRAIN WITHOUT CONTRAST CLINICAL INDICATION: fell, unknown what he hit, injury TECHNIQUE: Noncontrast CT scan of the brain. Multiplanar reformations. COMPARISON: None FINDINGS: Brain volume is normal for age. No hemorrhage, mass effect, or midline shift. No hydrocephalus. No pathologic extra-axial fluid collection. Normal basal cisterns. No evidence of acute cortical infarct. IMPRESSION: 1. No acute intracranial finding. Report Dictated on Workstation: [email or web address] --- Final --- Dictated: 12/03/2021 11:36 pm Dictating Physician: MD JOSEPH JOHN R Signed Date and Time: 12/03/2021 11:38 pm Signed by: MD JOSEPH JOHN R Transcribed Date and Time: 12/03/2021 11:36 [facility] Marck Joseph MD - 12/03/2021 [id number] Tomography ACCESSION EXAM DATE/TIME PROCEDURE ORDERING PROVIDER [id number] 12/03/2021 23:[address] Head or Brain w/o 688176 -CONSING, Contrast KATHRINA CPT code 69496 Reason For Exam (CT Head or Brain w/o Contrast) fell, unknown what he hit Report CT BRAIN WITHOUT CONTRAST CLINICAL INDICATION: fell, unknown what he hit, injury TECHNIQUE: Noncontrast CT scan of the brain. Multiplanar reformations. COMPARISON: None FINDINGS: Brain volume is normal for age. No hemorrhage, mass effect, or midline shift. No hydrocephalus. No pathologic extra-axial fluid collection. Normal basal cisterns. No evidence of acute cortical infarct. IMPRESSION: 1. No acute intracranial finding. Report Dictated on Workstation: [email or web address] --- Final --- Dictated: 12/03/2021 11:36 pm Dictating Physician: MD JOSEPH JOHN R Signed Date and Time: 12/03/2021 11:38 pm Signed by: MD JOSEPH JOHN R Transcribed Date and Time: 12/03/2021 11:36 [facility] Work Phone: CT Head WO ContrastOrdered B y: Marck Joseph on 12-03-2021 [facility] Work Phone: Determination of erythrocyte mean corpuscular volume (MCV)on 12-03-2021 MCV (RBC) [Entitic vol] 84.4 fL 80-94 [facility] Work Phone: ED Provider Noteon ED Provider Note Emergency Department Encounter [facility] EMERGENCY DEPT Patient: Sagrario Brannon : 1985 Date of Evaluation: 12/03/2021 ED Supervising Physician: Randee Monsivais MD I independently examined and evaluated Sagrario Brannon. In brief, Sagrario Brannon is a 36 y.o. male with a past medical history significant for hypertension and lumbar spine injury s/p decompression surgery that presents to the emergency department for evaluation for generalized weakness with worsening back pain. Patient states had surgery at the [facility] 3 days ago. He states that today he had an episode of diaphoresis and lightheadedness after which he had 3 episodes of syncope. He states during the syncopal episodes he is not sure if he hit anything but since has been having excruciating back pain hence coming to the emergency department. Patient denies bleeding from the incision site although he endorses bilateral lower extremity weakness, saddle anesthesia, bowel or bladder incontinence. He also denies any headaches, vision changes, chest pain, shortness of breath, abdominal pain or nausea and vomiting. Focused exam: Blood pressure (!) 142/93, pulse 79, temperature 98 ?F (36.7 ?C), temperature source Oral, resp. rate 16, height 6' (1.829 m), weight 127 kg (280 lb), SpO2 100 %. [id number] in no acute distress. Alert and oriented X 3. Lungs clear to auscultation bilaterally with no wheezes or crackles appreciated. Heart rate and rhythm regular with no murmurs. Abdomen soft nontender nondistended with positive bowel sounds. No edema appreciated on the lower extremities bilaterally. Please see resident note for rectal exam findings. Brief ED course/MDM: ED Course as of 12/04/21458e Dec 04, 2021 0458 EKG with sinus rhythm with a rate of 76. Patient with no ST elevations or depressions concerning for STEMI. No previous EKGs for comparison. EKG interpreted by myself in [facility]. [PK] ED Course User Index [PK] Randee Monsivais MD Patient presenting for evaluation for syncopal episodes with postsurgical back pain. Given presentation patient was discussed with orthopedic surgery who initially recommended a medical admission for pain management. Medical team declined admitting the patient as they state this is a purely postsurgical complication. This was conveyed to the orthopedic surgery team who accepted patient admission to their service. They recommended getting lumbar x-rays while the patient was in the department. X-rays obtained with no acute findings. Also obtained a CT head, CT cervical spine and left hip x-ray all of which were unremarkable for acute findings. Discussed imaging results with the patient. Discussed with the patient plan for admission for further pain management has had received 2 doses of Dilaudid at home, Toradol here, morphine here, and Zofran here without improvement of symptoms. Patient verbalized understanding of information given and agreed to plan. Was admitted in stable condition to the orthopedic surgery service. All diagnostic, treatment, and disposition decisions were made by myself in conjunction with the Resident. I also supervised townsend portions of any procedures performed by the Resident. For all further details of the patient's emergency department visit, please see their documentation. (Please note that portions of this note may have been completed with a voice recognition program. Efforts were made to edit the dictations but occasionally words are mis-transcribed.) Randee Monsivais MD [employer] Randee Monsivais MD 12/04/21 045 [facility] ED Provider Note [facility] EMERGENCY DEPT EMERGENCY DEPARTMENT ENCOUNTER Pt Name: Sagrario Brannon Birthdate 1985 Date of evaluation: 12/03/2021 Provider: JOHN PAUL VASQUEZ MD CHIEF COMPLAINT Chief Complaint Patient presents with ? Back Pain Pt presents to ED via [facility] for lower back pain s/p surgery Friday. Pt sts he fell 3 times last night. Pt denies CP, SOB, and N/V at this time. The wound is bandaged. HISTORY OF PRESENT ILLNESS (Location/Symptom, Timing/Onset, Context/Setting, Quality, Duration, Modifying Factors, Severity) Note limiting factors. I wore a surgical mask for the entirety of this encounter. Does this patient come from an ECF, SNF, Rehab, Intermediate or other Congregate setting: Home (If yes to above patient needs a Covid-19 test) HPI Sagrario Brannon is a 36 y.o. male who presents to the emergency department for back pain. On Thursday 11/30 patient had surgery on his L5-S1 with Dr. Lovelace. This morning at 3 AM patient woke up with 10 out of 10 back pain. He tried to get up and walk but fell 3 times due to the pain. He originally presented to [place] where he was given Dilaudid and had DVT ultrasound of his left leg due to leg swelling. DVT scan was negative he was transferred to [facility] ED for further care. Patient continued to have 10/10 back pain last received Dilaudid at 1745. He does have tingling of his left foot. Denies fevers, chills, incontinence, dysuria, saddle anesthesia. Nursing Notes were reviewed. REVIEW OF SYSTEMS (2+ for level 4; 10+ for level 5) Review of Systems At least 10 systems reviewed and otherwise acutely negative except as in the ALUTIIQ. PAST MEDICAL HISTORY Past Medical History: Diagnosis Date ? Hypertension SURGICAL HISTORY Past Surgical History: Procedure Laterality Date ? BACK SURGERY CURRENT MEDICATIONS Previous Medications No medications on file ALLERGIES Vicodin hp [hydrocodone-acetami nophen] FAMILY HISTORY History reviewed. No pertinent family history. SOCIAL HISTORY Social History Socioeconomic History ? Marital status: Single Spouse name: None ? Number of children: None ? Years of education: None ? Highest education level: None Occupational History ? None Tobacco Use ? Smoking status: Never Smoker ? Smokeless tobacco: Never Used Vaping Use ? Vaping Use: Never used Substance and Sexual Activity ? Alcohol use: Never ? Drug use: Never ? Sexual activity: None Other Topics Concern ? None Social History Narrative ? None Social Determinants of Health Financial Resource Strain: ? Difficulty of Paying Living Expenses: Not on file Food Insecurity: ? Worried About Running Out of Food in the Last Year: Not on file ? Ran Out of Food in the Last Year: Not on file Transportation Needs: ? Lack of Transportation (Medical): Not on file ? Lack of Transportation (Non-Medical): Not on file Physical Activity: ? Days of Exercise per Week: Not on file ? Minutes of Exercise per Session: Not on file Stress: ? Feeling of Stress : Not on file Social Connections: ? Frequency of Communication with Friends and Family: Not on file ? Frequency of Social Gatherings with Friends and Family: Not on file ? Attends Yazidism Services: Not on file ? Active Member of Clubs or Organizations: Not on file ? Attends Club or Organization Meetings: Not on file ? Marital Status: Not on file Intimate Partner Violence: ? Fear of Current or Ex-Partner: Not on file ? Emotionally Abused: Not on file ? Physically Abused: Not on file ? Sexually Abused: Not on file Housing Stability: ? Unable to Pay for Housing in the Last Year: Not on file ? Number of Places Lived in the Last Year: Not on file ? Unstable Housing in the Last Year: Not on file SCREENINGS Lee Coma Scale Eye Opening: Spontaneous Best Verbal Response: Oriented Best Motor Response: Obeys commands Lee Coma Scale Score: 15 PHYSICAL EXAM (up to 7 for level 4, 8 or more for level 5) ED Triage Vitals BP Temp Temp src Pulse Resp SpO2 Height Weight -- -- -- -- -- -- -- -- Physical Exam Constitutional: General: He is not in acute distress. HENT: Head: Normocephalic and atraumatic. Mouth/Throat: Mouth: Mucous membranes are moist. Eyes: Extraocular Movements: Extraocular movements intact. Pupils: Pupils are equal, round, and reactive to light. Cardiovascular: Rate and Rhythm: Normal rate and regular rhythm. Pulses: Normal pulses. Heart sounds: Normal heart sounds. Pulmonary: Effort: Pulmonary effort is normal. Breath sounds: Normal breath sounds. Abdominal: General: There is no distension. Palpations: Abdomen is soft. Tenderness: There is no abdominal tenderness. Genitourinary: Comments: Good rectal tone. Musculoskeletal: Right lower leg: No edema. Left lower leg: No edema. Comments: Lumbar tenderness over incision site. [place] intact. No erythema, induration, fluctuance at (more content not included)... Normal [facility] Hematocrit Auto (Bld) [Volum e fraction]on 12-03-2021 Hematocrit (Bld) [Volume fraction] 46.4 % 40-54 [facility] Work Phone: Laboratory - Chemistry and C hemistry - challengeon 12-03-2021 CO2 [Moles/Vol] 25.0 mmol/L 21.0-32.0 [facility] Work Phone: Urea nitrogen/Creatinin e [Mass ratio] 9.7 mg/mg 10-20 [facility] Work Phone: Laboratory - Hematology and Cell countson 12-03-2021 Erythrocyte distribution width (RBC) [Entitic vol] 37.9 fL 35.1-43.9 [facility] Work Phone: Erythrocyte distribution width (RBC) [Ratio] 12.4 % 11.6-14.6 [facility] Work Phone: Immature granulocytes/100 WBC (Bld) 0.400 % 0.0-0.9 [facility] Work Phone: Comment on above: IG% - Immature Granu locytes (promyelocytes, myelocytes and metamyelocytes) > 1% indicates that a LEFT SHIFT is Present. MCH (RBC) [Entitic mass] 29.6 pg 27.0-32.0 [facility] Work Phone: Nucleated RBC/100 WBC (Bld) [Ratio] 0 % 0-5 [facility] Work Phone: MCHC Auto (RBC) [Mass/Vol]on 12-03-2021 MCHC (RBC) [Mass/Vol] 35.1 g/dL 32-36 [facility] Work Phone: No Panel Informationon 12-03 Radiology Study observation (narrative) [facility] Work Phone: Estimated Creatinine Clearance Calc 109.87 ml/min [facility] Work Phone: Estimated GFR (MDRD) Amer 105 mL/min >60 [facility] Work Phone: Comment on above: GFR Calc Estimated GFR (MDRD) Non-Af Amer 87 mL/min >60 [facility] Work Phone: Comment on above: Non- GFR Calc Platelets bldon 12-03-2021 Platelets (Bld) [#/Vol] 298 10*3/uL 150-450 [facility] Work Phone: Serum or plasma calcium comfort urement (mass/volume)on 12-03-2021 Calcium [Mass/Vol] 9.8 mg/dL 8.5-10.1 [facility] Work Phone: Serum or plasma creatinine m easurement (mass/volume)on 12-03-2021 Creatinine [Mass/Vol] 1.03 mg/dL 0.70-1.30 [facility] Work Phone: Comment on above: The validity of the calculated GFR & GFRAA in patients over 70 years has not been determined. Clinical correlation is essential. Serum or plasma urea nitroge n measurement (mass/volume)on 12-03-2021 Urea nitrogen [Mass/Vol] 10 mg/dL 7-18 [facility] Work Phone: Thin prep Papanicolaou smear with manual screeningon 12-03-2021 Thin prep Papanicolaou smear with manual screening 8 5-15 [facility] Work Phone: XR HIP LEFT (2-3 VIEWS)on Patient Name: SAGRARIO BRANNON Diagnostic Radiology ACCESSION EXAM DATE/TIME PROCEDURE ORDERING PROVIDER [id number] 12/03/2021 23:43 EDT CR Hip w/ Pelvis 2 or 3 [id number] -CICI HOLGUIN Views Left n CPT code 74543 Reason For Exam (CR Hip w/ Pelvis 2 or 3 Views Left n) pain s/p fall Report PELVIS AND LEFT HIP: CLINICAL INDICATION: Pain, fall. TECHNIQUE: AP pelvis plus AP and lateral views of the left hip COMPARISON: None. FINDINGS: There is no evidence for fracture or dislocation. The hips joints are unremarkable. The sacroiliac joints are normal. No bone lesion is identified. There is no soft tissue abnormality. IMPRESSION: No fracture or dislocation. Report Dictated on --- Final --- Dictated: 12/03/2021 11:50 pm Dictating Physician: MD CAIN KEVIN Signed Date and Time: 12/03/2021 11:50 pm Signed by: MD CAIN KEVIN Transcribed Date and Time: 12/03/2021 11:50 [facility] Dom Cain MD - 12/03/2021 Patient Name: SAGRARIO BRANNON Diagnostic Radiology ACCESSION EXAM DATE/TIME PROCEDURE ORDERING PROVIDER [id number] 12/03/2021 23:43 EDT CR Hip w/ Pelvis 2 or 3 [id number] -CICI HOLGUIN Views Left n CPT code 02583 Reason For Exam (CR Hip w/ Pelvis 2 or 3 Views Left n) pain s/p fall Report PELVIS AND LEFT HIP: CLINICAL INDICATION: Pain, fall. TECHNIQUE: AP pelvis plus AP and lateral views of the left hip COMPARISON: None. FINDINGS: There is no evidence for fracture or dislocation. The hips joints are unremarkable. The sacroiliac joints are normal. No bone lesion is identified. There is no soft tissue abnormality. IMPRESSION: No fracture or dislocation. Report Dictated on --- Final --- Dictated: 12/03/2021 11:50 pm Dictating Physician: MD CAIN KEVIN Signed Date and Time: 12/03/2021 11:50 pm Signed by: MD CAIN KEVIN Transcribed Date and Time: 12/03/2021 11:50 [facility] Work Phone: [facility] Work Phone: XR LUMBAR SPINE (2-3 VIEWS)o n 12-03-2021 Patient Name: SAGRARIO BRANNON Diagnostic Radiology ACCESSION EXAM DATE/TIME PROCEDURE ORDERING PROVIDER [id number] 12/03/2021 21:41 EDT CR Spine Lumbosacral 2 [id number] -CONSING, or 3 Views KATHRINA CPT code 07189 Reason For Exam (CR Spine Lumbosacral 2 or 3 Views) back pain s/p fall, surgery 4/1 on L5-S1 Report LUMBAR SPINE: CLINICAL INDICATION: back pain s/p fall, surgery 4/1 on L5-S1. TECHNIQUE: AP, lateral, and coned-down L5-S1. COMPARISON: None. FINDINGS: Five lumbar vertebrae are present. There are laminectomy changes at L4 and L5. The lumbar vertebrae demonstrate no wedge fracture or compression deformity. There is mild degenerative disc space narrowing at L4-L5 and L5-S1. There is no spondylolysis or spondylolisthesis. The pedicles and sacroiliac joints are unremarkable. No abnormal soft tissue calcifications are noted. Skin yayo overlie a lower back incision site. IMPRESSION: Postsurgical changes. No acute osseous abnormality of the lumbar spine. Report Dictated on --- Final --- Dictated: 12/03/2021 9:52 pm Dictating Physician: MD CAIN KEVIN Signed Date and Time: 12/03/2021 9:54 pm Signed by: MD CAIN KEVIN Transcribed Date and Time: 12/03/2021 9:52 [facility] Dom Cain MD - 12/03/2021 Patient Name: SAGRARIO BRANNON [facility]#: [id number] Diagnostic Radiology ACCESSION EXAM DATE/TIME PROCEDURE ORDERING PROVIDER [id number] 12/03/2021 21:41 EDT CR Spine Lumbosacral 2 [id number] -CONSING, or 3 Views KATHRINA CPT code 45362 Reason For Exam (CR Spine Lumbosacral 2 or 3 Views) back pain s/p fall, surgery 4/1 on L5-S1 Report LUMBAR SPINE: CLINICAL INDICATION: back pain s/p fall, surgery 4/1 on L5-S1. TECHNIQUE: AP, lateral, and coned-down L5-S1. COMPARISON: None. FINDINGS: Five lumbar vertebrae are present. There are laminectomy changes at L4 and L5. The lumbar vertebrae demonstrate no wedge fracture or compression deformity. There is mild degenerative disc space narrowing at L4-L5 and L5-S1. There is no spondylolysis or spondylolisthesis. The pedicles and sacroiliac joints are unremarkable. No abnormal soft tissue calcifications are noted. Skin yayo overlie a lower back incision site. IMPRESSION: Postsurgical changes. No acute osseous abnormality of the lumbar spine. Report Dictated on --- Final --- Dictated: 12/03/2021 9:52 pm Dictating Physician: MD CAIN KEVIN Signed Date and Time: 12/03/2021 9:54 pm Signed by: MD CAIN KEVIN Transcribed Date and Time: 12/03/2021 9:52 [facility] Work Phone: XR LUMBAR SPINE (2-3 VIEWS)O rdered By: Dom Cain on 12-03-2021 [facility] Work Phone: Clinical Summary: Felecia kylie 11-13-2021 76 OP Visit Invalid Interpretation Code [facility] Work Phone: Office Visit: New/Est - 1st visit with physician, Rm: 1on 11-13-2021 NEGATED: Highlighted rowMRI (magnetic resonance imaging) history of the Lumbar Spine on 06/20/2021 at [facility] Invalid Interpretation Code [facility] Work Phone: S. pyogenes Ag IF Ql (Throat ) S. pyogenes Ag IA Ql (Unsp spec) [facility] Work Phone: Vital Signs Date Time Vital Sign Value Performing Clinician Facility 07-26-2024 11:08-0500 Body height 177.8 cm William Bautista APRN.CNP, DNP Work Phone: [facility] 07-26-2024 11:08-0500 Body mass index (BMI) [Ratio] 40.46 kg/m2 William Bautista APRN.CNP, DNP Work Phone: [facility] 07-26-2024 11:08-0500 Body temperature 98.91 [degF] William Bautista APRN.TRAY CHECKER, DNP Work Phone: [facility] 07-26-2024 11:08-0500 Body weight 127.91 kg William Bautista APRN.TRAY CHECKER, DNP Work Phone: [facility] 07-26-2024 11:08-0500 Diastolic blood pressure 84 mm[Hg] William Bautista APRN.TRAY CHECKER, DNP Work Phone: [facility] 07-26-2024 11:08-0500 Heart rate 96 /min William Bautista APRN.TRAY CHECKER, DNP Work Phone: [facility] 07-26-2024 11:08-0500 Respiratory rate 14 /min William Bautista APRN.TRAY CHECKER, DNP Work Phone: [facility] 07-26-2024 11:08-0500 SaO2% (BldA) [Mass fraction] 98 % William Bautista APRN.TRAY CHECKER, DNP Work Phone: [facility] 07-26-2024 11:08-0500 Systolic blood pressure 122 mm[Hg] William Bautista APRN.TRAY CHECKER, DNP Work Phone: [facility] 06-26-2024 14:38-0400 Body temperature 97.39 [degF] Dinora Athy PA-C Work Phone: [facility] 06-26-2024 14:38-0400 Body weight 129 kg Dinora Athy PA-C Work Phone: [facility] 06-26-2024 14:38-0400 Diastolic blood pressure 91 mm[Hg] Dinora Athy PA-C Work Phone: [facility] 06-26-2024 14:38-0400 Heart rate 90 /min Dinora Athy PA-C Work Phone: [facility] 06-26-2024 14:38-0400 Respiratory rate 20 /min Dinora Athy PA-C Work Phone: [facility] 06-26-2024 14:38-0400 SaO2% (BldA) [Mass fraction] 98 % Dinora Lopez PA-C Work Phone: [facility] 06-26-2024 14:38-0400 Systolic blood pressure 124 mm[Hg] Dinora Lopez PA-C Work Phone: [facility] 08-23-2023 12:26-0500 Body temperature 97.7 [degF] Dom David MD Work Phone: [facility] 08-23-2023 12:26-0500 Body weight 122.02 kg Dom David MD Work Phone: [facility] 08-23-2023 12:26-0500 Diastolic blood pressure 84 mm[Hg] Dom David MD Work Phone: [facility] 08-23-2023 12:26-0500 Heart rate 82 /min Dom David MD Work Phone: [facility] 08-23-2023 12:26-0500 Respiratory rate 16 /min Dom David MD Work Phone: [facility] 08-23-2023 12:26-0500 SaO2% (BldA) [Mass fraction] 96 % Dom David MD Work Phone: [facility] 08-23-2023 12:26-0500 Systolic blood pressure 136 mm[Hg] Dom David MD Work Phone: [facility] 06-14-2022 18:39-0400 Body temperature 97.8 [degF] [facility] Work Phone: 06-14-2022 18:39-0400 Diastolic blood pressure 78 mm[Hg] [facility] Work Phone: 06-14-2022 18:39-0400 Heart rate 67 /min [facility] Work Phone: 06-14-2022 18:39-0400 Respiratory rate 16 /min [facility] Work Phone: 06-14-2022 18:39-0400 SaO2% (BldA) [Mass fraction] 98 % [facility] Work Phone: 06-14-2022 18:39-0400 Systolic blood pressure 134 mm[Hg] [facility] Work Phone: 06-14-2022 14:30-0400 Body height 180.34 cm [facility] Work Phone: 06-14-2022 14:30-0400 Body mass index (BMI) [Ratio] 39 kg/m2 [facility] Work Phone: 06-14-2022 14:30-0400 Body weight 127 kg [facility] Work Phone: 03-24-2022 01:51-0400 Diastolic blood pressure 74 mm[Hg] Dr. Denny Hanson Work Phone: [facility] Work Phone: 03-24-2022 01:51-0400 Heart rate 76 /min Dr. Denny Hanson Work Phone: [facility] Work Phone: 03-24-2022 01:51-0400 Respiratory rate 177 /min Dr. Denny Hanson Work Phone: [facility] Work Phone: 03-24-2022 01:51-0400 SaO2% (BldA) [Mass fraction] 98 % Dr. Denny Hanson Work Phone: [facility] Work Phone: 03-24-2022 01:51-0400 Systolic blood pressure 132 mm[Hg] Dr. Denny Hanson Work Phone: [facility] Work Phone: 03-24-2022 00:39-0400 Body temperature 98.2 [degF] Dr. Denny Hanson Work Phone: [facility] Work Phone: 03-24-2022 00:36-0400 Body height 182.[address] Denny Hanson Work Phone: [facility] Work Phone: 03-24-2022 00:36-0400 Body mass index (BMI) [Ratio] 39.2 kg/m2 Dr. Denny Hanson Work Phone: [facility] Work Phone: 03-24-2022 00:36-0400 Body weight 131.[address] Denny Hanson Work Phone: [facility] Work Phone: 12-10-2021 03:05-0400 Body temperature 96.91 [degF] Randee Monsivais MD Work Phone: [facility] 12-10-2021 03:05-0400 Diastolic blood pressure 69 mm[Hg] Randee Monsivais MD Work Phone: [facility] 12-10-2021 03:05-0400 Heart rate 80 /min Randee Monsivais MD Work Phone: [facility] 12-10-2021 03:05-0400 Respiratory rate 19 /min Randee Monsivais MD Work Phone: [facility] 12-10-2021 03:05-0400 Systolic blood pressure 114 mm[Hg] Randee Monsivais MD Work Phone: [facility] 12-09-2021 17:24-0400 SaO2% (BldA) [Mass fraction] 97 % Randee Monsivais MD Work Phone: [facility] 12-03-2021 20:30-0400 Body height 182.9 cm Randee Monsivais MD Work Phone: [facility] 12-03-2021 20:30-0400 Body mass index (BMI) [Ratio] 37.97 kg/m2 Randee Monsivais MD Work Phone: [facility] 12-03-2021 20:30-0400 Body weight 127.01 kg Randee Monsivais MD Work Phone: [facility] 12-03-2021 18:01-0400 Body temperature 98.6 [degF] Dr. Denny Hanson Work Phone: [facility] Work Phone: 12-03-2021 18:01-0400 Diastolic blood pressure 97 mm[Hg] Dr. Denny Hanson Work Phone: [facility] Work Phone: 12-03-2021 18:01-0400 Heart rate 78 /min Dr. Denny Hanson Work Phone: [facility] Work Phone: 12-03-2021 18:01-0400 Respiratory rate 18 /min Dr. Denny Hanson Work Phone: [facility] Work Phone: 12-03-2021 18:01-0400 SaO2% (BldA) [Mass fraction] 98 % Dr. Denny Hanson Work Phone: [facility] Work Phone: 12-03-2021 18:01-0400 Systolic blood pressure 138 mm[Hg] Dr. Denny Hanson Work Phone: [facility] Work Phone: 12-03-2021 04:38-0400 Body mass index (BMI) [Ratio] 39.4 kg/m2 Dr. Denny Hanson Work Phone: [facility] Work Phone: 12-03-2021 04:38-0400 Body weight 131.[address] Denny Hanson Work Phone: [facility] Work Phone: 06-13-2021 21:22-0400 Diastolic blood pressure 90 mm[Hg] CLIVE LOVELACE DO [facility] 06-13-2021 21:22-0400 Heart rate 112 /min CLIVE LOVELACE DO [facility] 06-13-2021 21:22-0400 Respiratory rate 20 /min CLIVE LOVELACE DO [facility] 06-13-2021 21:22-0400 Systolic blood pressure 131 mm[Hg] CLIVE LOVELACE DO [facility] 06-13-2021 20:10-0400 Body height 183 cm CLIVE LOVELACE DO [facility] 06-13-2021 20:10-0400 Body temperature 98.06 [degF] CLIVE LOVELACE DO [facility] 06-13-2021 20:10-0400 Body weight 132 kg CLIVE LOVELACE DO [facility] 06-13-2021 20:10-0400 Diastolic blood pressure 90 mm[Hg] CLIVE LOVELACE DO [facility] 06-13-2021 20:10-0400 Heart rate 117 /min CLIVE LOVELACE DO [facility] 06-13-2021 20:10-0400 Respiratory rate 22 /min CLIVE LOVELACE DO [facility] 06-13-2021 20:10-0400 Systolic blood pressure 131 mm[Hg] CLIVE LOVELACE DO [facility] NEGATED: Highlighted [id number] 10:55-0400 Body height 183 cm Odalys Ayala AT [facility] [place] [facility] Work Phone: NEGATED: Highlighted [id number] 10:55-0400 Body height 182.88 cm Odalys Ayala AT [facility] [place] [facility] Work Phone: NEGATED: Highlighted [id number] 10:55-0400 Body mass index (BMI) [Ratio] 39.34 kg/m2 Odalys Ayala AT [facility] [place] [facility] Work Phone: NEGATED: Highlighted [id number] 10:55-0400 Body weight 131 kg Odalys Ayala AT [facility] Work Phone: NEGATED: Highlighted [id number] 10:55-0400 Body weight 131.09 kg Odalys Ayala AT [facility] [place] [facility] Work Phone: NEGATED: Highlighted [id number] 10:55-0400 Diastolic blood pressure 94 mm[Hg] Odalys Ayala AT [facility] [place] [facility] Work Phone: NEGATED: Highlighted [id number] 10:55-0400 Systolic blood pressure 136 mm[Hg] Odalys Ayala AT [facility] Work Phone: NEGATED: Highlighted [id number] 14:46-0400 Body height 182.88 cm Rose Mary [place] AT [facility] [place] [facility] Work Phone: NEGATED: Highlighted [id number] 14:46-0400 Body height 183 cm Ros Emary [place] AT [facility] [place] [facility] Work Phone: NEGATED: Highlighted [id number] 14:46-0400 Body mass index (BMI) [Ratio] 39.34 kg/m2 Rose Mary [place] AT [facility] Work Phone: NEGATED: Highlighted [id number] 14:46-0400 Body weight 131.09 kg Rose Mary Garcia AT [facility] Work Phone: NEGATED: Highlighted [id number] 14:46-0400 Body weight 131 kg Rose Mary Garcia AT [facility] Work Phone: Encounters Encounter Date Encounter Type Care Provider Facility Start: 2025 ambulatory Marguerite Ayla Facility:[facility] Start: 06-21-2025 ambulatory MERLYN De La Rosa cility:[id number] Start: 06-14-2025 End: 06-14-2025 ambulatory Marck Lopez Facility:[facility] Start: 06-07-2025 End: 06-07-2025 ambulatory SUZI MARAVILLA Facility:[facility] Start: 01-01-2025 End: 01-01-2025 Emergency department patient visit Marck Lopez Facility:[facility] Start: 12-30-2024 End: 12-30-2024 Emergency department patient visit Marck Lopez Facility:[facility] Start: 10-27-2024 End: 10-28-2024 Emergency department patient visit Marck Lopez Facility:[facility] Start: 10-20-2024 End: 10-20-2024 ambulatory Marck Lopez Facility:[facility] Start: 08-03-2024 End: 08-16-2024 Telephone encounter William Bautista APRN.CNP, DNP Work Phone: Urology Comment on above: Results (Kidney US) Start: 08-02-2024 End: 08-02-2024 ambulatory SUZI MARAVILLA Facility:[facility] Start: 08-02-2024 End: 08-02-2024 Subsequent hospital visit by physician Us [facility] Work Phone: Radiology Comment on above: Dysuria [R30.0] Start: 07-27-2024 End: 07-27-2024 Telephone encounter William Bautista APRN.CNP, DNP Work Phone: Urology Comment on above: Results Start: 07-26-2024 End: 07-26-2024 Telephone encounter William Bautista APRN.CNP, DESTINY Work Phone: Urology Comment on above: Insurance Authorizat sergio Start: 07-26-2024 End: 07-26-2024 ambulatory DINORA LOPEZ Facility:[facility] Start: 07-26-2024 End: 07-26-2024 Patient encounter procedure William Bautista APRN.CNP, DESTINY Work Phone: Urology Comment on above: Dysuria (Primary Dx) ; Microscopic hematuria; Genital warts Start: 07-23-2024 End: 07-23-2024 ambulatory Marck Lopez Facility:[facility] Start: 06-27-2024 End: 06-27-2024 Telephone encounter Arben WOMACK Work Phone: [facility] Comment on above: Results Start: 06-26-2024 End: 06-26-2024 ambulatory SUZI MARAVILLA Facility:[facility] Start: 06-26-2024 End: 06-26-2024 Patient encounter procedure Dinora Lopez PA-C Work Phone: [facility] Comment on above: Screening for STD (s exually transmitted disease) (Primary Dx); Dysuria; Genital warts; Gross hematuria Start: 08-23-2023 End: 08-23-2023 Patient encounter procedure Dom David MD Work Phone: [facility] Comment on above: Non-recurrent acute suppurative otitis media of both ears without spontaneous rupture of tympanic membranes (Primary Dx) Start: 05-14-2023 End: 05-14-2023 Patient encounter procedure SAGRARIO CAAL APRN-TRAY CHECKER [facility] Start: 03-21-2023 End: 03-22-2023 ambulatory SUZI MARAVILLA [employer] - TRAY CHECKER Facility:B Start: 06-14-2022 End: 06-14-2022 Emergency department patient visit [facility] Start: 03-24-2022 End: 03-24-2022 Emergency department patient visit Dr. Denny Hanson Work Phone: [facility] Start: 12-20-2021 End: 12-20-2021 Pt evaluation Danica Whitlock APRN-TRAY CHECKER Work Phone: [facility] [place] [facility] Work Phone: Start: 12-03-2021 End: 12-10-2021 Evaluation and management of inpatient Randee Monsivais MD Work Phone: [facility] Comment on above: Acute midline low ba ck pain without sciatica (Primary Dx); Status post lumbar spine surgery for decompression of spinal cord Start: 12-03-2021 Non-patient / Non-visit Dr. Asuncion Hanson Work Phone: [facility] Start: 12-03-2021 End: 12-03-2021 Emergency department patient visit Dr. Denny Hanson Work Phone: [facility] Start: 06-13-2021 End: 06-13-2021 Emergency department patient visit CLIVE LOVELACE DO [facility] Start: 04-30-2021 End: 04-30-2021 ambulatory [facility] Procedures Date Procedure Procedure Detail Performing Clinician Start: 08-02-2024 Us retroperitoneal r eal time w/image complete William Bautista APRN.CNP DNP Work Phone: Start: 07-26-2024 Urnls dip stick/tabl et reagent auto microscopy William Bautista APRN.CNP DNP Work Phone: Start: 07-26-2024 Urnls dip stick/tabl et rgnt auto w/o microscopy William Bautista APRN.CNP DNP Work Phone: Start: 06-26-2024 Urnls dip stick/tabl et rgnt auto w/o microscopy Dinora Lopez PA-C Work Phone: Start: 12-20-2021 End: 12-20-2021 Calc BMI out nrm zen nof/u Danica Whitlock [employer] Work Phone: Start: 12-20-2021 End: 12-20-2021 Current tobacco non-user cad cap copd pv dm Danica Whitlock [employer] Work Phone: Start: 12-20-2021 End: 12-20-2021 Docrev cur meds by karma clin Danica Whitlock APRN-[facility] Work Phone: Start: 12-20-2021 End: 12-20-2021 Pain doc pos and plan Danica Whitlock APRN-TRAY CHECKER Work Phone: Start: 12-20-2021 End: 12-20-2021 Patient encounter procedure Danica Whitlock APRN-[facility] Work Phone: Start: 12-06-2021 Mri spinal canal lum bar w/o & w/contr matrl Cici Holguin MD Work Phone: Start: 12-04-2021 Ecg routine ecg w/le ast 12 lds w/i&r Randee Monsivais MD Work Phone: Start: 12-03-2021 Radex hip unilateral with pelvis 2-3 views Cici Holguin MD Work Phone: Start: 12-03-2021 Ct cervical spine w/ o contrast material John Paul Vasquez MD Work Phone: Start: 12-03-2021 Ct head/brain w/o contrast material John Paul Vasquez MD Work Phone: Start: 12-03-2021 Radex spine lumbosac ral 2/3 views John Paul Vasquez MD Work Phone: Foot structure (body structure) CLIVE LOVELACE DO Comment on above: right History 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 History of lumbar laminectomy for spinal cord decompression SAGRARIO CAAL [employer]TRAY CHECKER Streptococcus pyogen es antigen assay NEGATED: Highlighted rowStart: 12-20-2021 End: 12-20-2021 Documentation of current medications Odalys Lucy AT NEGATED: Highlighted rowStart: 11-13-2021 End: 11-13-2021 Documentation of current medications Rose Mary Garcia AT Plan of Treatment Date Care Activity Detail Author Start: 09-13-2024 End: 09-13-2024 Patient encounter procedure 09/13/2024 10:30 AM EST Office Visit Urology [address] [place], [place] [id number] William Bautista APRN.TRAY CHECKER, DNP [address] [place] [place], [place] [id number] 8 wk f/u-review [facility] Comment on above: 8 wk f/u-review US Start: 08-02-2024 End: 08-25-2025 US Kidney - bilateral and Urinary bladder US KIDNEY/BLADDER Radiology Routine Dysuria Microscopic hematuria Expected: 08/02/2024, Expires: 08/25/2025 [facility] Comment on above: Expected: 08/02/2024 , Expires: 08/25/2025 Start: 08-02-2024 End: 08-02-2024 Patient encounter procedure 08/02/2024 10:45 AM EST Appointment Radiology [address] [place], [place] [id number] Dysuria [R30.0]; Microscopic hematuria [R31.29] Radiology Comment on above: Dysuria [R30.0]; Freddy roscopic hematuria [R31.29] Start: 06-26-2024 End: 09-25-2024 Hepatitis B virus surface Ag [Presence] in Serum HEPATITIS B SURFACE ANTIGEN Lab Routine Screening for STD (sexually transmitted disease) Expected: 06/26/2024, Expires: 09/25/2024 [facility] Comment on above: Expected: 06/26/2024 , Expires: 09/25/2024 Start: 06-26-2024 End: 09-25-2024 Hepatitis C virus Ab [Presence] in Serum HEPATITIS C ANTIBODY IA WITH CONFIRMATION Lab Routine Screening for STD (sexually transmitted disease) Expected: 06/26/2024, Expires: 09/25/2024 [facility] Comment on above: Expected: 06/26/2024 , Expires: 09/25/2024 Start: 06-26-2024 End: 09-25-2024 HIV 1+2 Ab [Presence] in Serum or Plasma by Immunoassay HIV 1/2 COMBO WITH REFLEX TO DIFFERENTIATION Lab Routine Screening for STD (sexually transmitted disease) Expected: 06/26/2024, Expires: 09/25/2024 [facility] Comment on above: Expected: 06/26/2024 , Expires: 09/25/2024 Start: 06-26-2024 End: 09-25-2024 SYPHILIS TREPONEMAL W/REFLEX SYPHILIS TREPONEMAL W/REFLEX Lab Routine Screening for STD (sexually transmitted disease) Expected: 06/26/2024, Expires: 09/25/2024 [facility] [facility] Comment on above: Expected: 06/26/2024 , Expires: 09/25/2024 Start: 06-26-2024 End: 09-25-2024 TRICHOMONAS VAGINALIS NAAT [facility] Work Phone: Comment on above: Expected: 06/26/2024 , Expires: 09/25/2024 Start: 05-02-2024 Covid-19 Vaccine ( season) Covid-19 Vaccine ( season) [facility] Start: 05-02-2024 Influenza vaccination Influenza Vacc ine (#1) [facility] Start: 05-02-2023 Influenza vaccination Influenza Vacc ine (#1) [facility] Start: 09-01-2022 Depression Assessment Depression Ass essment [facility] Start: 05-02-2022 Influenza vaccination Flu vacc ine (Season Ended) [facility] Start: 12-20-2021 End: 12-20-2021 Patient encounter procedure Appointment [facility] Work Phone: Start: 12-18-2021 End: 12-18-2021 Patient encounter procedure Appointment [facility] Work Phone: Start: 12-03-[address] [facility] Work Phone: Start: 11-13-2021 End: 11-13-2021 Radex spine lumbosacral minimum 4 views XR LUMBAR 4VWS FLEX/EX [facility] Work Phone: Start: 2021 Lipid panel Lipid Screening [facility] Start: 2005 Hepatitis B Vaccine (1 of 3 - 19+ 3-dose series) Hepatitis B Vaccine (1 of 3 - 19+ 3-dose series) [facility] Start: 2005 Urine microalbumin profile DTaP,Tdap,Td Vaccine (1 - Tdap) [facility] Start: 2004 Anxiety Screening Anxiety Screening [facility] Start: 2004 Depression Screening Depression Scre ening [facility] Start: 2004 Hepatitis C screening Hepatitis C Sc reening [facility] Start: 2004 HIV screening HIV Screening [facility] Start: 1991 COVID-19 Vaccine (1) COVID-19 Vaccin e (1) [facility] Start: 1986 Covid-19 Vaccine (#1) Covid-19 Vacci ne (#1) [facility] Start: 1986 Hepatitis B Vaccine (1 of 3 - 3-dose series) Hepatitis B Vaccine (1 of 3 - 3-dose series) [facility] Bacteria identified in Urine by Culture URINE CULTURE Microbiology Routine Dysuria Ordered: 06/26/2024 [facility] Comment on above: Ordered: 06/26/2024 Chlamydia trachomatis+Neisseria gonorrhoeae DNA [Presence] in Unspecified specimen by JAYLA with probe detection GONORRHEA/CHLAMYDIA NAAT Lab Routine Screening for STD (sexually transmitted disease) 06/26/2024 3:43 PM EDT [facility] Oxygen therapy [[facility] Data Set] Initiate Oxygen Therapy Protocol Respiratory Care Routine As Needed until discontinued starting 12/04/2021 [facility] Work Phone: Comment on above: As Needed until disc ontinued starting 12/04/2021 Patient Education \cps-sql1\CPS_ PtEducation \CDC_FALL_PREVENTION.pdf [facility] Work Phone: Patient Education [facility] Work Phone: Patient referral [facility] Work Phone: POST VOID RESIDUAL POST VOID RES IDUAL Procedures Routine Dysuria Microscopic hematuria Genital warts Ordered: 07/26/2024 [facility] Work Phone: Comment on above: Ordered: 07/26/2024 Streptococcus pyogen es antigen assay Group A Streptococcus Rapid Screen [facility] Work Phone: Payers Date Payer Category Payer Self-pay [id number] 2022 Medicaid [id number] 2022 Medicaid [id number] 1985 Unknown [id number] [id number] Unknown [id number] Unknown [id number] [id number] Unknown [id number] [id number] [id number] Unknown [id number] 2.16.8 [id number] Unknown [id number] [id number] Unknown [id number] [id number] Unknown [id number] 2.16.8 [id number] Unknown [id number] [id number] [id number] Social History Date Type Detail Facility Start: 06-30-2019 End: 07-26-2024 Ex-smoker (finding) [facility] Start: 1985 Sex Assigned At Male A [facility] Start: 03-24-2022 End: 06-14-2022 Assertion Unknown if ever smoked [facility] [place] [facility] Work Phone: Start: 12-03-2021 End: 05-29-2023 Tobacco smoking status DCIS Never smoked tobacco [facility] Start: 12-03-2021 End: 05-29-2023 Tobacco use and exposure Smokeless tobacco non-user [facility] Work Phone: Start: 12-05-2021 Alcohol intake Lifetime non-d nina (finding) [employer] Work Phone: Start: 12-03-2021 History SDOH Alcohol Frequency 1 [employer] Work Phone: Start: 1985 Sex Assigned At Not on file [facility] Work Phone: Start: 11-23-2021 End: 12-03-2021 Exposure to SARS-CoV-2 (event) Not sure [facility] Work Phone: Start: 11-02-2019 None [place] [facility] Work Phone: Start: 04-07-2020 Alone [place] [facility] Work Phone: Start: 03-19-2021 Secondhand [place] [facility] Work Phone: History of tobacco use Passive smoker [facility] Start: 08-23-2023 End: 07-26-2024 Alcohol intake Current drinker of alcohol (finding) [facility] Start: 08-23-2023 End: 07-26-2024 History of Social function [facility] Start: 08-23-2023 End: 07-26-2024 Tobacco use panel [facility] History of tobacco use Current smoker [facility] History of tobacco use Cigarette Smoker [facility] Start: 07-26-2024 Tobacco use and exposure Former smokeless tobacco user [facility] History of tobacco use Chews Tobacco [facility] National Score (1-100), lower number is lower risk 47 [facility] Start: 07-26-2024 Alcohol Comment [facility] Mental Status Date Assessment Result Facility 03-24-2022 Cognitive function Level Of Cons ciousness Awake;Alert;Appropriate;Follow s Commands [facility] Work Phone: Clinical Notes 05-30-2021 to 06-07-2025 Telephone Encounter - Louise BeckMATILDE - 08/16/2024 4:46 PM ESTTelephone Encounter - Louise BeckMATILDE - 08/16/2024 4:46 PM ESTTelephone Encounter - Louise Beck [facility] - 08/16/2024 4:37 PM EST Note Date & Type Note Facility 06-07-2025 Note HNO ID: [id number] Author: PEDRITO SERRANO PA-C Service: ? Author Type: Physician [facility] Interpretive Specialist Type: Progress Notes Filed: 06/07/2025 17:09 Note Text: [facility] [place] EST PATIENT CLINIC NOTE (M) Some elements copied from his previous note, which have been updated where appropriate, and all reflect current medical decision making from date of this visit. Note was generated by [employer] and edited as appropriate SERVICE DATE: June 07, 2025 NAME: Sagrario Brannon GENDER: male CHIEF COMPLAINT: The patient is a 39-year-old male presenting for evaluation of penile lesions refractory to topical therapy and referral for surgical removal. HISTORY OF PRESENT ILLNESS: The patient is a 39-year-old male presenting for evaluation of penile lesions refractory to topical therapy and referral for surgical removal. The patient is a 39-year-old male presenting for evaluation of penile lesions and back pain. Penile Lesions: - Lesions on the shaft of the penis, with additional itching in the groin area. - Lesions reportedly worsened after using Aldara cream. - Denies previous presence of lesions in the creases of the legs. - Recent testing at urgent care included gonorrhea and chlamydia; unsure if HSV or HPV testing was performed. Back Pain: - Chronic back pain, managed with magnesium supplementation. - Reports that magnesium also induces drowsiness. LABS: No results found for: PSA No results found for: CREAT No results found for: TESTOST No results found for: HCT No results found for: PSA MEDICATIONS: escitalopram oxalate (LEXAPRO) 20 mg tablet Take 1 tablet by mouth every afternoon. meloxicam (MOBIC) 15 mg tablet Take 1 tablet by mouth every afternoon. (Patient not taking: Reported on 06/26/2024) omeprazole (PRILOSEC) 40 mg capsule Take 1 capsule by mouth every afternoon. (Patient not taking: Reported on 06/26/2024) cholecalciferol, Vitamin D3, (VITAMIN D3) 1,250 mcg (50,000 unit) cap capsule take 1 capsule by mouth every month (Patient not taking: Reported on 06/07/2025) lidocaine (LIDODERM) 5 % apply 1 patch topically once daily *ON FOR 12 HOURS AND OFF FOR 12 HOURS* (Patient not taking: Reported on 06/26/2024) sildenafil (VIAGRA) 50 mg tablet Take 1 tablet by mouth every afternoon. (Patient not taking: Reported on 06/26/2024) PAST MEDICAL HISTORY: PAST MEDICAL HISTORY Diagnosis Date Chronic back pain Genital warts GERD (gastroesophageal reflux disease) Impotence Marijuana user Multiple joint pain Nerve root disorder Nontoxic single thyroid nodule Obesity with body mass index 30 or greater Spondylosis Vitamin D deficiency REVIEW OF SYSTEMS: Constitutional: (+) somnolence Musculoskeletal: (+) back pain Genitourinary: (+) penile lesions, (+) groin pruritus, (+) genital burning sensation PHYSICAL EXAMINATION: General: Alert AND oriented, no acute distress Skin: Normal HEENT: Pupils equal, round. Oral cavity, oropharynx clear Neck: Supple, no mass Breast: Deferred Respiratory: Clear to auscultation, bilaterally Cardiovascular: Regular rate and rhythm, no murmurs, rubs, or gallops Abdomen: Soft, non-tender, non-distended, no masses palpable, no hepatosplenomegaly, normal bowel sounds Genitourinary: Lesions noted on the shaft of the penis and in the groin area MSK: Back is non-tender Extremities: No clubbing, cyanosis, or edema The patient or authorized auto service representative has verbally agreed to proceed with the sensitive examination. (Sensitive examination includes inspection and/or palpation of the breasts, pelvis, prostate and anorectal regions) PROBLEM LIST REVIEW: Yes LABS: Results for orders placed or performed in visit on 06/07/25 UA DIP, URINE (POC) Result Value Ref Range GLUCOSE UA (POCT) Negative Negative mg/dL BILIRUBIN UA (POCT) Negative Negative KETONE UA (POCT) Negative Negative mg/dL SPECIFIC GRAVITY UA (POCT) >=1.030 1.005 - 1.030 HEMOGLOBIN/BLOOD UA (POCT) Negative Negative PH UA (POCT) 6.0 4.5 - 8.0 PROTEIN UA (POCT) Negative Negative mg/dL UROBILINOGEN UA (POCT) 0.2 Normal E.U./dL NITRITE UA (POCT) Negative Negative LEUKOCYTES UA (POCT) Negative Negative COLOR UA (POCT) Yellow CLARITY UA (POCT) Clear ASSESSMENT/PLAN: 1. Genital warts (A63.0) - Lesions present on the shaft of the penis and in the groin area. Previous treatment with Aldara cream was ineffective and reportedly worsened the condition. Discussed potential for cryotherapy for lesions on the shaft of the penis. Groin area lesions likely due to a yeast infection; discussed the need for specific antifungal treatment. Referral to a specialist in [place] for evaluation and potential surgical removal. Will contact the medical scheduler at [place] to confirm availability and timeframe for the procedure and will notify the patient via phone. 2. Screening for gen (more content not included)... [facility] 08-16-2024 Telephone encounter Note Patient called. Verified name and date of . Informed of results- verbalizes understanding. States he has increased water intake. Louise Beck LPN [facility] 08-16-2024 Miscellaneous Notes Patient called. Verified name and date of . Informed of results- verbalizes understanding. States he has increased water intake. Louise Beck LPN Called patient. No answer. Left message to call clinic for results. Louise Beck LPN Patient returned call. Please contact patient with results. Shante Belle Left vm for patient to call for results. ----- Message from William Bautista APRN.DESTINY UNGER sent at 08/02/2024 10:41 PM EST ----- Inform of a Negative Ultrasound. William Bautista DNP, UTE Department of Urology [facility] documented in this encounter [facility] 08-16-2024 Telephone encounter Note Called patient. No answer. Left message to call clinic for results. Louise Beck LPN [facility] 08-16-2024 Telephone encounter Note Patient returned call. Please contact patient with results. Shante Belle [facility] 08-03-2024 Telephone encounter Note Left vm for patient to call for results. ----- Message from William Bautista APRN.DESTINY UNGER sent at 08/02/2024 10:41 PM EST ----- Inform of a Negative Ultrasound. William Bautista DNP, UTE Department of Urology [facility] 08-02-2024 History of Presen t illness Narrative Radiology Service Progress Note PATIENT NAME: Sagrario Brannon DATE OF SERVICE: August 02, 2024 TIME: 1:27 PM PATIENT IDENTITY VERIFICATION COMPLETED USING TWO (2) IDENTIFIERS: Name and Date of confirmed by patient verbally. FALL SCREENING: Has the patient had 2 falls in the last year or 1 fall with injury or currently using an Ambulatory Assistive Device (Walker, Cane, Wheelchair, Crutches, etc.)? No PATIENT GENDER DATA: Male PATIENT RELEVANT IMPLANT DATA REVIEWED: Not Applicable PATIENT PRESENTS WITH AN IMPLANTABLE OR ATTACHED SALES OPERATIONS: No RADIOLOGY DEPARTMENT: Ultrasound PERIPHERAL IV DATA: Not applicable SIGNED BY: Rachel Costa RDMS RVMike August 02, 2024 1:27 PM documented in this encounter [facility] 08-02-2024 Note HNO ID: [id number] Author: RACHEL COSTA RDMS Service: ? Author Type: Vegetable [employer]er Type: Progress Notes Filed: 08/02/2024 13:27 Note Text: Radiology Service Progress Note PATIENT NAME: Sagrario Brannon DATE OF SERVICE: August 02, 2024 TIME: 1:27 PM PATIENT IDENTITY VERIFICATION COMPLETED USING TWO (2) IDENTIFIERS: Name and Date of confirmed by patient verbally. FALL SCREENING: Has the patient had 2 falls in the last year or 1 fall with injury or currently using an Ambulatory Assistive Device (Walker, Cane, Wheelchair, Crutches, etc.)? No PATIENT GENDER DATA: Male PATIENT RELEVANT IMPLANT DATA REVIEWED: Not Applicable PATIENT PRESENTS WITH AN IMPLANTABLE OR ATTACHED SALES OPERATIONS: No RADIOLOGY DEPARTMENT: Ultrasound PERIPHERAL IV DATA: Not applicable SIGNED BY: Rachel Costa RDMS RVT August 02, 2024 1:27 PM [facility] 07-27-2024 Telephone encounter Note Pt notified and verbalizes understanding. Bradly Doan MA [facility] 07-27-2024 Miscellaneous Notes Pt notified and verbalizes understanding. Bradly Doan MA Left message for pt to return call. Bradly Doan MA ----- Message from William Bautista APRN.DESTINY UNGER sent at 07/27/2024 8:35 AM EST ----- Team- please inform patient; Urine is negative for blood. Trace amount or protein and a few casts which are not significant. return to clinic for any blood seen in urine or return of symptoms. See you in 8 weeks for follow up William Bautista DNP, CNP Department of Urology [facility] documented in this encounter [facility] 07-27-2024 Telephone encounter Note Left message for pt to return call. Bradly Doan MA [facility] 07-27-2024 Telephone encounter Note ----- Message from William Bautista APRN.DESTINY UNGER sent at 07/27/2024 8:35 AM EST ----- Team- please inform patient; Urine is negative for blood. Trace amount or protein and a few casts which are not significant. return to clinic for any blood seen in urine or return of symptoms. See you in 8 weeks for follow up William Bautista DNP, CNP Department of Urology [facility] 07-26-2024 Telephone encounter Note Spoke with provider regarding issue with prior authorization. Per William, he did let patient know that he would likely need to go through [employer] and had reviewed this with him. Called patient. Verified name and date of . Patient informed- verbalizes understanding and aware of [employer]. Luoise Beck LPN [facility] 07-26-2024 Miscellaneous Notes Spoke with provider regarding issue with prior authorization. Per William, he did let patient know that he would likely need to go through [employer] and had reviewed this with him. Called patient. Verified name and date of . Patient informed- verbalizes understanding and aware of [employer]. Louise Beck LPN Called [facility]- spoke with Valarie in pharmacy. Per Shreya she has run the medication three different ways and it is saying prior authorization is required. Louise Beck LPN Submitted prior authorization for Aldara. Received message on CoverMyMeds: Drug not found or invalid NDC submitted in request. Louise Beck LPN Called patient. Verified name and date of . Patient does not have insruance information in scanned docs. Did have his card on hand. Submitting Prior Authorization for aldara. Louise Beck LPN documented in this encounter [facility] 07-26-2024 Telephone encounter Note Called [facility]- spoke with Valarie in pharmacy. Per Shreya she has run the medication three different ways and it is saying prior authorization is required. Louise Beck LPN [facility] 07-26-2024 Telephone encounter Note Submitted prior authorization for Aldara. Received message on CoverMyMeds: Drug not found or invalid NDC submitted in request. Louise Beck LPN [facility] 07-26-2024 Telephone encounter Note Called patient. Verified name and date of . Patient does not have insruance information in scanned docs. Did have his card on hand. Submitting Prior Authorization for aldara. Louise Beck LPN [facility] 07-26-2024 Instructions William Bautista APRN.DESTINY UNGER - 07/26/2024 11:38 AM EST Schedule US - will call with results. Start Aldara cream 3x per week apply at bedtime use for 8 weeks then follow up with William Bautista APRN.DESTINY UNGER Urine test is pending will call with results. Follow up with William Bautista APRN.CNP, DNP in 8 weeks Avoid bladder irritants - coffee, tea, cola drinks, chocolate, alcohol, artificial sweeteners and cigarettes I discussed treatment options at length including r/b/a of each: To include Medication therapy and the role of further evaluation with TRUS and cysto if indicated. Return to the clinic or seek care at [facility] for any worsening signs or symptoms: such as fevers, chills, worsening pain, gross blood in urine or worsening urinary symptoms. For severe symptoms seek care at the closest ER. Plan of care, medicaiton side effects and management reviewed with patient. Healthy Habits: Recommend regular physical activity, nutrition and healthy eating habits. Consume a variety of foods every day focusing on fruits, vegetables and lean meats). Eat foods low in fat, saturated fat and cholesterol. Eat a limited amount of salt and sodium. Drink adequate amounts of water and limit sugary drinks. Exercise portion control in meal selection. Establish a mindset of a wellness approach to health. Thank you for allowing me to provide your care today. I look forward to seeing you again and maintaining your health. William Bautista APRN.DESTINY UNGER documented in this encounter [facility] 07-26-2024 History of Presen t illness Narrative [facility] M[facility] PATIENT - HISTORY AND PHYSICAL EXAMINATION PATIENT: Sagrario Brannon (39 year old) PCP: Suzi Maravilla, DIRECTOR OF CARDIOPULMONARY SERVICES, TRAY CHECKER Consultation requested by Dr. Dinora Lopez [id number] [facility] [id number] for an opinion regarding dysuria and my final recommendations will be communicated back to the requesting physician by way of shared Medical record or letter via [place] mail. CHIEF COMPLAINT: HISTORY OF PRESENT ILLNESS: 39 year old year old male with dysuria Past med Hx: GERD, Genital Warts, Chronic Pain, Marijuana use, Obesity Seen in [facility] last month for dysuria. He denies any flank pain. Denies any drainage from his penis. He did have a new sexual partner about 4 months ago and had some burning right after but really went away so was not seen for it. Developed some bumps on the shaft of his penis 2 months ago that have not gone away. They are not painful. He denies fever. History of kidney stone 1 time in the past. He had the flank pain but does not have at this time. He did notice some blood in his urine. Not having any testicular pain. Neg STD testing: Latest Ref Rng 06/26/2024 Neisseria gonorrhoeae RNA Negative for Neisseria gonorrhoeae by amplification Negative for Neisseria gonorrhoeae by amplification Chlamydia trachomatis RNA Negative for Chlamydia trachomatis by amplificaton Negative for Chlamydia trachomatis by amplification Culture No growth (<1,000 CFU/ml) Trichomonas vaginalis RNA Negative for Trichomonas vaginalis by amplification Negative for Trichomonas vaginalis by amplification PRESENTING HISTORY: Hematuria: gross Obstructive voiding symptoms: weak stream. Irritative voiding symptoms: none Urinary retention: no Urinary incontinence: no Urinary tract infection: no Patient Entered Questionnaires: INTERNATIONAL PROSTATE SYMPTOM SCORE (I-PSS) 1)INCOMPLETE EMPTYING Over the past month, how often have you had a sensation of not emptying your bladder completely after you finished urinating? SCORE: 3- About half the time 2)FREQUENCY Over the past month, how often have you had to urinate again less than two hours after you finished urinating? SCORE: 0- Not at all 3)INTERMITTENCY Over the past month, how often have you found you stopped and started again several times when you urinated? SCORE: 3- About half the time 4)URGENCY Over the past month, how often have you found it difficult to postpone urination? SCORE: 0- Not at all 5)WEAK STREAM Over the past month, how often have you had a weak stream? SCORE: 2- less than half the time 6)STRAINING Over the past month, how often have you had to push or strain to begin urination SCORE: 1- Less than 1 time in 5 7)NOCTURIA Over the past month, how many times did you most typically get up to urinate from the time you went to bed at night until the time you get up in the morning? SCORE:0 TOTAL I-PSS SCORE: 8 QUALITY OF LIFE DUE TO URINARY SYMPTOMS If you were to spend the rest of yur life with your urinary condition just the way it is now, how would you feel about that? 3- Mixed- equally satisfied and dissatisfied PROMIS Global Health Percentiles provide an indication of how the patient's score ranks in relation to the general population. Higher percentile rankings indicate better function/quality of life. 50th percentile is the average of the general population and indicates half of respondents had a worse score. HISTORY: PAST MEDICAL HISTORY Diagnosis Date Chronic back pain Genital warts GERD (gastroesophageal reflux disease) Impotence Marijuana user Multiple joint pain Nerve root disorder Nontoxic single thyroid nodule Obesity with body mass index 30 or greater Spondylosis Vitamin D deficiency PAST SURGICAL HISTORY Procedure Laterality Date PAST SURGICAL HISTORY OF H/O Spinal surgery PAST SURGICAL HISTORY OF Right 2013 Foot PAST SURGICAL HISTORY OF Right 2014 meniscus repair TONSILLECTOMY & ADENOIDECTOMY AGE 13/> Social History Tobacco Use Smoking status: Former Types: Cigarettes Passive exposure: Yes Smokeless tobacco: Former Types: Chew Vaping Use Vaping status: current everyday user Substances: THC, CBD, Flavoring Devices: Disposable Substance Use Topics Alcohol use: Yes Comment: Occasionally Drug use: Yes Frequency: 7.0 times per week Types: Marijuana Comment: 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 imiquimod (ALDARA) 5 % cream Apply 1 Packet to affected area three times a week. At bedtime meloxicam (MOBIC) 15 mg tablet Take 1 tablet by mouth every afternoon. (Patient not taking: Reported on 06/26/2024) omeprazole (PRILOSEC) 40 mg capsule Take 1 capsule by mouth every afternoon. (Patient not taking: Reported on 06/26/2024) cholecalciferol, Vitamin D3, (VITAMIN D3) 1,250 mcg (50,000 unit) cap capsule take 1 capsule by mouth every month (Patient not taking: Reported on 06/26/2024) lidocaine (LIDODERM) 5 % apply 1 patch topically once daily *ON FOR 12 HOURS AND OFF FOR 12 HOURS* (Patient not taking: Reported on 06/26/2024) sildenafil (VIAGRA) 50 mg tablet Take 1 tablet by mouth every afternoon. (Patient not taking: Reported on 06/26/2024) No current facility-administered medications for this visit. LABS: Latest Ref Rng 07/26/2024 GLUCOSE UA (POCT) Negative mg/dL Negative BILIRUBIN UA (POCT) Negative Negative KETONE UA (POCT) Negative mg/dL Negative SPECIFIC GRAVITY UA (POCT) 1.005 - 1.030 >=1.030 HEMOGLOBIN/BLOOD UA (POCT) Negative Trace-intact ! PH UA (POCT) 4.5 - 8.0 5.5 PROTEIN UA (POCT) Negative mg/dL Negative UROBILINOGEN UA (POCT) Normal E.U./dL 0.2 NITRITE UA (POCT) Negative Negative LEUKOCYTES UA (POCT) Negative Negative COLOR UA (POCT) Yellow CLARITY UA (POCT) Slightly Cloudy Legend: ! Abnormal GLUCOSE UA (POCT) Negative 06/26/2024 BILIRUBIN UA (POCT) Negative 06/26/2024 KETONE UA (POCT) Negative 06/26/2024 SPECIFIC GRAVITY UA (POCT) >=1.030 06/26/2024 HEMOGLOBIN/BLOOD UA (POCT) Large 06/26/2024 PH UA (POCT) 5.5 06/26/2024 PROTEIN UA (POCT) Negative 06/26/2024 UROBILINOGEN UA (POCT) 0.2 06/26/2024 NITRITE UA (POCT) Negative 06/26/2024 LEUKOCYTES UA (POCT) Negative 06/26/2024 COLOR UA (POCT) Yellow 06/26/2024 CLARITY UA (POCT) Clear 06/26/2024 Creatinine No results found for: CREAT PSA No results found for: PSA OFFICE DATA: POST-VOID RESIDUAL BLADDER VOLUME: YES, 0 cc IMAGING: No results found. Review of Systems: PAIN ASSESSMENT: CURRENTLY HAVING NO PAIN GENERAL: No weight loss, malaise or fevers GI: No nausea, vomiting MUSCULOSKELETAL: Negative for generalized joint pain SKIN: Negative for rash HEMATOLOGY/LYMPHOLOGY: Negative for swollen nodes All other systems reviewed and noncontributory PHYSICAL EXAMINATION: The sensitive examination was discussed with the Patient or Patient's Authorized Costume Design Teacher. As applicable, any other physician, advance practice provider, medical student, or other health professional student that will be observing or involved in the sensitive examination for educational or training purposes was discussed with the Patient or Authorized Costume Design Teacher. The Patient or Authorized Costume Design Teacher has agreed to proceed with the sensitive examination. (Sensitive examination includes inspection and/or palpation of the breasts, pelvis, prostate and anorectal regions) VITALS: BP 122/84 (BP Site: Right Arm, BP Position: Sitting, BP Cuff Size: Large Adult) Pulse 96 Temp 37.2 C (98.9 F) (Temporal) Resp 14 Ht 177.8 cm (5' 10) Wt 127.9 kg (282 lb) SpO2 98% BMI 40.46 kg/m GENERAL: alert, no distress, normal affect RESPIRATORY: normal effort Male : Penis: Normal. Circumcised. No ulcerations. No urethral discharge. 3 small flesh colored lesions noted to the right side of penile shaft. Scrotum: No erythema or lesions. No scrotal mass/tenderness/edema. No epididymal mass or swelling/tenderness of epididymis. No varicocele/hydrocele. Testicle: No mass, cyst or tenderness No inguinal adenopathy No inguinal or femoral hernia detected EXTREMITIES: normal SKIN: normal NEUROLOGIC: normal ASSESSMENT and PLAN 1. Dysuria - ICD9: 788.1, ICD10: R30.0 (primary diagnosis) 39y/o male with recent hx of dysuria and genital warts. Unclear etiology - STD testing negative. UC negative. Symptoms have resolved. Symptoms only last that single day. None since. Hx of kidney stones. Consider he passed a kidney stone. Will obtain a RBUS. I also discussed the role of further evaluation with cytology, CTU, TRUS and cysto if indicated. No current symptoms. PVR = 0ml UA = trace bld - send for ua micro. Plan: Hydrate well. Cont to monitor. Avoid bladder irritants - coffee, tea, cola drinks, chocolate, alcohol, artificial sweeteners and cigarettes - POST VOID RESIDUAL - UA DIP, URINE (POC) - URINALYSIS WITH MICROSCOPIC, REFLEX CULTURE - US KIDNEY/BLADDER 2. Microscopic hematuria - ICD9: 599.72, ICD10: R31.29 Plan as above. Unclear etiology - STD testing negative. Pending ua micro - repeat UA and consider Cytology/CTU/Cysto - POST VOID RESIDUAL - UA DIP, URINE (POC) - URINALYSIS WITH MICROSCOPIC, REFLEX CULTURE - US KIDNEY/BLADDER 3. Genital warts - ICD9: 078.11, ICD10: A63.0 Chronic Lesions present for months. Probable GW. Plan: Trial of Aldara. follow up in 8 weeks - POST VOID RESIDUAL - IMIQUIMOD 5 % TOPICAL CREAM PACKET William Bautista DNP, UTE Department of Urology [facility] Verified name and date of . CC Post Void Residual HPI: P atient is here now for an appointment with Brittni Thomas APRN, DNP Procedure: Explained procedure to patient and verbalizes understanding. Performed a PVR. Patient urinated and instructed to empty bladder as much as possible just prior to having PVR done using bladder ultrasound scanner. Results of scan: 0 mL The patient tolerated the procedure well. Plan: Appointment with William. documented in this encounter [facility] 07-26-2024 Note HNO ID: [id number] Author: WILLIAM BAUTISTA APRN.DESTINY UNGER Service: ? Author Type: Nurse Practitioner Type: Progress Notes Filed: 07/26/2024 17:15 Note Text: [facility] MALE PATIENT - HISTORY AND PHYSICAL EXAMINATION PATIENT: Sagrario Brannon (39 year old) PCP: Suzi Maravilla, CHITRA, TRAY CHECKER Consultation requested by Dr. Dinora Lopez [phone] [facility] [id number] for an opinion regarding dysuria and my final recommendations will be communicated back to the requesting physician by way of shared Medical record or letter via US mail. CHIEF COMPLAINT: HISTORY OF PRESENT ILLNESS: 39 year old year old male with dysuria Past med Hx: GERD, Genital Warts, Chronic Pain, Marijuana use, Obesity Seen in [facility] last month for dysuria. He denies any flank pain. Denies any drainage from his penis. He did have a new sexual partner about 4 months ago and had some burning right after but really went away so was not seen for it. Developed some bumps on the shaft of his penis 2 months ago that have not gone away. They are not painful. He denies fever. History of kidney stone 1 time in the past. He had the flank pain but does not have at this time. He did notice some blood in his urine. Not having any testicular pain. Neg STD testing: Latest Ref Rng 06/26/2024 Neisseria gonorrhoeae RNA Negative for Neisseria gonorrhoeae by amplification Negative for Neisseria gonorrhoeae by amplification Chlamydia trachomatis RNA Negative for Chlamydia trachomatis by amplificaton Negative for Chlamydia trachomatis by amplification Culture No growth (<1,000 CFU/ml) Trichomonas vaginalis RNA Negative for Trichomonas vaginalis by amplification Negative for Trichomonas vaginalis by amplification PRESENTING HISTORY: Hematuria: gross Obstructive voiding symptoms: weak stream. Irritative voiding symptoms: none Urinary retention: no Urinary incontinence: no Urinary tract infection: no Patient Entered Questionnaires: INTERNATIONAL PROSTATE SYMPTOM SCORE (I-PSS) 1)INCOMPLETE EMPTYING Over the past month, how often have you had a sensation of not emptying your bladder completely after you finished urinating? SCORE: 3- About half the time 2)FREQUENCY Over the past month, how often have you had to urinate again less than two hours after you finished urinating? SCORE: 0- Not at all 3)INTERMITTENCY Over the past month, how often have you found you stopped and started again several times when you urinated? SCORE: 3- About half the time 4)URGENCY Over the past month, how often have you found it difficult to postpone urination? SCORE: 0- Not at all 5)WEAK STREAM Over the past month, how often have you had a weak stream? SCORE: 2- less than half the time 6)STRAINING Over the past month, how often have you had to push or strain to begin urination SCORE: 1- Less than 1 time in 5 7)NOCTURIA Over the past month, how many times did you most typically get up to urinate from the time you went to bed at night until the time you get up in the morning? SCORE:0 TOTAL I-PSS SCORE: 8 QUALITY OF LIFE DUE TO URINARY SYMPTOMS If you were to spend the rest of yur life with your urinary condition just the way it is now, how would you feel about that? 3- Mixed- equally satisfied and dissatisfied PROMIS Global Health Percentiles provide an indication of how the patient's score ranks in relation to the general population. Higher percentile rankings indicate better function/quality of life. 50th percentile is the average of the general population and indicates half of respondents had a worse score. HISTORY: PAST MEDICAL HISTORY Diagnosis Date Chronic back pain Genital warts GERD (gastroesophageal reflux disease) Impotence Marijuana user Multiple joint pain Nerve root disorder Nontoxic single thyroid nodule Obesity with body mass index 30 or greater Spondylosis Vitamin D deficiency PAST SURGICAL HISTORY Procedure Laterality Date PAST SURGICAL HISTORY OF H/O Spinal surgery PAST SURGICAL HISTORY OF Right 2013 Foot PAST SURGICAL HISTORY OF Right 2014 meniscus repair TONSILLECTOMY AND ADENOIDECTOMY AGE 13/> Social History Tobacco Use Smoking status: Former Types: Cigarettes Passive exposure: Yes Smokeless tobacco: Former Types: Chew Vaping Use Vaping status: current everyday user Substances: THC, CBD, Flavoring Devices: Disposable Substance Use Topics Alcohol use: Yes Comment: Occasionally Drug use: Yes Frequency: 7.0 times per week Types: Marijuana Comment: 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 [facility] 07-26-2024 Note HNO ID: [id number] Author: LOUISE BECK LPN Service: ? Author Type: LICENSED NURSE Type: Progress Notes Filed: 07/26/2024 17:15 Note Text: Verified name and date of . CC Post Void Residual HPI: P luis is here now for an appointment with Brittni Thomas APRN, DESTINY Procedure: Explained procedure to patient and verbalizes understanding. Performed a PVR. Patient urinated and instructed to empty bladder as much as possible just prior to having PVR done using bladder ultrasound scanner. Results of scan: 0 mL The patient tolerated the procedure well. Plan: Appointment with William. [facility] 06-27-2024 Telephone encounter Note Patient notified of results, verbalizes understanding of instructions. Truman Mantilla MA [facility] 06-27-2024 Miscellaneous Notes Patient notified of results, verbalizes understanding of instructions. Truman Mantilla MA Please let patient know urine culture is negative, no UTI. Follow-up as discussed at visit with urology. We are still awaiting the rest of his STD result documented in this encounter [facility] 06-27-2024 Telephone encounter Note Please let patient know urine culture is negative, no UTI. Follow-up as discussed at visit with urology. We are still awaiting the rest of his STD result [facility] Work Phone: 06-27-2024 Telephone encounter Note Patient notified of results, verbalizes understanding of instructions. Truman Mantilla MA [facility] 06-27-2024 Miscellaneous Notes Patient notified of results, verbalizes understanding of instructions. Truman Mantilla MA Negative chlamydia and gonorrhea, trichomonas documented in this encounter [facility] 06-27-2024 Telephone encounter Note Negative chlamydia and gonorrhea, trichomonas [facility] Work Phone: 06-26-2024 Note HNO ID: [id number] Author: DINORA LOPEZ PA-C Service: ? Author Type: Physician Park Interpretive Specialist Type: Progress Notes Filed: 06/26/2024 15:04 Note Text: This note was created using [employer]. Subjective Sagrario Brannon is a 38 year old male. HPI Presents with a chief complaint of dysuria and difficulty urinating since about 6 hours. He states he had masturbated earlier this morning and after that started to have pain at the base of his penis. He denies any flank pain. Denies any drainage from his penis. He states he did have a new sexual partner about 4 months ago and had some burning right after but really went away so was not seen for it. He also developed some bumps on the shaft of his penis 2 months ago that have not gone away. They are not painful. He denies fever. He has a history of kidney stone 1 time in the past. He states with that he had the flank pain but does not have at this time. He did notice some blood in his urine. He is not having any testicular pain. Review of Systems Constitutional: Negative. Genitourinary: Positive for difficulty urinating, dysuria, genital sores, hematuria, penile pain and urgency. Negative for flank pain, frequency, penile discharge, penile swelling, scrotal swelling and testicular pain. All other systems reviewed and are negative. PAST MEDICAL HISTORY Diagnosis Date NEGATIVE MEDICAL HISTORY Current Outpatient Medications Medication Sig Dispense Refill escitalopram oxalate (LEXAPRO) 20 mg tablet Take 1 tablet by mouth every afternoon. meloxicam (MOBIC) 15 mg tablet Take 1 tablet by mouth every afternoon. (Patient not taking: Reported on 06/26/2024) omeprazole (PRILOSEC) 40 mg capsule Take 1 capsule by mouth every afternoon. (Patient not taking: Reported on 06/26/2024) cholecalciferol, Vitamin D3, (VITAMIN D3) 1,250 mcg (50,000 unit) cap capsule take 1 capsule by mouth every month (Patient not taking: Reported on 06/26/2024) lidocaine (LIDODERM) 5 % apply 1 patch topically once daily *ON FOR 12 HOURS AND OFF FOR 12 HOURS* (Patient not taking: Reported on 06/26/2024) sildenafil (VIAGRA) 50 mg tablet Take 1 tablet by mouth every afternoon. (Patient not taking: Reported on 06/26/2024) No current facility-administered medications for this visit. PAST SURGICAL HISTORY Procedure Laterality Date TONSILLECTOMY AND ADENOIDECTOMY AGE 13/> FAMILY HISTORY Problem Relation Age of Onset Ischemic Heart Disease Paternal Grandfather Social History Tobacco Use Smoking status: Never Passive exposure: Yes Smokeless tobacco: Never Substance Use Topics Alcohol use: Yes Drug use: No Objective BP 124/91 Pulse 90 Temp 36.3 ?C (97.4 ?F) Resp 20 Wt 129 kg (284 lb 6.3 oz) SpO2 98% Physical Exam Vitals reviewed. Constitutional: Appearance: Normal appearance. HENT: Head: Normocephalic and atraumatic. Genitourinary: Comments: The sensitive examination was discussed with the Patient or Patient's Authorized Costume Design Teacher. As applicable, any other physician, advance practice provider, medical student, or other health professional student that will be observing or involved in the sensitive examination for educational or training purposes was discussed with the Patient or Authorized Costume Design Teacher. The Patient or Authorized Costume Design Teacher has agreed to proceed with the sensitive examination. (Sensitive examination includes inspection and/or palpation of the breasts, pelvis, prostate and anorectal regions) Patient has skin colored papules to the right side of the shaft consistent with likely genital wart. No vesicles. Patient has no drainage or erythema of the urethral opening. No other rash noted. No testicular pain or lesions noted on palpation. Skin: General: Skin is warm and dry. Neurological: Mental Status: He is alert. Assessment and Plan ASSESSMENT/PLAN: 1. Screening for STD (sexually transmitted disease) - ICD9: V74.5, ICD10: Z11.3 (primary diagnosis) Full panel STD screening ordered. Patient has had some blood in his urine and dysuria, had large blood on urine dip. Discussed this could be a kidney stone. If he has severe pain, fever or is unable to urinate recommend being seen in the emergency department. Discussed follow-up with urology as well. Patient agreeable with plan. - UA DIP, URINE (POC) - GONORRHEA/CHLAMYDIA NAAT - TRICHOMONAS VAGINALIS NAAT - SYPHILIS TREPONEMAL W/REFLEX - HIV 1/2 COMBO WITH REFLEX TO DIFFERENTIATION - HEPATITIS C ANTIBODY IA WITH CONFIRMATION - HEPATITIS B SURFACE ANTIGEN 2. Dysuria - ICD9: 788.1, ICD10: R30.0 - UA DIP, URINE (POC) - URINE CULTURE 3. Genital warts - ICD9: 078.11, ICD10: A63.0 Follow up with urology - HSV1,2/VZV NAAT LESION - CONSULT TO UROLOGY 4. Gross hematuria - ICD9: 599.71, ICD10: R31.0 - CONSULT TO UROLOGY Dinora Lopez PA-C [facility] 06-26-2024 History of Presen t illness Narrative This note was created using [employer]. Subjective Sagrario Brannon is a 38 year old male. HPI Presents with a chief complaint of dysuria and difficulty urinating since about 6 hours. He states he had masturbated earlier this morning and after that started to have pain at the base of his penis. He denies any flank pain. Denies any drainage from his penis. He states he did have a new sexual partner about 4 months ago and had some burning right after but really went away so was not seen for it. He also developed some bumps on the shaft of his penis 2 months ago that have not gone away. They are not painful. He denies fever. He has a history of kidney stone 1 time in the past. He states with that he had the flank pain but does not have at this time. He did notice some blood in his urine. He is not having any testicular pain. Review of Systems Constitutional: Negative. Genitourinary: Positive for difficulty urinating, dysuria, genital sores, hematuria, penile pain and urgency. Negative for flank pain, frequency, penile discharge, penile swelling, scrotal swelling and testicular pain. All other systems reviewed and are negative. PAST MEDICAL HISTORY Diagnosis Date NEGATIVE MEDICAL HISTORY Current Outpatient Medications Medication Sig Dispense Refill escitalopram oxalate (LEXAPRO) 20 mg tablet Take 1 tablet by mouth every afternoon. meloxicam (MOBIC) 15 mg tablet Take 1 tablet by mouth every afternoon. (Patient not taking: Reported on 06/26/2024) omeprazole (PRILOSEC) 40 mg capsule Take 1 capsule by mouth every afternoon. (Patient not taking: Reported on 06/26/2024) cholecalciferol, Vitamin D3, (VITAMIN D3) 1,250 mcg (50,000 unit) cap capsule take 1 capsule by mouth every month (Patient not taking: Reported on 06/26/2024) lidocaine (LIDODERM) 5 % apply 1 patch topically once daily *ON FOR 12 HOURS AND OFF FOR 12 HOURS* (Patient not taking: Reported on 06/26/2024) sildenafil (VIAGRA) 50 mg tablet Take 1 tablet by mouth every afternoon. (Patient not taking: Reported on 06/26/2024) No current facility-administered medications for this visit. PAST SURGICAL HISTORY Procedure Laterality Date TONSILLECTOMY & ADENOIDECTOMY AGE 13/> FAMILY HISTORY Problem Relation Age of Onset Ischemic Heart Disease Paternal Grandfather Social History Tobacco Use Smoking status: Never Passive exposure: Yes Smokeless tobacco: Never Substance Use Topics Alcohol use: Yes Drug use: No Objective BP 124/91 Pulse 90 Temp 36.3 C (97.4 F) Resp 20 Wt 129 kg (284 lb 6.3 oz) SpO2 98% Physical Exam Vitals reviewed. Constitutional: Appearance: Normal appearance. HENT: Head: Normocephalic and atraumatic. Genitourinary: Comments: The sensitive examination was discussed with the Patient or Patient's Authorized Costume Design Teacher. As applicable, any other physician, advance practice provider, medical student, or other health professional student that will be observing or involved in the sensitive examination for educational or training purposes was discussed with the Patient or Authorized Costume Design Teacher. The Patient or Authorized Costume Design Teacher has agreed to proceed with the sensitive examination. (Sensitive examination includes inspection and/or palpation of the breasts, pelvis, prostate and anorectal regions) Patient has skin colored papules to the right side of the shaft consistent with likely genital wart. No vesicles. Patient has no drainage or erythema of the urethral opening. No other rash noted. No testicular pain or lesions noted on palpation. Skin: General: Skin is warm and dry. Neurological: Mental Status: He is alert. Assessment and Plan ASSESSMENT/PLAN: 1. Screening for STD (sexually transmitted disease) - ICD9: V74.5, ICD10: Z11.3 (primary diagnosis) Full panel STD screening ordered. Patient has had some blood in his urine and dysuria, had large blood on urine dip. Discussed this could be a kidney stone. If he has severe pain, fever or is unable to urinate recommend being seen in the emergency department. Discussed follow-up with urology as well. Patient agreeable with plan. - UA DIP, URINE (POC) - GONORRHEA/CHLAMYDIA NAAT - TRICHOMONAS VAGINALIS NAAT - SYPHILIS TREPONEMAL W/REFLEX - HIV 1/2 COMBO WITH REFLEX TO DIFFERENTIATION - HEPATITIS C ANTIBODY IA WITH CONFIRMATION - HEPATITIS B SURFACE ANTIGEN 2. Dysuria - ICD9: 788.1, ICD10: R30.0 - UA DIP, URINE (POC) - URINE CULTURE 3. Genital warts - ICD9: 078.11, ICD10: A63.0 Follow up with urology - HSV1,2/VZV NAAT LESION - CONSULT TO UROLOGY 4. Gross hematuria - ICD9: 599.71, ICD10: R31.0 - CONSULT TO UROLOGY Dinora Lopez PA-C documented in this encounter [facility] 08-23-2023 History of Presen t illness Narrative Patient presents with: Ear Pain: left x couple weeks, right x 1 day HPI: Left earache for a couple weeks, right painful since last night. Improving from COVID a couple weeks ago Positive symptoms: Cough, Earache, Nasal Congestion, Rhinorrhea, Fever (none for a couple days), decreased hearing, Negative symptoms: otorrhea, Vomiting, Diarrhea, OTC: Cold Medicine MEDICATIONS: Current Outpatient Medications Medication Sig meloxicam (MOBIC) 15 mg tablet Take 1 tablet by mouth every afternoon. omeprazole (PRILOSEC) 40 mg capsule Take 1 capsule by mouth every afternoon. escitalopram oxalate (LEXAPRO) 20 mg tablet Take 1 tablet by mouth every afternoon. cholecalciferol, Vitamin D3, (VITAMIN D3) 1,250 mcg (50,000 unit) cap capsule take 1 capsule by mouth every month traMADol (ULTRAM) 50 mg tablet TAKE 1 TABLET BY MOUTH EVERY 12 HOURS FOR 5 DAYS NEEDED FOR PAIN lidocaine (LIDODERM) 5 % apply 1 patch topically once daily *ON FOR 12 HOURS AND OFF FOR 12 HOURS* sildenafil (VIAGRA) 50 mg tablet Take 1 tablet by mouth every afternoon. No current facility-administered medications for this visit. ALLERGIES: ALLERGIES Allergen Reactions Hydrocodone-Acetami* Mental Status Change States he get panic attacks VITALS: BP 136/84 Pulse 82 Temp 36.5 C (97.7 F) Resp 16 Wt 122 kg (269 lb) SpO2 96% PHYSICAL EXAM: GEN: mildly ill appearing HEENT: PERRL, EOMI, conjunctiva clear Ears: canals clear. TMs with erythema, bulge, and purulent effusion Sinuses: non-tender frontal sinus, non-tender maxillary sinuses Throat: moist mucous membranes, mild erythema, no exudate Neck: supple, no thyromegaly, no lymphadenopathy HEART: regular rate and rhythm, no murmurs LUNGS: clear to auscultation, no wheezes or crackles, no increased WOB ASSESSMENT/PLAN: 1. Non-recurrent acute suppurative otitis media of both ears without spontaneous rupture of tympanic membranes - ICD9: 382.00, ICD10: H66.003 - AMOXICILLIN 875 MG TABLET As needed analgesia. Dom David MD documented in this encounter [facility] 12-20-2021 Instructions Completed [facility] Work Phone: [phone] [id number] NotePatient Name: Sagrario Brannon Date of : 1985 Date: 12/11/21 Discharge Summary Admit date: 12/03/2021 Discharge date and time: 12/10/2021 6:13 PM Admitting Physician: Ziggy Lovelace DO Admission Diagnoses: intractable low back pain s/p lumbar decompression L4/S1 on 11/30 Discharge Diagnoses: same Problem List: Active Problems: Status post lumbar spine surgery for decompression of spinal cord Resolved Problems: * No resolved hospital problems. * Body mass index is 37.97 kg/m?. Obese Operative Procedures: lumbar decompression L4/S1 on 11/30 Hospital Course: The patient was admitted for postoperative pain control. The patient progressed with physical therapy and met all goals prior to discharge. The patient was tolerating a diet and had their pain controlled prior to discharge. The patient pain was controlled and patient was discharged. Disposition: Per SW Discharge Medications: Medication List START taking these medications oxyCODONE-acetaminophen 5-325 MG per tablet Commonly known as: Percocet Take 1 tablet by mouth every 6 hours as needed for Pain for up to 7 days. Intended supply: 7 days. Take lowest dose possible to manage pain Where to Get Your Medications These medications were sent to [facility] - [facility] [address] [facility] - P [phone] - F [phone] [address] [facility] [id number] ? oxyCODONE-acetaminophen 5-325 MG per tablet Patient Instructions: The patient will notify the office for any increased bleeding, drainage, or progressively worsening pain, or other concerning symptoms. They have been instructed to report to the emergency room immediately for any chest pain or shortness of breath. Activity Precautions: WBAT on Bilateral Lower Extremities. Work on obtaining range of motion as discussed in the discharge instructions. Patient was provided with appropriate DVT prophylactic medication as well as appropriate analgesia medication. Wound Care: -Wash hands before touching or changing dressings -Do Not touch incision -Change dressing daily starting post-op day 2 and reapply dressing if leaking -If Dry, can keep open to air -OK to shower if wound is sealed/dry post-op day 3 Follow-up visit with Dr. Ziggy Lovelace in 2-3 weeks post-op. Signed: Sagrario Banuelos MD 12/11/2021 7:45 [facility]04-11-2022 Hospital Discharge instructions* Discharge Instr - Lab* Becki Delong RN - 12/10/2021 12:47 PM EDT Your physician has ordered skilled home care services for you. Your home care will be provided by: [facility] [phone] * Additional Instructions* Sagrario Banuelos MD - 12/10/2021 Images from the original note were not included. Orthopaedic Surgery Discharge Instructions: -Weight bearing as tolerated -Activity as tolerated, except avoid heavy lifting/pulling/otherwise strenuous activity -Follow-up outpatient with Dr. Ziggy Lovelace. The office contact information is provided in your paperwork. -IF you experience SEVERE worsening of pain in short period of time and/or significant numbness/weakness in extremities or new loss of bowel or bladder function please call the office or return to the emergency department -Take medications as prescribed by the hospital doctors documented in this encounterSUMMA Work Phone: [phone]) 144-885404-11-2022 History of Present illness Narrative* ANEL Hurley - 12/10/2021 11:59 AM EDT Occupational Therapy Facility/Department: [facility] Daily Treatment Note NAME: Sagrario Brannon : 1985 Date of Service: 12/10/2021 Discharge Recommendations: Home with Home health OT Assessment Assessment: Progressing toward goals, plan is for home today. Suggest [facility] OT. REQUIRES OT FOLLOW UP: Yes Safety Devices Type of devices: Left in chair;Call light within reach Restrictions Spinal Precautions: No Bending,No Lifting,No Twisting Subjective Subjective: Pt in chair, agrees to OT. States plan is now for home at discharge. Pain Assessment Pain Type: Acute pain Pain Location: Hip Vital Signs Patient Currently in Pain: Yes Objective ADL Grooming: Supervision (wash hands at sink) LE Dressing: Supervision (don/doff socks, figure 4 in chair) Functional Mobility Functional Mobility Comments: Funct amb in room with no device, indep. Toilet Transfers Equipment Used: Raised toilet seat without rails Toilet Transfer: Supervision Transfers Sit to stand: Modified independent Stand to sit: Modified independent Plan Plan Comment: Cont OT per POC AM-PAC Score AM-PAC Inpatient Daily Activity Raw Score: 24 (12/10/21 [facility]) AM-PAC Inpatient ADL T-Scale Score : 57.54 (12/10/21 [facility]) ADL Inpatient CMS 0-100% Score: 0 (12/10/21 [facility]) ADL Inpatient CMS G-Code Modifier : CH (12/10/21 [facility]) Goals Short term goal 1: LB dressing with AE mod indep --PROGRESSING Short term goal 2: toileting mod indep --NOT ADDRESSED Short term goal 3: grooming at sink mod indep --PROGRESSING Therapy Time Individual Concurrent Group Co-treatment Time In 1144 Time Out 1159 Minutes 15 Timed Code Treatment Minutes: 15 Minutes (Funct--1) ANEL Valladares * Wanda Valverde DTR - 12/10/2021 11:34 AM EDT Nutrition update completed. Chart reviewed. Patient to be monitored and followed by the diet word processor technician. * Vale Nolasco RN - 12/10/2021 11:24 AM EDT Patient is ready to go home. He states, I've got some family drama at home. I need to go home Patient does not want a SNF at this time and is okay with home PT/OT. Pt is independent in his room andpain is controlled. * Sagrario Banuelos MD - 12/10/2021 6:07 AM EDT Images from the original note were not included. [facility] [address] [facility] [address] Dept: [phone] Loc: [phone] Orthopedic Progress Note Name: Sagrario Brannon Date:12/10/2021 Attending:DO Dianna Cavanaugh. Having PTSD symptoms which he reports have been worse while in house. Objective Vitals: Vitals: 12/08/21 2351 12/09/21 0434 12/09/21 1724 12/10/21 0305 BP: (!) 154/109 (!) 143/93 (!) 144/92 114/69 Pulse: 108 86 88 80 Resp: Temp: 96.6 F (35.9 C) 96.9 F (36.1 C) 96.9 F (36.1 C) TempSrc: Temporal Temporal Temporal Temporal SpO2: 98% 99% 97% Weight: Height: Physical Exam: General: NAD Surgical incision clean/dry/intact and well approximated with yayo. No drainage, no marginal erythema. There is significant tenderness to palpation at the incision HF (L2) KE (L3) DF (L4) EHL (L5) PF (S1) Sensation Pulses Tenderness Straight Leg Raise RLE 4*/5 4+/5 4+/5 5/5 5/5 Intact L1-S1 DP, PT pulse present RIGHT LOWER EXTREMITY: None LOG ROLL: no n/a LLE 3-/5* 4-/5* 4/5 5/5 5/5 Intact L1-S1, slightly diminished compared to R side DP, PT pulse present LEFT LOWER EXTREMITY: None LOG ROLL: no n/a *Limited due to pain LABS: No results for input(s): WBC, HGB, HCT, PLT in the last 72 hours. No results for input(s): NA, K, CL, CO2, BUN, CREATININE, CALCIUM, PHOS in the last 72 hours. Invalid input(s): MAGNES No results for input(s): INR in the last 72 hours. No results for input(s): SEDRATE, CRP in the last 72 hours. No results for input(s): HCG in the last 72 hours. Assessment Sagrario is a 36 y.o.male with intractable low back pain s/p lumbar decompression L4/S1 on 11/30 Plan No plan for return to OR MRI completed 12/06/21. Post-surgical changes without any evidence of compression. Okay for diet at this time Multimodal pain control, acute pain service consult Social work and case management consult Weight-bear as tolerated, activity as tolerated Ambulate patient PT/OT Skin/neurovascular checks Incision checks: Reinforce dressing as needed DVT prophylaxis, SCDs only Ortho 1 * Jerica La, ASSOCIATE PROFESSOR OF ECONOMICS - 12/09/2021 2:51 PM EDT Physical Therapy Facility/Department: [facility] Daily Treatment Note NAME: Sagrario Brannon : 1985 Date of Service: 12/09/2021 Discharge Recommendations: (Facility based vs home with assist PRN and HHC PT) Assessment Assessment: Pt presents with the above deficts and LBP. Ice applied following session. Bed Mobilityand Transfers demo's Mod I. Ambulation with FWW SUP with distance over 250 ft x 2. Ambulation with no device for short distances SUP.Stair training completed with SBA and use of Bilat HR. Pt slightlyunsteady descending stairs secondary to increased pain. No LOB noted throughout session. Increased time required for task completion secondary to increase pain and fatigue. PT goals progressing with 2 met at this time. Recommend home with assist PRN and HHC PT or facility based therapy if assist isnot available. Prognosis: Good Decision Making: Low Complexity REQUIRES PT FOLLOW UP: Yes Activity Tolerance Activity Tolerance: Patient limited by pain Patient Diagnosis(es): The encounter diagnosis was Acute midline low back pain without sciatica. has a past medical history of Hypertension. has a past surgical history that includes back surgery. Restrictions Restrictions/Precautions Restrictions/Precautions: Up as Tolerated,Surgical Protocols Required Braces or Orthoses?: Yes Required Braces or Orthoses Spinal: Lumbar Corset (indep to don/doff) Position Activity Restriction Spinal Precautions: No Bending,No Lifting,No Twisting Subjective General Chart Reviewed: Yes Additional Pertinent Hx: 11/30/21 bilateral laminectomy and discectomy, partial facetectomy and foraminotomies L4-S1 Response To Previous Treatment: Patient with no complaints from previous session. Family / Caregiver Present: No Subjective Subjective: Pt supine with nsg at bedside administering meds. Pt reports he had PTSD session from startling him in his room in the night. Pt verbalizes anxiety. RN aware. General Comment Comments: RN cleared for therapy Pain Screening Patient Currently in Pain: Yes Pain Assessment Pain Assessment: 0-10 Pain Level: 4 Pain Type: Acute pain Pain Location: Hip Pain Orientation: Left Pain Descriptors: Sharp;Shooting Vital Signs Patient Currently in Pain: Yes Orientation Orientation Overall Orientation Status: Within Functional Limits Cognition Cognition Overall Cognitive Status: WFL Objective Bed mobility Supine to Sit: Modified independent (Log Roll technique) Sit to Supine: Unable to assess (Left sitting up in chair for lunch) Scooting: Modified independent Comment: Demo'd proper sequencing and maintained spinal precautions throughout postional transitions. No c/o dizziness. Pain consistant throughout. Transfers Sit to Stand: Modified independent Stand to sit: Modified independent Comment: Increased time for transitions secondary to pain Ambulation Ambulation?: Yes WB Status: no restrictions More Ambulation?: Yes Ambulation 1 Surface: level tile Device: Rolling Walker Assistance: Supervision Quality of Gait: Step to gait with occasional step through gait pattern. Decreased stance on LLE, as well as decreased extension on LLE. Ice applied to L hip post session. Gait Deviations: Slow Naomi;Decreased step length;Decreased step height Distance: 250 ft x 2 Comments: Standing rest break x 4. Heavy reliance at times on FWW to decrease pain in L hip. Pt reports pain gets to be 8/10 with ambulation. Increased time required for task completion d/t pain. Ambulation 2 Surface - 2: level tile Device 2: No device Assistance 2: Supervision Quality of Gait 2: Step to gait with decreased stance time on LLE Gait Deviations: Slow Naomi;Decreased step length;Decreased step height Distance: 30ft x 2 Comments: No LOB. Pt steady and stable Stairs/Curb Stairs?: Yes Stairs # Steps : 6 (x 2) Stairs Height: 6 Rails: Bilateral Device: No Device Assistance: Stand by assistance Comment: Step to ascend and descend. Slight unsteadiness d/t increase in pain. No LOB noted. Balance Comments: Standing balance, dynamic and static SUP. Mod I for static and dynmaic sitting. AM-PAC Score AM-PAC Inpatient Mobility Raw Score : 22 (12/09/211450) AM-PAC Inpatient T-Scale Score : 53.28 (12/09/211450) Mobility Inpatient CMS 0-100% Score: 20.91 (12/09/211450) Mobility Inpatient CMS G-Code Modifier : CJ (12/09/211450) Goals Short term goals Time Frame for Short term goals: 2 weeks Short term goal 1: modified independent bed mobility - met Short term goal 2: modified independent sit to/from stand - met Short term goal 3: independent ambulation 300 feet with device PRN - PROGRESSING Short term goal 4: independent up/down 4-5 steps with rail - progressing Patient Goals Patient goals : Pain reduction. Plan Plan Times per week: 5-7 Plan weeks: 2 Current Treatment Recommendations: Strengthening,Functional Mobility Training,Transfer Training,Gait Training,Stair training,Safety Education & Training Safety Devices Type of devices: All fall risk precautions in place,Call light within reach,Nurse notified,Left in chair Restraints Initially in place: No Therapy Time Individual Concurrent Group Co-treatment Time In 1253 Time Out 1318 Minutes 25 Timed Code Treatment Minutes: 23 Minutes (GT x 2) ASSOCIATE PROFESSOR OF ECONOMICS wore surgical mask and gloves throughout entire session with patient. Patient wore mask at all times when out of room. Jerica La PTA * Dorian Medina MD - 12/09/2021 7:28 AM EDT Images from the original note were not included. [facility] [address] [place] [address] Dept: [phone] Loc: [phone] Orthopedic Progress Note Name: Sagrario Brannon Date:12/09/2021 Attending:DO Dianna Cavanaugh NAEO. Working on pain control still. Having PTSD symptoms. Psych on board. Objective Vitals: Vitals: 12/08/21 0604 12/08/21 1718 12/08/21 2351 12/09/21 0434 BP: (!) 140/94 132/89 (!) 154/109 (!) 143/93 Pulse: 66 86 108 86 Resp: Temp: 97.1 F (36.2 C) 95.6 F (35.3 C) 96.6 F (35.9 C) TempSrc: Temporal Temporal Temporal Temporal SpO2: 98% 97% 98% 99% Weight: Height: Physical Exam: General: NAD Surgical incision clean/dry/intact and well approximated with yayo. No drainage, no marginal erythema. There is significant tenderness to palpation at the incision HF (L2) KE (L3) DF (L4) EHL (L5) PF (S1) Sensation Pulses Tenderness Straight Leg Raise RLE 4*/5 4+/5 4+/5 5/5 5/5 Intact L1-S1 DP, PT pulse present RIGHT LOWER EXTREMITY: None LOG ROLL: no n/a LLE 3-/5 4-/5 4-/5 5/5 5/5 Intact L1-S1, slightly diminished compared to R side DP, PT pulse present LEFT LOWER EXTREMITY: None LOG ROLL: no n/a *Limited due to pain LABS: No results for input(s): WBC, HGB, HCT, PLT in the last 72 hours. No results for input(s): NA, K, CL, CO2, BUN, CREATININE, CALCIUM, PHOS in the last 72 hours. Invalid input(s): MAGNES No results for input(s): INR in the last 72 hours. No results for input(s): SEDRATE, CRP in the last 72 hours. No results for input(s): HCG in the last 72 hours. Assessment Sagrario is a 36 y.o.male with intractable low back pain s/p lumbar decompression L4/S1 on 11/30 Plan No plan for return to OR MRI completed 12/06/21. Post-surgical changes without any evidence of compression. Okay for diet at this time Multimodal pain control, acute pain service consult Social work and case management consult Weight-bear as tolerated, activity as tolerated Ambulate patient PT/OT Skin/neurovascular checks Incision checks: Reinforce dressing as needed DVT prophylaxis, SCDs only Ortho 1 * Dorian Medina MD - 12/08/2021 2:10 PM EDT Images from the original note were not included. [facility] [address] [facility] [address] Dept: [phone] Loc: [phone] Orthopedic Progress Note Name: Sagrario Brannon Date:12/08/2021 Attending:Ziggy Lovelace, DO Subjective Continuing to have left hip pain that radiates to lateral leg. Able to ambulate and walk halls. Objective Vitals: Vitals: 12/07/21 0615 12/07/21 1822 12/07/21 1822 12/08/21 0604 BP: (!) 144/88 131/73 (!) 140/94 Pulse: 64 76 66 Resp: 18 18 16 Temp: 97 F (36.1 C) 97.3 F (36.3 C) 97.1 F (36.2 C) TempSrc: Temporal Temporal Temporal Temporal SpO2: 98% 97% 98% Weight: Height: Physical Exam: General: NAD Surgical incision clean/dry/intact and well approximated with yayo. No drainage, no marginal erythema. There is significant tenderness to palpation at the incision HF (L2) KE (L3) DF (L4) EHL (L5) PF (S1) Sensation Pulses Tenderness Straight Leg Raise RLE 4*/5 4+/5 4+/5 5/5 5/5 Intact L1-S1 DP, PT pulse present RIGHT LOWER EXTREMITY: None LOG ROLL: no n/a LLE 3-/5 4-/5 4-/5 5/5 5/5 Intact L1-S1, slightly diminished compared to R side DP, PT pulse present LEFT LOWER EXTREMITY: None LOG ROLL: no n/a *Limited due to pain LABS: No results for input(s): WBC, HGB, HCT, PLT in the last 72 hours. No results for input(s): NA, K, CL, CO2, BUN, CREATININE, CALCIUM, PHOS in the last 72 hours. Invalid input(s): MAGNES No results for input(s): INR in the last 72 hours. No results for input(s): SEDRATE, CRP in the last 72 hours. No results for input(s): HCG in the last 72 hours. Assessment Sagrario is a 36 y.o.male with intractable low back pain s/p lumbar decompression L4/S1 on 11/30 Plan No plan for return to OR MRI completed 12/06/21. Post-surgical changes without any evidence of compression. Okay for diet at this time Multimodal pain control, acute pain service consult Social work and case management consult Weight-bear as tolerated, activity as tolerated Ambulate patient PT/OT Skin/neurovascular checks Incision checks: Reinforce dressing as needed DVT prophylaxis, SCDs only Ortho 1 * Romy Gonzalez, ASSOCIATE PROFESSOR OF ECONOMICS - 12/07/2021 3:26 PM EDT Physical Therapy Facility/Department: [facility] Daily Treatment Note NAME: Sagrario Brannon : 1985 Date of Service: 12/07/2021 Discharge Recommendations: (facility based PT) Assessment Body structures, Functions, Activity limitations: Increased pain;Decreased strength Assessment: good effort. pain left hip. c/o tightness low back, hip. mild diaphoresis with extendedgait. awaiting pain meds. applied ice after session with relief. patient good functional mobility, does not require assist for functional mobility. ?self care, OT needs. his concern is being home alone and passing out due to pain. rec home with assist, if assist not available facility based with continued PT. Prognosis: Good REQUIRES PT FOLLOW UP: Yes Activity Tolerance Activity Tolerance: Patient limited by pain Patient Diagnosis(es): The encounter diagnosis was Acute midline low back pain without sciatica. has a past medical history of Hypertension. has a past surgical history that includes back surgery. Restrictions Restrictions/Precautions Restrictions/Precautions: Up as Tolerated,Surgical Protocols Required Braces or Orthoses?: Yes Required Braces or Orthoses Spinal: Lumbar Corset (indept to don/doff) Position Activity Restriction Spinal Precautions: No Bending,No Lifting,No Twisting Subjective General Chart Reviewed: Yes Additional Pertinent Hx: 11/30/21 bilateral laminectomy and discectomy, partial facetectomy and foraminotomies L4-S1 Family / Caregiver Present: No Subjective Subjective: seated bedside chair. states he will not have any help at home due to the recent loss of his grandmother, his mother will be out of town. patient misses his children. frustrated with several spine surgeries, pain, passing out, unable to play with his children. pleasant. wants to feel better. Pain Screening Patient Currently in Pain: Yes Pain Assessment Patient's Stated Pain Goal: 5 Pain Type: Acute pain;Chronic pain;Surgical pain Pain Location: Back;Hip Pain Orientation: Left Vital Signs Patient Currently in Pain: Yes Orientation Orientation Overall Orientation Status: Within Functional Limits Cognition Cognition Overall Cognitive Status: WFL Objective Bed mobility Sit to Supine: Modified independent (logroll) Transfers Sit to Stand: Modified independent Stand to sit: Modified independent Comment: increased time with transitions Ambulation Ambulation?: Yes More Ambulation?: Yes Ambulation 1 Surface: level tile Device: Rolling Walker Assistance: Supervision Quality of Gait: Step to gait on RLE to shortened - due to decreased WB on LLE and decreased extention on LLE Gait Deviations: Slow Naomi;Decreased step length;Decreased step height Distance: 200'x2 Comments: brief stand rest X2, seated restX1 Ambulation 2 Surface - 2: level tile Device 2: No device Assistance 2: Independent Gait Deviations: Slow Naomi;Decreased step length;Decreased step height Distance: 20'x2 Stairs/Curb Stairs?: Yes Stairs # Steps : (4) Rails: Bilateral Curbs: 6 Assistance: Stand by assistance Comment: step to up/down Balance Comments: stance unsupported supevision Exercises Gluteal Sets: . Knee Long Arc Quad: . Ankle Pumps: . Comments: BLE AROM AM-PAC Score AM-PAC Inpatient Mobility Raw Score : 22 (12/07/211516) AM-PAC Inpatient T-Scale Score : 53.28 (12/07/211516) Mobility Inpatient CMS 0-100% Score: 20.91 (12/07/211516) Mobility Inpatient CMS G-Code Modifier : CJ (12/07/211516) Goals Short term goals Time Frame for Short term goals: 2 weeks Short term goal 1: modified independent bed mobility - met Short term goal 2: modified independent sit to/from stand - met Short term goal 3: independent ambulation 300 feet with device PRN - PROGRESSING Short term goal 4: independent up/down 4-5 steps with rail - progressing Patient Goals Patient goals : Pain reduction. Plan Plan Times per week: 5-7 Plan weeks: 2 Current Treatment Recommendations: Strengthening,Functional Mobility Training,Transfer Training,Gait Training,Stair training,Safety Education & Training Safety Devices Type of devices: All fall risk precautions in place,Call light within reach,Left in bed,Nurse notified Restraints Initially in place: No Therapy Time Individual Concurrent Group Co-treatment Time In 1448 Time Out 1517 Minutes 29 Timed Code Treatment Minutes: (GTx2) *PPE per facility policy used during session* *patient wore mask while out of room* Romy Gonzalez PTA * Braulio Kay MD - 12/07/2021 10:36 AM EDT Images from the original note were not included. [facility] [address] [place] [address] Dept: [phone] Loc: [phone] Orthopedic Progress Note Name: Sagrario Brannon Date:12/07/2021 Attending:Ziggy Lovelace DO Subjective Patient complaining of continued pain in the left hip region with associated spasms. He feels it isunchanged in nature since yesterday. He denies any new weakness/paresthesias. No bowel or bladder concerns. Tolerating PO. Objective Vitals: Vitals: 12/05/21 1635 12/06/21 0439 12/06/21 2300 12/07/21 0615 BP: (!) 153/91 (!) 147/85 (!) 147/85 (!) 144/88 Pulse: 80 54 54 64 Resp: 16 16 18 Temp: 98.7 F (37.1 C) 97.6 F (36.4 C) 97 F (36.1 C) TempSrc: Temporal Temporal Temporal SpO2: 97% 95% 98% Weight: Height: Physical Exam: General: NAD Surgical incision clean/dry/intact and well approximated with yayo. No drainage, no marginal erythema. There is significant tenderness to palpation at the incision HF (L2) KE (L3) DF (L4) EHL (L5) PF (S1) Sensation Pulses Tenderness Straight Leg Raise RLE 4*/5 4+/5 4+/5 5/5 5/5 Intact L1-S1 DP, PT pulse present RIGHT LOWER EXTREMITY: None LOG ROLL: no n/a LLE 3-/5 4-/5 4-/5 5/5 5/5 Intact L1-S1, slightly diminished compared to R side DP, PT pulse present LEFT LOWER EXTREMITY: None LOG ROLL: no n/a *Limited due to pain LABS: No results for input(s): WBC, HGB, HCT, PLT in the last 72 hours. No results for input(s): NA, K, CL, CO2, BUN, CREATININE, CALCIUM, PHOS in the last 72 hours. Invalid input(s): MAGNES No results for input(s): INR in the last 72 hours. No results for input(s): SEDRATE, CRP in the last 72 hours. No results for input(s): HCG in the last 72 hours. Assessment Sagrario is a 36 y.o.male with intractable low back pain s/p lumbar decompression L4/S1 on 11/30 Plan No plan for return to OR MRI completed 12/06/21. Post-surgical changes without any evidence of compression. Okay for diet at this time Multimodal pain control, acute pain service consult Social work and case management consult Weight-bear as tolerated, activity as tolerated Ambulate patient PT/OT Skin/neurovascular checks Incision checks: Reinforce dressing as needed DVT prophylaxis, SCDs only Ortho 1 * Morenita Jeter, PhD - 12/07/2021 9:37 AM EDT Consult acknowledged. Will be seen by [facility] provider later this afternoon. * Cici Holguin MD - 12/06/2021 7:04 PM EDT MRI reviewed by attending surgeon. There are postsurgical changes with a postoperative seroma communicating with the laminectomy site, which is very common after surgery. No evidence of compressive hematoma. Calcified disc bulges at L4-5 and L5/S1, relatively unchanged from preoperative imaging. Formal radiology read pending. no further surgical intervention indicated. We will continue symptom management and therapy. Cici Holguin MD Orthopaedic Surgery, PGY2 [facility] [phone] * Too Carreon - 12/06/2021 12:27 PM EDT Physical Therapy Facility/Department: [facility] TELEMETRY Daily Treatment Note NAME: Sagrario Brannon : 1985 Date of Service: 12/06/2021 Discharge Recommendations: (facility based PT) PT Equipment Recommendations Equipment Needed: No Assessment Body structures, Functions, Activity limitations: Decreased functional mobility ;Increased pain;Decreased strength Assessment: Pt demo decreased mobility, endurance, and strength due to recent back surgery. Pt was able to perform bed mobility with supervision, required verbal cues on core stabiliation and breathing techniques. Pt was motivated to perform ambulation as tolerated with supervision 50ft x3 with FWW. Pt required 3 intermittent breaks for pain. Recommend facility based therapy at discharge. REQUIRES PT FOLLOW UP: Yes Activity Tolerance Activity Tolerance: Patient limited by pain;Patient limited by fatigue Patient Diagnosis(es): The encounter diagnosis was Acute midline low back pain without sciatica. has a past medical history of Hypertension. has a past surgical history that includes back surgery. Restrictions Restrictions/Precautions Restrictions/Precautions: Weight Bearing,Up as Tolerated Required Braces or Orthoses?: Yes Required Braces or Orthoses Spinal: Lumbar Corset Subjective General Chart Reviewed: Yes Additional Pertinent Hx: 11/30/21 bilateral laminectomy and discectomy, partial facetectomy and foraminotomies L4-S1 Response To Previous Treatment: Patient with no complaints from previous session. Family / Caregiver Present: No Subjective Subjective: Pt in bed. Pt agrees to PT. Pt had difficulty sleeping due to positioning. Pt reports limited ROM in L hip/ thigh due to pain & tightness. Pain Screening Patient Currently in Pain: Yes Pain Assessment Pain Type: Acute pain;Surgical pain (Sharp pain on LLE from lateral / posterior hip with attempt ofLE SAQ exercies) Pain Location: Back;Hip Pain Orientation: Left Pain Descriptors: Sharp;Aching;Discomfort Pain Frequency: Continuous Pain Onset: Progressive Clinical Progression: Not changed Response to Pain Intervention: (Sharp pain; pt unable to perform exercises) Vital Signs Patient Currently in Pain: Yes Orientation Orientation Overall Orientation Status: Within Normal Limits Cognition Objective Bed mobility Rolling to Left: Supervision Supine to Sit: Supervision Transfers Sit to Stand: Supervision Stand to sit: Supervision Ambulation Ambulation?: Yes WB Status: no restrictions More Ambulation?: Yes Ambulation 1 Surface: level tile Device: Rolling Walker Assistance: Stand by assistance Quality of Gait: Step to gait on RLE to shortened - due to decreased WB on LLE and decreased extention on LLE Gait Deviations: Slow Naomi Distance: 50ft x 3 Comments: Pt took 3x standing breaks for pain control. Verbal cues on UE postural contol, pt elevates shoulders. Stairs/Curb Stairs?: No Balance Sitting - Static: Good Sitting - Dynamic: Good Standing - Static: Good Standing - Dynamic: Good Comments: Pt able to don/ doff back brace with supervision. Verbal cues on placement over lumbar spine. Pt would benefit from a smaller brace. Exercises Ankle Pumps: x 5 Other exercises Other exercises?: No G-Code AM-PAC Score AM-PAC Inpatient Mobility Raw Score : 18 (12/06/211225) AM-PAC Inpatient T-Scale Score : 43.63 (12/06/211225) Mobility Inpatient CMS 0-100% Score: 46.58 (12/06/211225) Mobility Inpatient CMS G-Code Modifier : CK (12/06/211225) Goals Short term goals Time Frame for Short term goals: 2 weeks Short term goal 1: modified independent bed mobility - PROGRESSING Short term goal 2: modified independent sit to/from stand - PROGRESSING Short term goal 3: independent ambulation 300 feet with device PRN - PROGRESSING SLOWLY Short term goal 4: independent up/down 4-5 steps with rail - NOT ASSESSED Patient Goals Patient goals : Pain reduction. Plan Plan Times per week: 5-7 Plan weeks: 2 Current Treatment Recommendations: Strengthening,Functional Mobility Training,Transfer Training,Gait Training,Stair training,Safety Education & Training Safety Devices Type of devices: Call light within reach,Gait belt,Left in bed,Nurse notified Restraints Initially in place: No Therapy Time Individual Concurrent Group Co-treatment Time In 1120 Time Out 1149 Minutes 29 Timed Code Treatment Minutes: 29 Minutes (GT, FA) *PPE per facility policy used during session* TOO Daniel PTA * Cici Holguin MD - 12/06/2021 8:14 AM EDT Images from the original note were not included. [facility] H[facility] TELEMETRY [address] [facility] [address] Dept: [phone] Loc: [phone] Orthopedic Progress Note Name: Sagrario Brannon Date:12/06/2021 Attending:Ziggy Lovelace DO Subjective Patient complaining of worsening pain in the left hip region with associated spasms. He feels is getting worse after the resident who rounded on him yesterday scared him when he woke him up. Objective Vitals: Vitals: 12/04/21 1829 12/04/21 2125 12/05/21 1635 12/06/21 0439 BP: 135/76 (!) 176/109 (!) 153/91 (!) 147/85 Pulse: 78 102 80 54 Resp: 19 18 16 16 Temp: 96.2 F (35.7 C) 98.7 F (37.1 C) 97.6 F (36.4 C) TempSrc: Temporal Temporal Temporal SpO2: 98% 98% 97% 95% Weight: Height: Physical Exam: General: NAD Surgical incision clean/dry/intact and well approximated with yayo. No drainage, no marginal erythema. There is significant tenderness to palpation at the incision HF (L2) KE (L3) DF (L4) EHL (L5) PF (S1) Sensation Pulses Tenderness Straight Leg Raise RLE 4*/5 4+/5 4+/5 5/5 5/5 Intact L1-S1 DP, PT pulse present RIGHT LOWER EXTREMITY: None LOG ROLL: no n/a LLE 4-/5 4-/5 4-/5 5/5 5/5 Intact L1-S1, slightly diminished compared to R side DP, PT pulse present LEFT LOWER EXTREMITY: None LOG ROLL: no n/a *Limited due to pain LABS: No results for input(s): WBC, HGB, HCT, PLT in the last 72 hours. No results for input(s): NA, K, CL, CO2, BUN, CREATININE, CALCIUM, PHOS in the last 72 hours. Invalid input(s): MAGNES No results for input(s): INR in the last 72 hours. No results for input(s): SEDRATE, CRP in the last 72 hours. No results for input(s): HCG in the last 72 hours. Assessment Sagrario is a 36 y.o.male with intractable low back pain s/p lumbar decompression L4/S1 on 11/30 Plan No plan for return to OR MRI to rule out postsurgical complication Okay for diet at this time Multimodal pain control, acute pain service consult Social work and case management consult Weight-bear as tolerated, activity as tolerated Ambulate patient PT/OT Skin/neurovascular checks Incision checks: Reinforce dressing as needed DVT prophylaxis, SCDs only Cici Holguin MD Orthopaedic Surgery, [address] [phone] * Jose Flores, OT - 12/05/2021 4:01 PM EDT Occupational Therapy Occupational Therapy Initial Assessment Date: 12/05/2021 Patient Name: Sagrario Brannon : 1985 Date of Service: 12/05/2021 Discharge Recommendations: Continue to assess pending progress (FBT vs home therapies and 24/03 assist) Assessment Performance deficits / Impairments: Decreased functional mobility ;Decreased ADL status;Decreased strength;Decreased safe awareness;Decreased endurance;Decreased balance;Decreased high-level IADLs Assessment: 36 y.o.male underwent a bilateral laminectomy and discectomy, as well as partial facetectomy and foraminotomies L4-S1 on Thursday 11/30 at [facility], discharged on 12/03 and struggled withpain control. HX of HTN. Home with mother, reports he cares for her and takes care of all home mgmtat baseline. Pt does not use device for mob, has fall hx d/t back pain. Home is single level with chair in tub shower. On eval pt reporting constant back pain at rest and with motion. Pt also reporting L hip pain d/t being startled awake this AM by floor staff per his report. Pt has multiple complaints of prior injuries and painful joints relating to his back pain and RA. Pt also emotional at times when discussing his pain, children, and his own childhood trauma. Functionally demonstrates supervision for transfers and mobility without device. He is max A to DON/DOFF socks d/t pain, will need AE. Pt does reports he is able to complete all other dressing tasks without assist except for socks,he is unable to bring either LE into figure four position while seated EOB. Pt reports he does not f eel safe returning home, would like rehab placement. Pt functionally able to care for himself at a supervision/mod indep level and with AE for LB dressing would be safe at home. However, concern for his ability to care for his mother and to complete home mgmt tasks such as carrying laundry baskets,cooking, driving, and carrying grocery bags would be very difficult at this time. If pt is unable to be placed into facility he would need home therapies for home safety and compensation techs. Prognosis: Good Decision Making: Low Complexity OT Education: OT Role;Plan of Care REQUIRES OT FOLLOW UP: Yes Safety Devices Safety Devices in place: Yes Type of devices: Call light within reach;Left in bed Patient Diagnosis(es): The encounter diagnosis was Acute midline low back pain without sciatica. has a past medical history of Hypertension. has a past surgical history that includes back surgery. Restrictions Restrictions/Precautions Required Braces or Orthoses?: Yes Required Braces or Orthoses Spinal: Lumbar Corset Subjective General Chart Reviewed: Yes Patient assessed for rehabilitation services?: Yes Family / Caregiver Present: No Patient Currently in Pain: Yes Pain Assessment Clinical Progression: Not changed Vital Signs Patient Currently in Pain: Yes Social/Functional History Social/Functional History Lives With: Other (comment) (Mother--Shares custody of sons) Type of Home: House Home Layout: One level Home Access: Stairs to enter with rails Entrance Stairs - Number of Steps: 6 Entrance Stairs - Rails: Both Bathroom Shower/Tub: Tub/Shower unit Bathroom Toilet: Standard Bathroom Equipment: Shower chair Bathroom Accessibility: Accessible Home Equipment: Cane ADL Assistance: Independent Homemaking Assistance: Independent (Prior to admit patient unable to complete) Ambulation Assistance: Independent (with cane PRN) Transfer Assistance: Independent Active Director Digital Catalogue: Yes Additional Comments: Discharge checklist given. Objective Orientation Overall Orientation Status: Within Normal Limits Balance Sitting Balance: Independent Standing Balance: Supervision ADL LE Dressing: Maximum assistance (pt able to DON his pants per his reports, attempted socks and unable d/t pain) Tone RUE RUE Tone: Normotonic Tone LUE LUE Tone: Normotonic Transfers Sit to stand: Supervision Stand to sit: Supervision LUE AROM (degrees) LUE AROM : WFL RUE AROM (degrees) RUE AROM : WFL Plan Plan Times per week: 3-5 Plan weeks: 4 Current Treatment Recommendations: Strengthening,Balance Training,Functional Mobility Training,Endurance Training,Gait Training,Pain Management,Safety Education & Training,Patient/Caregiver Education & Training,Equipment Evaluation, Education, & procurement,Home Management Training G-Code OutComes Score [facility] Daily Activity Inpatient How much help for putting on and taking off regular lower body clothing?: A Little How much help for Bathing?: A Little How much help for Toileting?: None How much help for putting on and taking off regular upper body clothing?: None How much help for taking care of personal grooming?: None How much help for eating meals?: None [facility] Inpatient Daily Activity Raw Score: 22 [facility] Inpatient ADL T-Scale Score : 47.1 ADL Inpatient CMS 0-100% Score: 25.8 ADL Inpatient CMS G-Code Modifier : AM-PAC Score [facility] Inpatient Daily Activity Raw Score: 22 (12/05/21 1556) [facility] Inpatient ADL T-Scale Score : 47.1 (12/05/21 1556) ADL Inpatient CMS 0-100% Score: 25.8 (12/05/21 1556) ADL Inpatient CMS G-Code Modifier : (12/05/21 1556) Goals Short term goals Time Frame for Short term goals: 4 weeks Short term goal 1: LB dressing with AE mod indep Short term goal 2: toileting mod indep Short term goal 3: grooming at sink mod indep Therapy Time Individual Concurrent Group Co-treatment Time In 09 Time Out 0942 Minutes 19 Jose Flores OT Goals and/or treatment plan was established in collaboration with patient/family/other representatives. Patient's Occupational Therapy Plan of Care supervision is transferred to [facility] Occupational Therapist. *OT evaluation/treatment completed wearing N95 and gloves* * Wanda Valverde DTR - 12/05/2021 11:55 AM EDT Nutrition rescreen completed. Chart reviewed. Patient to be monitored and followed by the diet word processor technician. * Lavonne Ochoa PT - 12/05/2021 10:11 AM EDT Physical Therapy Facility/Department: [facility] TELEMETRY Initial Assessment NAME: Sagrario Brannon : 1985 Date of Service: 12/05/2021 Discharge Recommendations: (facility based PT) PT Equipment Recommendations Equipment Needed: No Assessment Body structures, Functions, Activity limitations: Decreased functional mobility ;Increased pain;Decreased strength Assessment: Patient presents with impaired mobility and pain following recent back surgery. 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 He is currently supervision for mobility and would have difficulty safely caring for self and others at home. He did go home after sx at [facility] and passed out due to pain with resulting fall. Recommend facility based PT at discharge. Prognosis: Good Decision Making: Low Complexity PT Education: Plan of Care REQUIRES PT FOLLOW UP: Yes Activity Tolerance Activity Tolerance: Patient limited by pain Patient Diagnosis(es): The encounter diagnosis was Acute midline low back pain without sciatica. has a past medical history of Hypertension. has a past surgical history that includes back surgery. Restrictions Restrictions/Precautions Required Braces or Orthoses?: Yes Required Braces or Orthoses Spinal: Lumbar Corset Vision/Hearing Hearing: Within functional limits Subjective General Chart Reviewed: Yes Patient assessed for rehabilitation services?: Yes Additional Pertinent Hx: 11/30/21 bilateral laminectomy and discectomy, partial facetectomy and foraminotomies L4-S1 Response To Previous Treatment: Not applicable Family / Caregiver Present: No Diagnosis: acute midline low back pain without sciatica, s/p lumbar spine surgery Follows Commands: Within Functional Limits Subjective Subjective: Patient in bed. He reports left hip/thigh tightness and pain that is worse since being abruptly woken from a deep sleep earlier today. Pain Screening Patient Currently in Pain: Yes Pain Assessment Pain Location: Hip Pain Orientation: Left;Lower;Mid Vital Signs Patient Currently in Pain: Yes Oxygen Therapy O2 Device: None (Room air) Pre Treatment Pain Screening Intervention List: Patient able to continue with treatment (Patient reports he has had pain medication and muscle relaxants.) Orientation Orientation Overall Orientation Status: Within Normal Limits Social/Functional History Social/Functional History Lives With: (mother) Type of Home: House Home Layout: One level Home Access: Stairs to enter with rails Entrance Stairs - Number of Steps: 4 Home Equipment: Cane ADL Assistance: Independent Ambulation Assistance: Independent (with cane PRN) Transfer Assistance: Independent Additional Comments: Patient states he is a caregiver for his mother and he has 2 young sons that he cares for 5 days of the week. Cognition Cognition Overall Cognitive Status: WNL Objective AROM RLE (degrees) RLE AROM: WFL AROM LLE (degrees) LLE AROM : WFL Strength RLE Strength RLE: WFL Strength LLE Strength LLE: WFL Tone RLE RLE Tone: Normotonic Tone LLE LLE Tone: Normotonic Motor Control Gross Motor?: WNL Bed mobility Supine to Sit: Supervision Transfers Sit to Stand: Supervision Stand to sit: Supervision Ambulation Ambulation?: Yes WB Status: no restrictions More Ambulation?: Yes Ambulation 1 Surface: level tile Device: No Device Assistance: Supervision Quality of Gait: decreased weight bearing through LLE Gait Deviations: Slow Naomi Distance: 20 feet Ambulation 2 Surface - 2: level tile Device 2: Rolling Walker Assistance 2: Supervision Quality of Gait 2: decreased weight bearing through LLE Gait Deviations: Slow Naomi Distance: 15 feet Ambulation 3 Surface - 3: level tile Device 3: No device Assistance 3: Supervision (Patient reaches for malloy rail for support about 25% of the time.) Quality of Gait 3: decreased weight bearing through LLE Gait Deviations: Slow Naomi Distance: 120 feet x 2 Stairs/Curb Stairs?: Yes Stairs # Steps : 5 (3 - 4, 2 - 6) Rails: Right ascending Assistance: Supervision Comment: cues for technique, completed with step to pattern Balance Sitting - Static: Good Sitting - Dynamic: Good;- Standing - Static: Good Standing - Dynamic: Good;- Comments: Patient able to don back brace with supervision for proper placement over lumbar spine. Plan Plan Times per week: 5-7 Plan weeks: 2 Current Treatment Recommendations: Strengthening,Functional Mobility Training,Transfer Training,Gait Training,Stair training,Safety Education & Training Safety Devices Type of devices: Call light within reach (Patient with OT and sitting edge of bed at end of PT session.) Restraints Initially in place: No G-Code OutComes Score AM-PAC Score AM-PAC Inpatient Mobility Raw Score : 18 (12/05/21951) AM-PAC Inpatient T-Scale Score : 43.63 (12/05/21951) Mobility Inpatient CMS 0-100% Score: 46.58 (12/05/21951) Mobility Inpatient CMS G-Code Modifier : CK (12/05/21951) Goals Short term goals Time Frame for Short term goals: 2 weeks Short term goal 1: modified independent bed mobility Short term goal 2: modified independent sit to/from stand Short term goal 3: independent ambulation 300 feet with device PRN Short term goal 4: independent up/down 4-5 steps with rail Patient Goals Patient goals : Pain reduction. Therapy Time Individual Concurrent Group Co-treatment Time In 0858 Time Out 0941 Minutes 43 Timed Code Treatment Minutes: 20 Minutes (GT) PPE worn in accordance with [facility] guidelines. Patient s Physical Therapy Plan of Care supervision is transferred to [facility] Rehab Department Physical Therapist. Lavonne Ochoa PT * Eren Mike MD - 12/05/2021 6:15 AM EDT Images from the original note were not included. [facility] H[address] TELEMETRY [address] [place], [place] [id number] Dept: [phone] Loc: [phone] Orthopedic Progress Note Name: Sagrario Brannon Date:12/05/2021 Attending:Ziggy Lovelace DO Subjective No events o/n. Patient resting comfortably in the room upon arrival, but was startled upon waking. Currently denies any new onset numbness/paresthesias or muscle weakness. Objective Vitals: Vitals: 12/04/21 1040 12/04/21 1305 12/04/21 1829 12/04/215 BP: 122/72 115/75 135/76 (!) 176/109 Pulse: 78 68 78 102 Resp: Temp: 96.2 F (35.7 C) TempSrc: Temporal SpO2: 98% 98% 98% 98% Weight: Height: Physical Exam: General: NAD Surgical incision clean/dry/intact and well approximated with yayo. No drainage, no marginal erythema. There is significant tenderness to palpation at the incision HF (L2) KE (L3) DF (L4) EHL (L5) PF (S1) Sensation Pulses Tenderness Straight Leg Raise RLE 4*/5 4+/5 4+/5 5/5 5/5 Intact L1-S1 DP, PT pulse present RIGHT LOWER EXTREMITY: None LOG ROLL: no n/a LLE 4*/5 4+/5 4/5 5/5 5/5 Intact L1-S1, slightly diminished compared to R side DP, PT pulse presentLEFT LOWER EXTREMITY: None LOG ROLL: no n/a *Limited due to pain LABS: No results for input(s): WBC, HGB, HCT, PLT in the last 72 hours. No results for input(s): NA, K, CL, CO2, BUN, CREATININE, CALCIUM, PHOS in the last 72 hours. Invalid input(s): MAGNES No results for input(s): INR in the last 72 hours. No results for input(s): SEDRATE, CRP in the last 72 hours. No results for input(s): HCG in the last 72 hours. Assessment Sagrario is a 36 y.o.male with intractable low back pain s/p lumbar decompression L4/S1 on 11/30 Plan No plan for return to OR Okay for diet at this time Multimodal pain control, acute pain service consult Social work and case management consult Weight-bear as tolerated, activity as tolerated Ambulate patient PT/OT Skin/neurovascular checks Incision checks: Reinforce dressing as needed DVT prophylaxis, SCDs only Eren Mike MD PGY-2 Orthopedic Surgery Pager [phone] documented in this encounterSUMMA Work Phone: [phone] Hospital Discharge instructions Patient Education 06/13/2021 20:35:44 Back Care Tips Back Care Tips Caring for your back These are things you can do to prevent a recurrence of acute back pain and to reduce symptoms from chronic back pain: Maintain a healthy weight. If you are overweight, losing weight will help most types of back pain. Exercise is an important part of recovery from most types of back pain. The muscles behind and in front of the spine support the back. This means strengthening both the back muscles and the abdominalmuscles will provide better support for your spine. Swimming and brisk walking are good overall exercises to improve your fitness level. Practice safe lifting methods (below). Practice good posture when sitting, standing and walking. Avoid prolonged sitting. This puts more stress on the lower back than standing or walking. Wear quality shoes with sufficient arch support. Foot and ankle alignment can affect back symptoms.Women should avoid wearing high heels. Therapeutic massage can help relax the back muscles without stretching them. During the first 24 to 72 hours after an acute injury or flare-up of chronic back pain, apply an ice pack to the painful area for 20 minutes and then remove it for 20 minutes, over a period of 60 to 90 minutes, or several times a day. As a safety precaution, do not use a heating pad at bedtime. Sleeping on a heating pad can lead to skin corbett or tissue damage. You can alternate ice and heat therapies. Medicines Talk to your healthcare provider before using medicines, especially if you have other medical problems or are taking other medicines. You may use acetaminophen or ibuprofen to control pain, unless your healthcare provider prescribed other pain medicine. If you have chronic conditions like diabetes, liver or kidney disease, stomach ulcers, or gastrointestinal bleeding, or are taking blood thinners, talk with your healthcare provider before taking any medicines. Be careful if you are given prescription pain medicines, narcotics, or medicine for muscle spasm. They can cause drowsiness, affect your coordination, reflexes, and judgment. Do not drive or operate heavy machinery while taking these types of medicines. Take prescription pain medicine only as prescribed by your healthcare provider. Lumbar stretch Here is a simple stretching exercise that will help relax muscle spasm and keep your back more limber. If exercise makes your back pain worse, don t do it. Lie on your back with your knees bent and both feet on the ground. Slowly raise your left knee to your chest as you flatten your lower back against the floor. Hold for 5 seconds. Relax and repeat the exercise with your right knee. Do 10 of these exercises for each leg. Safe lifting method Don t bend over at the waist to lift an object off the floor. Instead, bend your knees and hips in a squat. Keep your back and head upright Hold the object close to your body, directly in front of you. Straighten your legs to lift the object. Lower the object to the floor in the reverse fashion. If you must slide something across the floor, push it. Posture tips Sitting Sit in chairs with straight backs or low-back support. Keep your knees lower than your hips, with your feet flat on the floor. When driving, sit up straight. Adjust the seat forward so you are not leaning toward the steering wheel. A small pillow or rolled towel behind your lower back may help if you are driving long distances. Standing When standing for long periods, shift most of your weight to one leg at a time. Alternate legs every few minutes. Sleeping The best way to sleep is on your side with your knees bent. Put a low pillow under your head to support your neck in a neutral spine position. Avoid thick pillows that bend your neck to one side. Puta pillow between your legs to further relax your lower back. If you sleep on your back, put pillowsunder your knees to support your legs in a slightly flexed position. Use a firm mattress. If your mattress sags, replace it, or use a 1/2-inch plywood board under the mattress to add support. Follow-up care Follow up with your healthcare provider, or as advised. If X-rays, a CT scan or an MRI scan were taken, they will be reviewed by a radiologist. You will benotified of any new findings that may affect your care. Call 911 Call 911 if any of the following occur: Trouble breathing Confusion Very drowsy Fainting or loss of consciousness Rapid or very slow heart rate Loss of bowel or bladder control When to seek medical advice Call your healthcare provider right away if any of the following occur: Pain becomes worse or spreads to your arms or legs Weakness or numbness in one or both arms or legs Numbness in the groin area [id number] [employer]. [address] [place] [address]57. All rights reserved. This information is not intended as a substitute for professional medical care. Always follow yourhealthcare professional's instructions. Follow Up Care 06/13/2021 20:03:09 With:MCKAY SILVEIRA MD Address: When:2-4 days With:DENNY HANSON MD Address: [address] [place] [address]- When:2-4 days [facility] 09-29-2021 Evaluation + Plan note Future Scheduled Tests Radiology* XR Spine Lumbar AP/LAT 05/30/21 [facility] Evaluation + Plan note Future Appointments Appointment Date:07/14/2023 01:00:00 PM Scheduled Provider:SUZI MARAVILLA APRN, CNP Location:[facility] Appointment Type:PC OV Follow Up Future Scheduled Tests Laboratory* Antistreptolysin O 07/15/23 * C-Reactive Protein 07/15/23 * Vitamin D Level 07/15/23 Radiology* XR Hip Minimum 2 Views Left 10/08/22 [facility] Evaluyiprv noteThere may be information available, but it has not been provided by the sender.[facility] Work Phone: Evaluation note* Diagnosis Acute midline low back pain without sciatica- Primary Status post lumbar spine surgery for decompression of spinal cord documented in this encounter [facility] Work Phone: Evaluation noteNo assessment information available [facility] Work Phone: Evaluation note* Diagnosis Non-recurrent acute suppurative otitis media of both ears without spontaneous rupture of tympanic membranes- [facility] Diagnosis Screening for STD (sexually transmitted disease)- Primary Screening examination for venereal disease Dysuria Genital warts Condyloma acuminatum Gross hematuria [facility]* Diagnosis Dysuria- Primary Microscopic hematuria Genital warts Condyloma acuminatum [facility]* Diagnosis Dysuria Microscopic hematuria [facility] Narrative No data available for this section [facility] Work Phone: Hospital Discharge instructions No data available for this section [facility] Instructions* Instruction Description Start Date CompletedPatient advised to follow-up with Primary Care Physician for BMI management. [facility] Work Phone: Progress note No data available for this section [facility] Reason for referral (narrative)* Diagnostic Procedure Only (Routine) - Authorized Specialty Diagnoses / Procedures Referred By Contac t Referred To Contact US IMAGING Diagnoses Dysuria Microscopic hematuria Procedures US KIDNEY/BLADDER US RETROPERITONEAL REAL TIME W/IMAGE COMPLETE William Bautista APRN.CNP, DNP [address] [place] [address] [place] [address] Referral ID Status Reason Start Date Expiration Date Visits Requested Visits Authorized [id number] Authorized Auto-Generat ed Referral 08/02/2024 08/25/2025 1 1 * Medication Prior Authorization - Closed Specialty Diagnoses / Procedures Referred By Contedouard t Referred To Contact Diagnoses Genital warts William Bautista APRN.CNP, DNP [address] [place] [address] Referral ID Status Reason Start Date Expiration Date Visits Re quested Visits Authorized [id number] Closed 07/26/2024 09/24/2024 1 1 [facility] ([facility]ative)* Diagnostic Procedure Only (Routine) - Closed Specialty Diagnoses / Procedures Referred By Contac t Referred To Contact US IMAGING Diagnoses Dysuria Microscopic hematuria Procedures US KIDNEY/BLADDER US RETROPERITONEAL REAL TIME W/IMAGE COMPLETE William Bautista APRN.DESTINY UNGER [address] [place] [address] [place] [address] Referral ID Status Reason Start Date Expiration Date V isits Requested Visits Authorized [id number] Closed Auto-Generate d Referral 08/02/2024 08/25/[address] [facility] Summary Purpose Family History No Family History Records Found Relationship Condition Age at Onset Recorded Date/T jessica Unknown Family History?- Unknown November 02, 2019 6:49pm Family History?- Unknown March 19, 2021 8:14am Family History?Heart Disease Unknown November 02, 2019 6:49pm Advance Directives No Advanced Directives Records FoundLatest Code Status on File Code Status Date Activated Date Inactivated Comments Full Code 12/04/2021 4:16 AM Advance Directive Response Recorded Date/ Time Living Will No March 24, 2022 12:41am Power of Security Manager No March 24 12:41am Advance Directive Response Recorded Date/ Time Living Will No June 14 2:52pm Power of Security Manager No June 14, 2022 2:52pm Chief Complaint Chief Complaint Description Start Date lower back pain Preliminary chief co mplaint data, not yet signed by the author as of Chief Complaint Description Start Date lower back post Bilateral po sterior lumbar laminectomy L4 L5 S1 Bilateral partial facetectomy and foraminotomies L4-L5 and L5-S1 bilateral L4-L5 and L5-S1 microdiscectomies on 11/30/2021 Preliminary chief co mplaint data, not yet signed by the author as of Chief Complaint and Reason for Visit Chief Complaint LEG PAIN sore throat Chief Complaint sore throat BACK Reason for Referral Specialty Diagnoses / Procedures Referred By Carmita serrato Referred To Contact Urology Diagnoses Genital warts Gross hematuria Procedures CONSULT TO UROLOGY OFFICE/OUTPATIENT [facility] 60 MINUTES Dinora Lopez PA-C [address] [place] [address] Referral ID Status Reason Start Date Expiration Date Visits Requested Visits Authorized [id number] Authorized PCP Requested Referral 4 06/26/2025 1 1 Additional Source Comments (unrecognized sect ion and content) No Status Records FoundNo Status Records FoundNo Status Records FoundNo Status Records FoundNo Status Records FoundNo Status Records FoundNo Status Records Found INFORMATION SOURCE (unrecogn ized section and content) DATE CREATED AUTHOR 04/30/2021 [facility] DATE CREATED AUTHOR AUTHOR'S ORGANIZ ATION 01/23/2022 [facility] DATE CREATED AUTHOR AUTHOR'S ORGANIZ ATION 03/24/2023 [facility] ([place]) DATE CREATED AUTHOR AUTHOR'S ORGANIZ ATION 06/10/2025 [facility] DATE CREATED AUTHOR AUTHOR'S ORGANIZ ATION 06/10/2025 [facility] DATE CREATED AUTHOR AUTHOR'S ORGANIZ ATION 06/20/2025 [facility] DATE CREATED AUTHOR AUTHOR'S ORGANIZ ATION 2025 [facility] Reason for Visit (unrecogniz ed section and content) Reason For Visit Description New/Est - 1st visit with physician 11/13 Preliminary reason f or visit data, not yet signed by the author as of lower back pain Reason Comments Back Pain Pt [facility] for lower back pain s/p surgery Friday. Pt sts he fell 3 times last night. Pt denies CP, SOB, and N/V at this time. The wound is bandaged. Reason For Visit Description Start Date Postop - 1st visit Preliminary reason f or visit data, not yet signed by the author as of lower back post Bilateral po sterior lumbar laminectomy L4 L5 S1 Bilateral partial facetectomy and foraminotomies L4-L5 and L5-S1 bilateral L4-L5 and L5-S1 microdiscectomies on 11/30/2021 Reason Comments Ear Pain left x couple weeks, right x 1 day Reason Comments STD Pain in bladder and kidney d/t inability to urinate, states he has bumps on his penis, and states he has burning on penis. Reason Comments Results Reason Comments Insurance Authorization Reason Comments Consult Blood In Urine Specialty Diagnoses / Procedures Referred By Contac t Referred To Contact Urology Diagnoses Genital warts Gross hematuria Procedures CONSULT TO UROLOGY OFFICE/OUTPATIENT [facility] 60 MINUTES Dinora Lopez PA-C [address] [place] [address] Referral ID Status Reason Start Date Expiration Date V isits Requested Visits Authorized [id number] Closed PCP Requested Referral 06/26/2024 06/26/2025 1 1 Reason Comments Radiology US Specialty Diagnoses / Procedures Referred By Contac t Referred To Contact US IMAGING Diagnoses Dysuria Microscopic hematuria Procedures US KIDNEY/BLADDER US RETROPERITONEAL REAL TIME W/IMAGE COMPLETE William Bautista APRN.TRAY CHECKER, DNP [address] [place] [address] [place] [address] Referral ID Status Reason Start Date Expiration Date V isits Requested Visits Authorized [id number] Closed Auto-Generate d Referral 08/02/2024 08/25/2025 1 1 Reason Comments Results Kidney US Ordered Prescriptions (unrec ognized section and content) Prescription Sig Dispensed Refills Start Date End Da te oxyCODONE-acetaminophen (PERCOCET) 5-325 MG per tabletIndications:Status post lumbar spine surgery for decompression of spinal cord Take 1 tablet by mouth every 6 hours as needed for Pain for up to 7 days. Intended supply: 7 days. Take lowest dose possible to manage pain 28 tablet 0 12/10/2021 12/17/2021 Scheduled Active and Recently Administ ered Medications (unrecognized section and content) Medication Order 12/08/2021 12/09/2021 12/10/2021 acetaminophen (TYLENOL) tablet 650 mg 650 mg, Oral, EVERY 6 HOURS, First dose on Fri12/04/21 at 0430, Until Discontinued, Maximum dose of acetaminophen is 4000 mg from all sources in 24 hours. 0010 (Given - Provider: Micaela Brush RN)0538 (Given - Provider: Micaela Brush RN)1414 (Not Given - Provider: Gissel Corea RN - Reason: Other)1622 (Given - Provider: Gissel Corea RN) 0019 (Given - Provider: Kylah Min RN)0543 (Given - Provider: Kylah Min RN)1205 (Given - Provider: Rafael Sweet RN)1837 (Given - Provider: Rafael Sweet RN) 0306 (Given - Provider: Kylah Min RN)0909 (Given - Provider: Vale Nolasco RN)1500 (Due - Provider: Deborah Peterson [facility])2100 (Due - Provider: Deborah Peterson [facility]) hydrocortisone (ANUSOL-HC) 2.5 % rectal cream Rectal, 2 TIMES DAILY, First dose on Fri12/06/21 at 2100 1113 (Given - Provider: Gissel Corea RN)2027 (Given - Provider: Kylah Min RN) 105 (Not Given - Provider: Rafael Sweet RN - Reason: Patient/family refused)2127 (Given - Provider: Kylah Min RN) 09 (Not Given - Provider: Vale Nolasco RN - Reason: Patient/family refused)2099 (Due) LORazepam (ATIVAN) injection 0.5 mg (COMPLETED) 0.5 mg, IntraVENous, ONCE, 1 dose, On Fri12/09/21 at 1200 2126 (Given - Provider: Kylah Min RN) polyethylene glycol (GLYCOLAX) packet 17 g 17 g, Oral, DAILY, First dose on Fri12/04/21 at 0900, Until Discontinued 0832 (Not Given - Provider: Gissel Corea RN - Reason: Other) 120 (Not Given - Provider: Rafael Sweet RN - Reason: Patient/family refused) 09 (Given - Provider: Vale Nolasco RN) sennosides-docusate sodium (SENOKOT-S) 8.6-50 MG tablet 1 tablet 1 tablet, Oral, 2 TIMES DAILY, First dose on Fri12/05/21 at 0900, Until Discontinued 0831 (Given - Provider: Gissel Corea RN)202 (Given - Provider: Kylah Min RN) 120 (Not Given - Provider: Rafael Sweet RN - Reason: Patient/family refused)2126 (Given - Provider: Kylah Min RN) 0909 (Given - Provider: Vale Nolsaco, RN)2100 (Due) sodium chloride flush 0.9 % injection 5-40 mL 5-40 mL, IntraVENous, EVERY 12 HOURS SCHEDULED (2 times per day), First dose on Fri12/04/21 at 0900, Until Discontinued, For Line Patency: Peripheral IV = 5 mL; Midline or Central Line = 10 mL/lumen. If following IV push medication, administer flush at same rate as the IV push. Flush volume is determined by type of infusion therapy being given. For non-viscous solutions use: Peripheral IV = 5 mL Midline or Central Line = 10 mL/lumen For viscous solutions (i.e. blood components, parenteral nutrition, contrast media, or after obtaining blood sample) use: Peripheral IV = 10 mL Midline or Central Line = 20 mL/lumen 1113 (Not Given - Provider: Gissel Corea RN - Reason: Other)2025 (Given - Provider: Kylah Min RN) 1206 (Not Given - Provider: Rafael Sweet RN - Reason: Patient/family refused)2127 (Given - Provider: Kylah Min RN) 0909 (Given - Provider: Vale Nolasco, BRANDON)2100 (Due) PRN Medication Order 12/08/2021 12/09/2021 12/10/2021 0.9 % sodium chloride infusion 25 mL, IntraVENous, at 100 mL/hr, PRN, If patient receiving piggyback infusions without ordered maintenance IV fluids or with frequent/long duration piggyback infusions, Starting on Fri12/04/21 at 0416, Administer at the same rate as the piggyback being infused. cyclobenzaprine (FLEXERIL) tablet 10 mg 10 mg, Oral, 3 TIMES DAILY PRN, Starting on Fri12/04/21 at 0416, Until Discontinued, Muscle spasms, 2nd line for muscle spasms 0012 (Given - Provider: Micaela Brush RN)0832 (Given - Provider: Gissel Corea RN)1622 (Given - Provider: Gissel Corea RN) 0432 (Given - Provider: Kylah Min RN)1203 (Given - Provider: Rafael Sweet RN)1840 (Given - Provider: Rafael Sweet RN) 0306 (Given - Provider: Kylah Min RN)1118 (Given - Provider: Vale Nolasco RN) HYDROmorphone (DILAUDID) injection 0.25 mg(Linked Group 1) HYDROmorphone (DILAUDID) 1.5mg IV is equivalent to morphine 10mg IV, 0.25 mg, IntraVENous, EVERY 3 HOURS PRN, Starting on Fri12/04/21 at 0416, Until Discontinued, Pain Moderate (4-6), If oral and IV narcotics ordered, use oral first and only use IV if oral is ineffective or cannot take oral. Do Not give oral and IV within 1 hour of each other unless specifically ordered. 2224 (See Alternative - Provider: Kylah Min RN) HYDROmorphone (DILAUDID) injection 0.5 mg(Linked Group 1) HYDROmorphone (DILAUDID) 1.5mg IV is equivalent to morphine 10mg IV, 0.5 mg, IntraVENous, EVERY 3 HOURS PRN, Starting on Fri12/04/21 at 0416, Until Discontinued, Pain Severe (7-10), If oral and IV narcotics ordered, use oral first and only use IV if oral is ineffective or cannot take oral. Do Not give oral and IV within 1 hour of each other unless specifically ordered. 2224 (Given - Provider: Kylah Min RN) hydrOXYzine (VISTARIL) capsule 50 mg 50 mg, Oral, 3 TIMES DAILY PRN, Starting on Fri12/09/21 at 0008, Until Discontinued, Anxiety 0019 (Given - Provider: Kylah Min RN)0843 (Given - Provider: Rafael Sweet RN) ondansetron (ZOFRAN) injection 4 mg(Linked Group 2) 4 mg, IntraVENous, EVERY 6 HOURS PRN, Starting on Fri12/04/21 at 0416, Until Discontinued, Nausea, Vomiting, Administer if oral route cannot be used. ondansetron (ZOFRAN-ODT) disintegrating tablet 4 mg(Linked Group 2) 4 mg, Oral, EVERY 8 HOURS PRN, Starting on Fri12/04/21 at 0416, Until Discontinued, Nausea, Vomiting oxyCODONE (ROXICODONE) immediate release tablet 5 mg 5 mg, Oral, EVERY 4 HOURS PRN, Starting on Fri12/04/21 at 0416, Until Discontinued, Pain Moderate (4-6) 0011 (Given - Provider: Micaela Brush RN)0420 (Given - Provider: Micaela Brush RN)0832 (Given - Provider: Gissel Corea RN)1238 (Given - Provider: Gissel Corea RN)1622 (Given - Provider: Gissel Corea RN)2026 (Given - Provider: Kylah Min RN) 0021 (Given - Provider: Kylah Min RN)0432 (Given - Provider: Kylah Min RN)0843 (Given - Provider: Rafael Sweet RN)1255 (Given - Provider: Rafael Sweet RN)1720 (Given - Provider: Rafael Sweet RN)2126 (Given - Provider: Kylah Min RN) 0306 (Given - Provider: Kylah Min RN)0722 (Given - Provider: Kylah Min RN)1118 (Given - Provider: Vale Nolasco RN) sodium chloride flush 0.9 % injection 5-40 mL 5-40 mL, IntraVENous, PRN, Starting on Fri12/04/21 at 0416, Until Discontinued, Line Care, After every IV line use Linked Groups Order Group 1: HYDROmorphone (DILAUDID) injection 0.25 mgJump to med HYDROmorphone (DILAUDID) 1.5mg IV is equivalent to morphine 10mg IV
0.25 mg, IntraVENous, EVERY 3 HOURS PRN, Starting on Fri12/04/21 at 0416, Until Discontinued, Pain Moderate (4-6)
If oral and IV narcotics ordered, use oral first and only use IV if oral is ineffective or cannot take oral. Do Not give oral and IV within 1 hour of each other unless specifically ordered.
Or HYDROmorphone (DILAUDID) injection 0.5 mgJump to med HYDROmorphone (DILAUDID) 1.5mg IV is equivalent to morphine 10mg IV
0.5 mg, IntraVENous, EVERY 3 HOURS PRN, Starting on Fri12/04/21 at 0416, Until Discontinued, Pain Severe (7-10)
If oral and IV narcotics ordered, use oral first and only use IV if oral is ineffective or cannot take oral. Do Not give oral and IV within 1 hour of each other unless specifically ordered.
Group 2: ondansetron (ZOFRAN-ODT) disintegrating tablet 4 mgJump to med 4 mg, Oral, EVERY 8 HOURS PRN, Starting on Fri12/04/21 at 0416, Until Discontinued, Nausea, Vomiting Or ondansetron (ZOFRAN) injection 4 mgJump to med 4 mg, IntraVENous, EVERY 6 HOURS PRN, Starting on Fri12/04/21 at 0416, Until Discontinued, Nausea, Vomiting
Administer if oral route cannot be used.
Goals (unrecognized section and content) Goals may be documented in a n alternate section Patient Care team informatio n (unrecognized section and content) Distributor Advertising Material Relationship Specialty Start Date End Date Suzi Maravilla, TRAY CHECKER [address] [facility] [address] PCP - General Family Medicine 05/29/23 Distributor Advertising Material Relationship Specialty Start Date End Date Suzi Maravilla, TRAY CHECKER [address] [facility] [address] PCP - General Family Medicine 05/29/23 Distributor Advertising Material Relationship Specialty Start Date End Date Suzi Maravilla, TRAY CHECKER [address] [facility] [address] PCP - General Family Medicine 05/29/23 Distributor Advertising Material Relationship Specialty Start Date End Date Suzi Maravilla, TRAY CHECKER [address] [facility] [address] PCP - General Family Medicine 05/29/23 Distributor Advertising Material Relationship Specialty Start Date End Date Suzi Maravilla, TRAY CHECKER [address] [place] [address] PCP - General Family Medicine 05/29/23 Distributor Advertising Material Relationship Specialty Start Date End Date Suzi Maravilla, TRAY CHECKER [address] [facility] [address] PCP - General Family Medicine 05/29/23 Distributor Advertising Material Relationship Specialty Start Date End Date Suzi Maravilla, TRAY CHECKER [address] [facility] [place], [place] [address] PCP - General Family Medicine 05/29/23 Source Comments (unrecognize d section and content) In the event this informatio n is protected by the Federal Confidentiality of Alcohol and Drug Abuse Patient Records regulations: The Federal rules restrict any use of the information to criminally investigate or prosecute any alcohol or drug abuse patient.[facility] the event this information is protected by the Federal Confidentiality of Alcohol and Drug Abuse Patient Records regulations: The Federal rules restrict any use of the information to criminally investigate or prosecute any alcohol or drug abuse patient.[facility] Hospital[facility] the event this information is protected by the Federal Confidentiality of Alcohol and Drug Abuse Patient Records regulations: The Federal rules restrict any use of the information to criminally investigate or prosecute any alcohol or drug abuse patient.[facility] Hospital[facility] the event this information is protected by the Federal Confidentiality of Alcohol and Drug Abuse Patient Records regulations: The Federal rules restrict any use of the information to criminally investigate or prosecute any alcohol or drug abuse patient.[facility] HospitalIn the event this information is protected by the Federal Confidentiality of Alcohol and Drug Abuse Patient Records regulations: The Federal rules restrict any use of the information to criminally investigate or prosecute any alcohol or drug abuse patient.[facility] HospitalIn the event this information is protected by the Federal Confidentiality of Alcohol and Drug Abuse Patient Records regulations: The Federal rules restrict any use of the information to criminally investigate or prosecute any alcohol or drug abuse patient.[facility] Hospital[facility] the event this information is protected by the Federal Confidentiality of Alcohol and Drug Abuse Patient Records regulations: The Federal rules restrict any use of the information to criminally investigate or prosecute any alcohol or drug abuse patient.[facility] HospitalIn the event this information is protected by the Federal Confidentiality of Alcohol and Drug Abuse Patient Records regulations: The Federal rules restrict any use of the information to criminally investigate or prosecute any alcohol or drug abuse patient.[facility] HospitalIn the event this information is protected by the Federal Confidentiality of Alcohol and Drug Abuse Patient Records regulations: The Federal rules restrict any use of the information to criminally investigate or prosecute any alcohol or drug abuse patient.[facility] FOR RECORDS PERTAINING TO PATIENTS WHO ARE OR HAVE BEEN ENROLLED IN A CHEMICAL DEPENDENCY/SUBSTANCEABUSE PROGRAM, SOME INFORMATION MAY BE OMITTED. This clinical summary was aggregated from multiple sources. Caution should be exercised in using it in the provision of clinical care. This summary normalizes information from multiple sources, and as a consequence, information in this document may materially change the coding, format and clinical context of patient data. In addition, data may be omitted in some cases. CLINICAL DECISIONS SHOULD BE BASED ON THE PRIMARY CLINICAL RECORDS. [facility] [employer] [facility]. provides no warranty or guarantee of the accuracy or completeness of information in this document.
== END 2025-08-28 03:08 | disposition home or self-care (01) ==
LOC: ED 03:01
PROVIDERS: Emergency Provider Specialist/Technologist Athletic Trainer; PCP Family Medicine; Visit Provider Specialist/Technologist Athletic Trainer
DX: L03.031 Cellulitis of right toe (principal); M06.9 Rheumatoid arthritis, unspecified; Z87.891 Personal history of nicotine dependence
CPT/HCPCS: 99283